=== PATIENT | male | born 1950 | race Caucasian/White ===

== ENCOUNTER → 2019-05-08 | Outpatient (REF) | payer MEDICARE | LOC: M SMT 16:42 | PROVIDERS: ATTEND Nurse Practitioner Family | DX: R97.20 Elevated prostate specific antigen [PSA] (principal) | CPT/HCPCS: 87086; G0463 ==

== ENCOUNTER 2019-10-24 07:45 | Day surgery (SDC) | payer MEDICARE ==
[~2019-10-24] VITALS: Ht 175.3 cm; Wt 90.7 kg
[~2019-10-24 07:45] MED LIST: ECOT81TA5 PO; LIDOCAINE 2% INJ 100 MG/5 ML SDV (FOR ANES.) As Ordered ONE; LR 1,000 ML IV SCH; OMEP-221 PO; PHENYLephrine HCL 500 MCG/5 ML (100MCG/ML) SYRINGE (J2370) As Ordered ONE; SIMV20TA22 PO; ePHEDrine SULFATE 25 MG/5 ML(5MG/ML) SYRINGE As Ordered ONE; propofoL 200 MG/20 ML VIAL As Ordered ONE
[2019-10-24] MEDS ORDERED: fentaNYL 100 MCG/2 ML INJECTION (J3010) As Ordered ONE (08:15)
[2019-10-24] MEDS ORDERED: dexameTHASONE 4 MG/ML 1ML VIAL (J1100) As Ordered ONE (08:47)
[2019-10-24] MEDS ORDERED: ONDANSETRON 4MG/2ML VIAL (J2405) As Ordered ONE (08:47)
[2019-10-24] MEDS ORDERED: LIDOCAINE 1% SDV INJ 30 ML VIAL As Ordered ONE (08:50)
[2019-10-24] MEDS ORDERED: BUPIVACAINE HCL 0.25% 30 ML VIAL As Ordered ONE (08:50)
[2019-10-24] MEDS ORDERED: propofoL 200 MG/20 ML VIAL As Ordered ONE (09:54)
[2019-10-24] MEDS ORDERED: PHENYLephrine HCL 500 MCG/5 ML (100MCG/ML) SYRINGE (J2370) As Ordered ONE (10:00)
[2019-10-24] MEDS ORDERED: ePHEDrine SULFATE 25 MG/5 ML(5MG/ML) SYRINGE As Ordered ONE (10:00)
[2019-10-24] MEDS ORDERED: ACETAMINOPHEN 1000MG 100ML IV BTL (OFIRMEV) (J0131 PER 10MG) As Ordered ONE (10:02)
[2019-10-24] MEDS ORDERED: KETOROLAC 30 MG/ML VIAL (J1885) IV PRN (10:30)
[2019-10-24] MEDS ORDERED: oxyCODONE 5MG TAB PO PRN (10:30)
[2019-10-24] MEDS ORDERED: LR 1,000 ML IV SCH (10:30)
[2019-10-24] MEDS ORDERED: ONDANSETRON 4MG/2ML VIAL (J2405) IV PRN (10:30)
--- NOTE | 2019-10-24 10:41 | ROOPDOC ---
[facility] Report Of Operation Report of Operation DATE OF PROCEDURE: 10/24/19 PREPROCEDURE DIAGNOSES: Elevated Prostate Specific Antigen (PSA). POSTPROCEDURE DIAGNOSES: Elevated PSA. PROCEDURE: Transrectal Ultrasound-guided Prostate Biopsy. SURGEON: Aarti Mccallum MD VEHICLE CHECK IN CLERK: None ANESTHESIA: Monitored Anesthesia Care (MAC). OPERATIVE INDICATIONS: This is a 69 year old male with an elevated PSA of 5.3, here for prostate biopsy. Due to him having a tight and painful anal stricture, it was recommended that his biopsy be done in the operating room. DESCRIPTION OF PROCEDURE: The patient was placed in the left lateral position. A transrectal ultrasound probe was placed into the rectum. A prostatic block was created with injection of 50% mixture of 1/4% Marcaine and 1% lidocaine below the left and right seminal vesicle each of the 5 mL. Then 12 core biopsies of the prostate were obtained using a disposable biopsy gun, 6 each from the right and 6 from the left, 2 from the base, 2 from the mid zone and 2 from the apex. There were no complications and the patient tolerated the procedure well and walked to the waiting room in stable condition. ESTIMATED BLOOD LOSS: Approximately 5 mL. COMPLICATIONS: None. SPECIMENS: Prostate biopsies. PLAN: The patient will follow up in 1-2 weeks to discuss pathology results. AARTI MCCALLUM MD Oct 24, 2019 10:41
[2019-10-24] MEDS ORDERED: ACETAMINOPHEN TAB 650MG DOSE (2X325MG) PO PRN (10:45)
[2019-10-24 10:48] VITALS: BP 151/76
--- NOTE | 2019-10-24 15:56 | REP ---
Prostate sonography: History: Elevated PSA. Guidance for prostate biopsy. Sonographic findings: Transrectal sonographic guidance is provided to Dr. Maguire who performed trans rectal ultrasound guided needle biopsy procedure . Electronically Signed by Ronny Saul MD 10/24/2019 10:30 A
== END 2019-10-24 11:12 | disposition home or self-care (01) ==
LOC: M SDC 07:45
PROVIDERS: ATTEND Urology
DX: C61 Malignant neoplasm of prostate (principal); I11.9 Hypertensive heart disease without heart failure; I25.10 Atherosclerotic heart disease of native coronary artery without angina pectoris; E78.5 Hyperlipidemia, unspecified; K62.4 Stenosis of anus and rectum; K21.9 Gastro-esophageal reflux disease without esophagitis; C63.1 Malignant neoplasm of spermatic cord; Z95.1 Presence of aortocoronary bypass graft; Z87.891 Personal history of nicotine dependence; Z79.899 Other long term (current) drug therapy; Z79.82 Long term (current) use of aspirin; Z85.09 Personal history of malignant neoplasm of other digestive organs
CPT/HCPCS: 55700; G0416; J0131; J1100; J2370; J2405; J3010

== ENCOUNTER 2019-11-26 10:52 | Day surgery (SDC) | payer MEDICARE ==
[~2019-11-26] VITALS: Ht 177.8 cm; Wt 89.4 kg
[~2019-11-26 10:52] MED LIST changes: +LIDOCAINE 1% MDV 20ML VIAL SQ PRN; -LIDOCAINE 2% INJ 100 MG/5 ML SDV (FOR ANES.) As Ordered ONE; +LR 1,000 ML IV ONE; -LR 1,000 ML IV SCH; -PHENYLephrine HCL 500 MCG/5 ML (100MCG/ML) SYRINGE (J2370) As Ordered ONE; +ceFAZolin SOD 2 GM in IV 1 EA IV ONE; -ePHEDrine SULFATE 25 MG/5 ML(5MG/ML) SYRINGE As Ordered ONE; -propofoL 200 MG/20 ML VIAL As Ordered ONE
[2019-11-26] MEDS ORDERED: fentaNYL 250 MCG/5 ML INJECTION (J3010) As Ordered ONE (12:06)
[2019-11-26] MEDS ORDERED: propofoL 200 MG/20 ML VIAL As Ordered ONE (12:06)
[2019-11-26] MEDS ORDERED: ROCURONIUM BROMIDE 50 MG/5 ML VIAL As Ordered ONE ×3 (12:06→17:01)
[2019-11-26] MEDS ORDERED: LIDOCAINE 2% 100MG/5ML SDV (FOR ANES.) As Ordered ONE (12:06)
[2019-11-26] MEDS ORDERED: MIDAZOLAM INJ 2MG/2ML VIAL (J2250 PER 1MG) As Ordered ONE (12:06)
[2019-11-26] MEDS ORDERED: NITR100C2 (12:07)
[2019-11-26] MEDS ORDERED: METO1TAB87 PO (12:07)
[2019-11-26] MEDS ORDERED: BUPIVACAINE HCL 0.25% 30ML VIAL As Ordered ONE (12:57)
[2019-11-26] MEDS ORDERED: LIDOCAINE 1% SDV 30ML VIAL As Ordered ONE (12:57)
[2019-11-26] MEDS ORDERED: SUCCINYLCHOLINE 100 MG/5 ML SYRINGE (J0330) As Ordered ONE (13:09)
[2019-11-26] MEDS ORDERED: HEPARIN SOD (PORCINE) 5000UNITS/ML VIAL (J1644 PER 1000UNITS) As Ordered ONE (13:23)
[2019-11-26] MEDS ORDERED: NS 1,000 ML IV SCH (13:31)
[2019-11-26] MEDS ORDERED: ONDANSETRON 4MG/2ML VIAL IV PRN ×2 (13:45→18:15)
[2019-11-26] MEDS ORDERED: MORPHINE 2 MG/ML 1ML VIAL (J2270) IV PRN (13:45)
[2019-11-26] MEDS ORDERED: PERCOCET 5MG/325MG TAB PO PRN ×2 (13:45)
[2019-11-26] MEDS ORDERED: ACETAMINOPHEN TAB 650MG DOSE (2X325MG) PO PRN (13:45)
[2019-11-26] MEDS ORDERED: LACRILUBE (AKWA TEARS) OPHTH OINT 3.5 GM As Ordered ONE (14:09)
[2019-11-26] MEDS ORDERED: ACETAMINOPHEN 1000MG 100ML IV BTL (OFIRMEV) (J0131 PER 10MG) As Ordered ONE (14:10)
[2019-11-26] MEDS ORDERED: KETOROLAC 60 MG/2 ML VIAL As Ordered ONE (14:10)
[2019-11-26] MEDS ORDERED: dexameTHASONE 4 MG/ML 1ML VIAL (J1100 PER 1MG) As Ordered ONE (14:10)
[2019-11-26] MEDS ORDERED: ONDANSETRON 4MG/2ML VIAL As Ordered ONE (14:10)
[2019-11-26] MEDS ORDERED: HYDROmorphone HCL 2 MG/ML 1ML VIAL (J1170) As Ordered ONE (14:57)
[2019-11-26] MEDS ORDERED: SUGAMMADEX SODIUM 500 MG/5 ML VIAL (BRIDION) As Ordered ONE (15:32)
[2019-11-26] MEDS ORDERED: ceFAZolin 2 GM/D5W 50 ML IV BAG (J0690 PER 500MG) As Ordered ONE (17:38)
[2019-11-26] MEDS ORDERED: fentaNYL 100 MCG/2 ML INJECTION (J3010) IV PRN (18:15)
[2019-11-26] MEDS ORDERED: oxyCODONE 5MG TAB PO PRN (18:15)
[2019-11-26] MEDS ORDERED: LR 1,000 ML IV SCH (18:15)
[2019-11-26] MEDS ORDERED: HYDROMORPHONE HCL 0.5 MG/ 0.5 ML SYRINGE (J1170 PER 1) IV PRN (18:15)
--- NOTE | 2019-11-26 18:18 | ROOPDOC ---
[facility] Report Of Operation Report of Operation DATE OF PROCEDURE: 11/26/19 PREPROCEDURE DIAGNOSES: Prostate Cancer. POSTPROCEDURE DIAGNOSES: Prostate Cancer. PROCEDURE: Robotic-assisted Laparoscopic Radical Prostatectomy, Laparoscopic Lysis of Adhesions. SURGEON: Aarti Mccallum MD CRITICAL CARE NURSE SPECIALIST: Lani Astudillo NP ANESTHESIA: General. OPERATIVE INDICATIONS: This is a 69 year old male with clinical T1c Rosendo 3+3 prostate cancer, here today for treatment. DESCRIPTION OF PROCEDURE: The patient was brought to the operating room and general anesthesia was induced. Prophylactic antibiotics were infused. He was then placed in the supine position and prepped and draped in the usual sterile fashion. At this point, a Jha catheter was inserted into the bladder and the balloon was filled with 10 mL of sterile water. We then made a midline incision just above the umbilicus for an 8 mm port. A Veress needle was utilized to achieve pneumoperitoneum. Next, an 8 mm port was inserted into the incision and subsequently a camera was inserted. There were no injuries from the Veress needle or initial trocar placement. Then three robotic ports were placed in the usual configuration in line just below the level of the umbilicus. A 12 mm optometrist assistant port was inserted lateral to the camera port. Of note, the patient had a moderate amount of bowel and omental adhesions to the anterior abdominal wall. Prior to docking the robot I spent approximately 30 minutes releasing these adhesions using laparasopic scissors. Once done, the robot was docked. Additional lysis of adhesions between the sigmoid colon and abdominal wall was then performed. The bladder was then released from the anterior abdominal wall using electrocautery. Once the bladder was dropped, the fat overlying the prostate was cleared using electrocautery. The superficial dorsal vein was controlled with electrocautery. The endopelvic fascia was opened on both sides and the dorsal venous complex was cleared. Next, a #0 Vicryl [id number] stitch was placed around the dorsal venous complex. Once that was done, the bladder was opened and dissected away from the prostate. At this point, the prostate was lifted up. The vasa deferentia were identified in the midline. They were controlled with electrocautery and then transected. The seminal vesicles were also dissected bilaterally. At this point I ligated and transected bilateral prostatic pedicles using the Harmonic scalpel. The pedicles were carried towards the apex. After taking care of the pedicles the dorsal venous complex was transected with electrocautery. The urethra was transected. The prostate was then mobilized off the rectum using cold scissors. At this point, we checked for hemostasis and it appeared very good. Once hemostasis was confirmed, I then moved on to perform the vesicourethral anastomosis. The vesicourethral anastomosis was performed in running fashion using a Quill stitch. Once this was done, the final #20-Filipino Jha catheter was placed. The balloon was filled with 15 mL of sterile water. Upon completion of the vesicourethral anastomosis, it was tested by filling the bladder with saline. The anastomosis appeared to be watertight. At this point, the prostate and seminal vesicles were placed in an Endo Catch bag for future retrieval. A Kvng-Zuleta drain was brought in through the left robotic port skin site and the drain was positioned anterior to the bladder. The robot was then undocked. A Jojo fascial closure device was utilized to place a #0 Vicryl suture through the fascia of the 12 mm optometrist assistant port. The drain was secured to the skin with #2-0 Ethilon suture. The prostate was then extracted from the camera port site after the skin was extended. The fascia in this incision was then closed with a running #0 Vicryl stitch. Next, all the remaining ports were removed and there did not appear to be any bleeding from any of the port sites. The previously placed #0 Vicryl free ties through the optometrist assistant port were then tied down and all incisions were irrigated. Last, all of the incisions were closed with running subcuticular #4-0 Monocryl sutures. Local anesthesia was applied. Dermabond was then applied to the incisions. This marked the conclusion of the procedure. The patient was then awakened from anesthesia and transported to the recovery room in stable condition. ESTIMATED BLOOD LOSS: 150 mL. COMPLICATIONS: None. SPECIMENS: Prostate and seminal vesicles. PLAN: The patient will be admitted to the hospital postoperatively, and he will likely be discharged home within the next 1-2 days. AARTI MCCALLUM MD Nov 26, 2019 18:18
[2019-11-26 18:27] LABS: HEMATOCRIT 44.6 % (42.0-52.0); HEMOGLOBIN 15.4 g/dl (13.5-17.5); MEAN CORPUSCULAR HEMOGLOBIN 29.9 pg (27.0-33.0); MEAN CORPUSCULAR HGB CONC 34.5 g/dl (32.0-36.5); MEAN CORPUSCULAR VOLUME 86.6 fl (80.0-96.0); PLATELET COUNT, AUTOMATED 255 10^3/uL (150-450); RED BLOOD COUNT 5.15 10^6/uL (4.30-6.10)
[2019-11-26 18:49] LABS: CALCIUM LEVEL 8.7 MG/DL (8.8-10.2); CREATININE FOR GFR 1.32 MG/DL (0.70-1.30); GLOMERULAR FILTRATION RATE 56.9 (>42); POTASSIUM SERUM 4.4 MEQ/L (3.5-5.1)
[2019-11-26 19:08] VITALS: BP 148/95
[2019-11-26 19:45] VITALS: BP 125/68
[2019-11-26 20:45] VITALS: BP 124/70
[2019-11-26] MEDS: ceFAZolin SOD 1 GM in D5W MINI-BAG PLUS 50 ML IV SCH (21:28)
[2019-11-26] MEDS: HEPARIN SOD (PORCINE) 5000UNITS/ML VIAL (J1644 PER 1000UNITS) SC SCH (21:28)
[2019-11-26] MEDS: DOCUSATE SODIUM 100 MG CAP PO SCH (21:28)
[2019-11-26 21:45] VITALS: BP 131/80
[2019-11-26 22:45] VITALS: BP 133/81
[2019-11-26 23:45] VITALS: BP 118/72
[2019-11-27 02:00] VITALS: BP 140/78
[2019-11-27] MEDS: HEPARIN SOD (PORCINE) 5000UNITS/ML VIAL (J1644 PER 1000UNITS) SC SCH (05:08)
[2019-11-27] MEDS: ceFAZolin SOD 1 GM in D5W MINI-BAG PLUS 50 ML IV SCH (05:09)
[2019-11-27 06:00] VITALS: BP 138/79
[2019-11-27 08:14] LABS: HEMATOCRIT 43.1 % (42.0-52.0); HEMOGLOBIN 15.2 g/dl (13.5-17.5); MEAN CORPUSCULAR HEMOGLOBIN 30.7 pg (27.0-33.0); MEAN CORPUSCULAR HGB CONC 35.3 g/dl (32.0-36.5); MEAN CORPUSCULAR VOLUME 87.1 fl (80.0-96.0); PLATELET COUNT, AUTOMATED 281 10^3/uL (150-450); RED BLOOD COUNT 4.95 10^6/uL (4.30-6.10); WHITE BLOOD COUNT 21.7 10^3/uL (4.0-10.0)
[2019-11-27 08:27] VITALS: BP 138/79
[2019-11-27] MEDS: DOCUSATE SODIUM 100 MG CAP PO SCH (08:27)
--- NOTE | 2019-11-27 08:41 | IPNPDOC ---
Subjective Review oF Systems Chief Complaint The patient is a 69-year-old male admitted with a reason for visit of Prostate Cancer. Events since Last Encounter No acute events o/n. Good pain control. No n/v. Has not ambulated yet. No f/c/ns. Objective Physical Examination General Exam: Alert, Cooperative, No Acute Distress ABDOMEN EXAM: Soft, Tenderness (minimal), Other (incisions clean/dry/intact; LAN draining serosanguinous output) Skin Exam: Nl turgor and temperature Other physical findings catheter draining light pink urine Vital Signs/I&O Vital Signs Date Time Temp Pulse Resp B/P (MAP) Pulse Ox O2 Delivery O2 Flow Rate FiO2 11/27/19 08:27 91 138/79 11/27/19 06:00 98.9 18 95 Room Air 11/26/19 21:28 2.0 I&O- Last 24 Hours up to 6 AM 11/27/19 06:00 Intake Total 2600 ml Output Total 855 ml Balance 1745 ml Laboratory Data Labs 24H Laboratory Tests 2 11/26/19 18:09: Nucleated Red Blood Cells % (auto) 0.0, Anion Gap 7L, Glomerular Filtration Rate 56.9, Calcium Level 8.7L 11/27/19 07:49: Nucleated Red Blood Cells % (auto) 0.0 CBC/BMP Laboratory Tests 11/26/19 18:09 11/27/19 07:49 Assessment/Plan Date Seen The patient was seen on 11/27/19. Patient Summary This is a 69 y/o M POD1 s/p RALP. He is doing well. Hb 15.4. Cr 1.3. Good UOP. Normal LAN output. Plan/VTE VTE Prophylaxis Ordered?: Yes VTE Exclusion Mechanical Proph: N/A:VTE Prophy Ordered VTE Exclusion Pharmacological: N/A:VTE Prophy Ordered Plan/Urinary Catheter Urinary Catheter: Other Catheter: (catheter needs to stay in for at least 7 days for healing of vesicourethral anastomosis) Plan - d/c IVF - percocet prn pain - cont home meds - ambulate - SCDs when in bed - SQH - incentive spirometry - advance diet as tolerated - likely discharge home later today w/ catheter in place (will remove LAN prior to discharge) AARTI MCCALLUM MD Nov 27, 2019 08:41
[2019-11-27 08:42] LABS: CALCIUM LEVEL 8.9 MG/DL (8.8-10.2); CREATININE FOR GFR 1.45 MG/DL (0.70-1.30); GLOMERULAR FILTRATION RATE 51.1 (>42); POTASSIUM SERUM 5.1 MEQ/L (3.5-5.1)
[2019-11-27] MEDS ORDERED: METOPROLOL TART 25 MG TABLET PO SCH (09:00)
[2019-11-27 10:00] VITALS: BP 142/80
[2019-11-27 14:00] VITALS: BP 155/81
[2019-11-27] MEDS ORDERED: PERCOCET PO (14:35)
[2019-11-27] MEDS ORDERED: CIPR-249 PO (14:35)
--- NOTE | 2019-11-27 15:33 | DSES ---
DATE OF ADMISSION: 11/26/2019 DATE OF DISCHARGE: 11/27/2019 ADMISSION DIAGNOSIS: Prostate cancer. DISCHARGE DIAGNOSIS: Prostate cancer. ADMITTING PHYSICIAN: Dr. Deny Maguire. DISCHARGE PHYSICIAN: Dr. Deny Maguire. PROCEDURE PERFORMED: Robotic assisted laparoscopic radical prostatectomy on 11/26/2019. HISTORY OF PRESENT ILLNESS: This is a 69-year-old male who was recently diagnosed with prostate cancer and he elected to undergo the above listed procedure for treatment. He was admitted to the hospital postoperatively. HOSPITAL COURSE: The patient was admitted to the hospital after undergoing the above listed procedure. His postoperative course was unremarkable. On postoperative day 1, all of his labs were within normal limits with the exception of his white blood cell count, which was elevated. This was attributed to an inflammatory response from his surgery. Of note, he remained afebrile during his hospital stay. His hemoglobin level remained stable at 15. He had very good urine output during his hospital stay and minimal output from his Kvng-Zuleta drain. He tolerated a regular diet on postoperative day 1 and had very good pain control. He also ambulated well without difficulty. Since he had minimal output from his Kvng-Zuleta drain, that was removed on postoperative day 1. He was deemed ready for discharge home with the plan for him to be discharged home with a catheter in place. He will followup in the urology clinic in 1 week for catheter removal and to discuss his pathology results. BING
[2019-11-27] MEDS ORDERED: SIMVASTATIN 20 MG TAB PO SCH (21:00)
== END 2019-11-27 16:10 | disposition home or self-care (01) ==
LOC: M SDC 10:52 → EDSTATUS 12:30 → M MS5PR 18:50 → M SDC 11-27 16:10
PROVIDERS: ATTEND Urology
DX: C61 Malignant neoplasm of prostate (principal); I25.10 Atherosclerotic heart disease of native coronary artery without angina pectoris; I10 Essential (primary) hypertension; K21.9 Gastro-esophageal reflux disease without esophagitis; L40.8 Other psoriasis; Z98.61 Coronary angioplasty status; Z79.82 Long term (current) use of aspirin; Z79.899 Other long term (current) drug therapy
CPT/HCPCS: 36415; 55866; 80048; 85027; 86850; 86900; 86901; 88309; 96365; 96366; 96372; J0131; J0330; J0690; J1100; J1170; J1644; J2250; J2405; J3010

== ENCOUNTER 2019-12-02 16:29 | Inpatient (IN) | payer MEDICARE ==
[~2019-12-02] VITALS: Ht 172.7 cm; Wt 93.7 kg
[~2019-12-02 16:29] MED LIST changes: +CIPR-249 PO; -LIDOCAINE 1% MDV 20ML VIAL SQ PRN; -LR 1,000 ML IV ONE; +METO1TAB87 PO; +NITR100C2; +PERCOCET PO; -ceFAZolin SOD 2 GM in IV 1 EA IV ONE
[2019-12-02] MEDS ORDERED: NS 1,000 ML IV ONE (17:00)
[2019-12-02] MEDS ORDERED: NS 1,730 ML in IV 1 EA IV ONE (17:15)
[2019-12-02] MEDS ORDERED: PIPERACILLIN/TAZOBACTAM SOD 4.5 GM in D5W MINI-BAG PLUS 50 ML IV ONE (17:15)
--- NOTE | 2019-12-02 17:49 | REP ---
Clinical: Sepsis/shock. Comparison: None . Findings: The mediastinum and cardiac silhouette are within normal limits for portable technique. Evidence of prior sternotomy noted. The lung mcdonough demonstrate chronic-appearing changes without acute consolidation, effusion, or pneumothorax. Skeletal structures are intact. Impression: No obvious acute process. No consolidation or effusion. Electronically Signed by Juan M Fisher MD 12/02/2019 05:41 P
[2019-12-02 18:02] LABS: HEMATOCRIT 46.6 % (42.0-52.0); HEMOGLOBIN 16.1 g/dl (13.5-17.5); MEAN CORPUSCULAR HEMOGLOBIN 30.4 pg (27.0-33.0); MEAN CORPUSCULAR HGB CONC 34.5 g/dl (32.0-36.5); MEAN CORPUSCULAR VOLUME 87.9 fl (80.0-96.0); PLATELET COUNT, AUTOMATED 411 10^3/uL (150-450); WHITE BLOOD COUNT 20.7 10^3/uL (4.0-10.0)
[2019-12-02 18:20] LABS: INR 1.29; PROTHROMBIN TIME 15.8 SECONDS (11.8-14.0)
--- NOTE | 2019-12-02 18:23 | REPVR ---
PROCEDURE INFORMATION: Exam: CT Abdomen And Pelvis Without Contrast Exam date and time: 12/02/2019 6:06 PM Age: 69 years old Clinical indication: Abdominal pain; Prior surgery; Surgery date: <1 month; Surgery type: 11/26/19 prostatectomy TECHNIQUE: Imaging protocol: Computed tomography of the abdomen and pelvis without contrast. Radiation optimization: All CT scans at this facility use at least one of these dose optimization techniques: automated exposure control; mA and/or kV adjustment per patient size (includes targeted exams where dose is matched to clinical indication); or iterative reconstruction. COMPARISON: US PROSTATE BIOPSY 10/24/2019 9:51 AM FINDINGS: Pleural space: Small dependent pleural effusions are present with adjacent consolidation/atelectasis. Liver: Noncontrast liver shows no obvious lesion. Gallbladder and bile ducts: Gallbladder is surgically absent. Pancreas: Noncontrast pancreas shows no obvious mass or adjacent fluid. Spleen: Noncontrast spleen shows no obvious focal deformity. Adrenals: Adrenal glands are normal in appearance. Kidneys and ureters: Kidneys demonstrate no hydronephrosis. Punctate nonobstructing upper pole right renal calculi are present. Stomach and bowel: Multiple dilated small bowel loops are present measuring up to 4.5 cm. Diverticular changes are present within the colon without inflammation. Partial colectomy changes and right proximal colon suture lines. Probable prior appendectomy Appendix: See "Stomach and bowel" finding. Intraperitoneal space: Pneumoperitoneum is present, moderate volume and intra-abdominal and pelvic free fluid is present, moderate in volume. Vasculature: Atherosclerotic change present in the aorta, without aneurysm. Lymph nodes: No enlarged lymph nodes. Bladder: Jha catheter is present within the bladder. Bones/joints: Degenerative changes are seen in the lumbar spine with disc height loss, endplate osteophytes and hypertrophic facet arthropathy. Soft tissues: Fat-containing right inguinal hernia is present. Other findings: Extremely limited study without IV or enteric contrast, limited by motion and streak artifact resulting from the patient being scanned with the arms at the sides of the body. IMPRESSION: 1. Pneumoperitoneum and abdominal and pelvic free fluid concerning for possible bowel perforation. Patient apparently had surgery 6 days ago. Underlying small bowel obstruction is suspected with multiple dilated mid abdominal small bowel loops. 2. Colonic diverticulosis without active inflammation. 3. Dependent bilateral pleural effusions and probable atelectasis. Electronically signed by: Esa Bruce On 12/02/2019 18:23:47 PM
[2019-12-02 18:34] LABS: ATYPICAL LYMPH 1 % (0-5); LYMPHOCYTES 13 % (16-44); METAMYELOCYTES 2 % (0-0); MONOCYTES 4 % (0-5); NEUTROPHILS 75 % (28-66)
[2019-12-02 18:36] LABS: PLATELET ESTIMATE INCREASED (NORMAL)
[2019-12-02 18:41] LABS: ALBUMIN 2.1 GM/DL (3.2-5.2); BILIRUBIN,DIRECT 0.5 MG/DL (0.0-0.2); BILIRUBIN,TOTAL 0.9 MG/DL (0.2-1.0); CALCIUM LEVEL 8.7 MG/DL (8.8-10.2); CK-MB VALUE MASS 3.4 NG/ML (<3.6); CREATININE FOR GFR 2.28 MG/DL (0.70-1.30); GLOMERULAR FILTRATION RATE 30.3 (>42); MB/CK RELATIVE INDEX 4.79 (< OR =4); TROPONIN I 0.03 NG/ML (< 0.10)
[2019-12-02 18:57] LABS: C REACTIVE PROTEIN QUANTITATIV 37.6 MG/DL (0.00-0.30)
[2019-12-02] MEDS ORDERED: LIDOCAINE 2% 5ML JELLY UROJET TOP ONE (19:00)
[2019-12-02 19:16] LABS: APPEARANCE, URINE CLOUDY (CLEAR); BACTERIA, URINE AUTO NEGATIVE (NEGATIVE); BILIRUBIN, URINE AUTO NEGATIVE (NEGATIVE); BLOOD, URINE BLOOD 3+ (NEGATIVE); COLOR, URINE AMBER (YELLOW); GLUCOSE, URINE (UA) AUTO 1+ mg/dL (NEGATIVE); KETONE, URINE AUTO NEGATIVE (NEGATIVE); LEUKOCYTE ESTERASE, URINE AUTO NEGATIVE (NEGATIVE); MUCUS, URINE SMALL (NEGATIVE); NITRITE, URINE AUTO NEGATIVE (NEGATIVE); PROTEIN, URINE AUTO 2+ mg/dL (NEGATIVE); RBC, URINE AUTO 160 /HPF (0-3); SPECIFIC GRAVITY URINE AUTO 1.021 (1.002-1.035); SQUAMOUS EPITHELIAL CELL UR AU 2 /HPF (0-6); WBC, URINE AUTO 13 /HPF (0-3)
[2019-12-02] MEDS ORDERED: METOPROLOL 5 MG/5 ML VIAL IV STA ×2 (20:23→22:03)
--- NOTE | 2019-12-02 21:49 | SMCUROLCON ---
Urology Consultation General Date of Consultation 12/02/19 Reason For Consultation This patient is seen for Post Op Complication. History of Present Illness This is a 69 y/o M w/ a PMH significant for CAD (s/p 3v CABG), R colon resection for "precancerous lesion", and prostate cancer s/p robotic-assisted laparoscopic radical prostatectomy (RALP) on 11/26/19, presenting to the hospital w/ abd distention and noting that he feels ill. Patient notes after discharge from the hospital last he felt well until Sunday. He notes he was passing flatus and tolerating PO through Sunday. On Sunday, he stopped passing flatus and began feeling more and more distended. Due to the distention and abd pain he came in to the ER. He notes that the output from the catheter had been normal until the last day or two as he was not drinking much. He notes feeling hot and cold at home but did not check his temperature. He denies n/v. He denies chest pain but has been short of breath today. Prior to me examining him an NG tube was placed and he notes that he feels a little better since then. Past Medical History Medical History see HPI Surgical Hstory 3v CABG R colon resection cholecystectomy L inguinal hernia repair RALP Allergies Allergies: Coded Allergies: No Known Allergies (Unverified , 11/11/19) Review of Systems Constitutional: Reports: Fever, Chills Skin: Denies: Rash, Lesions, Breakdown, Nail Changes Pulmonary: Reports: Dyspnea Cardiovascular: Denies Chest Pain, Denies Palpitations Gastrointestinal: Reports: Abdominal Pain, Constipation; Denies: Nausea, Vomiting, Diarrhea, Melena, Hematochezia, Other Symptoms Genitourinary: Reports: Hematuria (mild); Denies: Dysuria Musculoskeletal: Denies: Neck Pain, Back Pain, Shoulder Pain, Arm Pain, Hand Pain, Leg Pain, Foot Pain, Joint Pain, Muscle Pain, Spasms, Other Symptoms Psych: Reports: Mood Normal Physical Examination General Exam: Cooperative, No Acute Distress Chest Exam: Normal air movement Heart Exam: Tachycardic Abdomen Exam: Tenderness (mild), Other (distended and tympanic to percussion throughout; incisions healing well w/ no sign of infection) Male Exam catheter in place draining concentrated urine Skin Exam: Nl turgor and temperature Neuro Exam: Normal Speech Psych Exam: Mental status NL, Mood NL Vital Signs/I&O Vital Signs Date Time Temp Pulse Resp B/P (MAP) Pulse Ox O2 Delivery O2 Flow Rate FiO2 12/02/19 19:00 162 28 120/68 (85) 92 Room Air 12/02/19 18:21 97.8 Laboratory Data 24H Labs Laboratory Tests 2 12/02/19 17:46: Neutrophils (%) (Auto) , Nucleated Red Blood Cells % (auto) 0.1H, Neutrophils 75H, Band Neutrophils 5, Lymphocytes (Manual) 13L, Monocytes (Manual) 4, Metamyelocytes 2H, Atypical Lymphocytes 1, Platelet Estimate INCREASED, Prothrombin Time 15.8H, Prothromb Time International Ratio 1.29, Activated Partial Thromboplast Time 28.0, Anion Gap 20H, Glomerular Filtration Rate 30.3L, Lactic Acid Level 6.6*H, Calcium Level 8.7L, Total Bilirubin 0.9, Direct Bilirubin 0.5H, Aspartate Amino Transf (AST/SGOT) 45H, Alanine Aminotransferase (ALT/SGPT) 32, Alkaline Phosphatase 73, Total Creatine Kinase 71, Creatine Kinase MB 3.4, Creatine Kinase MB Relative Index 4.79H, Troponin I 0.03, C-Reactive Protein, Quantitative 37.60H, Total Protein 6.0L, Albumin 2.1L, Albumin/Globulin Ratio 0.54L, Amylase Level 212H 12/02/19 19:00: Urine Color CHRIS, Urine Appearance CLOUDYH, Urine pH 5.0, Urine Specific Coker 1.021, Urine Protein 2+H, Urine Glucose (Auto)(UA) 1+H, Urine Ketones (Auto) NEGATIVE, Urine Blood 3+H, Urine Nitrite NEGATIVE, Urine Bilirubin NEGATIVE, Urine Urobilinogen 4.0H, Urine Leukocyte Esterase (Auto) NEGATIVE, Urine WBC (Auto) 13H, Urine RBC (Auto) 160H, Urine Hyaline Casts (Auto) 20, Urine Bacteria (Auto) NEGATIVE, Urine Squamous Epithelial Cells 2, Urine Mucus (Auto) SMALL, Urine Sperm (Auto) CBC/BMP Laboratory Tests 12/02/19 17:46 Microbiology Microbiology 12/02/19 Blood Culture, Received Pending 12/02/19 Blood Culture, Received Pending Assessment This is a 69 y/o M POD6 s/p RALP, presenting w/ abd distention, pain, and poor PO intake. His WBC is 20.7 and lactic acid were 6.6 on presentation. His Cr is elevated to 2.3 from baseline of 1.3, likely 2/[address] is notable for dilated small bowel loops and a small fluid collection in the RLQ, concerning for ileus vs SBO and possible bowel perforation. His lactic acid is now trending down, 4.9 and he feels a little better. Plan - recommend admission to hospitalist service given patient's cardiac hx and tachycardia to 160s - continue broad spectrum abx - IVF hydration - NGT to suction - NPO - keep catheter to gravity drainage (do not remove given recent radical prostatectomy) - recommend repeat lactic acid at 2am - if patient worsens clinically this would indicate more likely bowel perforation and he would need to be taken for an exlap - will follow closely - patient discussed w/ Dr. Julio who has seen the patient and is following as well AARTI MCCALLUM MD Dec 02, 2019 20:16
[2019-12-02] MEDS ORDERED: CIPR500T3 PO (22:18)
[2019-12-02] MEDS ORDERED: NS 1,000 ML IV SCH (23:00)
[2019-12-03] VITALS (26 sets, daily range): BP systolic 105–169; BP diastolic 59–83; O2SAT 94–96
[2019-12-03] MEDS ORDERED: PIPERACILLIN/TAZOBACTAM SOD 3.375 GM in D5W MINI-BAG PLUS 50 ML IV SCH ×2
[2019-12-03] MEDS ORDERED: ZOSYN 3.375GM VIAL (J2543) As Ordered ONE (00:24)
[2019-12-03] MEDS ORDERED: METOPROLOL 5 MG/5 ML VIAL IV STA (00:47)
--- NOTE | 2019-12-03 01:40 | IPNPDOC ---
Text Note Date of Service The patient was seen on 12/03/19. NOTE Time of Service 1135PM Mr. Eastman is a 69-year-old with a history of RALP for prostate adenocarcinoma on November 26.fib, CHF?, CAD s/p tripple bypass, CKD, diverticulosis and hx of cholecystectomy who presented with complaints of abdominal pain, nausea without vomiting, along with fever and chills. 1. Sepsis possibly 2/2 perforated viscus / SBO + /- UTI Plan:admit to ICU /sepsis order set/ switch to cefazolin and metronidazole / switch to lactate ringers /f/u blood cx, UCx / Ofrimev PRN for fever / target MAP 65 to 70 / f/u Is and Os with target UOP of at least 0.5 ml/kg/H / target serum glucose 140-180 while acutely ill 2. Rapid Afib Uncontrolled rate likely 2/2 sepsis. [id number] score is at least 3 Plan: telemetry / rate control meds / hold off anticoagulant as he may need urgent surgery 3. SBO Plan: NPO / NG to suction / IVF replete lytes / f/u 4. Pneumoperitoneum Possibly post-op vs perforated viscus Plan: f/u w and 5. JENN on CKD JENN likey prerenal Plan: IVF/ ulytes for FENa / f/u renal US 7. Pure Anion Gap Metabolic Acidosis / Lactic acidosis - Plan: treat infection 8. Mild Transaminitis. Possibly shock liver. -Plan: trend LFTs 9. Chronic CAD - Plan: hold ASA & statin, metoprolol 10. Class 1 Obesity - Plan: f/u A1C, can f/u w PCP for sleep apnea screening and matrix plater referral DVT Px w SCDs rest per 's H&P VS,Fishbone, I+O VS, Fishbone, I+O Laboratory Tests 12/02/19 17:46 Vital Signs Date Time Temp Pulse Resp B/P (MAP) Pulse Ox O2 Delivery O2 Flow Rate FiO2 12/03/19 01:10 152 124/73 12/03/19 00:00 99.6 22 95 Room Air I&O- Last 24 Hours up to 6 AM 12/03/19 06:00 Intake Total 1905 ml Output Total 0 ml Balance 1905 ml LWANGA,RUSH MD Dec 03, 2019 01:40
[2019-12-03 01:58] LABS: HEMOGLOBIN A1c 6.3 %
--- NOTE | 2019-12-03 01:59 | HPEPDOC ---
General Date of Admission Dec 02, 2019 at 22:23 Date of Service: Dec 02, 2019 Attending Physician: RUSH BAEZA MD Chief Complaint The patient is a 69-year-old male admitted with a reason for visit of Jenn,Pneumoperitoneum,Rapid A-Fib,Sepsis,Transamini. History of Present Illness HPI: This is a 69-year-old male presenting for acute abdominal pain worsening since past after he underwent radical prostatectomy for prostate cancer. He reports he was tolerating by mouth intake well post-operatively, was discharged home and noted vague abdominal pressure that worsened since then. He has no associated nausea or vomiting, but has noticed decreased appetite and also no longer passing flatus or having a bowel movement since his discharge home. He denies any fever, but admits to chills. Denies any other complaints. Denies chest pain, shortness of breath, fever, wt loss, blood loss, rashes. Found in ER to be septic with WBC 20.3 with bandemia, lactate 6.6, JENN with Cr 2.28, CRP 37, and in what appears to be new-onset AFib, tachycardic in 150-160s. He received fluids per sepsis protocol, Zosyn x1, and IV Lopressor 5mg x2 doses. There was concern for perforation given free air noted on CT abd/pelvis, and pt was evaluated by General Surgery Dr. Julio & Urology Dr. Maguire in ER, found to have improving lactic acidosis with the above treatment, and recommended to be admitted for medical management and no surgery at this point. At bedside, he reports his pain is slightly better from prior days, and has no other complaints. 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 Admits decreased appetite, lack of flatus & BM since last week procedure. Admits abd pain & distension : Denies dysuria, hematuria, retention MSK: Denies new pains or weakness Neurologic: Denies new numbness/tingling PHYSICAL: General exam: A&Ox3, mild distress from abd pain, laying still in bed HEENT: NCAT, EOMI, dry mucous membranes, patent airway, neck supple. NGT in place with brown-green output Cardiac: tachycardic rate in 110s, irregular rhythm, normal S1 & S2, no murmurs Respiratory: CTAB, good air exchange, no w/r/r, breathing comfortable, speaking full sentences on room air Abdomen: distended and tense, hypoactive bowel sounds, tender to light palpation throughout, tender to movement, no rebound. Guarding present : Jha present with dark concentrated urine in bag without blood Extremity: 2+ radial and dorsalis pedis pulses, no edema or calf tenderness Skin: [place], warm, dry, no visible rash Msk: strength 5/5 x4, normal tone Neuro: normal speech, no focal deficits Psych: Normal mood and affect LABORATORY DATA, MICROBIOLOGY: Please see below. ASSESSMENT AND PLAN: This is 69 yo M recently underwent prostatectomy last week on 11/25 for prostate cancer, now presenting for abdominal pain, distension, lack of flatus & BM, decreased appetite gradually worsening since his discharge. Found to be in new A Afib RVR and septic with concern for possible perforation in abd. Sepsis possibly 2/2 intra-abd perf vs SBO vs ileus - Worsening abdominal pain and distention, decreased flatus, no bowel movement since prostatectomy 11/26/19 - Low-grade temps, chills, decreased appetite, white count 20, lactic acid 6.6, tachycardic and tachypneic - CT abdomen and pelvis: pneumoperitoneum and abdominal pelvic free fluid concerning for possible bowel perforation. Patient had surgery 6 days ago. Underlying small bowel obstruction is suspected with multiple dilated mid abdominal small bowel loops - Patient evaluated by Gen Surgery Dr. Julio and Urologist Dr. Maguire in the ER. Per surgeons, continue medical management and close monitoring on antibiotics. Leave Jha & NG tube in place - If he begins to decompensate, will take emergently to the OR, currently no surgical plans. - Continue IV Zosyn and sepsis protocol IV fluids. Blood cultures pending. Trend inflammatory markers - Continue NPO, on IVF, pain control New-onset Afib in RVR - No prior documented history of A. fib. Likely induced by acutely ill & septic state - [id number] = 1, due to age. Pt denies any other medical conditions for this criteria - Possibly may have HTN & DM. No other prior records are available. A1c is ordered - Follows normally with Cardiology at the [facility] in [place] for his Hx of CAD with stents - Given he is a high-risk patient, will likely benefit from therapeutic anticoagulation, but will currently only do prophylactic dosing due to possible OR - Risks and benefits discussed with patient, and he is aware and agreeable to his current medical plan of care JENN, possibly in setting of baseline CKD III - We do not have many prior renal functions to trend besides the ones from his recent operative labs last week at which point creatinine was 1.32 - Admission Cr 2.28. Likely prerenal due to dehydration and poor by mouth intake. Possibly also intrarenal due to recent urologic procedure - Hold nephrotoxins, continue IV fluids and reassess in a.m. labs. For the remainder of his chronic medical conditions listed above, home meds on hold for NPO status & concern for abdominal perf & possible OR. DVT prophylaxis: heparin sc CODE STATUS: discussed in depth; pt requesting FULL CODE. If unable to make medical decisions, he would like his to. DISPOSITION: admit to Hospitalist service. Gen Surgery & Urology following. Home Medications Scheduled Aspirin (Ecotrin) 81 Mg Tablet., 81 MG PO DAILY, (Reported) Ciprofloxacin HCl (Ciprofloxacin HCl) 500 Mg Tablet, 500 MG PO DAILY, (Reported) FILLED 11/27/19 FOR 7 DAYS Metoprolol Tartrate (Metoprolol Tartrate) 25 Mg Tablet, 25 MG PO BID, (Reported) Simvastatin (Simvastatin) 20 Mg Tablet, 20 MG PO QHS, (Reported) Scheduled PRN Omeprazole (Omeprazole) 40 Mg Capsule.dr, 40 MG PO DAILY PRN for HEARTBURN, (Reported) Allergies Coded Allergies: No Known Allergies (Unverified , 11/11/19) A-FIB/CHADSVASC A-FIB History Current/History of A-Fib/PAF?: Yes Current PO Anticoag Therapy: No Age/Risk Factor Scoring CHADSVASC: CHADSVASC Response (Comments) Value Age Risk Factor Age 65-74 years old 1 Gender Risk Factor Male 0 Hx of CHF No 0 Hx of HTN No 0 Hx of Stroke/TIA/or VTE No 0 Hx of Diabetes No 0 Hx of Vascular Disease No 0 Total 1 Vital Signs Vital Signs Date Time Temp Pulse Resp B/P (MAP) Pulse Ox O2 Delivery O2 Flow Rate FiO2 12/03/19 01:10 152 124/73 12/03/19 00:00 99.6 22 95 Room Air Laboratory Data Labs 24H Laboratory Tests 2 12/02/19 17:46: Neutrophils (%) (Auto) , Nucleated Red Blood Cells % (auto) 0.1H, Neutrophils 75H, Band Neutrophils 5, Lymphocytes (Manual) 13L, Monocytes (Manual) 4, Metamyelocytes 2H, Atypical Lymphocytes 1, Platelet Estimate INCREASED, Prothrombin Time 15.8H, Prothromb Time International Ratio 1.29, Activated Partial Thromboplast Time 28.0, Anion Gap 20H, Glomerular Filtration Rate 30.3L, Lactic Acid Level 6.6*H, Calcium Level 8.7L, Total Bilirubin 0.9, Direct Bilirubin 0.5H, Aspartate Amino Transf (AST/SGOT) 45H, Alanine Aminotransferase (ALT/SGPT) 32, Alkaline Phosphatase 73, Total Creatine Kinase 71, Creatine Ki nase MB 3.4, Creatine Kinase MB Relative Index 4.79H, Troponin I 0.03, C- Reactive Protein, Quantitative 37.60H, Total Protein 6.0L, Albumin 2.1L, Albumin/Globulin Ratio 0.54L, Amylase Level 212H 12/02/19 19:00: Urine Color CHRIS, Urine Appearance CLOUDYH, Urine pH 5.0, Urine Specific [place] 1.021, Urine Protein 2+H, Urine Glucose (Auto)(UA) 1+H, Urine Ketones (Auto) NEGATIVE, Urine Blood 3+H, Urine Nitrite NEGATIVE, Urine Bilirubin NEGATIVE, Urine Urobilinogen 4.0H, Urine Leukocyte Esterase (Auto) NEGATIVE, Urine WBC (Auto) 13H, Urine RBC (Auto) 160H, Urine Hyaline Casts (Auto) 20, Urine Bacteria (Auto) NEGATIVE, Urine Squamous Epithelial Cells 2, Urine Mucus (Auto) SMALL, Urine Sperm (Auto) 12/02/19 20:52: Lactic Acid Level 4.9*H CBC/BMP Laboratory Tests 12/02/19 17:46 Microbiology Microbiology 12/02/19 Blood Culture, Received Pending 12/02/19 Blood Culture, Received Pending Plan / VTE VTE Prophylaxis Ordered?: Yes GME ATTESTATION GME ATTESTATION My faculty preceptor for this patient encounter was physically present during the encounter and was fully available. All aspects of the patient interview, examination, medical decision making process, and medical care plan development were reviewed and approved by the faculty preceptor. The faculty preceptor is aware and concurs with the plan as stated in the body of this note and will attest to such by his/her cosignature. ATTENDING NOTE Pls see my addendum dated 12/02/19 I reviwed the note agree with the findings as documented in 's H&P. YARI RAMIREZ DO Dec 03, 2019 01:58 RUSH BAEZA MD Dec 03, 2019 05:05
[2019-12-03] MEDS ORDERED: NS 0.45% 1,000 ML IV SCH (02:15)
[2019-12-03] MEDS: metroNIDAZOLE 500 MG in IV 1 EA IV SCH ×3 (02:51→17:14)
[2019-12-03 03:22] LABS: SODIUM,RANDOM URINE < 10 MEQ/L; UREA NITROGEN RANDOM URINE 1409 MG/DL
[2019-12-03] MEDS ORDERED: ceFAZolin SOD 2 GM in IV 1 EA IV SCH (04:00)
[2019-12-03] MEDS ORDERED: METOPROLOL 5 MG/5 ML VIAL IV SCH (05:00)
[2019-12-03 06:23] LABS: VENOUS BASE EXCESS -3.1 (-2.0-2.0); VENOUS HCO3 20.6 MEQ/L (23.0-27.0); VENOUS O2 SATURATION 80.4 % (60.0-80.0); VENOUS PARTIAL PRESSURE CO2 33.3 mmHg (38.0-50.0); VENOUS PARTIAL PRESSURE O2 49.6 mmHg (30.0-50.0); VENOUS STANDARD HCO3 21.5 MEQ/L; VENOUS TOTAL CO2 21.7 MEQ/L (24.0-28.0)
[2019-12-03 06:29] LABS: HEMATOCRIT 41.1 % (42.0-52.0); MEAN CORPUSCULAR HEMOGLOBIN 29.5 pg (27.0-33.0); MEAN CORPUSCULAR HGB CONC 33.6 g/dl (32.0-36.5); MEAN CORPUSCULAR VOLUME 87.8 fl (80.0-96.0); PLATELET COUNT, AUTOMATED 368 10^3/uL (150-450); RED BLOOD COUNT 4.68 10^6/uL (4.30-6.10); WHITE BLOOD COUNT 21.7 10^3/uL (4.0-10.0)
[2019-12-03 06:34] LABS: HEMOGLOBIN 13.8 g/dl (13.5-17.5)
[2019-12-03 06:54] LABS: ALBUMIN 1.7 GM/DL (3.2-5.2); BILIRUBIN,TOTAL 0.6 MG/DL (0.2-1.0); CALCIUM LEVEL 7.7 MG/DL (8.8-10.2); CK-MB VALUE MASS 5.7 NG/ML (<3.6); CREATININE FOR GFR 1.87 MG/DL (0.70-1.30); GLOMERULAR FILTRATION RATE 38.1 (>42); MB/CK RELATIVE INDEX 6.33 (< OR =4); POTASSIUM SERUM 3.9 MEQ/L (3.5-5.1); TOTAL PROTEIN 5.2 GM/DL (6.4-8.2); TROPONIN I 0.14 NG/ML (< 0.10)
[2019-12-03] MEDS ORDERED: AMIODARONE HCL 150 MG in IV 1 EA IV ONE (07:00)
[2019-12-03 07:19] LABS: LYMPHOCYTES 6 % (16-44); METAMYELOCYTES 1 % (0-0); MONOCYTES 3 % (0-5); MYELOCYTES 1 % (0-0); NEUTROPHILS 86 % (28-66)
[2019-12-03 07:20] LABS: ANISOCYTOSIS 1+; OVALOCYTES 1+; PLATELET ESTIMATE NORMAL (NORMAL); POLYCHROMASIA 1+
[2019-12-03] MEDS: NS 1,000 ML IV SCH ×3 (07:30→17:14)
[2019-12-03] MEDS: CIPROFLOXACIN 400 MG in IV 1 EA IV SCH ×2 (07:33→21:05)
--- NOTE | 2019-12-03 07:38 | IPNPDOC ---
Subjective Review oF Systems Chief Complaint The patient is a 69-year-old male admitted with a reason for visit of Andrés,Pneumoperitoneum,Rapid A-Fib,Sepsis,Transamini. Events since Last Encounter No acute events o/n. Patient notes his SOB has improved and feels a little better. Had low grade fevers o/n. No flatus or bm. Objective Physical Examination General Exam: Alert, Cooperative, No Acute Distress Chest Exam: Normal air movement Heart Exam: Positive: Tachycardic ABDOMEN EXAM: Other (distended, abdomen tympanic, more tender this morning; incisions w/ no erythema or drainage) Neuro Exam: Normal Speech Psych Exam: Mental status NL, Mood NL Other physical findings NG tube w/ small amount of bilious output; catheter draining yellow urine Vital Signs/I&O Vital Signs Date Time Temp Pulse Resp B/P (MAP) Pulse Ox O2 Delivery O2 Flow Rate FiO2 12/03/19 06:00 99.2 128 20 136/64 (88) 95 Nasal Cannula 2.0 I&O- Last 24 Hours up to 6 AM 12/03/19 06:00 Intake Total 1905 ml Output Total 800 ml Balance 1105 ml Laboratory Data Labs 24H Laboratory Tests 2 12/02/19 17:46: Neutrophils (%) (Auto) , Nucleated Red Blood Cells % (auto) 0.1H, Neutrophils 75H, Band Neutrophils 5, Lymphocytes (Manual) 13L, Monocytes (Manual) 4, Metamyelocytes 2H, Atypical Lymphocytes 1, Platelet Estimate INCREASED, Prothrom bin Time 15.8H, Prothromb Time International Ratio 1.29, Activated Partial Thromboplast Time 28.0, Anion Gap 20H, Glomerular Filtration Rate 30.3L, Lactic Acid Level 6.6*H, Calcium Level 8.7L, Total Bilirubin 0.9, Direct Bilirubin 0.5H, Aspartate Amino Transf (AST/SGOT) 45H, Alanine Aminotransferase (ALT/SGPT) 32, Alkaline Phosphatase 73, Total Creatine Kinase 71, Creatine Kinase MB 3.4, Creatine Kinase MB Relative Index 4.79H, Troponin I 0.03, C-Reactive Protein, Quantitative 37.60H, Total Protein 6.0L, Albumin 2.1L, Albumin/Globulin Ratio 0.54L, Amylase Level 212H 12/02/19 19:00: Urine Color CHRIS, Urine Appearance CLOUDYH, Urine pH 5.0, Urine Specific [place] 1.021, Urine Protein 2+H, Urine Glucose (Auto)(UA) 1+H, Urine Ketones (Auto) NEGATIVE, Urine Blood 3+H, Urine Nitrite NEGATIVE, Urine Bilirubin NEGATIVE, Urine Urobilinogen 4.0H, Urine Leukocyte Esterase (Auto) NEGATIVE, Urine WBC (Auto) 13H, Urine RBC (Auto) 160H, Urine Hyaline Casts (Auto) 20, Urine Bacteria (Auto) NEGATIVE, Urine Squamous Epithelial Cells 2, Urine Mucus (Auto) SMALL, Urine Sperm (Auto) 12/02/19 20:52: Lactic Acid Level 4.9*H 12/03/19 01:25: Estimated Mean Plasma Glucose 134H, Hemoglobin A1c 6.3, Lactic Acid Followup at 4 Hours 3.8*H, Thyroid Stimulating Hormone (TSH) 1.940 12/03/19 02:30: Urine Random Creatinine 100.0, Urine Random Sodium < 10, Urine Random Urea Nitrogen 1409 12/03/19 06:08: Neutrophils (%) (Auto) , Nucleated Red Blood Cells % (auto) 0.1H, Neutrophils 86H, Band Neutrophils 3, Lymphocytes (Manual) 6L, Monocytes (Manual) 3, Metamyelocytes 1H, Myelocytes 1H, Polychromasia 1+, Anisocytosis 1+, Ovalocytes 1+, Platelet Estimate NORMAL, Fibrinogen 1198H, Blood Gas Bicarbonate Standard 21.5, Venous Blood pH 7.410, Venous Blood Partial Pressure CO2 33.3L, Venous Blood Partial Pressure O2 49.6, Venous Blood Total Carbon Dioxide 21.7L, Venous Blood HCO3 20.6L, Venous Blood Oxygen Saturation 80.4H, Venous Blood Base Excess -3.1L, Anion Gap 11, Glomerular Filtration Rate 38.1L, Lactic Acid Level 3.7*H, Calcium Level 7.7L, Magnesium Level 3.0H, Total Bilirubin 0.6, Aspartate Amino Transf (AST/SGOT) 42H, Alanine Aminotransferase (ALT/SGPT) 26, Alkaline Phosphatase 58, Total Creatine Kinase 90, Creatine Kinase MB 5.7H, Creatine Kinase MB Relative Index 6.33H, Troponin I 0.14#H, Total Protein 5.2L, Albumin 1.7L, Albumin/Globulin Ratio 0.49L CBC/BMP Laboratory Tests 12/02/19 17:46 12/03/19 06:08 Microbiology Microbiology 12/02/19 Urine Culture, Received Pending 12/02/19 Blood Culture, Received Pending 12/02/19 Blood Culture, Received Pending Assessment/Plan Date Seen The patient was seen on 12/03/19. Patient Summary This is a 69 y/o M POD7 s/p RALP, presenting w/ abd distention, pain, and poor PO intake. WBC still elevated at 21. Lactic acid down some but still elevated at 3.7. Plan/VTE VTE Prophylaxis Ordered?: Yes VTE Exclusion Mechanical Proph: N/A:VTE Prophy Ordered Plan - patient seen and discussed w/ Dr. Julio - plan for ex lap this morning - NG tube to suction - keep catheter to gravity drainage - broad spectrum abx - NPO - plan for OR soon AARTI MCCALLUM MD Dec 03, 2019 07:38
[2019-12-03] MEDS ORDERED: BUPIVACAINE/EPIN 0.25% 30 ML VIAL As Ordered ONE (07:42)
--- NOTE | 2019-12-03 08:30 | IPNPDOC ---
Text Note Date of Service The patient was seen on 12/03/19. NOTE SUBJECTIVE: 69 y/o Male s/p Davinci prostatectomy on 11/25 presented last night with 6 day history of worsening abdominal pressure, intermittent fevers/chills, obstipation and diagnosed with sepsis 2/2 SBO and abdominal perforation. Urology and general surgery are consulted and are planning to take patient to the OR this AM. On admission the patient went into new onset Afib, which continues this morning. Patient seen at bedside in PACU/ICU and complains of ongoing abdominal pressure. He currently denies any fever, chills, chest pain, chest pressure, difficulty breathing, nausea, vomiting. General surgery and urology to take patient to OR this AM. OBJECTIVE: PHYSICAL EXAM: Vitals: (see below) General: Patient lying in bed in mild distress with increased work of breathing. HEENT: Normocephalic, atraumatic. EOMI. No scleral icterus. Moist mucous membranes. No pharyngeal erythema or uvular deviation. NGT in place with green output. Neck: No JVD, lymphadenopathy, or thyromegaly. Cardiac: Irregular rate and rhythm, Normal S1 and S2, No murmurs, gallops, rubs. Pulm: Clear to auscultation b/l. Symmetric thorax. No wheezing, crackles, rhonchi Abd: Hypoactive bowel sounds. Abdomen is tense, mildly tender to light palpation, mildly distended. No guarding, rebound tenderness, or rigidity. No hepatosplenomegaly. Abdominal scars in place from prior surgery. Ext: No edema or cyanosis Neuro: No focal neuro deficits LABORATORY DATA, MICROBIOLOGY: Please see below. IMAGING STUDIES: ASSESSMENT AND PLAN: This is 69 yo M recently underwent prostatectomy last week on 11/25 for prostate cancer, now presenting for abdominal pain, distension, lack of flatus & BM, decreased appetite gradually worsening since his discharge. Found to be in new A Afib RVR and septic with concern for possible perforation in abd. #. Sepsis 2/2 intra-abd perf and SBO - OR this am for exlap with Gen surg and urology. - Will continue with empiric, rather than prophylactic abx coverage with cipro/flagyl. Blood cultures pending. - DC 1/2NS, starting NS, attending agrees with fluid selection - Further surgical management per surgery and urology, recommendations appreciated. Jha and NG tube reccs per surgery. #. New-onset Afib w/ RVR - Given age, hx of CAD (vascular disease), CHADVASC of 2. This is likely from his sepsis. No hx of CHF, HTN, DM. - Given this is from a possibly reversible etiology, will hold off on AC initiation especially in light of his surgery as he should likely be on a heparin drip. Will continue to monitor on telemetry to see if he converts to NSR. -Will delay rate vs. rhythm control until after OR. If further need to initiate amiodarone, should initiate 24 hr protocol for amiodarone #. Elevated troponins w/ hx of CAD and triple bypass -Likely demand ischemia and reduced renal clearance. - Nuclear stress test done at Dr. Guardado's office 2 weeks prior to prostatectomy was normal per Dr. Guardado - Will trend to peak troponin, EKG if anginal symptoms #. Acute on chronic Renal failure - Fena showing pre-renal etiology, also poor po intake, and physical exam showing dehydration. Continue with IVF hydration as above. Hold nephrotoxic agents. - Baseline Cr 1.32 DVT prophylaxis: per surgical recommendations, teds/seqs CODE STATUS: discussed in depth; pt requesting FULL CODE. If unable to make medical decisions, he would like his to. Attending attestation: I evaluated and examined the patient in person; I discussed the care with Reside nt in detail and agree with the plan above. VS,Fishbone, I+O VS, Fishbone, I+O Laboratory Tests 12/02/19 17:46 12/03/19 06:08 Vital Signs Date Time Temp Pulse Resp B/P (MAP) Pulse Ox O2 Delivery O2 Flow Rate FiO2 12/03/19 07:45 2.0 12/03/19 06:00 99.2 128 20 136/64 (88) 95 Nasal Cannula I&O- Last 24 Hours up to 6 AM 12/03/19 06:00 Intake Total 1905 ml Output Total 800 ml Balance 1105 ml GME ATTESTATION GME ATTESTATION My faculty preceptor for this patient encounter was physically present during the encounter and was fully available. All aspects of the patient interview, examination, medical decision making process, and medical care plan development were reviewed and approved by the faculty preceptor. The faculty preceptor is aware and concurs with the plan as stated in the body of this note and will attest to such by his/her cosignature. RAYMON CLARK DO Dec 03, 2019 08:30 NATHAN EAST MD December 09, 2019 18:38
--- NOTE | 2019-12-03 08:32 | IPNPDOC ---
Text Note Date of Service The patient was seen on 12/03/19. NOTE No acute events overnight. Denies any fevers, chills, or cough. He has had mi nimal output from the NGT, and his abdomen is still tense and tender. VSSAF NAD abd - distended, TTP diffuse with rebound and guarding labs - below A) 69y/o male s/p robotic prostatectomy last week with peritonits, sepsis, and free air on CT P) He has not had any improvement overnight both with his labs and his physical exam. Recommendation is to proceed with exploratory surgery to rule out a bowel injury. I have explained the possible risks of the procedure with him, and he has signed consent. Dr. Maguire is aware, and will be assisting me with this. Further recommendations to follow. Micah Julio DO VS,Sunil, I+O VS, Sunil, I+O Laboratory Tests 12/02/19 17:46 12/03/19 06:08 Vital Signs Date Time Temp Pulse Resp B/P (MAP) Pulse Ox O2 Delivery O2 Flow Rate FiO2 12/03/19 07:45 2.0 12/03/19 06:00 99.2 128 20 136/64 (88) 95 Nasal Cannula I&O- Last 24 Hours up to 6 AM 12/03/19 06:00 Intake Total 1905 ml Output Total 800 ml Balance 1105 ml ZAIRE JULIO DO Dec 03, 2019 08:32
[2019-12-03] MEDS ORDERED: HEPARIN SOD (PORCINE) 5000UNITS/ML VIAL (J1644 PER 1000UNITS) SQ SCH (09:00)
[2019-12-03] MEDS ORDERED: dexameTHASONE 4 MG/ML 1ML VIAL (J1100 PER 1MG) As Ordered ONE (09:04)
[2019-12-03] MEDS ORDERED: ONDANSETRON 4MG/2ML VIAL As Ordered ONE (09:04)
[2019-12-03] MEDS ORDERED: LIDOCAINE 2% 100MG/5ML SDV (FOR ANES.) As Ordered ONE (09:04)
[2019-12-03] MEDS ORDERED: ETOMIDATE INJ 20MG/10ML VIAL As Ordered ONE (09:04)
[2019-12-03] MEDS ORDERED: fentaNYL 250 MCG/5 ML INJECTION (J3010) As Ordered ONE (09:04)
[2019-12-03] MEDS ORDERED: propofoL 200 MG/20 ML VIAL As Ordered ONE (09:04)
[2019-12-03] MEDS ORDERED: MIDAZOLAM INJ 2MG/2ML VIAL (J2250 PER 1MG) As Ordered ONE (09:04)
[2019-12-03] MEDS ORDERED: ROCURONIUM BROMIDE 50 MG/5 ML VIAL As Ordered ONE ×2 (09:04→09:48)
[2019-12-03] MEDS ORDERED: SUCCINYLCHOLINE 100 MG/5 ML SYRINGE (J0330) As Ordered ONE (09:05)
[2019-12-03] MEDS ORDERED: ACETAMINOPHEN 1000MG 100ML IV BTL (OFIRMEV) (J0131 PER 10MG) As Ordered ONE (09:12)
[2019-12-03] MEDS ORDERED: SUGAMMADEX SODIUM 500 MG/5 ML VIAL (BRIDION) As Ordered ONE (10:09)
[2019-12-03] MEDS ORDERED: metroNIDAZOLE/NACL 500MG(5MG/ML) 100ML BAG (S0030) As Ordered ONE (10:35)
[2019-12-03] MEDS ORDERED: fentaNYL 100 MCG/2 ML INJECTION (J3010) As Ordered ONE (11:00)
[2019-12-03] MEDS: fentaNYL 100 MCG/2 ML INJECTION (J3010) IV PRN ×4 (11:01→11:16)
[2019-12-03] MEDS ORDERED: ONDANSETRON 4MG/2ML VIAL IV PRN (11:15)
[2019-12-03] MEDS ORDERED: LR 1,000 ML IV SCH (11:15)
[2019-12-03] MEDS ORDERED: METOCLOPRAMIDE INJ 10MG/2ML VIAL (J2765 PER 1) IV PRN (11:15)
[2019-12-03] MEDS ORDERED: MORPHINE 10 MG/ML 1ML VIAL (J2270) As Ordered ONE (11:39)
[2019-12-03] MEDS: MORPHINE 2 MG/ML 1ML VIAL (J2270) IV PRN ×4 (11:41→12:13)
[2019-12-03] MEDS ORDERED: NS 1,000 ML IV ONE (12:30)
--- NOTE | 2019-12-03 16:40 | ECGEPIP ---
[facility] - ED Test Date: 2019-12-02 Pat Name: MERCEDEZ ZAPATA Department: Room: - Gender: Male Legal Services Manager: pravin rush : [id number] Requested By: IVONNE Mcbride Order Number: [id number] Reading MD: Jackie Sears Measurements Intervals Frederica Rate: 163 P: NC: 0 QRS: 14 QRSD: 92 T: 5 QT: 264 QTc: 436 Interpretive Statements ATRIAL FIBRILLATION WITH RAPID VENTRICULAR RESPONSE ABNORMAL RHYTHM ECG NSTTW abnormalities NO PRIOR Electronically Signed on 12-03-2019 16:39:51 EDT by Jackie Sears
--- NOTE | 2019-12-03 19:16 | REPVR ---
PROCEDURE INFORMATION: Exam: US Retroperitoneal Limited, Kidneys Exam date and time: 12/03/2019 6:30 PM Age: 69 years old Clinical indication: Abnormal findings; Abnormal lab test; Abnormal kidney function lab tests; Additional info: Andrés on ckd TECHNIQUE: Imaging protocol: Real-time ultrasound of the retroperitoneum with image documentation. Examination was focused on the kidneys. COMPARISON: CT ABD PELVIS W/O CONTRAST 12/02/2019 5:52 PM FINDINGS: Right kidney: Right kidney measures 11.8 x 4.4 x 4.9 cm. Renal sinus lipomatosis. Left kidney: Left kidney measures 11.3 x 6.2 x 5.6 cm. Renal sinus lipomatosis. Bladder: Bladder contracted due to the presence of a Jha catheter and as such not evaluated. IMPRESSION: Unremarkable examination. Electronically signed by: Dorian Kelly On 12/03/2019 19:16:12 PM
[2019-12-03] MEDS: HYDROCORTISONE 1% CREAM 30 GM TOP SCH (20:30)
[2019-12-04] VITALS (17 sets, daily range): BP systolic 140–179; BP diastolic 68–84; O2SAT 94–97
[2019-12-04] MEDS: NS 1,000 ML IV SCH ×3 (00:05→17:57)
[2019-12-04] MEDS: metroNIDAZOLE 500 MG in IV 1 EA IV SCH ×3 (02:02→18:21)
[2019-12-04] MEDS ORDERED: PANTOPRAZOLE 40MG VIAL (C9113 PER 1) IV ONE (04:15)
[2019-12-04 06:36] LABS: HEMATOCRIT 40.3 % (42.0-52.0); MEAN CORPUSCULAR HEMOGLOBIN 30.6 pg (27.0-33.0); MEAN CORPUSCULAR HGB CONC 34.7 g/dl (32.0-36.5); MEAN CORPUSCULAR VOLUME 88.2 fl (80.0-96.0); PLATELET COUNT, AUTOMATED 358 10^3/uL (150-450); RED BLOOD COUNT 4.57 10^6/uL (4.30-6.10)
[2019-12-04 06:59] LABS: LYMPHOCYTES 4 % (16-44); METAMYELOCYTES 2 % (0-0); MONOCYTES 7 % (0-5); MYELOCYTES 1 % (0-0); NEUTROPHILS 86 % (28-66); PLATELET ESTIMATE NORMAL (NORMAL)
[2019-12-04 07:00] LABS: POLYCHROMASIA 1+
[2019-12-04 07:02] LABS: ALBUMIN 1.6 GM/DL (3.2-5.2); BILIRUBIN,TOTAL 0.7 MG/DL (0.2-1.0); CALCIUM LEVEL 7.4 MG/DL (8.8-10.2); CREATININE FOR GFR 1.43 MG/DL (0.70-1.30); GLOMERULAR FILTRATION RATE 51.9 (>42); TOTAL PROTEIN 5.3 GM/DL (6.4-8.2)
--- NOTE | 2019-12-04 07:56 | ECHO ---
DATE OF STUDY: 12/03/2019 REFERRING PHYSICIAN: Dr. Redding INDICATION: Cardiac dysrhythmias unspecified. HEIGHT: 173 cm. WEIGHT: 91 kg. 2-D MEASUREMENTS: Aortic root: 3.6 cm Left atrium: 3.9 cm Aortic annulus: 2.3 cm Ventricular septum: 1.01 cm Posterior wall: 1.17 cm Left ventricle diastole: 5.35 cm DOPPLER MEASUREMENTS: No aortic stenosis. No aortic regurgitation. Aortic valve velocity: 113 cm/sec LVOT velocity: 64.6 cm/sec Trace mitral regurgitation No mitral stenosis Mitral E velocity: 57.0 cm/sec Mitral A velocity: 77.1 cm/sec Mitral deceleration time: 172 ms Mild tricuspid regurgitation Estimated right ventricle systolic pressure 36-41 mmHg assuming a right atrial pressure of 5-10 mmHg No pulmonic regurgitation Pulmonary artery acceleration time: 66 ms MITRAL ANNULAR TISSUE DOPPLER: E prime septal: 6.7 cm/sec E prime lateral: 7.4 cm/sec DESCRIPTION: The rhythm was sinus. This was a moderately technically difficult echocardiogram. No pericardial effusion. This was a 2-D, M-mode, color flow Doppler and pulse wave Doppler examination and included mitral annular tissue Doppler. CONCLUSIONS: 1. Normal left ventricle internal dimensions. Normal regional LV wall motion and wall thickening. Normal LV systolic function. LVEF 60% by visual estimate. Grade 1 LV diastolic dysfunction. 2. Suggestive of mild-moderate elevation of estimated right ventricle systolic pressure. Mild mitral regurgitation. Normal right ventricle size and systolic function. Right atrium appeared normal in size. 3. Mild aortic valve sclerosis with a 3-cuspid aortic valve. No aortic stenosis or regurgitation. 4. Moderately technically difficult echocardiogram. 5. Otherwise normal appearing echocardiogram Doppler findings.
--- NOTE | 2019-12-04 08:35 | IPNPDOC ---
Text Note Date of Service The patient was seen on 12/04/19. NOTE No acute events overnight. Denies any fevers, chills, or cough. He still feels very warm, and his abdomen is very distended and tender. He does feel a lot of gurgling in the abdomen that is new. VSSAF NAD abd - distended, TTP diffuse with rebound and guarding, dressing c/d/i, ostomy is pink with sweat in the bag labs - below A) 69y/o male s/p robotic prostatectomy last week with peritonits, sepsis, and free air on CT POD#1 s/p ex lap with abd washout and diverting colostomy for rectal perforation. P) ice and water IVF abx ambulate pain control IS monitor labs Micah Julio DO VS,Sunil, I+O VS, Sunil, I+O Laboratory Tests 12/04/19 06:21 Vital Signs Date Time Temp Pulse Resp B/P (MAP) Pulse Ox O2 Delivery O2 Flow Rate FiO2 12/04/19 07:42 96.8 95 18 152/77 (102) 96 Nasal Cannula 2.0 I&O- Last 24 Hours up to 6 AM 12/04/19 06:00 Intake Total 5915 ml Output Total 2455 ml Balance 3460 ml ZAIRE JULIO DO Dec 04, 2019 08:35
[2019-12-04] MEDS: CIPROFLOXACIN 400 MG in IV 1 EA IV SCH ×2 (08:37→20:06)
[2019-12-04] MEDS: HYDROCORTISONE 1% CREAM 30 GM TOP SCH (08:38)
--- NOTE | 2019-12-04 08:49 | IPNPDOC ---
Subjective Review oF Systems Chief Complaint The patient is a 69-year-old male admitted with a reason for visit of Andrés,Pneumoperitoneum,Rapid A-Fib,Sepsis,Transamini. Events since Last Encounter No acute events o/n. Good pain control. Patient's only complaint is that he wants water. No chest pain or SOB. No f/c/ns. Objective Physical Examination General Exam: Alert, Cooperative, No Acute Distress ABDOMEN EXAM: Other (distended, tender to palpation; dressings c/d/i; LAN w/ serosang output; stoma pink and swollen w/ minimal serous output) Skin Exam: Nl turgor and temperature Neuro Exam: Normal Speech Psych Exam: Mental status NL, Mood NL Other physical findings catheter draining concentrated urine Vital Signs/I&O Vital Signs Date Time Temp Pulse Resp B/P (MAP) Pulse Ox O2 Delivery O2 Flow Rate FiO2 12/04/19 07:42 96.8 95 18 152/77 (102) 96 Nasal Cannula 2.0 I&O- Last 24 Hours up to 6 AM 12/04/19 06:00 Intake Total 5915 ml Output Total 2455 ml Balance 3460 ml Laboratory Data Labs 24H Laboratory Tests 2 12/03/19 13:30: Troponin I 0.11#H 12/03/19 18:04: Bedside Glucose (Misc Panel) 141H 12/03/19 20:15: Lactic Acid Followup at 4 Hours 2.3*H 12/03/19 23:34: Bedside Glucose (Misc Panel) 183H 12/04/19 06:21: Immature Granulocyte % (Auto) , Neutrophils (%) (Auto) , Nucleated Red Blood Cells % (auto) 0.0, Neutrophils 86H, Lymphocytes (Manual) 4L, Monocytes (Manual) 7H, Metamyelocytes 2H, Myelocytes 1H, Red Blood Cell Morphology , Polychromasia 1+, Platelet Estimate NORMAL, Anion Gap 10, Glomerular Filtration Rate 51.9, Calcium Level 7.4L, Total Bilirubin 0.7, Aspartate Amino Transf (AST/SGOT) 46H, Alanine Aminotransferase (ALT/SGPT) 20, Alkaline Phosphatase 61, Total Protein 5.3L, Albumin 1.6L, Albumin/Globulin Ratio 0.43L CBC/BMP Laboratory Tests 12/04/19 06:21 FSBS Laboratory Tests Test 12/03/19 18:04 12/03/19 23:34 Range/Units Bedside Glucose (Misc Panel) 141 183 83-110 MG/DL Microbiology Microbiology 12/02/19 Urine Culture - Final, Complete 12/02/19 Blood Culture - Preliminary, Resulted No growth after 24 hours . All specim... 12/02/19 Blood Culture - Preliminary, Resulted No growth after 24 hours . All specim... Assessment/Plan Date Seen The patient was seen on 12/04/19. Patient Summary This is a 69 y/o M who is s/p a RALP on 11/26/19, admitted w/ abd distention and signs of sepsis, now POD1 s/p ex lap w/ washout and diverting colostomy for a rectal perforation. Plan/VTE VTE Prophylaxis Ordered?: Yes VTE Exclusion Mechanical Proph: N/A:VTE Prophy Ordered Plan/Urinary Catheter Urinary Catheter: Other Catheter: (keep catheter in for healing of vesicourethr al anastomosis) Plan - pain control - NGT and bowel management per gen surg - keep Jha to gravity drainage - ambulate - SCDs when in bed AARTI MCCALLUM MD Dec 04, 2019 08:49
--- NOTE | 2019-12-04 18:07 | IPNPDOC ---
Text Note Date of Service The patient was seen on 12/04/19. NOTE SUBJECTIVE: 69 y/o Male s/p Davinci prostatectomy on 11/25 presented last night with 6 day history of worsening abdominal pressure, intermittent fevers/chills, obstipation and diagnosed with sepsis 2/2 SBO and abdominal perforation. No acute events overnight, patient states his abdominal pain is well controlled and he is passing gas through colostomy. Only complaint is being thirst. He denies any fever, chills, chest pain, chest pressure, difficulty breathing, nausea, vomiting. OBJECTIVE: PHYSICAL EXAM: Vitals: (see below) General: No acute distress, laying comfortably in bed. HEENT: Normocephalic, atraumatic. EOMI. No scleral icterus. Moist mucous membranes. No pharyngeal erythema or uvular deviation. NGT in place with green output. Neck: No JVD, lymphadenopathy, or thyromegaly. Cardiac: RRR, Normal S1 and S2, No murmurs, gallops, rubs. Pulm: Clear to auscultation b/l. Symmetric thorax. No wheezing, crackles, rhonchi Abd: Hyperactive bowel sounds. Abdomen is soft, tender to palpation, mild- moderately distended. Ostomy without signs of infection. Ext: No edema or cyanosis Neuro: No focal neuro deficits LABORATORY DATA, MICROBIOLOGY: Please see below. IMAGING STUDIES: ASSESSMENT AND PLAN: This is 69 yo M recently underwent prostatectomy last week on 11/25 for prostate cancer, now presenting for abdominal pain, distension, lack of flatus & BM, decreased appetite gradually worsening since his discharge. Found to be in new A Afib RVR and septic with concern for possible perforation in abd. #. Sepsis 2/2 intra-abd perf and SBO - Post-op day 1 s/p ex-lap with colostomy and abd washout for rectal perforation - Cipro/flagyl, morphine, NG tube, oswald to gravity per urology, encourage ambulation, incentive spirometry. Blood cultures negative so far. Will continue to trend WBC - Surgery and urology consulted, recommendations appreciated. #. Acute on chronic Renal failure - Baseline Cr 1.32, patient's Cr almost back to baseline. #. New-onset Afib w/ RVR -Resolved. #. Elevated troponins w/ hx of CAD and triple bypass -Downtrending on repeat trop. DVT prophylaxis: per surgical recommendations, teds/seqs CODE STATUS: FULL CODE Attending attestation: I evaluated and examined the patient in person; I discussed the care with Resident in detail and agree with the plan above. VS,Fishbone, I+O VS, Fishbone, I+O Laboratory Tests 12/04/19 06:21 Vital Signs Date Time Temp Pulse Resp B/P (MAP) Pulse Ox O2 Delivery O2 Flow Rate FiO2 12/04/19 15:59 96.7 91 18 165/72 (103) 95 Nasal Cannula 2.0 I&O- Last 24 Hours up to 6 AM 12/04/19 06:00 Intake Total 5915 ml Output Total 2455 ml Balance 3460 ml GME ATTESTATION GME ATTESTATION My faculty preceptor for this patient encounter was physically present during the encounter and was fully available. All aspects of the patient interview, examination, medical decision making process, and medical care plan development were reviewed and approved by the faculty preceptor. The faculty preceptor is aware and concurs with the plan as stated in the body of this note and will attest to such by his/her cosignature. RAYMON CLARK DO Dec 04, 2019 18:07 NATHAN EAST MD December 09, 2019 18:38
--- NOTE | 2019-12-04 18:18 | CR ---
DATE OF CONSULTATION: 12/02/2019 CHIEF COMPLAINT: Abdominal pain. HISTORY OF PRESENT ILLNESS: The patient is a 69-year-old male, a patient of Dr. Koehler, who underwent a robotic prostatectomy last Sunday. He has had significant abdominal pain and distension since last . No bowel movement since prior to surgery, and his last flatus was on Sunday. Starting Sunday, he has been getting progressively worse, low grade fevers, having difficulty tolerating any diet, he has had nausea, vomiting, so he came into emergency room for evaluation. In the emergency room (ER), he had lactic acidosis, leukocytosis, and CT was concerning for possible perforation with some free air in the subdiaphragmatic area, as well as some fluid in the pelvis. Since he had just had a prostatectomy, both the free air and the fluid were explained by that, the fact that he has not had a bowel movement or passed any gas since over a week, could explain an ileus. Therefore, the plan was to wait a few hours and repeat labs. We repeated labs, lactic acid after 3 hours and it improved. He also had significant improvement of his pain after placement of the nasogastric (NG) tube. Because of that, we decided to hold off on emergent surgery and watch him overnight and see how he progressed PAST MEDICAL HISTORY: Coronary artery disease, gastroesophageal reflux disease (GERD) prostate cancer, plaque psoriasis. PAST SURGICAL HISTORY: Partial right colectomy for precancerous lesions, triple bypass, cholecystectomy, and left inguinal hernia repair, radical prostatectomy. ALLERGIES TO MEDICATIONS: Please see med rec. SOCIAL HISTORY: Negative. REVIEW OF SYSTEMS: Pertinent positives and negatives as stated in the history of the present illness. PHYSICAL EXAMINATION: General: Patient is awake, alert, in distress due to the NG tube and significant abdominal pains. Vital signs: Temperature is 97.8, pulse 168, respirations 20, blood pressure 148/99, pulse ox 95% on room air. HEENT: Pupils equal, round, react to light and accommodation. Heart: S1, S2, regular rate and rhtyhm. Lungs: Clear to auscultation bilaterally. Abdomen. Very tense, distended, tender to palpation diffusely. Positive rebound and guarding. Extremities: No clubbing, cyanosis or edema. LABORATORY DATA: White count 20.7, hemoglobin 16.1, lactic acid 6.6, creatinine 2.28. IMAGING STUDIES: CT abdomen and pelvis showed pneumoperitoneum and abdominal and pelvic free fluid, concerning for possible bowel perforation. Underlying small bowel obstruction is suspected with multiple dilated mid abdominal small bowel loops, colonic diverticulosis, dependent bilateral pleural effusions and probable atelectasis. The CT was reviewed extensively by myself and Dr. Maguire as well, and the findings are present but again difficult to discern bowel perforation from postoperative changes at this time. ASSESSMENT/PLAN: The patient, again, is a 69-year-old male, status post robotic prostatectomy about 6 days ago. Currently with significant abdominal pain, nausea, vomiting, elevated white count, lactic acidosis, elevated creatinine levels. All of his findings are consistent with either severe postop ileus versus bowel injury from recent surgery. At this time, Dr. Maguire explained that his prior surgery was difficult due to adhesions. He feels that he would be a complicated surgical candidate. He is also in new onset atrial fibrillation (a fib) currently. Therefore, recommendation is to avoid surgery if possible. We will continue to treat him medically since he is feeling improved with the NG tube and the antibiotics. We will continue to hydrate him and monitor his labs closely. If he shows any signs of decline, will plan for emergent surgery. Otherwise, we will continue to monitor him every few hours, will repeat labs and see how he does.
--- NOTE | 2019-12-04 21:00 | RO ---
DATE OF PROCEDURE: 12/03/2019 PREOPERATIVE DIAGNOSIS: Perforated viscus, peritonitis. POSTOPERATIVE DIAGNOSIS: Perforated viscus, peritonitis. PROCEDURE: Exploratory laparotomy with abdominal washout and diverting colostomy. SURGEON: Dr. Grover Julio CRIMP SETTER: Dr. Deny Maguire who assisted with retraction, mobilization of bowel. ANESTHESIA: General. ESTIMATED BLOOD LOSS: 50 mL. COMPLICATIONS: None. INDICATIONS FOR PROCEDURE: The patient is a 69-year-old male, a patient of Dr. Maguire's, who underwent a robotic prostatectomy last Sunday. He has not had any bowel movement since then, he has not passed gas either since Sunday. He came into the emergency room last evening with increasing abdominal pain, nausea and vomiting, lactic acid was elevated. CT scan showed dilated loops of small bowel. No signs of specific perforation. He did have some small amount of free air and some small amounts of free fluid in the abdomen. However, since he is only less than a week postop, it is questionable whether this was just postop severe ileus with a possible small pneumonia versus bowel perforation. Because of that, recommendation was to watch him and repeat labs overnight. Labs did continue to improve, so we watched him overnight. However, this morning his labs are not to the point where they would be expected to be if this was just an ileus, so the plan was to take him for exploratory laparotomy. The risks and benefits of the procedure not limited to, but including, bleeding, infection, hernia formation, damage to surrounding structures, and need for further surgery were discussed in detail with the patient. Informed consent was obtained and procedure was planned. DESCRIPTION OF PROCEDURE: The patient was brought back to operating room six, after sufficient sedation, the abdomen was sterilely prepped and draped. Next, a time-out was done to confirm proper patient, proper procedure. Following that, a 5 mm port was placed right through the center of the abdomen through his previous robotic incision site. It was placed bluntly. As soon as it was entered, the valve on the side of the port was opened and a large amount of air was released, followed by some fluid that smelled like stool. Because of that, I confirmed the diagnosis of likely perforation. Therefore, recommendation was to proceed with exploratory laparotomy. A midline incision was then created using a #10 blade scalpel. The abdomen was entered. There was stool throughout the abdomen, which was all suctioned out. Adhesions were taken down in between loops of small bowel in the omentum. Once all the small bowel was freed up, I was able to follow the sigmoid down into the pelvis. There was an adhesion in the anterior mid rectum up towards the bladder that was very dense and just proximal to that adhesion on the anterior wall of the rectum was a small perforation about 5 mm in size and this area was left in place. It was just covered with some Tisseel. I transected the bowel just proximal to that, the rectosigmoid junction, using a stapler. Once that was completed, the mesentery of the sigmoid colon was dissected proximally for a significant distance to allow to be brought up as a colostomy. A small skin incision was then made in the left midabdomen. The skin and subcutaneous tissues were dissected and removed. Cruciate incision was then made through the anterior and posterior fascia. The sigmoid colon was brought out through the abdominal wall and then left in place. The abdomen was then irrigated with sterile water. The abdomen was then closed with running PDS sutures. Skin was closed with todd. The ostomy was then matured using interrupted #3-0 Vicryl sutures. A drain was left inside of the pelvis and brought out through the right lower abdomen, and that was sutured in place with a #2-0 silk suture. The abdomen was cleaned and dried. Ostomy appliance was placed, the drain, sponge and 4x4s were placed over the rest of the incisions. The abdomen cleaned and dried, 4x4 and tape were applied, thus ending procedure.
[2019-12-05] VITALS (15 sets, daily range): BP systolic 113–154; BP diastolic 54–79; O2SAT 93–97
[2019-12-05] MEDS: NS 1,000 ML IV SCH ×3 (02:01→17:10)
[2019-12-05] MEDS: metroNIDAZOLE 500 MG in IV 1 EA IV SCH (02:02)
[2019-12-05 06:11] LABS: HEMATOCRIT 38.2 % (42.0-52.0); HEMOGLOBIN 12.4 g/dl (13.5-17.5); MEAN CORPUSCULAR HEMOGLOBIN 29.8 pg (27.0-33.0); MEAN CORPUSCULAR HGB CONC 32.5 g/dl (32.0-36.5); MEAN CORPUSCULAR VOLUME 91.8 fl (80.0-96.0); PLATELET COUNT, AUTOMATED 320 10^3/uL (150-450); RED BLOOD COUNT 4.16 10^6/uL (4.30-6.10)
[2019-12-05 06:12] LABS: WHITE BLOOD COUNT 34.7 10^3/uL (4.0-10.0)
[2019-12-05 06:29] LABS: LYMPHOCYTES 5 % (16-44); METAMYELOCYTES 4 % (0-0); MONOCYTES 8 % (0-5); MYELOCYTES 5 % (0-0); NEUTROPHILS 78 % (28-66); NUCLEATED RED BLOOD CELL 2 % (0-0); PLATELET ESTIMATE NORMAL (NORMAL)
[2019-12-05 06:34] LABS: ALBUMIN 1.3 GM/DL (3.2-5.2); ALT/SGPT 15 U/L (12-78); BILIRUBIN,TOTAL 0.4 MG/DL (0.2-1.0); BLOOD UREA NITROGEN 45 MG/DL (7-18); CALCIUM LEVEL 7.2 MG/DL (8.8-10.2); CARBON DIOXIDE LEVEL 21 MEQ/L (21-32); CHLORIDE LEVEL 110 MEQ/L (98-107); CREATININE FOR GFR 1.05 MG/DL (0.70-1.30); GLOMERULAR FILTRATION RATE > 60.0 (>42); GLUCOSE, FASTING 105 MG/DL (70-100); POTASSIUM SERUM 3.9 MEQ/L (3.5-5.1); SODIUM LEVEL 140 MEQ/L (136-145); TOTAL PROTEIN 5.3 GM/DL (6.4-8.2)
--- NOTE | 2019-12-05 07:48 | IPNPDOC ---
Text Note Date of Service The patient was seen on 12/05/19. NOTE No acute events overnight. Denies any fevers, chills, or cough. His abdomen is slightly less distended and less tender. He does feel a lot of gurgling in the abdomen still. He has not been out of bed yet. VSSAF NAD abd - distended, TTP diffuse with no rebound or guarding, dressing c/d/i, ostomy is pink with sweat in the bag labs - below A) 69y/o male s/p robotic prostatectomy last week with peritonits, sepsis, and free air on CT POD#2 s/p ex lap with abd washout and diverting colostomy for rectal perforation. P) ice and water IVF abx ambulate pain control IS monitor labs add diflucan due to leukocytosis possible related to some yeast infection Micah Julio DO VS,Sunil, I+O VS, Sunil, I+O Laboratory Tests 12/05/19 05:28 Vital Signs Date Time Temp Pulse Resp B/P (MAP) Pulse Ox O2 Delivery O2 Flow Rate FiO2 12/05/19 06:00 96 Nasal Cannula 2.0 12/05/19 04:00 96.0 86 20 129/72 (91) I&O- Last 24 Hours up to 6 AM 12/05/19 06:00 Intake Total 1660 ml Output Total 2790 ml Balance -1130 ml ZAIRE JULIO DO December 05, 2019 07:48
--- NOTE | 2019-12-05 08:25 | IPNPDOC ---
Subjective Review oF Systems Chief Complaint The patient is a 69-year-old male admitted with a reason for visit of Andrés,Pneumoperitoneum,Rapid A-Fib,Sepsis,Transamini. Events since Last Encounter No acute events o/n. Good pain control. Has not ambulated. Feels about the same as yesterday. No f/c/ns. Objective Physical Examination General Exam: Alert, Cooperative, No Acute Distress ABDOMEN EXAM: Other (distended, less tender to palpation than yesterday; martita ssings c/d/i; LAN w/ seous output; stoma pink and swollen w/ small amount of liquid stool output) Skin Exam: Nl turgor and temperature Neuro Exam: Normal Speech Psych Exam: Mental status NL, Mood NL Other physical findings catheter draining concentrated urine w/ sediment Vital Signs/I&O Vital Signs Date Time Temp Pulse Resp B/P (MAP) Pulse Ox O2 Delivery O2 Flow Rate FiO2 12/05/19 06:00 96 Nasal Cannula 2.0 12/05/19 04:00 96.0 86 20 129/72 (91) I&O- Last 24 Hours up to 6 AM 12/05/19 06:00 Intake Total 1660 ml Output Total 2790 ml Balance -1130 ml Laboratory Data Labs 24H Laboratory Tests 2 12/05/19 05:28: Immature Granulocyte % (Auto) , Neutrophils (%) (Auto) , Nucleated Red Blood Cells % (auto) 0.1H, Neutrophils 78H, Lymphocytes (Manual) 5L, Monocytes (Manual) 8H, Metamyelocytes 4H, Myelocytes 5H, Nucleated Red Blood Cells 2H, Red Blood Cell Morphology NORMAL, Platelet Estimate NORMAL, Anion Gap 9, Glomerular Filtration Rate > 60.0, Calcium Level 7.2L, Total Bilirubin 0.4, Aspartate Amino Transf (AST/SGOT) 29, Alanine Aminotransferase (ALT/SGPT) 15, Alkaline Phosphatase 61, Total Protein 5.3L, Albumin 1.3L, Albumin/Globulin Ratio 0.33L CBC/BMP Laboratory Tests 12/05/19 05:28 Microbiology Microbiology 12/02/19 Urine Culture - Final, Complete 12/02/19 Blood Culture - Preliminary, Resulted No Growth after 48 hours. All Specime... 12/02/19 Blood Culture - Preliminary, Resulted No Growth after 48 hours. All Specime... Assessment/Plan Date Seen The patient was seen on 12/05/19. Patient Summary This is a 69 y/o M who is s/p a RALP on 11/26/19, admitted w/ abd distention and signs of sepsis, now POD2 s/p ex lap w/ washout and diverting colostomy for a rectal perforation. The patient's WBC has gone up to 34, but he is otherwise stable, if not a little better clinically. No fevers yesterday. Belly less tender. Colostomy now putting out small amounts of liquid stool. Plan/VTE VTE Prophylaxis Ordered?: Yes VTE Exclusion Mechanical Proph: N/A:VTE Prophy Ordered Plan/Urinary Catheter Urinary Catheter: Other Catheter: (keep catheter in for healing of vesicourethral anastomosis) Plan - patient discussed w/ Dr. Julio - concern for likely fungal infection - so diflucan added on to cipro and flagyl - keep catheter to gravity drainage - incentive spirometry - ambulate - SCDs when in bed - AARTI MARLEY MD December 05, 2019 08:17
[2019-12-05] MEDS ORDERED: FLUCONAZOLE 400 MG in IV 1 EA IV ONE (09:00)
[2019-12-05] MEDS: HYDROCORTISONE 1% CREAM 30 GM TOP SCH (09:41)
[2019-12-05] MEDS: HEPARIN SOD (PORCINE) 5000UNITS/ML VIAL (J1644 PER 1000UNITS) SQ SCH ×3 (09:42→22:16)
[2019-12-05] MEDS: PIPERACILLIN/TAZOBACTAM SOD 4.5 GM in D5W MINI-BAG PLUS 50 ML IV SCH ×3 (10:54→22:15)
[2019-12-05 12:04] LABS: HEMATOCRIT 36.8 % (42.0-52.0); HEMOGLOBIN 12.2 g/dl (13.5-17.5); MEAN CORPUSCULAR HGB CONC 33.2 g/dl (32.0-36.5); MEAN CORPUSCULAR VOLUME 90.6 fl (80.0-96.0); PLATELET COUNT, AUTOMATED 350 10^3/uL (150-450); RED BLOOD COUNT 4.06 10^6/uL (4.30-6.10); WHITE BLOOD COUNT 28.9 10^3/uL (4.0-10.0)
[2019-12-05 12:41] LABS: LYMPHOCYTES 5 % (16-44); METAMYELOCYTES 1 % (0-0); MONOCYTES 1 % (0-5); MYELOCYTES 5 % (0-0); NEUTROPHILS 87 % (28-66); PLATELET ESTIMATE NORMAL (NORMAL)
--- NOTE | 2019-12-05 13:27 | IPNPDOC ---
Text Note Date of Service The patient was seen on 12/05/19. NOTE SUBJECTIVE: 69 y/o Male s/p Davinci prostatectomy on 11/25 presented last night with 6 day history of worsening abdominal pressure, intermittent fevers/chills, obstipation and diagnosed with sepsis 2/2 SBO and abdominal perforation. No acute events overnight, patient continues to be uninterested in food, but is thirsty. He feels gurgling and passing flatus through ostomy. Denies fever, chills, chest pain, chest pressure, abdominal pain non-tender unless palpated, difficulty breathing, nausea, vomiting. OBJECTIVE: PHYSICAL EXAM: Vitals: (see below) General: No acute distress, laying comfortably in bed. HEENT: Normocephalic, atraumatic. EOMI. No scleral icterus. Moist mucous membranes. No pharyngeal erythema or uvular deviation. NGT in place with green output. Neck: No JVD, lymphadenopathy, or thyromegaly. Cardiac: RRR, Normal S1 and S2, No murmurs, gallops, rubs. Pulm: Clear to auscultation b/l. Symmetric thorax. No wheezing, crackles, rhonchi Abd: Hyperactive bowel sounds. Abdomen is soft, tender to palpation, mild- moderately distended. Ostomy without signs of infection. Ext: No edema or cyanosis Neuro: No focal neuro deficits LABORATORY DATA, MICROBIOLOGY: Please see below. IMAGING STUDIES: ASSESSMENT AND PLAN: This is 69 yo M recently underwent prostatectomy last week on 11/25 for prostate cancer, now presenting for abdominal pain, distension, lack of flatus & BM, decreased appetite gradually worsening since his discharge. Found to be in new A Afib RVR and septic with concern for possible perforation in abd. #. Sepsis 2/2 intra-abd perf and SBO - Post-op day 2 s/p ex-lap with colostomy and abd washout for rectal perforation - Zosyn started due to elevated WBC count, may just be from surgery still, repeat showing downtrended WBC count, however surgery details stool being present in peritoneal cavity, continue morphine, NG tube, oswald to gravity per urology, encourage ambulation, incentive spirometry. Blood cultures negative so far. - Surgery and urology consulted, recommendations appreciated. #. Acute Renal failure - Creatinine 1.05 today, resolved. #. Elevated troponins w/ hx of CAD and triple bypass -Downtrending on repeat trop. DVT prophylaxis: heparin added on today, teds/seqs CODE STATUS: FULL CODE Attending attestation: I evaluated and examined the patient in person; I discussed the care with Resident in detail and agree with the plan above. VS,Fishbone, I+O VS, Fishbone, I+O Laboratory Tests 12/05/19 05:28 12/05/19 11:48 Vital Signs Date Time Temp Pulse Resp B/P (MAP) Pulse Ox O2 Delivery O2 Flow Rate FiO2 12/05/19 12:14 2.0 12/05/19 12:00 97.5 86 20 150/72 (98) 96 Nasal Cannula I&O- Last 24 Hours up to 6 AM 12/05/19 06:00 Intake Total 1660 ml Output Total 2790 ml Balance -1130 ml GME ATTESTATION GME ATTESTATION My faculty preceptor for this patient encounter was physically present during the encounter and was fully available. All aspects of the patient interview, ex amination, medical decision making process, and medical care plan development were reviewed and approved by the faculty preceptor. The faculty preceptor is aware and concurs with the plan as stated in the body of this note and will attest to such by his/her cosignature. RAYMON CLARK DO December 05, 2019 13:27 NATHAN EAST MD December 09, 2019 18:38
[2019-12-05] MEDS ORDERED: LIDOCAINE 1% MDV 20ML VIAL As Ordered ONE (15:00)
[2019-12-05] MEDS: MORPHINE 2 MG/ML 1ML VIAL (J2270) IV PRN ×2 (18:13→22:16)
[2019-12-06] VITALS (12 sets, daily range): BP systolic 119–151; BP diastolic 64–74; O2SAT 92–95
[2019-12-06 05:19] LABS: HEMATOCRIT 35.9 % (42.0-52.0); HEMOGLOBIN 11.9 g/dl (13.5-17.5); MEAN CORPUSCULAR HEMOGLOBIN 29.7 pg (27.0-33.0); MEAN CORPUSCULAR HGB CONC 33.1 g/dl (32.0-36.5); MEAN CORPUSCULAR VOLUME 89.5 fl (80.0-96.0); PLATELET COUNT, AUTOMATED 354 10^3/uL (150-450); RED BLOOD COUNT 4.01 10^6/uL (4.30-6.10); WHITE BLOOD COUNT 24.2 10^3/uL (4.0-10.0)
[2019-12-06] MEDS: MORPHINE 2 MG/ML 1ML VIAL (J2270) IV PRN ×3 (05:29→22:55)
[2019-12-06] MEDS: HEPARIN SOD (PORCINE) 5000UNITS/ML VIAL (J1644 PER 1000UNITS) SQ SCH ×3 (05:29→22:55)
[2019-12-06] MEDS: SODIUM CHLORIDE 0.9% INJ 10 ML SYR IV SCH ×2 (05:29→17:47)
[2019-12-06] MEDS: PIPERACILLIN/TAZOBACTAM SOD 4.5 GM in D5W MINI-BAG PLUS 50 ML IV SCH ×4 (05:30→22:54)
[2019-12-06] MEDS: NS 1,000 ML IV SCH (05:30)
[2019-12-06 05:41] LABS: ALBUMIN 1.4 GM/DL (3.2-5.2); ALT/SGPT 18 U/L (12-78); BILIRUBIN,TOTAL 0.6 MG/DL (0.2-1.0); BLOOD UREA NITROGEN 35 MG/DL (7-18); CALCIUM LEVEL 6.8 MG/DL (8.8-10.2); CARBON DIOXIDE LEVEL 24 MEQ/L (21-32); CHLORIDE LEVEL 112 MEQ/L (98-107); CREATININE FOR GFR 1.03 MG/DL (0.70-1.30); GLOMERULAR FILTRATION RATE > 60.0 (>42); GLUCOSE, FASTING 91 MG/DL (70-100); POTASSIUM SERUM 3.8 MEQ/L (3.5-5.1); SODIUM LEVEL 144 MEQ/L (136-145); TOTAL PROTEIN 5.1 GM/DL (6.4-8.2)
[2019-12-06 06:34] LABS: ATYPICAL LYMPH 2 % (0-5); EOSINOPHILS 2 % (0-3); LYMPHOCYTES 7 % (16-44); METAMYELOCYTES 2 % (0-0); MONOCYTES 4 % (0-5); MYELOCYTES 5 % (0-0); NEUTROPHILS 77 % (28-66)
[2019-12-06 06:36] LABS: ANISOCYTOSIS 1+; PLATELET ESTIMATE NORMAL (NORMAL)
[2019-12-06] MEDS: HYDROCORTISONE 1% CREAM 30 GM TOP SCH (08:49)
[2019-12-06] MEDS: FLUCONAZOLE 200 MG in IV 1 EA IV SCH (08:49)
[2019-12-06] MEDS: SIMETHICONE 80 MG CHEW TAB PO SCH ×3 (13:13→22:55)
[2019-12-06] MEDS: ACETAMINOPHEN *IV* 1,000 MG in IV 1 EA IV PRN (13:15)
--- NOTE | 2019-12-06 13:41 | IPNPDOC ---
Subjective Review oF Systems Chief Complaint The patient is a 69-year-old male admitted with a reason for visit of Andrés,Pneumoperitoneum,Rapid A-Fib,Sepsis,Transamini. Events since Last Encounter No acute events o/n. Good pain control. Patient has been out of bed and ambulated a small amount. He feels a little better today. No chest pain or SOB. No f/c/ns. Objective Physical Examination General Exam: Alert, Cooperative, No Acute Distress ABDOMEN EXAM: Other (abdomen less distended today, mild tenderness to palpation; dressings c/d/i; LAN w/ serous output; stoma pink and swollen w/ liquid stool and gas in the bag) Skin Exam: Nl turgor and temperature Neuro Exam: Normal Speech Psych Exam: Mental status NL, Mood NL Vital Signs/I&O Vital Signs Date Time Temp Pulse Resp B/P (MAP) Pulse Ox O2 Delivery O2 Flow Rate FiO2 12/06/19 10:30 18 12/06/19 07:38 97.5 83 133/74 (93) 95 Room Air 12/06/19 07:00 2.0 I&O- Last 24 Hours up to 6 AM 12/06/19 06:00 Intake Total 1600 ml Output Total 3580 ml Balance -1980 ml Laboratory Data Labs 24H Laboratory Tests 2 12/05/19 17:04: Bedside Glucose (Misc Panel) 93 12/06/19 02:10: Bedside Glucose (Misc Panel) 86 12/06/19 04:48: Immature Granulocyte % (Auto) , Neutrophils (%) (Auto) , Nucleated Red Blood Cells % (auto) 0.1H, Neutrophils 77H, Band Neutrophils 1, Lymphocytes (Manual) 7L, Monocytes (Manual) 4, Eosinophils (Manual) 2, Metamyelocytes 2H, Myelocytes 5H, Atypical Lymphocytes 2, Anisocytosis 1+, Platelet Estimate NORMAL, Anion Gap 8, Glomerular Filtration Rate > 60.0, Calcium Level 6.8L, Total Bilirubin 0.6, Aspartate Amino Transf (AST/SGOT) 33, Alanine Aminotransferase (ALT/SGPT) 18, Alkaline Phosphatase 61, Total Protein 5.1L, Albumin 1.4L, Albumin/Globulin Ratio 0.38L 12/06/19 11:41: Bedside Glucose (Misc Panel) 104 CBC/BMP Laboratory Tests 12/06/19 04:48 FSBS Laboratory Tests Test 12/05/19 17:04 12/06/19 02:10 12/06/19 11:41 Range/Units Bedside Glucose (Misc Panel) 93 86 104 83-110 MG/DL Microbiology Microbiology 12/02/19 Urine Culture - Final, Complete 12/02/19 Blood Culture - Preliminary, Resulted No Growth after 72 hours. All specime... 12/02/19 Blood Culture - Preliminary, Resulted No Growth after 72 hours. All specime... Assessment/Plan Date Seen The patient was seen on 12/06/19. Patient Summary This is a 69 y/o M who is s/p a RALP on 11/26/19, admitted w/ abd distention and signs of sepsis, now POD3 s/p ex lap w/ washout and diverting colostomy for a rectal perforation. WBC now trending down after the addition of diflucan. Belly less distended. Colostomy output increasing. Plan/VTE VTE Prophylaxis Ordered?: Yes VTE Exclusion Mechanical Proph: N/A:VTE Prophy Ordered Plan/Urinary Catheter Urinary Catheter: Other Catheter: (keep catheter in for healing of vesicourethral anastomosis) Plan - cont zosyn and diflucan - NGT and diet management per gen surg - per nursing TPN to start this evening - medical management per hospitalist service - keep catheter to gravity drainage - ambulate - SCDs when in bed - SQH - incentive spirometry - patient's updated on his care AARTI MCCALLUM MD December 06, 2019 13:41
--- NOTE | 2019-12-06 15:53 | IPNPDOC ---
Text Note Date of Service The patient was seen on 12/06/19. NOTE SUBJECTIVE: 69 y/o Male s/p Davinci prostatectomy on 11/25 presented last night with 6 day history of worsening abdominal pressure, intermittent fevers/chills, obstipation and diagnosed with sepsis 2/2 SBO and abdominal perforation. No acute events overnight, Patient is having dark liquid stool and gas through his ostomy, denies any fever, chills, chest pain, chest pressure, abdominal pain non-tender unless palpated, difficulty breathing, nausea, vomiting. OBJECTIVE: PHYSICAL EXAM: Vitals: (see below) General: Patient lying in bed in no acute distress. HEENT: Normocephalic, atraumatic. EOMI. No scleral icterus. Moist mucous membranes. No pharyngeal erythema or uvular deviation. NGT in place with light green output. Neck: No JVD, lymphadenopathy, or thyromegaly. Cardiac: RRR, Normal S1 and S2, No murmurs, gallops, rubs. Pulm: Clear to auscultation b/l. Symmetric thorax. No wheezing, crackles, rhonchi Abd: Bowel sounds present. Abdomen is soft, tender to palpation, mild-moderately distended. Ostomy without signs of infection. Ext: No edema or cyanosis Neuro: No focal neuro deficits LABORATORY DATA, MICROBIOLOGY: Please see below. IMAGING STUDIES: ASSESSMENT AND PLAN: This is 69 yo M recently underwent prostatectomy last week on 11/25 for prostate cancer, now presenting for abdominal pain, distension, lack of flatus & BM, decreased appetite gradually worsening since his discharge. Found to be in new A Afib RVR and septic with concern for possible perforation in abd. #. Sepsis 2/2 intra-abd perf and SBO - S/p ex-lap with colostomy and abd washout for rectal perforation on 12/03/2019 - Continue Zosyn, fluconazole for possible yeast infection. Starting TPN to allow more time for bowel recovery, continue morphine, NG tube, oswald to gravity per urology, encourage ambulation, incentive spirometry. Blood cultures negative. - Surgery and urology consulted, recommendations appreciated. #. Acute Renal failure - Resolved. #. Elevated troponins w/ hx of CAD and triple bypass -Downtrending on repeat trop. DVT prophylaxis: heparin, teds/seqs CODE STATUS: FULL CODE Attending attestation: I evaluated and examined the patient in person; I discussed the care with Resident in detail and agree with the plan above. VS,Fishbone, I+O VS, Fishbone, I+O Laboratory Tests 12/06/19 04:48 Vital Signs Date Time Temp Pulse Resp B/P (MAP) Pulse Ox O2 Delivery O2 Flow Rate FiO2 12/06/19 12:00 97.3 84 18 141/72 (95) 95 Room Air 12/06/19 07:00 2.0 I&O- Last 24 Hours up to 6 AM 12/06/19 06:00 Intake Total 1600 ml Output Total 3580 ml Balance -1980 ml GME ATTESTATION GME ATTESTATION My faculty preceptor for this patient encounter was physically present during the encounter and was fully available. All aspects of the patient interview, examination, medical decision making process, and medical care plan development were reviewed and approved by the faculty preceptor. The faculty preceptor is aware and concurs with the plan as stated in the body of this note and will attest to such by his/her cosignature. RAYMON CLARK DO December 06, 2019 15:53 NATHAN EAST MD December 09, 2019 18:37
--- NOTE | 2019-12-06 16:09 | IPN ---
DATE: 12/06/2019 The patient overall states his abdominal pain discomfort is better than it was yesterday, but he is still tensely distended. Unfortunately, his white count is still elevated at 24,000, but this is better than it was previously at 29,000 and the day before at 35,000. He has been afebrile, fortunately, and not septic appearing. His urine output has been good. He has had some stool out of his bag, but still his nasogastric (NG) tube output has been significant. Unfortunately, he has been taking a great deal of fluids in orally. His drain has been minimal and otherwise still is making some slow but progressive improvements. PHYSICAL EXAMINATION: His lungs are clear anteriorly. Abdomen is tensely distended, tympanitic without significant guarding or rebound. Ostomy is functioning with some minimal air and minimal fluid. IMPRESSION AND PLAN: The patient has some minimal return of function at this time but still has an obvious ileus given his abdominal exam. I would recommend that we keep him nothing by mouth with the NG tube to suction for right now, try to minimize the oral intake that he is getting and see if we can make some good progress over the next 24-48 hours, but I would like to start him on some total parenteral nutrition (TPN), and we will see how he does with this and determine our next course of action depending on how he is doing over the next 24-48 hours.
[2019-12-06] MEDS: HumaLOG INSULIN (NovoLOG) PER UNIT SC SCH ×2 (16:42→23:02)
[2019-12-06] MEDS ORDERED: AMINO AC/ELECTROLYTE/DEX/CALC 2,000 ML IV SCH (18:00)
[2019-12-06] MEDS ORDERED: FAT EMULSION IV 20% 500 ML IV SCH (18:00)
[2019-12-07] VITALS: BP 131/68
[2019-12-07 03:58] LABS: HEMATOCRIT 36.4 % (42.0-52.0); MEAN CORPUSCULAR HEMOGLOBIN 29.8 pg (27.0-33.0); MEAN CORPUSCULAR VOLUME 90.3 fl (80.0-96.0); PLATELET COUNT, AUTOMATED 349 10^3/uL (150-450); RED BLOOD COUNT 4.03 10^6/uL (4.30-6.10); WHITE BLOOD COUNT 25.4 10^3/uL (4.0-10.0)
[2019-12-07 04:00] VITALS: BP 137/75
[2019-12-07 04:21] LABS: ALBUMIN 1.5 GM/DL (3.2-5.2); ALT/SGPT 17 U/L (12-78); BILIRUBIN,TOTAL 0.5 MG/DL (0.2-1.0); BLOOD UREA NITROGEN 30 MG/DL (7-18); CALCIUM LEVEL 6.8 MG/DL (8.8-10.2); CARBON DIOXIDE LEVEL 24 MEQ/L (21-32); CHLORIDE LEVEL 113 MEQ/L (98-107); CREATININE FOR GFR 1.01 MG/DL (0.70-1.30); GLOMERULAR FILTRATION RATE > 60.0 (>42); GLUCOSE, FASTING 184 MG/DL (70-100); POTASSIUM SERUM 3.8 MEQ/L (3.5-5.1); SODIUM LEVEL 144 MEQ/L (136-145); TOTAL PROTEIN 4.8 GM/DL (6.4-8.2)
[2019-12-07 04:59] LABS: EOSINOPHILS 3 % (0-3); LYMPHOCYTES 6 % (16-44); METAMYELOCYTES 1 % (0-0); MYELOCYTES 4 % (0-0); NEUTROPHILS 86 % (28-66)
[2019-12-07 05:00] LABS: PLATELET ESTIMATE NORMAL (NORMAL)
[2019-12-07 05:01] LABS: ANISOCYTOSIS 1+
[2019-12-07] MEDS: SODIUM CHLORIDE 0.9% INJ 10 ML SYR IV SCH ×2 (05:48→18:18)
[2019-12-07] MEDS: PIPERACILLIN/TAZOBACTAM SOD 4.5 GM in D5W MINI-BAG PLUS 50 ML IV SCH ×4 (05:57→23:49)
[2019-12-07] MEDS: HumaLOG INSULIN (NovoLOG) PER UNIT SC SCH ×3 (05:58→18:17)
[2019-12-07] MEDS: MORPHINE 2 MG/ML 1ML VIAL (J2270) IV PRN ×2 (05:58→21:32)
[2019-12-07] MEDS: HEPARIN SOD (PORCINE) 5000UNITS/ML VIAL (J1644 PER 1000UNITS) SQ SCH ×3 (05:58→21:02)
[2019-12-07 08:00] VITALS: BP 136/73
[2019-12-07] MEDS: FLUCONAZOLE 200 MG in IV 1 EA IV SCH (08:06)
[2019-12-07] MEDS: HYDROCORTISONE 1% CREAM 30 GM TOP SCH (08:06)
[2019-12-07] MEDS: SIMETHICONE 80 MG CHEW TAB PO SCH ×4 (08:06→21:02)
[2019-12-07] MEDS: ACETAMINOPHEN *IV* 1,000 MG in IV 1 EA IV PRN (09:30)
[2019-12-07 12:00] VITALS: BP 135/63
--- NOTE | 2019-12-07 12:11 | IPNPDOC ---
Date Seen The patient was seen on 12/07/19. Progress Note SUBJECTIVE: 69-year-old male who recently underwent prostatectomy was admitted for bowel perforation. Patient underwent an exploratory laparotomy which showed perforated rectum, had a diverting colostomy placed. Patient was started on TPN yesterday, has been doing well overnight, reports pain/burning at the Jha site overnight, no other complaints. Patient has had improvement in abdominal pain, continues to have stool/gas output from ostomy, 200 mL of output from NG tube so far today. 10 point review of system is negative except for above PHYSICAL EXAMINATION: VITAL SIGNS: Please see below. GENERAL: Obese HEENT: Normocephalic, atraumatic, moist mucous membranes NECK: Supple CARDIOVASCULAR EXAMINATION: S1, S2, no murmurs RESPIRATORY EXAMINATION: Scattered rhonchi, no wheezing ABDOMINAL EXAMINATION: Soft, mild diffuse tenderness, mildly distended, positive bowel sounds EXTREMITIES: Range of motion intact SKIN: No rash NEUROLOGICAL EXAMINATION: Alert and oriented 3, no focal deficits PSYCHIATRIC EXAMINATION: Calm and cooperative LABORATORY DATA, IMAGING STUDIES, MICROBIOLOGY: Please see below. ASSESSMENT AND PLAN: 69-year-old male who recently underwent prostatectomy was admitted for bowel perforation, underwent exploratory laparotomy which showed perforated rectum, now with colostomy. PROBLEMS: 1. Bowel perforation: Status post exploratory laparoscopy, now with colostomy, continue Zosyn, remains on TPN, making slow but gradual progress, can likely be transitioned to by mouth intake within 24-48 hours if he continues to improve at this rate. 2. A. fib with RVR: Transient, present on admission, converted to normal sinus rhythm after surgery, has remained in normal sinus rhythm since then, no need for long-term anticoagulation, continue home metoprolol. 3. Status post prostatectomy: Urology following, continue Jha. 4. Hypertension/hyperlipidemia: Continue metoprolol and simvastatin DVT prophylaxis: Heparin subcutaneous GI prophylaxis: Protonix VS, I&O, 24H, Fishbone Vital Signs/I&O Vital Signs Date Time Temp Pulse Resp B/P (MAP) Pulse Ox O2 Delivery O2 Flow Rate FiO2 12/07/19 08:00 98.4 94 20 136/73 (94) 93 Room Air 12/06/19 07:00 2.0 I&O- Last 24 Hours up to 6 AM 12/07/19 05:59 Intake Total 2366 ml Output Total 3235 ml Balance -869 ml Laboratory Data 24H LABS Laboratory Tests 2 12/06/19 16:36: Bedside Glucose (Misc Panel) 91 12/06/19 22:58: Bedside Glucose (Misc Panel) 180H 12/07/19 03:40: Immature Granulocyte % (Auto) , Neutrophils (%) (Auto) , Nucleated Red Blood Cells % (auto) 0.0, Neutrophils 86H, Lymphocytes (Manual) 6L, Eosinophils ( Manual) 3, Metamyelocytes 1H, Myelocytes 4H, Anisocytosis 1+, Platelet Estimate NORMAL, Anion Gap 7L, Glomerular Filtration Rate > 60.0, Calcium Level 6.8L, Total Bilirubin 0.5, Aspartate Amino Transf (AST/SGOT) 33, Alanine Aminotransferase (ALT/SGPT) 17, Alkaline Phosphatase 56, Total Protein 4.8L, Albumin 1.5L, Albumin/Globulin Ratio 0.45L 12/07/19 05:39: Bedside Glucose (Misc Panel) 200H 12/07/19 11:44: Bedside Glucose (Misc Panel) 200H CBC/BMP Laboratory Tests 12/07/19 03:40 Microbiology Microbiology 12/02/19 Urine Culture - Final, Complete 12/02/19 Blood Culture - Preliminary, Resulted No Growth after 72 hours. All specime... 12/02/19 Blood Culture - Preliminary, Resulted No Growth after 72 hours. All specime... NATHAN EAST MD December 07, 2019 12:11
[2019-12-07] MEDS: ASPIRIN 81 MG ENTERIC TAB PO SCH (12:22)
[2019-12-07] MEDS: METOPROLOL TART 25 MG TABLET PO SCH ×2 (12:22→21:02)
[2019-12-07] MEDS: PANTOPRAZOLE 40MG TAB (PROTONIX) PO SCH (12:22)
[2019-12-07 16:00] VITALS: BP 141/66
[2019-12-07] MEDS ORDERED: FAT EMULSION IV 20% 500 ML IV SCH (18:00)
[2019-12-07] MEDS ORDERED: AMINO AC/ELECTROLYTE/DEX/CALC 2,000 ML IV SCH (18:00)
[2019-12-07 20:49] VITALS: BP 134/67
[2019-12-07] MEDS: SIMVASTATIN 20 MG TAB PO SCH (21:02)
[2019-12-08] MEDS: HumaLOG INSULIN (NovoLOG) PER UNIT SC SCH ×4 (00:22→17:43)
[2019-12-08] MEDS: MORPHINE 2 MG/ML 1ML VIAL (J2270) IV PRN ×4 (03:11→21:23)
[2019-12-08] MEDS: HEPARIN SOD (PORCINE) 5000UNITS/ML VIAL (J1644 PER 1000UNITS) SQ SCH ×3 (05:43→20:36)
[2019-12-08] MEDS: SODIUM CHLORIDE 0.9% INJ 10 ML SYR IV SCH ×2 (05:43→11:14)
[2019-12-08] MEDS: PIPERACILLIN/TAZOBACTAM SOD 4.5 GM in D5W MINI-BAG PLUS 50 ML IV SCH ×4 (05:43→23:43)
[2019-12-08 06:00] VITALS: BP 137/66
[2019-12-08 06:13] LABS: HEMATOCRIT 36.7 % (42.0-52.0); HEMOGLOBIN 11.9 g/dl (13.5-17.5); MEAN CORPUSCULAR HEMOGLOBIN 29.6 pg (27.0-33.0); MEAN CORPUSCULAR HGB CONC 32.4 g/dl (32.0-36.5); MEAN CORPUSCULAR VOLUME 91.3 fl (80.0-96.0); PLATELET COUNT, AUTOMATED 338 10^3/uL (150-450); RED BLOOD COUNT 4.02 10^6/uL (4.30-6.10); WHITE BLOOD COUNT 24.4 10^3/uL (4.0-10.0)
[2019-12-08 06:33] LABS: EOSINOPHILS 8 % (0-3); LYMPHOCYTES 9 % (16-44); MONOCYTES 2 % (0-5); NEUTROPHILS 80 % (28-66); PLATELET ESTIMATE NORMAL (NORMAL)
[2019-12-08 06:46] LABS: ALBUMIN 1.5 GM/DL (3.2-5.2); ALT/SGPT 16 U/L (12-78); BILIRUBIN,TOTAL 0.4 MG/DL (0.2-1.0); BLOOD UREA NITROGEN 24 MG/DL (7-18); CALCIUM LEVEL 7.2 MG/DL (8.8-10.2); CARBON DIOXIDE LEVEL 22 MEQ/L (21-32); CHLORIDE LEVEL 111 MEQ/L (98-107); CREATININE FOR GFR 0.88 MG/DL (0.70-1.30); GLOMERULAR FILTRATION RATE > 60.0 (>42); GLUCOSE, FASTING 158 MG/DL (70-100); POTASSIUM SERUM 4.1 MEQ/L (3.5-5.1); SODIUM LEVEL 141 MEQ/L (136-145); TOTAL PROTEIN 4.7 GM/DL (6.4-8.2)
[2019-12-08] MEDS: SIMETHICONE 80 MG CHEW TAB PO SCH ×4 (08:31→20:31)
[2019-12-08] MEDS: PANTOPRAZOLE 40MG TAB (PROTONIX) PO SCH (08:31)
[2019-12-08] MEDS: METOPROLOL TART 25 MG TABLET PO SCH ×2 (08:31→20:31)
[2019-12-08] MEDS: ASPIRIN 81 MG ENTERIC TAB PO SCH (08:32)
[2019-12-08] MEDS: HYDROCORTISONE 1% CREAM 30 GM TOP SCH (08:32)
[2019-12-08] MEDS: FLUCONAZOLE 200 MG in IV 1 EA IV SCH (08:35)
--- NOTE | 2019-12-08 08:46 | IPNPDOC ---
Text Note Date of Service The patient was seen on 12/08/19. NOTE No acute events over the weekend. Denies any fevers, chills, or cough. His abd omen is slightly less distended and much less tender than it was on sunday. There is stool and air in the ostomy bag. VSSAF NAD abd - distended, TTP diffuse with no rebound or guarding, dressing c/d/i, ostomy is pink with stool in the bag, and the drain is clear. labs - below A) 69y/o male s/p robotic prostatectomy last week with peritonits, sepsis, and free air on CT PO s/p ex lap with abd washout and diverting colostomy for rectal perforation. P) ice and water IVF abx, diflucan ambulate pain control IS monitor labs TPN possibly clamp NGT and start diet tomorrow Micah Julio DO VS,Fishbone, I+O VS, Fishbone, I+O Laboratory Tests 12/08/19 05:40 Vital Signs Date Time Temp Pulse Resp B/P (MAP) Pulse Ox O2 Delivery O2 Flow Rate FiO2 12/08/19 08:31 85 137/66 12/08/19 08:31 18 12/08/19 06:00 97.4 93 Room Air 12/06/19 07:00 2.0 I&O- Last 24 Hours up to 6 AM 12/08/19 06:00 Intake Total 1555 ml Output Total 1550 ml Balance 5 ml ZAIRE JULIO DO December 08, 2019 08:46
--- NOTE | 2019-12-08 10:45 | IPN ---
DATE: 12/07/2019 The patient overall states that he is feeling a little bit better today. He has been afebrile overnight. His blood pressure has been fine. He has from a vital sign standpoint been looking good. His urine output has been adequate, but he is still up significantly from his original weight. He still has some abdominal pain. He had some problems with some urinary catheter issues overnight. Noticed that his nasogastric (NG) tube output has significantly dropped off and he has had some more ostomy output. His Kvng-Zuleta (J-P) drain has been minimal as well. On his physical exam, his abdomen is less distended than it was yesterday, but in comparison is still is quite distended overall. His ostomy is functioning nicely at this time with some air and stool in the bag. His NG tube still does have some bilious drainage. IMPRESSION/PLAN: The patient has some evidence that his ileus is starting to resolve at this point, but I still given his distension would like to keep the NG tube in overnight. I anticipate he will probably get it out tomorrow, especially if he continues with ostomy output and possibly proceed on to a clear liquid diet, but otherwise would recommend that continuing with supportive care as is from a Kvng-Zuleta drain standpoint is really not putting out much and it is very reasonable at some point to discontinue that, however given his elevated white count I feel it is more importantly keep the drain in place for observational issues more so at least overnight and if it is still not draining much then possibly removing that tomorrow morning. Otherwise, we are making some good progress clinically. If his white count was dropping down that would also support current presentation clinically, however it has been still elevated and will have to watch this closely. If he has persistent elevated white count it may be reasonable to proceed with a repeat CT scan early next week for reevaluation and to rule out any possible additional abscesses that are being currently undrained if present.
--- NOTE | 2019-12-08 12:03 | REP ---
PICC line insertion under ultrasound guidance. The procedure was performed by JONATHAN Gutierrez, under the direct supervision of Dr. Adhikari. The risks and benefits of the procedure were explained to the patient and informed consent was obtained both verbally and written. Directly prior to the start of the procedure, a formal timeout was completed in the procedure room. The right medial brachial vein was localized using ultrasound guidance. The skin was prepped and draped in the sterile fashion. 1 ml 1% lidocaine 10 mg/ml was used as a local anesthetic. Using ultrasound guidance the right medial brachial vein was cannulated and a 0.018 guidewire was inserted and advanced to the SVC using fluoroscopic guidance. The needle was removed and a 5.5 Ivorian dilator and peel-away sheath was inserted over the guidewire. A 5.5 Ivorian dual lumen catheter was cut to the length of 35 cm. The dilator was removed and the catheter was inserted over the guide wire with the tip ending in the SVC. The peel-away sheath was removed and the catheter was flushed with heparinized saline as per hospital protocol. The catheter was affixed to the skin and a sterile dressing was applied. The patient tolerated the procedure well and there were no immediate complications. 0.1 minutes of fluoroscopy time was utilized for this procedure. Some fluoroscopic images are performed with last image hold technology. These images require no additional radiation. Reviewed by JONATHAN Dent 12/05/2019 05:10 P Electronically Signed by Grover Adhikari MD 12/08/2019 11:54 A
--- NOTE | 2019-12-08 13:14 | IPNPDOC ---
Subjective Review oF Systems Chief Complaint The patient is a 69-year-old male admitted with a reason for visit of Andrés,Pneumoperitoneum,Rapid A-Fib,Sepsis,Transamini. Events since Last Encounter No acute events o/n. Patient notes his pain is better. No f/c/ns. Objective Physical Examination General Exam: Alert, Cooperative, No Acute Distress ABDOMEN EXAM: Other (abdomen still distended; nontender; incision c/d/i; LAN w/ small amount of serous output; ostomy w/ stool in bag) Skin Exam: Nl turgor and temperature Neuro Exam: Normal Speech Psych Exam: Mental status NL, Mood NL Other physical findings catheter draining yellow urine Vital Signs/I&O Vital Signs Date Time Temp Pulse Resp B/P (MAP) Pulse Ox O2 Delivery O2 Flow Rate FiO2 12/08/19 08:41 18 12/08/19 08:31 85 137/66 12/08/19 06:00 97.4 93 Room Air 12/06/19 07:00 2.0 I&O- Last 24 Hours up to 6 AM 12/08/19 06:00 Intake Total 1555 ml Output Total 1550 ml Balance 5 ml Laboratory Data Labs 24H Laboratory Tests 2 12/07/19 16:27: Bedside Glucose (Misc Panel) 148H 12/08/19 00:08: Bedside Glucose (Misc Panel) 142H 12/08/19 05:40: Immature Granulocyte % (Auto) , Neutrophils (%) (Auto) , Nucleated Red Blood Cells % (auto) 0.0, Neutrophils 80H, Band Neutrophils 1, Lymphocytes (Manual) 9L, Monocytes (Manual) 2, Eosinophils (Manual) 8H, Red Blood Cell Morphology NORMAL, Platelet Estimate NORMAL, Anion Gap 8, Glomerular Filtration Rate > 60.0, Calcium Level 7.2L, Total Bilirubin 0.4, Aspartate Amino Transf (AST/SGOT) 32, Alanine Aminotransferase (ALT/SGPT) 16, Alkaline Phosphatase 62, Total Protein 4.7L, Albumin 1.5L, Albumin/Globulin Ratio 0.47L 12/08/19 05:46: Bedside Glucose (Misc Panel) 161H 12/08/19 11:27: Bedside Glucose (Misc Panel) 163H CBC/BMP Laboratory Tests 12/08/19 05:40 FSBS Laboratory Tests Test 12/07/19 16:27 12/08/19 00:08 12/08/19 05:46 12/08/19 11:27 Range/Units Bedside Glucose (Misc Panel) 148 142 161 163 83-110 MG/DL Microbiology Microbiology 12/02/19 Urine Culture - Final, Complete 12/02/19 Blood Culture - Final, Complete NO GROWTH AFTER 5 DAYS 12/02/19 Blood Culture - Final, Complete NO GROWTH AFTER 5 DAYS Assessment/Plan Date Seen The patient was seen on 12/08/19. Patient Summary This is a 69 y/o M who is s/p a RALP on 11/26/19, admitted w/ abd distention and signs of sepsis, now POD5 s/p ex lap w/ washout and diverting colostomy for a rectal perforation. He is improving clinically, w/ less abd tenderness. Abd still a little distended and WBC 24. No fevers. Plan/VTE VTE Prophylaxis Ordered?: Yes VTE Exclusion Mechanical Proph: N/A:VTE Prophy Ordered Plan/Urinary Catheter Urinary Catheter: Other Catheter: (keep catheter in for healing of vesicourethral anastomosis) Plan - NGT and diet per gen surg - keep catheter to gravity - will get a cystogram prior to removing the catheter - plan to do this in a few days - cont abx and diflucan - ambulate - SCDs in bed - SQH - incentive spirometry - PT/OT AARTI MCCALLUM MD December 08, 2019 13:14
[2019-12-08 14:00] VITALS: BP 132/70
--- NOTE | 2019-12-08 15:14 | IPNPDOC ---
Date Seen The patient was seen on 12/08/19. Progress Note SUBJECTIVE: Patient seen and examined sitting at the bedside this morning. He has no complaints. No issues reported overnight. He has been afebrile and denies any pain. No nausea/vomiting/diarrhea or other signs of infection at this time. His belly does still feel very distended to him, but his pain is well controlled. OBJECTIVE PHYSICAL EXAMINATION: GENERAL APPEARANCE: Sitting up at the bedside, appears stated age, no acute distress, calm, cooperative HEENT: EOMI, PERRLA, neck is supple with no thyromegaly or lymphadenopathy RESPIRATORY: Lungs are clear to auscultation bilaterally with no adventitious breath sounds appreciated CARDIOVASCULAR: no JVD, RRR,no murmurs/rubs/gallops, normal S1 and S2 ABDOMEN: +BS, very distended, nontender to palpation in all four quadrants, no masses/organomegaly, LAN drain in RLQ draining serosanguinous fluid, colostomy bag draining dark brown liquid stool. There seems to be air in the colostomy bag EXTREMITIES: no clubbing, cyanosis or edema noted NEUROLOGICAL: CN 2-12 intact, No obvious focal deficits PSYCHIATRIC: somewhat depressed mood Skin: No rashes or ulcers appreciated, warm and well-perfused LN: No significant cervical or inguinal lymphadenopathy LABORATORY DATA, IMAGING STUDIES, MICROBIOLOGY: Please see below. Echocardiogram: CONCLUSIONS: 1. Normal left ventricle internal dimensions. Normal regional LV wall motion and wall thickening. Normal LV systolic function. LVEF 60% by visual estimate. Grade 1 LV diastolic dysfunction. 2. Suggestive of mild-moderate elevation of estimated right ventricle systolic pressure. Mild mitral regurgitation. Normal right ventricle size and systolic function. Right atrium appeared normal in size. 3. Mild aortic valve sclerosis with a 3-cuspid aortic valve. No aortic stenosis or regurgitation. 4. Moderately technically difficult echocardiogram. 5. Otherwise normal appearing echocardiogram Doppler findings. DVT prophylaxis ordered?: [facility] GI ppx: Protonix ASSESSMENT AND PLAN: This is a 69 YO M with recent history prostatectomy on 11/25 who presented to ED on 12/01 for worsening abdominal distention found to have perforated viscous s/p exploratory laparotomy demonstrating perforated rectum. Patient now has diverting colostomy. In addition, patient had been in atrial fibrillation with RVR on admission, which has now found to be transient. PROBLEMS: 1. Perforated viscous: -Continue NG tube for now, as patient continues to be very distended -Continue TPN, will plan to transition to oral in next 48h if clinical improvement -Continue diverting colostomy care -WBC still elevated but downward trending. Continue with Zosyn, Fluconazole -Encourage ambulation, sitting up in chair, IS as much as possible -General surgery and Urology following. Appreciate recommendations 2. 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 -Continue Metoprolol for rate control 3. Recent prostatectomy: -Continue urinary cathether to gravity drainage. -Urology following. Would like cystogram prior to removing catheter DISPOSITION: Pending clinical improvement Attending attestation: I evaluated and examined the patient in person; I discussed the care with Resident in detail and agree with the plan above. VS, [facility] Sign[facility]/I&O Vital Signs Date Time Temp Pulse Resp B/P (MAP) Pulse Ox O2 Delivery O2 Flow Rate FiO2 12/08/19 08:41 18 12/08/19 08:31 85 137/66 12/08/19 06:00 97.4 93 Room Air 12/06/19 07:00 2.0 I&O- Last 24 Hours up to 6 AM 12/08/19 06:00 Intake Total 1555 ml Output Total 1550 ml Balance 5 ml Laboratory Data 24H LABS Laboratory Tests 2 12/07/19 16:27: Bedside Glucose (Misc Panel) 148H 12/08/19 00:08: Bedside Glucose (Misc Panel) 142H 12/08/19 05:40: Immature Granulocyte % (Auto) , Neutrophils (%) (Auto) , Nucleated Red Blood Cells % (auto) 0.0, Neutrophils 80H, Band Neutrophils 1, Lymphocytes (Manual) 9L, Monocytes (Manual) 2, Eosinophils (Manual) 8H, Red Blood Cell Morphology NORMAL, Platelet Estimate NORMAL, Anion Gap 8, Glomerular Filtration Rate > 60.0, Calcium Level 7.2L, Total Bilirubin 0.4, Aspartate Amino Transf (AST/SGOT) 32, Alanine Aminotransferase (ALT/SGPT) 16, Alkaline Phosphatase 62, Total Protein 4.7L, Albumin 1.5L, Albumin/Globulin Ratio 0.47L 12/08/19 05:46: Bedside Glucose (Misc Panel) 161H 12/08/19 11:27: Bedside Glucose (Misc Panel) 163H CBC/BMP Laboratory Tests 12/08/19 05:40 Microbiology Microbiology 12/02/19 Urine Culture - Final, Complete 12/02/19 Blood Culture - Final, Complete NO GROWTH AFTER 5 DAYS 12/02/19 Blood Culture - Final, Complete NO GROWTH AFTER 5 DAYS GME ATTESTATION GME ATTESTATION My faculty preceptor for this patient encounter was physically present during the encounter and was fully available. All aspects of the patient interview, examination, medical decision making process, and medical care plan development were reviewed and approved by the faculty preceptor. The faculty preceptor is aware and concurs with the plan as stated in the body of this note and will attest to such by his/her cosignature. ULICES RAMÍREZ MD December 08, 2019 14:21 NATHAN EAST MD December 09, 2019 19:51
[2019-12-08] MEDS ORDERED: FAT EMULSION IV 20% 500 ML IV SCH (18:00)
[2019-12-08] MEDS ORDERED: MULTIVITAMIN -ADULT INJECTION 10 ML, CR/CU/SE/MN/ZN INJ 1 ML in AMINO AC/ELECTROLYTE/DE... IV SCH (18:00)
[2019-12-08] MEDS: SIMVASTATIN 20 MG TAB PO SCH (20:31)
[2019-12-08 22:00] VITALS: BP 150/81
[2019-12-09] MEDS: HumaLOG INSULIN (NovoLOG) PER UNIT SC SCH ×5 (00:27→23:17)
[2019-12-09] MEDS: MORPHINE 2 MG/ML 1ML VIAL (J2270) IV PRN ×4 (01:24→20:07)
[2019-12-09] MEDS: PIPERACILLIN/TAZOBACTAM SOD 4.5 GM in D5W MINI-BAG PLUS 50 ML IV SCH ×4 (05:57→23:05)
[2019-12-09] MEDS: SODIUM CHLORIDE 0.9% INJ 10 ML SYR IV SCH ×2 (05:58→16:35)
[2019-12-09] MEDS: HEPARIN SOD (PORCINE) 5000UNITS/ML VIAL (J1644 PER 1000UNITS) SQ SCH ×3 (05:59→23:05)
[2019-12-09 06:00] VITALS: BP 146/66
[2019-12-09 06:20] LABS: HEMATOCRIT 34.6 % (42.0-52.0); HEMOGLOBIN 11.6 g/dl (13.5-17.5); MEAN CORPUSCULAR HEMOGLOBIN 30.4 pg (27.0-33.0); MEAN CORPUSCULAR HGB CONC 33.5 g/dl (32.0-36.5); MEAN CORPUSCULAR VOLUME 90.6 fl (80.0-96.0); PLATELET COUNT, AUTOMATED 384 10^3/uL (150-450); RED BLOOD COUNT 3.82 10^6/uL (4.30-6.10); WHITE BLOOD COUNT 23.4 10^3/uL (4.0-10.0)
[2019-12-09 06:43] LABS: ALBUMIN 1.5 GM/DL (3.2-5.2); ALT/SGPT 24 U/L (12-78); BILIRUBIN,TOTAL 0.3 MG/DL (0.2-1.0); BLOOD UREA NITROGEN 21 MG/DL (7-18); CARBON DIOXIDE LEVEL 24 MEQ/L (21-32); CHLORIDE LEVEL 109 MEQ/L (98-107); CREATININE FOR GFR 0.83 MG/DL (0.70-1.30); GLOMERULAR FILTRATION RATE > 60.0 (>42); GLUCOSE, FASTING 144 MG/DL (70-100); POTASSIUM SERUM 4.3 MEQ/L (3.5-5.1); SODIUM LEVEL 141 MEQ/L (136-145); TOTAL PROTEIN 4.7 GM/DL (6.4-8.2)
[2019-12-09 06:50] LABS: EOSINOPHILS 2 % (0-3); LYMPHOCYTES 6 % (16-44); METAMYELOCYTES 3 % (0-0); MONOCYTES 4 % (0-5); MYELOCYTES 2 % (0-0); NEUTROPHILS 83 % (28-66); PLATELET ESTIMATE NORMAL (NORMAL)
[2019-12-09] MEDS: METOPROLOL TART 25 MG TABLET PO SCH ×2 (08:26→20:06)
[2019-12-09] MEDS: FLUCONAZOLE 200 MG in IV 1 EA IV SCH (08:26)
[2019-12-09] MEDS: ASPIRIN 81 MG ENTERIC TAB PO SCH (08:26)
[2019-12-09] MEDS: PANTOPRAZOLE 40MG TAB (PROTONIX) PO SCH (08:26)
[2019-12-09] MEDS: SIMETHICONE 80 MG CHEW TAB PO SCH ×4 (08:26→20:06)
[2019-12-09] MEDS: HYDROCORTISONE 1% CREAM 30 GM TOP SCH (08:26)
--- NOTE | 2019-12-09 11:07 | IPNPDOC ---
Text Note Date of Service The patient was seen on 12/09/19. NOTE No acute events over the weekend. Denies any fevers, chills, or cough. His abd omen is less distended and much less tender. There is stool and air in the ostomy bag. VSSAF NAD abd - distended, TTP diffuse with no rebound or guarding, dressing c/d/i, ostomy is pink with stool in the bag, and the drain is clear. labs - below A) 69y/o male s/p robotic prostatectomy last week with peritonits, sepsis, and free air on CT PO s/p ex lap with abd washout and diverting colostomy for rectal perforation. P) clq diet IVF abx, diflucan ambulate pain control IS monitor labs TPN clamp NGT and trial clq diet Micah Julio DO VS,Fishbone, I+O VS, Fishbone, I+O Laboratory Tests 12/09/19 05:51 Vital Signs Date Time Temp Pulse Resp B/P (MAP) Pulse Ox O2 Delivery O2 Flow Rate FiO2 12/09/19 08:35 18 12/09/19 08:26 93 146/66 12/09/19 06:00 98.4 94 Room Air 12/06/19 07:00 2.0 I&O- Last 24 Hours up to 6 AM 12/09/19 06:00 Intake Total 1440 ml Output Total 2050 ml Balance -610 ml ZAIRE JULIO DO December 09, 2019 11:07
[2019-12-09] MEDS: SODIUM CHLORIDE 0.9% INJ 10 ML SYR IV PRN (11:29)
--- NOTE | 2019-12-09 12:44 | IPNPDOC ---
Date Seen The patient was seen on 12/09/19. Progress Note SUBJECTIVE: Patient seen and examined sitting at the bedside this morning. He has no complaints. No issues reported overnight. He has been afebrile and denies any pain. No nausea/vomiting/diarrhea or other signs of infection at this time. His belly does still feel very distended to him, but his pain is well controlled. Surgery has decided to clamp his NG tube at this time. OBJECTIVE PHYSICAL EXAMINATION: GENERAL APPEARANCE: Sitting up at the bedside, appears stated age, no acute distress, calm, cooperative HEENT: EOMI, PERRLA, neck is supple with no thyromegaly or lymphadenopathy RESPIRATORY: Lungs are clear to auscultation bilaterally with no adventitious breath sounds appreciated CARDIOVASCULAR: no JVD, RRR,no murmurs/rubs/gallops, normal S1 and S2 ABDOMEN: +BS, very distended, nontender to palpation in all four quadrants, no masses/organomegaly, LAN drain in RLQ draining serosanguinous fluid, colostomy bag draining dark brown liquid stool. There seems to be air in the colostomy bag EXTREMITIES: no clubbing, cyanosis or edema noted NEUROLOGICAL: CN 2-12 intact, No obvious focal deficits PSYCHIATRIC: somewhat depressed mood Skin: No rashes or ulcers appreciated, warm and well-perfused LN: No significant cervical or inguinal lymphadenopathy LABORATORY DATA, IMAGING STUDIES, MICROBIOLOGY: Please see below. Echocardiogram: CONCLUSIONS: 1. Normal left ventricle internal dimensions. Normal regional LV wall motion and wall thickening. Normal LV systolic function. LVEF 60% by visual estimate. Grade 1 LV diastolic dysfunction. 2. Suggestive of mild-moderate elevation of estimated right ventricle systolic pressure. Mild mitral regurgitation. Normal right ventricle size and systolic function. Right atrium appeared normal in size. 3. Mild aortic valve sclerosis with a 3-cuspid aortic valve. No aortic stenosis or regurgitation. 4. Moderately technically difficult echocardiogram. 5. Otherwise normal appearing echocardiogram Doppler findings. DVT prophylaxis ordered?: [facility] ppx: Protonix ASSESSMENT AND PLAN: This is a 69 YO M with recent history prostatectomy on 11/25 who presented to ED on 12/01 for worsening abdominal distention found to have perforated viscous s/p exploratory laparotomy demonstrating perforated rectum. Patient now has diverting colostomy. In addition, patient had been in atrial fibrillation with RVR on admission, which has now found to be transient. PROBLEMS: 1. Perforated viscous: -Clamp NG tube for now, per surgery. Will see how patient does -Continue TPN, will plan to transition to oral in next 48h if clinical improvem ent -Continue diverting colostomy care -WBC still elevated but downward trending. Continue with Zosyn, Fluconazole -Encourage ambulation, sitting up in chair, IS as much as possible -General surgery and Urology following. Appreciate recommendations 2. 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 -Continue Metoprolol for rate control 3. Recent prostatectomy: -Continue urinary cathether to gravity drainage. -Urology following. Would like cystogram prior to removing catheter DISPOSITION: Pending clinical improvement Attending attestation: I evaluated and examined the patient in person; I discussed the care with Resident in detail and agree with the plan above. VS, I&O, 24H, Fishbone Vital Signs/I&O Vital Signs Date Time Temp Pulse Resp B/P (MAP) Pulse Ox O2 Delivery O2 Flow Rate FiO2 12/09/19 08:35 18 12/09/19 08:26 93 146/66 12/09/19 06:00 98.4 94 Room Air 12/06/19 07:00 2.0 I&O- Last 24 Hours up to 6 AM 12/09/19 06:00 Intake Total 1440 ml Output Total 2050 ml Balance -610 ml Laboratory Data 24H LABS Laboratory Tests 2 12/08/19 17:38: Bedside Glucose (Misc Panel) 122H 12/09/19 00:09: Bedside Glucose (Misc Panel) 124H 12/09/19 05:45: Bedside Glucose (Misc Panel) 155H 12/09/19 05:51: Immature Granulocyte % (Auto) , Neutrophils (%) (Auto) , Nucleated Red Blood Cells % (auto) 0.0, Neutrophils 83H, Lymphocytes (Manual) 6L, Monocytes (Manual) 4, Eosinophils (Manual) 2, Metamyelocytes 3H, Myelocytes 2H, Red Blood Cell Morphology NORMAL, Platelet Estimate NORMAL, Anion Gap 8, Glomerular Filtration Rate > 60.0, Calcium Level 7.0L, Total Bilirubin 0.3, Aspartate Amino Transf (AST/SGOT) 40H, Alanine Aminotransferase (ALT/SGPT) 24, Alkaline Phosphatase 81, Total Protein 4.7L, Albumin 1.5L, Albumin/Globulin Ratio 0.47L 12/09/19 11:33: Bedside Glucose (Misc Panel) 150H CBC/BMP Laboratory Tests 12/09/19 05:51 Microbiology Microbiology 12/02/19 Urine Culture - Final, Complete 12/02/19 Blood Culture - Final, Complete NO GROWTH AFTER 5 DAYS 12/02/19 Blood Culture - Final, Complete NO GROWTH AFTER 5 DAYS GME ATTESTATION GME ATTESTATION My faculty preceptor for this patient encounter was physically present during the encounter and was fully available. All aspects of the patient interview, examination, medical decision making process, and medical care plan development were reviewed and approved by the faculty preceptor. The faculty preceptor is aware and concurs with the plan as stated in the body of this note and will attest to such by his/her cosignature. ULICES RAMÍREZ MD December 09, 2019 12:44 NATHAN EAST MD December 09, 2019 20:06
[2019-12-09 14:24] VITALS: BP 135/67
[2019-12-09] MEDS ORDERED: AMINO AC/ELECTROLYTE/DEX/CALC 2,000 ML IV SCH (18:00)
[2019-12-09] MEDS ORDERED: FAT EMULSION IV 20% 500 ML IV SCH (18:00)
--- NOTE | 2019-12-09 18:30 | IPNPDOC ---
Subjective Review oF Systems Chief Complaint The patient is a 69-year-old male admitted with a reason for visit of Andrés,Pneumoperitoneum,Rapid A-Fib,Sepsis,Transamini. Events since Last Encounter No acute events o/n. Objective Physical Examination General Exam: Alert, Cooperative, No Acute Distress ABDOMEN EXAM: Other (mildly distended; nontender; incision c/d/i; LAN w/ serous output; ostomy w/ stool in bag) Skin Exam: Nl turgor and temperature Neuro Exam: Normal Speech Psych Exam: Mental status NL, Mood NL Other physical findings yellow urine w/ sediment draining from catheter Vital Signs/I&O Vital Signs Date Time Temp Pulse Resp B/P (MAP) Pulse Ox O2 Delivery O2 Flow Rate FiO2 12/09/19 14:24 98.4 90 19 135/67 (89) 94 Room Air 12/06/19 07:00 2.0 I&O- Last 24 Hours up to 6 AM 12/09/19 06:00 Intake Total 1440 ml Output Total 2050 ml Balance -610 ml Laboratory Data Labs 24H Laboratory Tests 2 12/09/19 00:09: Bedside Glucose (Misc Panel) 124H 12/09/19 05:45: Bedside Glucose (Misc Panel) 155H 12/09/19 05:51: Immature Granulocyte % (Auto) , Neutrophils (%) (Auto) , Nucleated Red Blood Cells % (auto) 0.0, Neutrophils 83H, Lymphocytes (Manual) 6L, Monocytes (Manual) 4, Eosinophils (Manual) 2, Metamyelocytes 3H, Myelocytes 2H, Red Blood Cell Morphology NORMAL, Platelet Estimate NORMAL, Anion Gap 8, Glomerular Filtration Rate > 60.0, Calcium Level 7.0L, Total Bilirubin 0.3, Aspartate Amino Transf (AST/SGOT) 40H, Alanine Aminotransferase (ALT/SGPT) 24, Alkaline Phosphatase 81, Total Protein 4.7L, Albumin 1.5L, Albumin/Globulin Ratio 0.47L 12/09/19 11:33: Bedside Glucose (Misc Panel) 150H 12/09/19 17:14: Bedside Glucose (Misc Panel) 135H CBC/BMP Laboratory Tests 12/09/19 05:51 FSBS Laboratory Tests Test 12/09/19 00:09 12/09/19 05:45 12/09/19 11:33 5/5/20 17:14 Range/Units Bedside Glucose (Misc Panel) 124 155 150 135 83-110 MG/DL Microbiology Microbiology 12/02/19 Urine Culture - Final, Complete 12/02/19 Blood Culture - Final, Complete NO GROWTH AFTER 5 DAYS 12/02/19 Blood Culture - Final, Complete NO GROWTH AFTER 5 DAYS Assessment/Plan Date Seen The patient was seen on 12/09/19. Patient Summary This is a 69 y/o M who is s/p a RALP on 11/26/19, admitted w/ abd distention and signs of sepsis, now POD6 s/p ex lap w/ washout and diverting colostomy for a rectal perforation. Plan/VTE VTE Prophylaxis Ordered?: Yes VTE Exclusion Mechanical Proph: N/A:VTE Prophy Ordered Plan/Urinary Catheter Urinary Catheter: Other Catheter: (keep catheter in for healing of vesicourethral anastomosis) Plan - cont zosyn and diflucan - starting clears per gen surg - NGT clamped - ambulate - SCDs when in bed - [facility] - incentive spirometer - catheter to gravity drainage - PT/OT AARTI MCCALLUM MD December 09, 2019 18:30
[2019-12-09] MEDS: SIMVASTATIN 20 MG TAB PO SCH (20:06)
[2019-12-09 22:00] VITALS: BP 136/68
[2019-12-10] MEDS: MORPHINE 2 MG/ML 1ML VIAL (J2270) IV PRN ×4 (02:16→21:13)
[2019-12-10 06:00] VITALS: BP 138/71
[2019-12-10] MEDS: HEPARIN SOD (PORCINE) 5000UNITS/ML VIAL (J1644 PER 1000UNITS) SQ SCH ×3 (06:09→21:03)
[2019-12-10] MEDS: PIPERACILLIN/TAZOBACTAM SOD 4.5 GM in D5W MINI-BAG PLUS 50 ML IV SCH ×4 (06:09→23:19)
[2019-12-10] MEDS: HumaLOG INSULIN (NovoLOG) PER UNIT SC SCH ×2 (06:09→12:00)
[2019-12-10] MEDS: SODIUM CHLORIDE 0.9% INJ 10 ML SYR IV SCH ×2 (06:10→16:28)
[2019-12-10 06:11] LABS: BASO # 0.1 10^3/uL (0.0-0.2); BASO % 0.4 % (0.0-1.0); HEMATOCRIT 33.2 % (42.0-52.0); HEMOGLOBIN 10.9 g/dl (13.5-17.5); LYMPH # 1.2 10^3/uL (1.5-5.0); LYMPH % 5.6 % (24.0-44.0); MEAN CORPUSCULAR HEMOGLOBIN 29.5 pg (27.0-33.0); MEAN CORPUSCULAR HGB CONC 32.8 g/dl (32.0-36.5); MONO # 0.8 10^3/uL (0.0-0.8); MONO % 3.8 % (0.0-5.0); NEUTROPHILS # 18.1 10^3/uL (1.5-8.5); NEUTROPHILS % 85.8 % (36.0-66.0); PLATELET COUNT, AUTOMATED 459 10^3/uL (150-450); RED BLOOD COUNT 3.69 10^6/uL (4.30-6.10); WHITE BLOOD COUNT 21.2 10^3/uL (4.0-10.0)
[2019-12-10 06:31] LABS: BLOOD UREA NITROGEN 20 MG/DL (7-18); CALCIUM LEVEL 7.2 MG/DL (8.8-10.2); CARBON DIOXIDE LEVEL 23 MEQ/L (21-32); CHLORIDE LEVEL 108 MEQ/L (98-107); CREATININE FOR GFR 0.81 MG/DL (0.70-1.30); GLOMERULAR FILTRATION RATE > 60.0 (>42); GLUCOSE, FASTING 137 MG/DL (70-100); POTASSIUM SERUM 4.4 MEQ/L (3.5-5.1); SODIUM LEVEL 137 MEQ/L (136-145)
--- NOTE | 2019-12-10 08:52 | IPNPDOC ---
Subjective Review oF Systems Chief Complaint The patient is a 69-year-old male admitted with a reason for visit of Andrés,Pneumoperitoneum,Rapid A-Fib,Sepsis,Transamini. Events since Last Encounter No acute events. Pain controlled. Tolerated clears yesterday. Ambulating. Objective Physical Examination General Exam: Alert, Cooperative, No Acute Distress ABDOMEN EXAM: Other (nondistended; nontender; incision c/d/i; LAN w/ serous output; ostomy w/ stool in bag) Skin Exam: Nl turgor and temperature Neuro Exam: Normal Speech Psych Exam: Mental status NL, Mood NL Other physical findings catheter draining clear yellow urine Vital Signs/I&O Vital Signs Date Time Temp Pulse Resp B/P (MAP) Pulse Ox O2 Delivery O2 Flow Rate FiO2 12/10/19 06:30 20 12/10/19 06:00 98.4 96 138/71 (93) 95 Room Air 12/06/19 07:00 2.0 I&O- Last 24 Hours up to 6 AM 12/10/19 06:00 Intake Total 1830 ml Output Total 2336 ml Balance -506 ml Laboratory Data Labs 24H Laboratory Tests 2 12/09/19 11:33: Bedside Glucose (Misc Panel) 150H 12/09/19 17:14: Bedside Glucose (Misc Panel) 135H 12/09/19 23:11: Bedside Glucose (Misc Panel) 140H 12/10/19 05:47: Immature Granulocyte % (Auto) 4.4H, Neutrophils (%) (Auto) 85.8H, Lymphocytes (%) (Auto) 5.6L, Monocytes (%) (Auto) 3.8, Eosinophils (%) (Auto) 0.0, Basophils (%) (Auto) 0.4, Neutrophils # (Auto) 18.1H, Lymphocytes # (Auto) 1.2L, Monocytes # (Auto) 0.8, Eosinophils # (Auto) 0.0, Basophils # (Auto) 0.1, Nucleated Red Blood Cells % (auto) 0.0, Anion Gap 6L, Glomerular Filtration Rate > 60.0, Calcium Level 7.2L 12/10/19 05:53: Bedside Glucose (Misc Panel) 147H CBC/BMP Laboratory Tests 12/10/19 05:47 [facility]BS Laboratory Tests Test 12/09/19 11:33 12/09/19 17:14 12/09/19 23:11 12/10/19 05:53 Range/Units Bedside Glucose (Misc Panel) 150 135 140 147 83-110 MG/DL Microbiology Microbiology 12/02/19 Urine Culture - Final, Complete 12/02/19 Blood Culture - Final, Complete NO GROWTH AFTER 5 DAYS 12/02/19 Blood Culture - Final, Complete NO GROWTH AFTER 5 DAYS Assessment/Plan Date Seen The patient was seen on 12/10/19. Patient Summary This is a 69 y/o M who is s/p a RALP on 11/26/19, admitted w/ abd distention and signs of sepsis, now POD7 s/p ex lap w/ washout and diverting colostomy for a rectal perforation. Plan/VTE VTE Prophylaxis Ordered?: Yes VTE Exclusion Mechanical Proph: N/A:VTE Prophy Ordered Plan/Urinary Catheter Urinary Catheter: Other Catheter: (keep catheter in for healing of vesicourethral anastomosis) Plan - diet per gen surg; NGT being removed today - continue abx and diflucan - catheter to gravity drainage - will plan for cystogram tomorrow - if vesicourethral anastomsis is healed will d/c the catheter tomorrow AARTI MCCALLUM MD December 10, 2019 08:52
[2019-12-10] MEDS: SIMETHICONE 80 MG CHEW TAB PO SCH ×4 (08:54→21:03)
[2019-12-10] MEDS: METOPROLOL TART 25 MG TABLET PO SCH ×2 (08:54→21:03)
[2019-12-10] MEDS: PANTOPRAZOLE 40MG TAB (PROTONIX) PO SCH (08:54)
[2019-12-10] MEDS: FLUCONAZOLE 200 MG in IV 1 EA IV SCH (08:54)
[2019-12-10] MEDS: ASPIRIN 81 MG ENTERIC TAB PO SCH (08:54)
[2019-12-10] MEDS: HYDROCORTISONE 1% CREAM 30 GM TOP SCH (09:07)
[2019-12-10 14:00] VITALS: BP 125/63
--- NOTE | 2019-12-10 18:17 | IPNPDOC ---
Date Seen The patient was seen on 12/10/19. Progress Note SUBJECTIVE: Patient seen and examined sitting in bed this morning. No issues reported overnight. He has been afebrile and denies any pain. No nausea/vomiting/diarrhea or other signs of infection at this time. His NG tube has been removed and he is currently tolerating a full liquid diet. OBJECTIVE PHYSICAL EXAMINATION: GENERAL APPEARANCE: Sitting up at the bedside, appears stated age, no acute distress, calm, cooperative HEENT: EOMI, PERRLA, neck is supple with no thyromegaly or lymphadenopathy RESPIRATORY: Lungs are clear to auscultation bilaterally with no adventitious breath sounds appreciated CARDIOVASCULAR: no JVD, RRR,no murmurs/rubs/gallops, normal S1 and S2 ABDOMEN: +BS, somewhat distended, nontender to palpation in all four quadrants, no masses/organomegaly, LAN drain in RLQ draining serosanguinous fluid, colostomy bag draining dark brown liquid stool. There seems to be air in the colostomy bag. Surgical scar is healing well, does not appear to be erythematous or draining any fluid at the time of my exam. EXTREMITIES: no clubbing, cyanosis or edema noted NEUROLOGICAL: CN 2-12 intact, No obvious focal deficits PSYCHIATRIC: somewhat depressed mood Skin: No rashes or ulcers appreciated, warm and well-perfused LN: No significant cervical or inguinal lymphadenopathy LABORATORY DATA, IMAGING STUDIES, MICROBIOLOGY: Please see below. Echocardiogram: CONCLUSIONS: 1. Normal left ventricle internal dimensions. Normal regional LV wall motion and wall thickening. Normal LV systolic function. LVEF 60% by visual estimate. Grade 1 LV diastolic dysfunction. 2. Suggestive of mild-moderate elevation of estimated right ventricle systolic pressure. Mild mitral regurgitation. Normal right ventricle size and systolic function. Right atrium appeared normal in size. 3. Mild aortic valve sclerosis with a 3-cuspid aortic valve. No aortic stenosis or regurgitation. 4. Moderately technically difficult echocardiogram. 5. Otherwise normal appearing echocardiogram Doppler findings. DVT prophylaxis ordered?: [facility] ppx: Protonix ASSESSMENT AND PLAN: This is a 69 YO M with recent history prostatectomy on 11/25 who presented to ED on 12/01 for worsening abdominal distention found to have perforated viscous s/p exploratory laparotomy demonstrating perforated rectum. Patient now has diverting colostomy. In addition, patient had been in atrial fibrillation with RVR on admission, which has now found to be transient. PROBLEMS: 1. Perforated viscous: -s/p NG tube. Patient is much less distended today -TPN stopped. Patient is tolerating clear liquid diet. Will upgrade diet as tolerated. -Continue diverting colostomy care -WBC still elevated but downward trending. Continue with Zosyn, Fluconazole. May stop these antibiotics in next 48h -Encourage ambulation, sitting up in chair, IS as much as possible -PT/OT -General surgery and Urology following. Appreciate recommendations 2. 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 -Continue Metoprolol for rate control 3. Recent prostatectomy: -Continue urinary cathether to gravity drainage. -Urology following. Would like cystogram prior to removing catheter DISPOSITION: Pending clinical improvement Attending attestation: I evaluated and examined the patient in person; I discussed the care with Resident in detail and agree with the plan above. VS, I&O, 24H, Fishbone Vital Signs/I&O Vital Signs Date Time Temp Pulse Resp B/P (MAP) Pulse Ox O2 Delivery O2 Flow Rate FiO2 12/10/19 14:00 98.1 87 20 125/63 (83) 96 Room Air 12/06/19 07:00 2.0 I&O- Last 24 Hours up to 6 AM 12/10/19 06:00 Intake Total 1830 ml Output Total 2336 ml Balance -506 ml Laboratory Data 24H LABS Laboratory Tests 2 12/09/19 23:11: Bedside Glucose (Misc Panel) 140H 12/10/19 05:47: Immature Granulocyte % (Auto) 4.4H, Neutrophils (%) (Auto) 85.8H, Lymphocytes (%) (Auto) 5.6L, Monocytes (%) (Auto) 3.8, Eosinophils (%) (Auto) 0.0, Basophils (%) (Auto) 0.4, Neutrophils # (Auto) 18.1H, Lymphocytes # (Auto) 1.2L, Monocytes # (Auto) 0.8, Eosinophils # (Auto) 0.0, Basophils # (Auto) 0.1, Nucleated Red Blood Cells % (auto) 0.0, Anion Gap 6L, Glomerular Filtration Rate > 60.0, Calcium Level 7.2L 12/10/19 05:53: Bedside Glucose (Misc Panel) 147H 12/10/19 12:04: Bedside Glucose (Misc Panel) 136H CBC/BMP Laboratory Tests 12/10/19 05:47 Microbiology Microbiology 12/02/19 Urine Culture - Final, Complete 12/02/19 Blood Culture - Final, Complete NO GROWTH AFTER 5 DAYS 12/02/19 Blood Culture - Final, Complete NO GROWTH AFTER 5 DAYS GME ATTESTATION GME ATTESTATION My faculty preceptor for this patient encounter was physically present during the encounter and was fully available. All aspects of the patient interview, examination, medical decision making process, and medical care plan development were reviewed and approved by the faculty preceptor. The faculty preceptor is aware and concurs with the plan as stated in the body of this note and will attest to such by his/her cosignature. ULICES RAMÍREZ MD December 10, 2019 18:17 NATHAN EAST MD December 12, 2019 16:14
[2019-12-10] MEDS: SIMVASTATIN 20 MG TAB PO SCH (21:04)
[2019-12-10] MEDS: RAMELTEON 8 MG TAB (ROZEREM) PO PRN (21:12)
[2019-12-10 22:00] VITALS: BP 130/67
[2019-12-11] MEDS: MORPHINE 2 MG/ML 1ML VIAL (J2270) IV PRN ×6 (01:12→21:29)
[2019-12-11] MEDS: PIPERACILLIN/TAZOBACTAM SOD 4.5 GM in D5W MINI-BAG PLUS 50 ML IV SCH ×4 (05:20→23:35)
[2019-12-11] MEDS: HEPARIN SOD (PORCINE) 5000UNITS/ML VIAL (J1644 PER 1000UNITS) SQ SCH ×3 (05:20→21:29)
[2019-12-11] MEDS: SODIUM CHLORIDE 0.9% INJ 10 ML SYR IV SCH ×2 (05:21→17:08)
[2019-12-11 06:00] VITALS: BP 133/68
[2019-12-11 07:12] LABS: BASO # 0.1 10^3/uL (0.0-0.2); BASO % 0.5 % (0.0-1.0); HEMATOCRIT 33.9 % (42.0-52.0); HEMOGLOBIN 11.4 g/dl (13.5-17.5); LYMPH # 1.3 10^3/uL (1.5-5.0); LYMPH % 6.9 % (24.0-44.0); MEAN CORPUSCULAR HEMOGLOBIN 30.5 pg (27.0-33.0); MEAN CORPUSCULAR HGB CONC 33.6 g/dl (32.0-36.5); MEAN CORPUSCULAR VOLUME 90.6 fl (80.0-96.0); MONO % 5.2 % (0.0-5.0); NEUTROPHILS # 15.8 10^3/uL (1.5-8.5); NEUTROPHILS % 84.4 % (36.0-66.0); PLATELET COUNT, AUTOMATED 500 10^3/uL (150-450); RED BLOOD COUNT 3.74 10^6/uL (4.30-6.10); WHITE BLOOD COUNT 18.7 10^3/uL (4.0-10.0)
[2019-12-11 07:23] LABS: BLOOD UREA NITROGEN 17 MG/DL (7-18); CALCIUM LEVEL 7.5 MG/DL (8.8-10.2); CARBON DIOXIDE LEVEL 22 MEQ/L (21-32); CHLORIDE LEVEL 107 MEQ/L (98-107); CREATININE FOR GFR 0.87 MG/DL (0.70-1.30); GLOMERULAR FILTRATION RATE > 60.0 (>42); GLUCOSE, FASTING 91 MG/DL (70-100); POTASSIUM SERUM 4.5 MEQ/L (3.5-5.1); SODIUM LEVEL 136 MEQ/L (136-145)
[2019-12-11] MEDS: PANTOPRAZOLE 40MG TAB (PROTONIX) PO SCH (08:14)
[2019-12-11] MEDS: SIMETHICONE 80 MG CHEW TAB PO SCH ×4 (08:14→21:30)
[2019-12-11] MEDS: ASPIRIN 81 MG ENTERIC TAB PO SCH (08:14)
[2019-12-11] MEDS: METOPROLOL TART 25 MG TABLET PO SCH ×2 (08:14→21:30)
[2019-12-11] MEDS: FLUCONAZOLE 200 MG in IV 1 EA IV SCH (08:15)
[2019-12-11] MEDS: HYDROCORTISONE 1% CREAM 30 GM TOP SCH (08:15)
[2019-12-11] MEDS ORDERED: ISOVUE-370 76% 100ML VIAL As Ordered ONE (09:45)
[2019-12-11] MEDS ORDERED: CYSTO-CONRAY II 17.2% 250ML VIAL (Q9958) As Ordered ONE (11:47)
--- NOTE | 2019-12-11 11:56 | REP ---
CT ABDOMEN AND PELVIS WITH IV CONTRAST: TECHNIQUE: Axial contrast enhanced images from the lung bases to the pubic symphysis using 100 mL Isovue-370 intravenous contrast material with multiplanar reformations. In the visualized lung bases, there is increased mild to moderate left pleural fluid. There is adjacent left lower lobe atelectasis/infiltrate. There is a small right pleural effusion which has mildly increased. There is mild patchy atelectasis or infiltrate in the right lung base. Patient has had prior cholecystectomy. The liver demonstrates no gross abnormality. The spleen demonstrates a small subcapsular fluid collection. The adrenal glands are normal. The pancreas demonstrates no mass. There is no hydronephrosis. There is atherosclerotic calcification of the abdominal aorta without aneurysm. No periaortic adenopathy is seen. There is a small amount of scattered free air in the upper anterior abdomen as seen on prior study of 12/02/2019 but this has significantly improved. There is diffuse mesenteric edema with small areas of free fluid and loculated fluid throughout the mesentery. There is a small focal fluid collection with some air suggesting an abscess in the right mid abdomen surrounded by bowel. This measures about 4 cm in diameter. A fluid collection is seen in the anterior pelvis with an enhancing rim measuring approximately 5.0 x 6.5 x 12.2 cm. There is a surgical drain in the pelvis. There has been interval surgery of sigmoid colon with a left colonic ostomy formed in the left lower quadrant. More distal sigmoid is tied off. Jha catheter is seen in a collapsed urinary bladder. There is a small right inguinal hernia. There are degenerative changes of the spine. IMPRESSION: Interval sigmoid surgery. Left colonic ostomy noted. Surgical drain in the pelvis. Multiple metallic skin todd anteriorly. Bilateral effusions have increased and there is patchy bibasilar atelectasis/infiltrate. There is small subcapsular fluid collection along the posterolateral spleen. Scattered free fluid and small pockets of loculated fluid are seen throughout the mesentery. There is a 4 cm abscess in the right mid abdomen mesentery surrounded by bowel. An anterior pelvic fluid collection measures 5.0 x 6.5 x 12.2 cm. Small amount of residual free air in the upper anterior abdomen has improved since the prior study of 12/02/2019. Electronically Signed by Grover Adhikari MD 12/11/2019 12:57 P
[2019-12-11 14:00] VITALS: BP 125/65
--- NOTE | 2019-12-11 14:10 | IPNPDOC ---
Date Seen The patient was seen on 12/11/19. Progress Note SUBJECTIVE: Patient seen and examined sitting in bed this morning. No issues reported overnight. He has been afebrile and denies any pain. No nausea/vomiting/diarrhea or other signs of infection at this time. He continues to tolerate a full liquid diet. He feels very weak and is concerned about his inability to ambulate independently and decreased appetite. OBJECTIVE PHYSICAL EXAMINATION: GENERAL APPEARANCE: Sitting up at the bedside, appears stated age, no acute distress, calm, cooperative HEENT: EOMI, PERRLA, neck is supple with no thyromegaly or lymphadenopathy RESPIRATORY: Lungs are clear to auscultation bilaterally with no adventitious breath sounds appreciated CARDIOVASCULAR: no JVD, RRR,no murmurs/rubs/gallops, normal S1 and S2 ABDOMEN: +BS, somewhat distended, nontender to palpation in all four quadrants, no masses/organomegaly, LAN drain in RLQ draining serosanguinous fluid, colostomy bag draining dark brown liquid stool. Surgical drain in place. There seems to be air in the colostomy bag. Surgical scar is healing well, does not appear to be erythematous or draining any fluid at the time of my exam. EXTREMITIES: no clubbing, cyanosis or edema noted NEUROLOGICAL: CN 2-12 intact, No obvious focal deficits PSYCHIATRIC: somewhat depressed mood Skin: No rashes or ulcers appreciated, warm and well-perfused LN: No significant cervical or inguinal lymphadenopathy LABORATORY DATA, IMAGING STUDIES, MICROBIOLOGY: Please see below. Echocardiogram: CONCLUSIONS: 1. Normal left ventricle internal dimensions. Normal regional LV wall motion and wall thickening. Normal LV systolic function. LVEF 60% by visual estimate. Grade 1 LV diastolic dysfunction. 2. Suggestive of mild-moderate elevation of estimated right ventricle systolic pressure. Mild mitral regurgitation. Normal right ventricle size and systolic function. Right atrium appeared normal in size. 3. Mild aortic valve sclerosis with a 3-cuspid aortic valve. No aortic stenosis or regurgitation. 4. Moderately technically difficult echocardiogram. 5. Otherwise normal appearing echocardiogram Doppler findings. CT ABD/PELVIS WITH IV CONTRAST: IMPRESSION: Interval sigmoid surgery. Left colonic ostomy noted. Surgical drain in the pelvis. Multiple metallic skin todd anteriorly. Bilateral effusions have increased and there is patchy bibasilar atelectasis/infiltrate. There is small subcapsular fluid collection along the posterolateral spleen. Scattered free fluid and small pockets of loculated fluid are seen throughout the mesentery. There is a 4 cm abscess in the right mid abdomen mesentery surrounded by bowel. An anterior pelvic fluid collection measures 5.0 x 6.5 x 12.2 cm. Small amount of residual free air in the upper anterior abdomen has improved since the prior study of 12/02/2019. DVT prophylaxis ordered?: [facility] GI ppx: Protonix ASSESSMENT AND PLAN: This is a 69 YO M with recent history prostatectomy on 11/25 who presented to ED on 12/01 for worsening abdominal distention found to have perforated viscous s/p exploratory laparotomy demonstrating perforated rectum. Patient now has diverting colostomy. In addition, patient had been in atrial fibrillation with RVR on admission, which has now found to be transient. PROBLEMS: 1. Perforated viscous: -s/p NG tube. Patient is much less distended today -TPN stopped. Patient is tolerating clear liquid diet. Will upgrade diet as tolerated. -Continue diverting colostomy care -WBC still elevated but downward trending. Continue with Zosyn, Fluconazole. -CT abdomen today concerning for 4cm abscess in R mid abdomen and fluid posterior to spleen. May be the cause of slow decline in WBC. Plan for CT guided abscess drainage -Encourage ambulation, sitting up in chair, IS as much as possible -PT/OT -General surgery and Urology following. Appreciate recommendations 2. Atrial fibrillation with RVR: -long term acute care registered nurse AC not indicated, as patient is only transient AF RVR. -Continue Metoprolol for rate control 3. Recent prostatectomy: -Continue urinary cathether to gravity drainage -Cystogram done today. Pending read. Will discuss with Andrez. DISPOSITION: Pending clinical improvement Attending attestation: I evaluated and examined the patient in person; I discussed the care with Resident in detail and agree with the plan above. VS, I&O, 24H, Fishbone Vital Signs/I&O Vital Signs Date Time Temp Pulse Resp B/P (MAP) Pulse Ox O2 Delivery O2 Flow Rate FiO2 12/11/19 10:55 18 Room Air 12/11/19 08:14 88 133/68 12/11/19 06:00 98.3 97 12/06/19 07:00 2.0 I&O- Last 24 Hours up to 6 AM 12/11/19 06:00 Intake Total 440 ml Output Total 2050 ml Balance -1610 ml Laboratory Data 24H LABS Laboratory Tests 2 12/10/19 18:12: Bedside Glucose (Misc Panel) 119H 12/11/19 01:38: Bedside Glucose (Misc Panel) 108 12/11/19 05:59: Bedside Glucose (Misc Panel) 83 12/11/19 06:41: Immature Granulocyte % (Auto) 3.0, Neutrophils (%) (Auto) 84.4H, Lymphocytes (%) (Auto) 6.9L, Monocytes (%) (Auto) 5.2H, Eosinophils (%) (Auto) 0.0, Basophils (%) (Auto) 0.5, Neutrophils # (Auto) 15.8H, Lymphocytes # (Auto) 1.3L, Monocytes # (Auto) 1.0H, Eosinophils # (Auto) 0.0, Basophils # (Auto) 0.1, Nucleated Red B lood Cells % (auto) 0.0, Anion Gap 7L, Glomerular Filtration Rate > 60.0, Calcium Level 7.5L CBC/BMP Laboratory Tests 12/11/19 06:41 Microbiology Microbiology 12/02/19 Urine Culture - Final, Complete 12/02/19 Blood Culture - Final, Complete NO GROWTH AFTER 5 DAYS 12/02/19 Blood Culture - Final, Complete NO GROWTH AFTER 5 DAYS GME ATTESTATION GME ATTESTATION My faculty preceptor for this patient encounter was physically present during the encounter and was fully available. All aspects of the patient interview, examination, medical decision making process, and medical care plan development were reviewed and approved by the faculty preceptor. The faculty preceptor is aware and concurs with the plan as stated in the body of this note and will attest to such by his/her cosignature. ULICES RAMÍREZ MD December 11, 2019 14:09 NATHAN EAST MD December 12, 2019 16:21
[2019-12-11] MEDS ORDERED: LIDOCAINE 1% MDV 20ML VIAL As Ordered ONE (15:36)
--- NOTE | 2019-12-11 15:49 | REP ---
CYSTOGRAM The procedure was performed under the direct supervision of Dr. Adhikari. The images were reviewed with Dr. Adhikari. The patient arrived in the department with an indwelling Jha catheter. Approximately 125 ml of Cysto-Conray II was instilled into the bladder in a retrograde flow. The bladder is normal in position and contour. There is no evidence of ureteral reflux or extravasation. Impression: The bladder is normal in position and contour. There is no evidence of ureteral reflux or extravasation. 0.2 minutes of fluoroscopy time was utilized for this procedure. Electronically Signed by JONATHAN Zamora 12/11/2019 02:03 P Electronically Signed by Grover Adhikari MD 12/11/2019 03:40 P
--- NOTE | 2019-12-11 16:51 | REP ---
ULTRASOUND-GUIDED PELVIC ABSCESS DRAIN The procedure was performed under the direct supervision of Dr. adhikari. Patient has a history of an anterior pelvic fluid collection measuring 5 x 6.5 x 4.2 cm seen on a previous CT scan performed earlier today. The risks and benefits of the procedure were explained to the patient and informed consent was obtained. The pelvic abscess was localized using ultrasound guidance. The skin was prepped and draped in a sterile fashion. 1% lidocaine was used as a local anesthetic. Using ultrasound guidance a 10 [place] Skater APDL catheter was inserted using trocar technique. 110 ml of proteinaceous colored fluid was withdrawn and sent to lab for analysis. The catheter was affixed to the skin and a sterile dressing was applied. The catheter was connected to a gravity drainage bag. The patient tolerated the procedure well and there were no immediate complications. After the appropriate amount of monitored convalescence the patient was discharged from the department. Electronically Signed by JONATHAN Zamora 12/11/2019 04:42 P Electronically Signed by Grover Adhikari MD 12/11/2019 04:42 P
--- NOTE | 2019-12-11 17:47 | IPNPDOC ---
Subjective Review oF Systems Chief Complaint The patient is a 69-year-old male admitted with a reason for visit of Andrés,Pneumoperitoneum,Rapid A-Fib,Sepsis,Transamini. Events since Last Encounter Patient notes good pain control. He feels well, but is tired. No n/v. No f/c/ns. Objective Physical Examination General Exam: Alert, Cooperative, No Acute Distress ABDOMEN EXAM: Other (nondistended; nontender; incision c/d/i; LAN w/ serous output; abscess drain w/ serous output; ostomy w/ stool in bag) Skin Exam: Nl turgor and temperature Neuro Exam: Normal Speech Psych Exam: Mental status NL, Mood NL Other physical findings catheter draining clear yellow urine Vital Signs/I&O Vital Signs Date Time Temp Pulse Resp B/P (MAP) Pulse Ox O2 Delivery O2 Flow Rate FiO2 12/11/19 16:25 94 18 94 Room Air 12/11/19 15:13 99.1 12/11/19 14:00 125/65 (85) 12/06/19 07:00 2.0 I&O- Last 24 Hours up to 6 AM 12/11/19 06:00 Intake Total 440 ml Output Total 2050 ml Balance -1610 ml Laboratory Data Labs 24H Laboratory Tests 2 12/10/19 18:12: Bedside Glucose (Misc Panel) 119H 12/11/19 01:38: Bedside Glucose (Misc Panel) 108 12/11/19 05:59: Bedside Glucose (Misc Panel) 83 12/11/19 06:41: Immature Granulocyte % (Auto) 3.0, Neutrophils (%) (Auto) 84.4H, Lymphocytes (%) (Auto) 6.9L, Monocytes (%) (Auto) 5.2H, Eosinophils (%) (Auto) 0.0, Basophils (%) (Auto) 0.5, Neutrophils # (Auto) 15.8H, Lymphocytes # (Auto) 1.3L, Monocytes # (Auto) 1.0H, Eosinophils # (Auto) 0.0, Basophils # (Auto) 0.1, Nucleated Red Blood Cells % (auto) 0.0, Anion Gap 7L, Glomerular Filtration Rate > 60.0, Calcium Level 7.5L CBC/BMP Laboratory Tests 12/11/19 06:41 FSBS Laboratory Tests Test 12/10/19 18:12 12/11/19 01:38 12/11/19 05:59 Range/Units Bedside Glucose ([facility]) 119 108 83 83-110 MG/DL Microbiology Microbiology 12/11/19 Gram Stain, Received Pending 12/11/19 Abscess Culture, Received Pending 12/02/19 Urine Culture - Final, Complete 12/02/19 Blood Culture - Final, Complete NO GROWTH AFTER 5 DAYS 12/02/19 Blood Culture - Final, Complete NO GROWTH AFTER 5 DAYS Assessment/Plan Date Seen The patient was seen on 12/11/19. Patient Summary This is a 69 y/o M who is s/p a RALP on 11/26/19, admitted w/ abd distention and signs of sepsis, now POD8 s/p ex lap w/ washout and diverting colostomy for a rectal perforation. CT A/P obtained today to assess for abscess given continued leukocytosis. CT notable for 2 fluid collections. The patient is now s/p drain placement in the larger fluid collection w/ > 100cc of proteinaceous fluid removed. Cystogram done today was negative for leak from vesicourethral anastomosis. Plan/VTE VTE Prophylaxis Ordered?: Yes VTE Exclusion Mechanical Proph: N/A:VTE Prophy Ordered Plan/Urinary Catheter Urinary Catheter: Other Catheter: (keep catheter in for healing of vesicourethr al anastomosis) Plan - cystogram negative - d/c Jha in am - ambulate - cont abx and diflucan - f/u cultures from abscess drain and adjust abx as needed - ambulate; PT/OT - [facility] - incentive spirometry AARTI MCCALLUM MD December 11, 2019 17:47
[2019-12-11 20:37] VITALS: BP 126/67
--- NOTE | 2019-12-11 20:48 | IPNPDOC ---
Text Note Date of Service The patient was seen on 12/10/19. NOTE No acute events over night. Denies any fevers, chills, or cough. He is tolerat ing the NGT clamped and liquid diet. There is stool and air in the ostomy bag. VSSAF NAD abd - distended, TTP diffuse with no rebound or guarding, dressing c/d/i, ostomy is pink with stool in the bag, and the drain is clear. labs - below A) 69y/o male s/p robotic prostatectomy last week with peritonits, sepsis, and free air on CT PO s/p ex lap with abd washout and diverting colostomy for rectal perforation. P) ADAT IVF abx, diflucan ambulate pain control IS monitor labs dc TPN dc NGT Micah Julio DO VS,Sunil, I+O VS, Fishbone, I+O Laboratory Tests 12/11/19 06:41 Vital Signs Date Time Temp Pulse Resp B/P (MAP) Pulse Ox O2 Delivery O2 Flow Rate FiO2 12/11/19 20:37 98.2 89 20 126/67 (86) 94 Room Air 12/06/19 07:00 2.0 I&O- Last 24 Hours up to 6 AM 12/11/19 05:59 Intake Total 440 ml Output Total 1876 ml Balance -1436 ml ZAIRE JULIO DO December 11, 2019 20:48
[2019-12-11] MEDS: SIMVASTATIN 20 MG TAB PO SCH (21:30)
[2019-12-12] MEDS: MORPHINE 2 MG/ML 1ML VIAL (J2270) IV PRN ×2 (02:27→06:42)
[2019-12-12] MEDS: PIPERACILLIN/TAZOBACTAM SOD 4.5 GM in D5W MINI-BAG PLUS 50 ML IV SCH ×4 (05:26→23:30)
[2019-12-12] MEDS: HEPARIN SOD (PORCINE) 5000UNITS/ML VIAL (J1644 PER 1000UNITS) SQ SCH (05:26)
[2019-12-12] MEDS: SODIUM CHLORIDE 0.9% INJ 10 ML SYR IV SCH ×2 (05:27→17:56)
--- NOTE | 2019-12-12 05:30 | IPN ---
DATE: 12/11/2019 GENERAL SURGERY PROGRESS NOTE: HISTORY: The patient is now 8 days postoperative from an exploratory laparotomy with a diverting colostomy for a rectal perforation secondary to a prostatectomy 1 week earlier. A drain was left in the pelvis. A colostomy was created, and this has been functioning well recently. He has been advanced to a regular diet. He still has a Jha catheter in place following the prostatectomy. VITAL SIGNS: Show that he has been afebrile over the past 24 hours. His pulse has been in the 70s to 90s, and his blood pressure has been fine over the last 24 hours. INTAKE AND OUTPUT: Show that yesterday he had 440 of oral intake recorded with 1400 out. He had 1000 mL of urine with 375 mL of stool, and his drain reportedly had only a single milliliter of output. Today, his drain has [address] He has been receiving total parenteral nutrition, which was not recorded yesterday but was apparently discontinued yesterday as well. PHYSICAL EXAMINATION: The patient is an older man lying quietly on the hospital bed. He is alert and oriented. He denies any pain currently. Heart exam shows a regular rhythm. The lungs show good bilateral breath sounds. The abdomen is mildly distended. His midline incision is closed with todd and appears clean without any drainage or redness. He has an ostomy on the left, which is somewhat edematous, and he has good amount of liquid stool in the bag. He has a drain exiting the right lower abdomen, which has about 10 or 20 mL of pale murky fluid in the bulb, though some more serous appearing fluid in the tubing. Lower extremities are without significant edema. LABORATORY STUDIES: Today, show a white count of 19,000, hemoglobin is 11, hematocrit 34, and his platelet count is up to 500,000. Differential count shows 84% neutrophils, 7% lymphocytes, and 5% monocytes. Chemistry profile shows a sodium of 136, potassium 4.5, chloride 107, CO2 of 22, BUN of 17, creatinine 0.9, and glucose of 91. IMPRESSION: The patient is now postoperative day #8 from a colostomy for a rectal perforation. His white count has remained elevated since surgery and has come down minimally over the last 2 days. He remains on antibiotics with fluconazole and piperacillin/tazobactam. He has been tolerating a diet, and his ostomy appears to be functioning well. He has a good urine output, and his total parenteral nutrition (TPN) has been discontinued. PLAN: I remain concerned about the possibility of an intra-abdominal abscess based on his continued elevation of his white count with a left shift. I spoke with Dr. Arce and recommended that we obtain a CT scan of the abdomen and pelvis to look for an abscess. We will see how this looks and proceed from there. If there is a collection that would be amenable to a percutaneous drainage, then I believe this should be drained. BING
[2019-12-12 06:25] LABS: BASO % 0.3 % (0.0-1.0); HEMATOCRIT 33.1 % (42.0-52.0); HEMOGLOBIN 10.7 g/dl (13.5-17.5); LYMPH % 7.1 % (24.0-44.0); MEAN CORPUSCULAR HEMOGLOBIN 29.6 pg (27.0-33.0); MEAN CORPUSCULAR HGB CONC 32.3 g/dl (32.0-36.5); MEAN CORPUSCULAR VOLUME 91.4 fl (80.0-96.0); MONO # 0.8 10^3/uL (0.0-0.8); MONO % 5.7 % (0.0-5.0); NEUTROPHILS # 11.9 10^3/uL (1.5-8.5); NEUTROPHILS % 85.2 % (36.0-66.0); PLATELET COUNT, AUTOMATED 596 10^3/uL (150-450); RED BLOOD COUNT 3.62 10^6/uL (4.30-6.10); WHITE BLOOD COUNT 13.9 10^3/uL (4.0-10.0)
[2019-12-12 06:30] VITALS: BP 109/51
[2019-12-12 06:40] LABS: BLOOD UREA NITROGEN 16 MG/DL (7-18); CALCIUM LEVEL 7.4 MG/DL (8.8-10.2); CARBON DIOXIDE LEVEL 25 MEQ/L (21-32); CHLORIDE LEVEL 108 MEQ/L (98-107); CREATININE FOR GFR 0.94 MG/DL (0.70-1.30); GLOMERULAR FILTRATION RATE > 60.0 (>42); GLUCOSE, FASTING 95 MG/DL (70-100); SODIUM LEVEL 138 MEQ/L (136-145)
[2019-12-12] MEDS: FLUCONAZOLE 200 MG in IV 1 EA IV SCH (08:51)
[2019-12-12] MEDS: METOPROLOL TART 25 MG TABLET PO SCH ×2 (08:53→20:34)
[2019-12-12] MEDS: ASPIRIN 81 MG ENTERIC TAB PO SCH (08:54)
[2019-12-12] MEDS: SIMETHICONE 80 MG CHEW TAB PO SCH (08:54)
[2019-12-12] MEDS: PANTOPRAZOLE 40MG TAB (PROTONIX) PO SCH (08:54)
[2019-12-12] MEDS: HYDROCORTISONE 1% CREAM 30 GM TOP SCH (08:55)
[2019-12-12] MEDS ORDERED: SIMETHICONE 80 MG CHEW TAB PO PRN (09:15)
[2019-12-12] MEDS ORDERED: ACETAMINOPHEN TAB 650MG DOSE (2X325MG) PO PRN (09:15)
--- NOTE | 2019-12-12 10:56 | IPNPDOC ---
Date Seen The patient was seen on 12/12/19. Progress Note SUBJECTIVE: Patient seen and examined sitting in bed this morning. Yesterday he underwent CT abdomen/pelvis and was found to have several abdominal abcesses and free fluid. The largest pocket of fluid was drained from the RLQ and another drain is currently in place in the suprapubic region. He did have some pink/murky leakage from this surgical site this morning. He was also found to have atelectasis and pleural effusion on the CT and has since been encouraged to sit in the bedside chair and use incentive spirometry. He states he feels very weak and tired and is having trouble sleeping at night. He refused to work with PT this morning for this reason. OBJECTIVE PHYSICAL EXAMINATION: GENERAL APPEARANCE: Sitting up at the bedside, appears stated age, no acute distress, calm, cooperative HEENT: EOMI, PERRLA, neck is supple with no thyromegaly or lymphadenopathy RESPIRATORY: Lungs are clear to auscultation bilaterally with no adventitious breath sounds appreciated CARDIOVASCULAR: no JVD, RRR,no murmurs/rubs/gallops, normal S1 and S2 ABDOMEN: +BS, distended, nontender to palpation in all four quadrants, no masses/organomegaly, LAN drain in RLQ draining serosanguinous fluid, additional drain in suprapubic region draining yellow/light pink fluid, colostomy bag draining dark brown liquid stool. There seems to be air in the colostomy bag. Surgical scar is healing well, does not appear to be erythematous or draining any fluid at the time of my exam. EXTREMITIES: no clubbing, cyanosis or edema noted NEUROLOGICAL: CN 2-12 intact, No obvious focal deficits PSYCHIATRIC: somewhat depressed mood Skin: No rashes or ulcers appreciated, warm and well-perfused LN: No significant cervical or inguinal lymphadenopathy LABORATORY DATA, IMAGING STUDIES, MICROBIOLOGY: Please see below. CT ABDOMEN AND PELVIS WITH IV CONTRAST: TECHNIQUE: Axial contrast enhanced images from the lung bases to the pubic symphysis using 100 mL Isovue-370 intravenous contrast material with multiplanar reformations. In the visualized lung bases, there is increased mild to moderate left pleural fluid. There is adjacent left lower lobe atelectasis/infiltrate. There is a small right pleural effusion which has mildly increased. There is mild patchy atelectasis or infiltrate in the right lung base. Patient has had prior cholecystectomy. The liver demonstrates no gross abnormality. The spleen demonstrates a small subcapsular fluid collection. The adrenal glands are normal. The pancreas demonstrates no mass. There is no hydronephrosis. There is atherosclerotic calcification of the abdominal aorta without aneurysm. No periaortic adenopathy is seen. There is a small amount of scattered free air in the upper anterior abdomen as seen on prior study of 12/02/2019 but this has significantly improved. There is diffuse mesenteric edema with small areas of free fluid and loculated fluid throughout the mesentery. There is a small focal fluid collection with some air suggesting an abscess in the right mid abdomen surrounded by bowel. This measures about 4 cm in diameter. A fluid collection is seen in the anterior pelvis with an enhancing rim measuring approximately 5.0 x 6.5 x 12.2 cm. There is a surgical drain in the pelvis. There has been interval surgery of sigmoid colon with a left colonic ostomy formed in the left lower quadrant. More distal sigmoid is tied off. Jha catheter is seen in a collapsed urinary bladder. There is a small right inguinal hernia. There are degenerative changes of the spine. IMPRESSION: Interval sigmoid surgery. Left colonic ostomy noted. Surgical drain in the pelvis. Multiple metallic skin todd anteriorly. Bilateral effusions have increased and there is patchy bibasilar atelectasis/infiltrate. There is small subcapsular fluid collection along the posterolateral spleen. Scattered free fluid and small pockets of loculated fluid are seen throughout the mesentery. There is a 4 cm abscess in the right mid abdomen mesentery surrounded by bowel. An anterior pelvic fluid collection measures 5.0 x 6.5 x 12.2 cm. Small amount of residual free air in the upper anterior abdomen has improved since the prior study of 12/02/2019. IMPRESSION: Interval sigmoid surgery. Left colonic ostomy noted. Surgical drain in the pelvis. Multiple metallic skin todd anteriorly. Bilateral effusions have increased and there is patchy bibasilar atelectasis/infiltrate. There is small subcapsular fluid collection along the posterolateral spleen. Scattered free fluid and small pockets of loculated fluid are seen throughout the mesentery. There is a 4 cm abscess in the right mid abdomen mesentery surrounded by bowel. An anterior pelvic fluid collection measures 5.0 x 6.5 x 12.2 cm. Small amount of residual free air in the upper anterior abdomen has improved since the prior study of 12/02/2019. DVT prophylaxis ordered?: Lovenox GI ppx: Protonix ASSESSMENT AND PLAN: This is a 69 YO M with recent history prostatectomy on 11/25 who presented to ED on 12/01 for worsening abdominal distention found to have perforated viscous s/p exploratory laparotomy demonstrating perforated rectum. Patient now has diverting colostomy. In addition, patient had been in atrial fibrillation with RVR on admission, which has now found to be transient. PROBLEMS: 1. Perforated rectum, POD #8 s/p Ex lap + abdominal washout, diverting colostomy : -Continue regular diet as tolerated -Continue diverting colostomy care -WBC still elevated but downward trending. Continue with Zosyn, Fluconazole (increased to 400mg by general surgery) -Continue strict output monitoring of separate surgical drains -IV medications switched to PO -Encourage ambulation, sitting up in chair, IS as much as possible -PT/OT -General surgery and Urology following. Appreciate recommendations 2. Atrial fibrillation with RVR: -termination clerk AC not indicated, as patient is only transient AF RVR. -Continue Metoprolol for rate control 3. Recent prostatectomy: -Catheter removal ordered by Andrez DISPOSITION: Pending clinical improvement Attending attestation: I evaluated and examined the patient in person; I discussed the care with Resident in detail and agree with the plan above. VS, I&O, 24H, [facility] Vital Signs/I&O Vital Signs Date Time Temp Pulse Resp B/P (MAP) Pulse Ox O2 Delivery O2 Flow Rate FiO2 12/12/19 08:53 85 119/59 12/12/19 06:42 18 12/12/19 06:30 97.6 97 Room Air 12/06/19 07:00 2.0 I&O- Last 24 Hours up to 6 AM 12/12/19 06:00 Intake Total 1680 ml Output Total 1845 ml Balance -165 ml Laboratory Data 24H LABS Laboratory Tests 2 12/12/19 05:59: Immature Granulocyte % (Auto) 1.7, Neutrophils (%) (Auto) 85.2H, Lymphocytes (%) (Auto) 7.1L, Monocytes (%) (Auto) 5.7H, Eosinophils (%) (Auto) 0.0, Basophils (%) (Auto) 0.3, Neutrophils # (Auto) 11.9H, Lymphocytes # (Auto) 1.0L, Monocytes # (Auto) 0.8, Eosinophils # (Auto) 0.0, Basophils # (Auto) 0.0, Nucleated Red Blood Cells % (auto) 0.0, Anion Gap 5L, Glomerular Filtration Rate > 60.0, Calcium Level 7.4L CBC/BMP Laboratory Tests 12/12/19 05:59 Microbiology Microbiology 12/11/19 Gram Stain - Final, Resulted 12/11/19 Abscess Culture, Resulted Pending 12/11/19 Anaerobic Culture, Received Pending 12/02/19 Urine Culture - Final, Complete 12/02/19 Blood Culture - Final, Complete NO GROWTH AFTER 5 DAYS 12/02/19 Blood Culture - Final, Complete NO GROWTH AFTER 5 DAYS GME ATTESTATION GME ATTESTATION My faculty preceptor for this patient encounter was physically present during the encounter and was fully available. All aspects of the patient interview, examination, medical decision making process, and medical care plan development were reviewed and approved by the faculty preceptor. The faculty preceptor is aware and concurs with the plan as stated in the body of this note and will attest to such by his/her cosignature. ULICES RAMÍREZ MD December 12, 2019 10:56 NATHAN EAST MD December 12, 2019 16:28
--- NOTE | 2019-12-12 11:33 | IPNPDOC ---
Subjective Review oF Systems Chief Complaint The patient is a 69-year-old male admitted with a reason for visit of Andrés,Pneumoperitoneum,Rapid A-Fib,Sepsis,Transamini. Events since Last Encounter No acute events o/n. Good pain control. Patient notes he is still tired, but feels well. No n/v. No f/c/ns. Objective Physical Examination General Exam: Alert, Cooperative, No Acute Distress ABDOMEN EXAM: Other (nondistended; nontender; incision c/d/i; LAN w/ serous output; abscess drain w/ serous output; ostomy w/ stool in bag) Skin Exam: Nl turgor and temperature Neuro Exam: Normal Speech Psych Exam: Mental status NL, Mood NL Other physical findings catheter w/ clear yellow urine draining Vital Signs/I&O Vital Signs Date Time Temp Pulse Resp B/P (MAP) Pulse Ox O2 Delivery O2 Flow Rate FiO2 12/12/19 08:53 85 119/59 12/12/19 06:42 18 12/12/19 06:30 97.6 97 Room Air 12/06/19 07:00 2.0 I&O- Last 24 Hours up to 6 AM 12/12/19 06:00 Intake Total 1680 ml Output Total 1845 ml Balance -165 ml Laboratory Data Labs 24H Laboratory Tests 2 12/12/19 05:59: Immature Granulocyte % (Auto) 1.7, Neutrophils (%) (Auto) 85.2H, Lymphocytes (%) (Auto) 7.1L, Monocytes (%) (Auto) 5.7H, Eosinophils (%) (Auto) 0.0, Basophils (%) (Auto) 0.3, Neutrophils # (Auto) 11.9H, Lymphocytes # (Auto) 1.0L, Monocytes # (Auto) 0.8, Eosinophils # (Auto) 0.0, Basophils # (Auto) 0.0, Nucleated Red Blood Cells % (auto) 0.0, Anion Gap 5L, Glomerular Filtration Rate > 60.0, Calcium Level 7.4L CBC/BMP Laboratory Tests 12/12/19 05:59 Microbiology Microbiology 12/11/19 Gram Stain - Final, Resulted 12/11/19 Abscess Culture, Resulted Pending 12/11/19 Anaerobic Culture, Received Pending 12/02/19 Urine Culture - Final, Complete 12/02/19 Blood Culture - Final, Complete NO GROWTH AFTER 5 DAYS 12/02/19 Blood Culture - Final, Complete NO GROWTH AFTER 5 DAYS Assessment/Plan Date Seen The patient was seen on 12/12/19. Patient Summary This is a 69 y/o M who is s/p a RALP on 11/26/19, admitted w/ abd distention and signs of sepsis, now POD9 s/p ex lap w/ washout and diverting colostomy for a rectal perforation. CT A/P done yesterday was notable for 2 fluid collections. He underwent perc drain placement in the larger fluid collection on 12/11/19. His WBC continues to trend down, 13.9 today. He remains afebrile. Cystogram yesterday was negative for leak from the vesicourethral anastomosis. Plan/VTE VTE Prophylaxis Ordered?: Yes VTE Exclusion Mechanical Proph: N/A:VTE Prophy Ordered Plan/Urinary Catheter Urinary Catheter: D/C Jha Plan - d/c Jha - antibiotics/diflucan - ambulate - SQH - incentive spirometry - PT/OT AARTI MCCALLUM MD December 12, 2019 11:32
[2019-12-12 14:00] VITALS: BP 119/59
[2019-12-12] MEDS ORDERED: ENOXAPARIN 40MG/0.4ML SYRINGE (J1650 PER 10MG) SC ONE (14:00)
[2019-12-12 14:34] LABS: C REACTIVE PROTEIN QUANTITATIV 8.85 MG/DL (0.00-0.30)
[2019-12-12 19:48] VITALS: BP 114/54
[2019-12-12] MEDS: SIMVASTATIN 20 MG TAB PO SCH (20:34)
--- NOTE | 2019-12-12 22:37 | IPN ---
DATE: 12/12/2019 HISTORY: The patient is now postop day #9 from exploratory laparotomy for a perforation of the rectum approximately 1 week postop from a robotic prostatectomy. He had diffuse fecal peritonitis. He has one remaining Gene drain in the right lower quadrant, which goes down into the pelvis. A CT scan was done yesterday that showed several small fluid collections but a larger collection of fluid just above the bladder and a percutaneous drain was placed. He also was noted to have some significant atelectasis in the left lower lobe with small pleural effusions. Vital signs today show that he has been afebrile over the last 24 hours. His pulse is in the 70s and 80s generally and his blood pressure has been good. Intake and output show that yesterday he had 1300 recorded in with 2900 recorded out. There was 60 mL recorded from his Gene drain and 25 from his percutaneous drain. The urine output has been good. PHYSICAL EXAMINATION: The patient is lying quietly on the hospital bed. He is alert. He complains mostly of just feeling weak and tired. Heart exam shows a regular rhythm. The lungs show some slightly distant breath sounds. The abdomen has a stapled midline incision and today he is having some reddish drainage from the lower end of the incision. There is not any ongoing currently, but there is some drainage on a 4x4 dressing that had been placed by the nursing staff. There is no redness of the wound, and I cannot express any fluid from the wound now. He has a percutaneous drain just above the hairline in the left lower quadrant, which has a small amount of murky fluid in the tubing. He has his Gene drain in the right lower quadrant, which has some turbid light yellowish fluid in the tubing and in the container. I milked this tubing without any increase in output. He does have some bowel sounds. His ostomy looks pink and mildly edematous but healthy. Laboratory studies today show that his white count is now down fairly sharply to 13.9 with a differential showing 85% neutrophils, 7% lymphocytes and 6% monocytes. Hemoglobin is 11 with a hematocrit of 33, and a platelet count of 596,000. Chemistry profile shows a sodium of 138, potassium 5.0, chloride 108, CO2 of 25, BUN of 16, creatinine 0.9 and a glucose of 95. Imaging from yesterday: He had a cystogram that showed no evidence of any urine leak. He had a CT scan of the abdomen and pelvis. This showed some fluid, particularly in the left chest with some significant atelectasis of the left lower lobe. He had a small rim of fluid around the spleen, which the radiologist said was subcapsular, but I think this is more likely just a small collection of fluid around the spleen. There was some fluid in the right side of the abdomen and down into the pelvis. The drain appeared to extend partially into a collection of fluid but was clearly not draining it adequately and there was a larger collection of fluid just above the bladder into which a drain was placed by radiology yesterday with return of 110 mL of fluid. This was sent to the lab for microbiology. The gram stain showed many white cells with no organisms seen and a culture is pending. IMPRESSION: The patient appears to be making some progress. Dr. Maguire has ordered removal of his Jha catheter for today. His drains are not putting out a lot, but I note that his white blood cell count has gone down significantly today. I had recommended some increased pulmonary toilet yesterday for his atelectasis. PLAN: I will order an Acapella device to see if that will help to better expand his left lower lobe. I applied an occlusive bandage at the site of his percutaneous drain. I will hold on removal of his Gene drain as this is putting out some turbid appearing fluid, though for several days it had put out nothing. He will remain on his Zosyn. I will change his fluconazole to oral. I will also order some oral pain meds and discontinue his small dose of morphine. I encouraged him to be up out of bed and try to be more active with physical therapy. We will have to monitor his wound where it has been draining a small amount of fluid. I do not believe that this represents a fascial dehiscence. Dr. Aaron will be covering over the next 2 days for the weekend. BING
[2019-12-12] MEDS: NORCO, ANEXSIA 5/325MG TABLET (HYDROcodone/ACETAMINOPHEN) PO PRN (23:30)
[2019-12-13] MEDS: SODIUM CHLORIDE 0.9% INJ 10 ML SYR IV PRN (05:28)
[2019-12-13] MEDS: PIPERACILLIN/TAZOBACTAM SOD 4.5 GM in D5W MINI-BAG PLUS 50 ML IV SCH ×4 (05:41→23:15)
[2019-12-13 06:28] VITALS: BP 114/54
[2019-12-13] MEDS: SODIUM CHLORIDE 0.9% INJ 10 ML SYR IV SCH ×2 (06:43→18:47)
[2019-12-13 07:03] LABS: BASO # 0.1 10^3/uL (0.0-0.2); BASO % 0.5 % (0.0-1.0); HEMATOCRIT 35.2 % (42.0-52.0); HEMOGLOBIN 11.4 g/dl (13.5-17.5); LYMPH % 8.1 % (24.0-44.0); MEAN CORPUSCULAR HEMOGLOBIN 29.5 pg (27.0-33.0); MEAN CORPUSCULAR HGB CONC 32.4 g/dl (32.0-36.5); MEAN CORPUSCULAR VOLUME 91.2 fl (80.0-96.0); MONO # 0.8 10^3/uL (0.0-0.8); NEUTROPHILS # 10.6 10^3/uL (1.5-8.5); NEUTROPHILS % 84.3 % (36.0-66.0); PLATELET COUNT, AUTOMATED 640 10^3/uL (150-450); RED BLOOD COUNT 3.86 10^6/uL (4.30-6.10); WHITE BLOOD COUNT 12.6 10^3/uL (4.0-10.0)
[2019-12-13 07:24] LABS: BLOOD UREA NITROGEN 12 MG/DL (7-18); CALCIUM LEVEL 7.5 MG/DL (8.8-10.2); CARBON DIOXIDE LEVEL 22 MEQ/L (21-32); CHLORIDE LEVEL 108 MEQ/L (98-107); CREATININE FOR GFR 0.93 MG/DL (0.70-1.30); GLOMERULAR FILTRATION RATE > 60.0 (>42); GLUCOSE, FASTING 81 MG/DL (70-100); POTASSIUM SERUM 4.7 MEQ/L (3.5-5.1); SODIUM LEVEL 137 MEQ/L (136-145)
[2019-12-13] MEDS ORDERED: FLUCONAZOLE 100 MG TAB PO SCH (09:00)
[2019-12-13] MEDS: HYDROCORTISONE 1% CREAM 30 GM TOP SCH ×2 (09:00→09:32)
[2019-12-13] MEDS: METOPROLOL TART 25 MG TABLET PO SCH ×2 (09:31→20:25)
[2019-12-13] MEDS: PANTOPRAZOLE 40MG TAB (PROTONIX) PO SCH (09:31)
[2019-12-13] MEDS: FLUCONAZOLE 100 MG TAB PO SCH (09:31)
[2019-12-13] MEDS: ENOXAPARIN 40MG/0.4ML SYRINGE (J1650 PER 10MG) SC SCH (09:31)
[2019-12-13] MEDS: ASPIRIN 81 MG ENTERIC TAB PO SCH (09:31)
--- NOTE | 2019-12-13 09:45 | IPNPDOC ---
Text Note Date of Service The patient was seen on 12/13/19. NOTE Patient reports feeling better/actually slept well last night for the first ti me. Denies any significant abdominal discomfort. VS: afebrile, nontachycardic. I/O stoma working with air and soft stool R drain - serous 20 mLs L medial perc drain - with exudative material mixed with serous fluid in tube and bag - 50 mLs On exam patient looks comfrtable abdomen: slight protuberant, minimally distended. Midline incision with todd, lower portion has some serosanguenous drainage, intact. drains as described above. Nontender to palpation Iatrogenically rectal perforation status post repair with colostomy also subsequent infected collection drained percutaneously His leukocytosis continues to improve. Microbiology shows growth of yeast, patient already on diflucan His original drain is not putting out much, I think probably can be removed in a day or two would keep the new perc drain possibly for him to go home with dont remove todd Potentially home soon with or without the drain on antibiotics and close outpt follow up. VS,Ceciliae, I+O VS, Ceciliae, I+O Laboratory Tests 12/13/19 06:43 Vital Signs Date Time Temp Pulse Resp B/P (MAP) Pulse Ox O2 Delivery O2 Flow Rate FiO2 12/13/19 06:28 97.9 78 20 114/54 (74) 97 Room Air I&O- Last 24 Hours up to 6 AM 12/13/19 05:59 Intake Total 290 ml Output Total 2110 ml Balance -1820 ml NILDA NOBLE MD December 13, 2019 08:53
--- NOTE | 2019-12-13 11:03 | IPNPDOC ---
Date Seen The patient was seen on 12/13/19. Progress Note SUBJECTIVE: Patient has no complaints this morning. He was able to sleep last night and he slept well. He was coached on use of IS/Acapella. He denies any nausea/vomiting nor any abdominal pain at this time. OBJECTIVE PHYSICAL EXAMINATION: GENERAL APPEARANCE: Sitting up at the bedside, appears stated age, no acute distress, calm, cooperative HEENT: EOMI, PERRLA, neck is supple with no thyromegaly or lymphadenopathy RESPIRATORY: Lungs are clear to auscultation bilaterally with no adventitious breath sounds appreciated CARDIOVASCULAR: no JVD, RRR,no murmurs/rubs/gallops, normal S1 and S2 ABDOMEN: +BS, distended, nontender to palpation in all four quadrants, no masses/organomegaly, LAN drain in RLQ draining serosanguinous fluid, additional drain in suprapubic region draining yellow/light pink fluid, colostomy bag draining dark brown liquid stool. There seems to be air in the colostomy bag. Surgical scar is healing well, does not appear to be erythematous or draining any fluid at the time of my exam. EXTREMITIES: no clubbing, cyanosis or edema noted NEUROLOGICAL: CN 2-12 intact, No obvious focal deficits PSYCHIATRIC: somewhat depressed mood Skin: No rashes or ulcers appreciated, warm and well-perfused LN: No significant cervical or inguinal lymphadenopathy LABORATORY DATA, IMAGING STUDIES, MICROBIOLOGY: Please see below. DVT prophylaxis ordered?: Lovenox GI ppx: Protonix ASSESSMENT AND PLAN: This is a 69 YO M with recent history prostatectomy on 11/25 who presented to ED on 12/01 for worsening abdominal distention found to have perforated viscous s/p exploratory laparotomy demonstrating perforated rectum. Patient now has diverting colostomy. In addition, patient had been in atrial fibrillation with RVR on admission, which has now found to be transient. PROBLEMS: 1. Perforated rectum, POD #9 s/p Ex lap + abdominal washout, diverting colostomy : -Continue regular diet as tolerated -Continue diverting colostomy care -WBC still elevated but downward trending. Continue with Zosyn, Fluconazole (increased to 400mg by general surgery) -Continue strict output monitoring of separate surgical drains -IV medications switched to PO -Encourage ambulation, sitting up in chair, IS as much as possible -PT/OT -General surgery and Urology following. Appreciate recommendations 2. Atrial fibrillation with RVR: -group home AC not indicated, as patient is only transient AF RVR. -Continue Metoprolol for rate control 3. Recent prostatectomy: -Catheter removal ordered by Andrez DISPOSITION: Pending clinical improvement Attending attestation: I evaluated and examined the patient in person; I discussed the care with Resident in detail and agree with the plan above. VS, I&O, 24H, [facility] Vital Signs/I&O Vital Signs Date Time Temp Pulse Resp B/P (MAP) Pulse Ox O2 Delivery O2 Flow Rate FiO2 12/13/19 09:31 78 114/54 12/13/19 06:28 97.9 20 97 Room Air I&O- Last 24 Hours up to 6 AM 12/13/19 06:00 Intake Total 290 ml Output Total 2110 ml Balance -1820 ml Laboratory Data 24H LABS Laboratory Tests 2 12/13/19 06:43: Immature Granulocyte % (Auto) 1.1, Neutrophils (%) (Auto) 84.3H, Lymphocytes (%) (Auto) 8.1L, Monocytes (%) (Auto) 6.0H, Eosinophils (%) (Auto) 0.0, Basophils (%) (Auto) 0.5, Neutrophils # (Auto) 10.6H, Lymphocytes # (Auto) 1.0L, Monocytes # (Auto) 0.8, Eosinophils # (Auto) 0.0, Basophils # (Auto) 0.1, Nucleated Red Blood Cells % (auto) 0.0, Anion Gap 7L, Glomerular Filtration Rate > 60.0, Calcium Level 7.5L CBC/BMP Laboratory Tests 12/13/19 06:43 Microbiology Microbiology 12/11/19 Gram Stain - Final, Resulted 12/11/19 Abscess Culture - Preliminary, Resulted Yeast Like Organism 12/11/19 Anaerobic Culture, Received Pending GME ATTESTATION GME ATTESTATION My faculty preceptor for this patient encounter was physically present during the encounter and was fully available. All aspects of the patient interview, examination, medical decision making process, and medical care plan development were reviewed and approved by the faculty preceptor. The faculty preceptor is aware and concurs with the plan as stated in the body of this note and will attest to such by his/her cosignature. ULICES RAMÍREZ MD December 13, 2019 11:03 NATHAN EAST MD December 21, 2019 18:43
--- NOTE | 2019-12-13 13:31 | CR ---
DATE OF CONSULTATION: 12/12/2019 REQUESTING PHYSICIAN: Jordan Schulte MD REASON FOR CONSULTATION: Intraabdominal infection after bowel perforation. HISTORY OF PRESENT ILLNESS: The patient is a 69-year-old male history of who presents to the hospital on 12/03/2019 with increased abdominal pain. The patient had a robotic assisted radical prostatectomy on 11/26/[address] Maguire. The patient was discharged on that day and went home and said he started feeling increased abdominal pain the next day 11/27/2019, which continued throughout the duration of the weekend. The patient states later on, on 12/02/2019, he began to feel worse and ended up coming back to the hospital. The patient was found to have intra-abdominal infection and free air in the abdomen, so the patient was taken to surgery early in the morning of 12/03/2019. The patient was found to have stool throughout the belly and was diagnosed with a rectal perforation. The patient had a diverting colostomy with a drain placement performed with abdominal washout by Dr. Julio. The patient continued to have an elevated white blood cell count throughout the week that he was in the hospital. The patient was initially started on IV Zosyn, but was then switched to one dose of IV cephazolin, IV ciprofloxacin and IV metronidazole. The patient's white blood cell count increased to 34.7 on 12/05/2019 and Cipro and Flagyl were discontinued and the patient was placed back on IV Zosyn and IV fluconazole. The patient has been on those medications since. The patient's white blood cell count continued to remain elevated and the patient still felt ill, so a CT scan of the abdomen and pelvis was performed on 12/11/2019, which showed a fluid collection in the pelvis. This was drained by interventional radiology on the and the cultures for that are still pending. The patient says that this has made him feel much better, but he still feels very weak today. The patient has been hospitalized now for 8 days with this infection. The patient has recently started being able to eat and drink and recently had his nasogastric tube and his Jha catheter removed today. The patient has been tolerating by mouth intake. PAST MEDICAL HISTORY: 1. Coronary artery disease, status post coronary artery bypass graft (CABG) since 2004. 2. Gastroesophageal reflux disease (GERD). 3. Prostate cancer. 4. Plaque psoriasis. SURGICAL HISTORY: Partial right-sided colectomy for precancerous lesion. Coronary artery bypass grafting times three. Cholecystectomy. 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 FAMILY HISTORY: The patient has three daughters and denies any family history of chronic disease, such as coronary artery disease and diabetes. SOCIAL HISTORY: The patient lives at home with his and denies tobacco and illicit drug use. 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 CURRENT INPATIENT MEDICATIONS: - Lovenox 40 mg daily - Diflucan 40 mg by mouth daily - Tylenol as needed - hydrocodone as needed - simethicone 80 mg as needed - ramelteon 8 mg at night - simvastatin 20 mg daily - aspirin 81 mg daily - metoprolol 25 mg twice a day - pantoprazole 40 mg daily - Zosyn 4.5 grams every 6 hours IV REVIEW OF SYSTEMS: GENERAL: The patient denies any fever or chills. HEENT: The patient denies any headaches or change in vision. CARDIOVASCULAR: The patient denies any chest pain or palpitations. RESPIRATORY: The patient denies any shortness of breath at rest, but does endure some mild shortness of breath when is trying to get up and move around. GASTROINTESTINAL (GI): The patient is tolerating by mouth intake and denies any nausea or vomiting. The patient does still have some abdominal pain while sitting up and moving around, but this is otherwise tolerable. GENITOURINARY (): The patient recently had Jha catheter removed and said he has urinated since removal, but it was a very small amount. NEUROLOGICAL: The patient denies any numbness or tingling. EXTREMITIES: The patient denies any swelling of his extremities. SKIN: The patient denies any rashes. LYMPHATICS: The patient denies any lumps in his neck or axilla. PHYSICAL EXAMINATION: VITAL SIGNS: Temperature 97.6, pulse85, respiratory rate 18, blood pressure 119/59, pulse oximetry 97% on room air. GENERAL: The patient is alert and oriented male patient, who was laying in bed. When I walked into the room, the patient did not appear to be in any acute distress. HEENT: He was normocephalic, atraumatic with anicteric sclerae. The patient did have moist mucous membranes. NECK: Supple with no lymphadenopathy or thyromegaly. CARDIOVASCULAR: Regular rate and rhythm with no murmurs, rubs or gallops. RESPIRATORY: Clear to auscultation bilaterally. ABDOMEN: The abdomen is soft with mild tenderness to palpation. There is a midline incision that is healing that is held together with todd. There is a colostomy bag that is draining brown liquid stool in the left side of the abdomen. There are also two drains in the abdomen, one in the suprapubic area and one off to the right side in the right lower quadrant. EXTREMITIES: There is trace pitting edema around the ankles. SKIN: There are no rashes present. LABORATORY: Laboratory studies from today reveal a white blood cell count of 13.9, hemoglobin 10.7, hematocrit 33.1, platelet count 596. Sodium 138, potassium 5.0, chloride 108, carbon dioxide 25, BUN 16, creatinine 0.94, glucose 95, calcium is 7.4, C-reactive protein (CRP) 8.85. The patient's C-reactive protein (CRP) upon admission on 12/02/2019 was 37.6. MICROBIOLOGY: Blood cultures performed on 12/02/2019 are negative for growth times five days. A urine culture performed on 12/02/2019 was also negative. Abscess cultures from abscess drainage performed on 12/11/2019 are still pending at this time. Microbiology was called and said that the aerobic plates are not growing anything at this time. IMAGING: The patient had a CT of the abdomen and pelvis performed without contrast on 12/02/2019, which was reported to show pneumoperitoneum and abdominal and pelvic free fluid, concerning for possible bowel perforation. The patient apparently had surgery 6 days ago underlying small-bowel obstruction suspected with multiple dilated mid abdominal small bowel loops, colonic diverticulosis without active inflammation and dependent bilateral pleural effusions and probable atelectasis. The patient had a chest x-ray performed on 12/02/2019, which was reported to show no obvious acute process or consolidation or effusion. A renal ultrasound performed on 12/03/2019 was reported to show unremarkable examination. A cystogram performed on 12/11/2019 was reported to show bladder in normal position and contour. There is no evidence of urethral reflux or extravasation. A CT of the abdomen and pelvis performed on 12/11/2019: This CT was performed with IV contrast on 12/11/2019 was reported to show interval sigmoid surgery, left colonic ostomy noted. Surgical drainage of the pelvis. Multiple metallic skin todd anteriorly. Bilateral effusions have increased and there are patchy bibasilar atelectasis/infiltrate. There is a small subcapsular fluid collection along the posterior lateral spleen, scattered free fluid and small pockets of loculated fluid are seen throughout the mesentery. There is a 4 cm abscess in the right midabdomen mesentery surrounded by bowel, anterior pelvic fluid collection measures 5.0 x 6.5 x 12.2 cm, small amount of residual free air in the upper anterior abdomen has improved since prior study of 12/02/2019. ASSESSMENT : The patient is a 69-year-old male who presented to the hospital for a surgical complication who was diagnosed with a bowel perforation and diana feces in the abdomen who had an abscess in the right lower abdomen, as well as a fluid collection the pelvis that was drained , currently on zosyn and fluconazole PLAN : The patient's intraabdominal infection is secondary to the patient's rectal perforation with abscess formation. Abscess drainage was taking place, which has caused the patient's white blood cell count to decrease as it had been remaining steady around 22 to 25 for the few days prior to the drainage. The patient says he is feeling better. He will continue on IV Zosyn 4.5 grams every 6 hours IV, as well as fluconazole 400 mg daily. The patient has been recently switched from IV to by mouth fluconazole. The patient is encouraged to ambulate as much as possible and we will continue to monitor the patient throughout the weekend. Once we are able to obtain culture results, we can switch the patient to by mouth antibiotics, but at this time, we will continue IV Zosyn until we receive culture results. The patient will also continue on by mouth fluconazole 400 mg daily. MTDD
[2019-12-13 14:00] VITALS: BP 132/72
[2019-12-13 20:00] VITALS: BP 139/70
[2019-12-13] MEDS: SIMVASTATIN 20 MG TAB PO SCH (20:24)
[2019-12-13] MEDS: NORCO, ANEXSIA 5/325MG TABLET (HYDROcodone/ACETAMINOPHEN) PO PRN (23:14)
[2019-12-14] MEDS: PIPERACILLIN/TAZOBACTAM SOD 4.5 GM in D5W MINI-BAG PLUS 50 ML IV SCH ×4 (04:59→23:42)
[2019-12-14] MEDS: SODIUM CHLORIDE 0.9% INJ 10 ML SYR IV PRN (05:00)
[2019-12-14] MEDS: SODIUM CHLORIDE 0.9% INJ 10 ML SYR IV SCH ×2 (06:16→16:40)
[2019-12-14 06:29] VITALS: BP 143/75
[2019-12-14] MEDS: ASPIRIN 81 MG ENTERIC TAB PO SCH (07:56)
[2019-12-14] MEDS: NORCO, ANEXSIA 5/325MG TABLET (HYDROcodone/ACETAMINOPHEN) PO PRN ×3 (07:56→21:07)
[2019-12-14] MEDS: PANTOPRAZOLE 40MG TAB (PROTONIX) PO SCH (07:56)
[2019-12-14] MEDS: FLUCONAZOLE 100 MG TAB PO SCH (07:57)
[2019-12-14] MEDS: METOPROLOL TART 25 MG TABLET PO SCH ×2 (07:57→21:10)
[2019-12-14] MEDS: ENOXAPARIN 40MG/0.4ML SYRINGE (J1650 PER 10MG) SC SCH (07:57)
[2019-12-14] MEDS: HYDROCORTISONE 1% CREAM 30 GM TOP SCH (07:58)
[2019-12-14 08:57] LABS: BASO # 0.1 10^3/uL (0.0-0.2); BASO % 0.6 % (0.0-1.0); HEMATOCRIT 37.4 % (42.0-52.0); HEMOGLOBIN 12.5 g/dl (13.5-17.5); LYMPH % 6.6 % (24.0-44.0); MEAN CORPUSCULAR HEMOGLOBIN 30.3 pg (27.0-33.0); MEAN CORPUSCULAR HGB CONC 33.4 g/dl (32.0-36.5); MEAN CORPUSCULAR VOLUME 90.8 fl (80.0-96.0); MONO # 0.8 10^3/uL (0.0-0.8); MONO % 5.6 % (0.0-5.0); NEUTROPHILS # 12.5 10^3/uL (1.5-8.5); NEUTROPHILS % 86.5 % (36.0-66.0); PLATELET COUNT, AUTOMATED 756 10^3/uL (150-450); RED BLOOD COUNT 4.12 10^6/uL (4.30-6.10); WHITE BLOOD COUNT 14.5 10^3/uL (4.0-10.0)
[2019-12-14 09:10] LABS: BLOOD UREA NITROGEN 11 MG/DL (7-18); CALCIUM LEVEL 7.8 MG/DL (8.8-10.2); CARBON DIOXIDE LEVEL 22 MEQ/L (21-32); CHLORIDE LEVEL 106 MEQ/L (98-107); CREATININE FOR GFR 0.99 MG/DL (0.70-1.30); GLOMERULAR FILTRATION RATE > 60.0 (>42); GLUCOSE, FASTING 124 MG/DL (70-100); POTASSIUM SERUM 4.8 MEQ/L (3.5-5.1); SODIUM LEVEL 135 MEQ/L (136-145)
--- NOTE | 2019-12-14 10:12 | IPNPDOC ---
Text Note Date of Service The patient was seen on 12/14/19. NOTE Patient reports feeling better/actually slept well last night for the first t raheem. Denies any significant abdominal discomfort. Reports tolerated his meal yesterday. No nausea or vomiting. VS: afebrile, nontachycardic. I/O stoma working with air and soft stool R drain - serous 20 mLs L medial perc drain - with exudative material mixed with serous fluid in tube and bag - 50 mLs/ 25 mLs overnight On exam patient looks comfortable lungs clear bilaterally abdomen: slight protuberant, minimally distended. Midline incision with todd, lower portion minimal serosanguenous staining of the dressing, intact. drains as described above. Nontender to palpation Iatrogenically rectal perforation status post repair with colostomy also subsequent infected collection drained percutaneously His leukocytosis continues to improve. Microbiology shows growth of yeast, patient already on diflucan d/c right drain (LAN/operative drain), keep percutaneous drain. Most likely will go home with the drain. dont remove todd Potentially home soon with or without the drain on antibiotics and close outpt follow up. VS,Fishbone, I+O VS, Fishbone, I+O Laboratory Tests 12/14/19 08:22 Vital Signs Date Time Temp Pulse Resp B/P (MAP) Pulse Ox O2 Delivery O2 Flow Rate FiO2 12/14/19 08:26 18 12/14/19 07:57 93 143/75 12/14/19 07:56 Room Air 12/14/19 06:29 98.0 97 I&O- Last 24 Hours up to 6 AM 12/14/19 06:00 Intake Total 1326 ml Output Total 470 ml Balance 856 ml NILDA NOBLE MD December 14, 2019 10:12
--- NOTE | 2019-12-14 12:35 | IPNPDOC ---
Date Seen The patient was seen on 12/14/19. Progress Note SUBJECTIVE: 69-year-old male who recently underwent prostatectomy was admitted for bowel perforation. Patient underwent an exploratory laparotomy which showed perforated rectum, had a diverting colostomy placed. Patient was treated with IV antibiotics, short-term TPN followed by oral intake, repeat CAT scan showed multiple abscesses. There was a drain placed in the largest abscess by intervent ional radiology. Patient has made slow but steady clinical improvement since admission, without complaints at this time, denies any shortness of breath, chest pain, nausea, vomiting or pain, diarrhea or constipation. 10 point review of system is negative except for above PHYSICAL EXAMINATION: VITAL SIGNS: Please see below. GENERAL: Obese HEENT: Normocephalic, atraumatic, moist mucous membranes NECK: Supple CARDIOVASCULAR EXAMINATION: S1, S2, no murmurs RESPIRATORY EXAMINATION: Scattered rhonchi, no wheezing ABDOMINAL EXAMINATION: Soft, no tenderness, mildly distended, positive bowel sounds, LAN and abscess drain in place, EXTREMITIES: Range of motion intact SKIN: No rash NEUROLOGICAL EXAMINATION: Alert and oriented 3, no focal deficits PSYCHIATRIC EXAMINATION: Calm and cooperative LABORATORY DATA, IMAGING STUDIES, MICROBIOLOGY: Please see below. ASSESSMENT AND PLAN: 69-year-old male who recently underwent prostatectomy was admitted for bowel perforation, underwent exploratory laparotomy which showed perforated rectum, now with colostomy. PROBLEMS: 1. Bowel perforation: Status post exploratory laparoscopy, diverting colostomy, repeat CAT scan with multiple abscesses, IR drain placed, cultures growing yeast, continue fluconazole and Zosyn, tolerating oral intake, clinically i mproving. 2. A. fib with RVR: present on admission, has remained in normal sinus rhythm since then, no need for long-term anticoagulation, continue home metoprolol. 3. Status post prostatectomy: Urology following, Jha has been removed. 4. Hypertension/hyperlipidemia: Continue metoprolol and simvastatin DVT prophylaxis: Lovenox GI prophylaxis: Protonix VS, I&O, 24H, Fishbone Vital Signs/I&O Vital Signs Date Time Temp Pulse Resp B/P (MAP) Pulse Ox O2 Delivery O2 Flow Rate FiO2 12/14/19 11:59 18 Room Air 12/14/19 07:57 93 143/75 12/14/19 06:29 98.0 97 I&O- Last 24 Hours up to 6 AM 12/14/19 06:00 Intake Total 1326 ml Output Total 470 ml Balance 856 ml Laboratory Data 24H LABS Laboratory Tests 2 12/14/19 08:22: Immature Granulocyte % (Auto) 0.7, Neutrophils (%) (Auto) 86.5H, Lymphocytes (%) (Auto) 6.6L, Monocytes (%) (Auto) 5.6H, Eosinophils (%) (Auto) 0.0, Basophils (%) (Auto) 0.6, Neutrophils # (Auto) 12.5H, Lymphocytes # (Auto) 1.0L, Monocytes # (Auto) 0.8, Eosinophils # (Auto) 0.0, Basophils # (Auto) 0.1, Nucleated Red Blood Cells % (auto) 0.0, Anion Gap 7L, Glomerular Filtration Rate > 60.0, Calcium Level 7.8L CBC/BMP Laboratory Tests 12/14/19 08:22 Microbiology Microbiology 12/11/19 Gram Stain - Final, Resulted 12/11/19 Abscess Culture - Preliminary, Resulted Yeast Like Organism 12/11/19 Anaerobic Culture, Received Pending NATHAN EAST MD December 14, 2019 12:35
[2019-12-14 14:00] VITALS: BP 117/75
[2019-12-14] MEDS: SIMVASTATIN 20 MG TAB PO SCH (21:07)
[2019-12-14 22:00] VITALS: BP 121/74
[2019-12-15] MEDS: PIPERACILLIN/TAZOBACTAM SOD 4.5 GM in D5W MINI-BAG PLUS 50 ML IV SCH ×4 (05:39→23:31)
[2019-12-15] MEDS: SODIUM CHLORIDE 0.9% INJ 10 ML SYR IV SCH ×2 (05:39→17:07)
[2019-12-15 06:00] VITALS: BP 139/69
[2019-12-15] MEDS: ASPIRIN 81 MG ENTERIC TAB PO SCH (08:18)
[2019-12-15] MEDS: ENOXAPARIN 40MG/0.4ML SYRINGE (J1650 PER 10MG) SC SCH (08:18)
[2019-12-15] MEDS: PANTOPRAZOLE 40MG TAB (PROTONIX) PO SCH (08:18)
[2019-12-15] MEDS: METOPROLOL TART 25 MG TABLET PO SCH ×2 (08:19→20:35)
[2019-12-15] MEDS: HYDROCORTISONE 1% CREAM 30 GM TOP SCH (08:19)
[2019-12-15] MEDS: FLUCONAZOLE 100 MG TAB PO SCH (08:19)
[2019-12-15] MEDS: NORCO, ANEXSIA 5/325MG TABLET (HYDROcodone/ACETAMINOPHEN) PO PRN ×3 (12:43→21:38)
--- NOTE | 2019-12-15 13:00 | IPNPDOC ---
Date Seen The patient was seen on 12/15/19. Progress Note SUBJECTIVE: Patient has no complaints this morning. No changes overnight. He was again coached on use of IS/Acapella. He denies any nausea/vomiting nor any abdominal pain or shortness of breath at this time. OBJECTIVE PHYSICAL EXAMINATION: GENERAL APPEARANCE: Sitting up at the bedside, appears stated age, no acute distress, calm, cooperative HEENT: EOMI, PERRLA, neck is supple with no thyromegaly or lymphadenopathy RESPIRATORY: Lungs are clear to auscultation bilaterally with no adventitious breath sounds appreciated CARDIOVASCULAR: no JVD, RRR,no murmurs/rubs/gallops, normal S1 and S2 ABDOMEN: +BS, distended, nontender to palpation in all four quadrants, no masses/organomegaly, drain in suprapubic region draining brownish/reddish fluid, colostomy bag draining dark brown liquid stool. There seems to be air in the colostomy bag. Surgical scar is healing well, does not appear to be erythematous or draining any fluid at the time of my exam. EXTREMITIES: no clubbing, cyanosis or edema noted NEUROLOGICAL: CN 2-12 intact, No obvious focal deficits PSYCHIATRIC: somewhat depressed mood Skin: No rashes or ulcers appreciated, warm and well-perfused LN: No significant cervical or inguinal lymphadenopathy LABORATORY DATA, IMAGING STUDIES, MICROBIOLOGY: Please see below. DVT prophylaxis ordered?: Lovenox GI ppx: Protonix ASSESSMENT AND PLAN: This is a 69 YO M with recent history prostatectomy on 11/25 who presented to ED on 12/01 for worsening abdominal distention found to have perforated viscous s/p exploratory laparotomy demonstrating perforated rectum. Patient now has diverting colostomy. In addition, patient had been in atrial fibrillation with RVR on admission, which has now found to be transient. PROBLEMS: 1. Perforated rectum, POD #12 s/p Ex lap + abdominal washout, diverting colostom y : -Continue regular diet as tolerated -Continue diverting colostomy care -WBC still elevated but downward trending. Continue with Zosyn, Fluconazole (increased to 400mg by general surgery) -ID consulted regarding antibiotics, appreciate recommendations from Dr. Delgado regarding outpatient oral antibiotics in anticipation for discharge within the next 48 hours -Encourage ambulation, sitting up in chair, IS as much as possible -PT/OT -General surgery and Urology following. Appreciate recommendations 2. Atrial fibrillation with RVR: -senior living AC not indicated, as patient is only transient AF RVR. -Continue Metoprolol for rate control 3. Recent prostatectomy: -Catheter removal ordered by Andrez DISPOSITION: Pending clinical improvement Attending attestation: I evaluated and examined the patient in person; I discussed the care with Resident in detail and agree with the plan above. VS, I&O, 24H, Fishbone Vital Signs/I&O Vital Signs Date Time Temp Pulse Resp B/P (MAP) Pulse Ox O2 Delivery O2 Flow Rate FiO2 12/15/19 12:43 16 12/15/19 08:19 87 139/69 12/15/19 06:00 98.9 95 Room Air I&O- Last 24 Hours up to 6 AM 12/15/19 06:00 Intake Total 1150 ml Output Total 405 ml Balance 745 ml Laboratory Data Microbiology Microbiology 12/11/19 Gram Stain - Final, Resulted 12/11/19 Abscess Culture - Preliminary, Resulted Yeast Like Organism 12/11/19 Anaerobic Culture, Received Pending GME ATTESTATION GME ATTESTATION My faculty preceptor for this patient encounter was physically present during the encounter and was fully available. All aspects of the patient interview, examination, medical decision making process, and medical care plan development were reviewed and approved by the faculty preceptor. The faculty preceptor is aware and concurs with the plan as stated in the body of this note and will attest to such by his/her cosignature. ULICES RAMÍREZ MD December 15, 2019 13:00 NATHAN EAST MD December 21, 2019 18:56
[2019-12-15 13:24] LABS: BASO % 0.2 % (0.0-1.0); HEMATOCRIT 35.1 % (42.0-52.0); HEMOGLOBIN 11.7 g/dl (13.5-17.5); LYMPH % 7.4 % (24.0-44.0); MEAN CORPUSCULAR HEMOGLOBIN 29.9 pg (27.0-33.0); MEAN CORPUSCULAR HGB CONC 33.3 g/dl (32.0-36.5); MEAN CORPUSCULAR VOLUME 89.8 fl (80.0-96.0); MONO # 0.9 10^3/uL (0.0-0.8); MONO % 6.9 % (0.0-5.0); NEUTROPHILS # 11.6 10^3/uL (1.5-8.5); NEUTROPHILS % 85.1 % (36.0-66.0); PLATELET COUNT, AUTOMATED 642 10^3/uL (150-450); RED BLOOD COUNT 3.91 10^6/uL (4.30-6.10); WHITE BLOOD COUNT 13.7 10^3/uL (4.0-10.0)
[2019-12-15 14:00] VITALS: BP 124/74
--- NOTE | 2019-12-15 14:03 | IPNPDOC ---
Subjective Review oF Systems Chief Complaint The patient is a 69-year-old male admitted with a reason for visit of Andrés,Pneumoperitoneum,Rapid A-Fib,Sepsis,Transamini. Events since Last Encounter No acute events o/n. Good pain control. Patient notes that he feels like he has some control of urination since his catheter was removed, but he is still too weak to get up and void in a urinal. He feels like he is emptying completel y. Denies f/c/ns. Objective Physical Examination General Exam: Alert, Cooperative, No Acute Distress ABDOMEN EXAM: Other (nondistended; nontender; incision c/d/i; abscess drain w/ sediment in tubing and serous output; ostomy w/ stool in bag) Skin Exam: Nl turgor and temperature Neuro Exam: Normal Speech Psych Exam: Mental status NL, Mood NL Vital Signs/I&O Vital Signs Date Time Temp Pulse Resp B/P (MAP) Pulse Ox O2 Delivery O2 Flow Rate FiO2 12/15/19 13:13 16 12/15/19 08:19 87 139/69 12/15/19 06:00 98.9 95 Room Air I&O- Last 24 Hours up to 6 AM 12/15/19 06:00 Intake Total 1150 ml Output Total 405 ml Balance 745 ml Laboratory Data Labs 24H Laboratory Tests 2 12/15/19 13:06: Immature Granulocyte % (Auto) 0.4, Neutrophils (%) (Auto) 85.1H, Lymphocytes (%) (Auto) 7.4L, Monocytes (%) (Auto) 6.9H, Eosinophils (%) (Auto) 0.0, Basophils (%) (Auto) 0.2, Neutrophils # (Auto) 11.6H, Lymphocytes # (Auto) 1.0L, Monocytes # (Auto) 0.9H, Eosinophils # (Auto) 0.0, Basophils # (Auto) 0.0, Nucleated Red Blood Cells % (auto) 0.0 CBC/BMP Laboratory Tests 12/15/19 13:06 Microbiology Microbiology 12/11/19 Gram Stain - Final, Resulted 12/11/19 Abscess Culture - Preliminary, Resulted Yeast Like Organism 12/11/19 Anaerobic Culture, Received Pending Assessment/Plan Date Seen The patient was seen on 12/15/19. Patient Summary This is a 69 y/o M who is s/p a RALP on 11/26/19, admitted w/ abd distention and signs of sepsis, now POD12 s/p ex lap w/ washout and diverting colostomy for a rectal perforation, and then abscess drain placement last week. His abscess drain has had minimal output and only grew yeast. He feels a little better everyday. Plan/VTE VTE Prophylaxis Ordered?: Yes VTE Exclusion Mechanical Proph: N/A:VTE Prophy Ordered Plan - patient encouraged to continue Kegels to help w/ urinary incontinence - ambulate - PT/OT - IS - order placed for PSA tomorrow morning AARTI MCCALLUM MD December 15, 2019 14:03
[2019-12-15] MEDS: SIMVASTATIN 20 MG TAB PO SCH (20:34)
[2019-12-15 22:00] VITALS: BP 142/81
--- NOTE | 2019-12-16 00:16 | IPN ---
DATE: 12/15/2019 My attending physician for this patient encounter is Dr. Maia Delgado. SUBJECTIVE: The patient is a 69-year-old who presented to the hospital with a rectal perforation after a robotic-assisted radical prostatectomy. The patient says he is feeling better today. The patient's abscess culture came back positive for yeast-like organism, which has been sent for identification. There are also anaerobic bacteria that are growing on the plate. The patient says he is feeling much better and has been able to get up and walk around, including walking up and down the hallway with physical therapy today. The patient is able to eat breakfast and dinner, but says he is not usually hungry enough for lunch because he feels too bloated. The patient does not have any other acute complaints today. PHYSICAL EXAMINATION: Vital Signs: Temperature 98.9, pulse 90, respiratory rate 16, blood pressure 124/74, pulse oximetry 95% on room air. General: Patient is an alert and oriented male patient who was laying in bed when we walked into the room. The patient did not appear to be in any acute distress. HEENT: Normocephalic, atraumatic with anicteric sclerae and moist mucous membranes. Cardiovascular: Regular rate and rhythm with no murmurs, rubs or gallops. Respiratory: Clear to auscultation bilaterally. Abdomen: Soft with no tenderness. The abdomen was not distended. A midline incision was healing well and had todd present in there. The Kvng-Zuleta drain had been removed. There is still a drain in the lower abdomen, which is draining a thick, red fluid. Patient also has an ostomy, which has brown stool in it. Extremities: No edema bilaterally. Skin: Skin does not show any evidence of rash. LABORATORY: White blood cells 13.7, hemoglobin 11.7, hematocrit 35.1, platelets 642. Sodium 135, potassium 4.8, chloride 106, bicarbonate 22, BUN 11, creatinine 0.99, glucose 124, calcium 7.8. Microbiology: Abscess culture from 12/11/2019 shows yeast-like organism, which has been sent for identification. When we called to the lab, the anaerobic culture was growing three different bacteria, which have yet to be identified. ASSESSMENT AND PLAN: The patient is a 69-year-old male who presented to the hospital with rectal perforation who was found to have an abscess in his pelvis with multiple other fluid collections in his abdomen. The abscess has since been drained. 1. Intraabdominal abscess following rectal perforation. Patient is a growing 3 anaerobes and yeast-like organism, which needs to be identified. Patient will continue on Diflucan 400 mg by mouth daily. The patient is also on IV Zosyn, which has good anaerobic coverage to cover the other bacteria that are growing. We will have to wait for identification on both the yeast-like organism and the anaerobes in order to be able to give final treatment recommendations for discharge. [facility]
[2019-12-16] MEDS: SODIUM CHLORIDE 0.9% INJ 10 ML SYR IV SCH ×2 (05:36→16:15)
[2019-12-16] MEDS: PIPERACILLIN/TAZOBACTAM SOD 4.5 GM in D5W MINI-BAG PLUS 50 ML IV SCH ×4 (05:36→23:52)
[2019-12-16] MEDS: NORCO, ANEXSIA 5/325MG TABLET (HYDROcodone/ACETAMINOPHEN) PO PRN ×4 (05:45→22:25)
[2019-12-16 06:00] VITALS: BP 132/75
[2019-12-16 06:22] LABS: BASO # 0.1 10^3/uL (0.0-0.2); BASO % 0.5 % (0.0-1.0); LYMPH # 0.9 10^3/uL (1.5-5.0); LYMPH % 6.6 % (24.0-44.0); MEAN CORPUSCULAR HEMOGLOBIN 29.3 pg (27.0-33.0); MEAN CORPUSCULAR HGB CONC 32.4 g/dl (32.0-36.5); MEAN CORPUSCULAR VOLUME 90.2 fl (80.0-96.0); MONO # 0.8 10^3/uL (0.0-0.8); MONO % 6.3 % (0.0-5.0); NEUTROPHILS # 11.4 10^3/uL (1.5-8.5); PLATELET COUNT, AUTOMATED 675 10^3/uL (150-450); WHITE BLOOD COUNT 13.3 10^3/uL (4.0-10.0)
[2019-12-16 06:43] LABS: BLOOD UREA NITROGEN 10 MG/DL (7-18); CALCIUM LEVEL 7.8 MG/DL (8.8-10.2); CARBON DIOXIDE LEVEL 20 MEQ/L (21-32); CHLORIDE LEVEL 103 MEQ/L (98-107); CREATININE FOR GFR 0.83 MG/DL (0.70-1.30); GLOMERULAR FILTRATION RATE > 60.0 (>42); GLUCOSE, FASTING 75 MG/DL (70-100); POTASSIUM SERUM 4.7 MEQ/L (3.5-5.1); SODIUM LEVEL 133 MEQ/L (136-145)
[2019-12-16] MEDS: ASPIRIN 81 MG ENTERIC TAB PO SCH (08:10)
[2019-12-16] MEDS: METOPROLOL TART 25 MG TABLET PO SCH ×2 (08:11→20:13)
[2019-12-16] MEDS: HYDROCORTISONE 1% CREAM 30 GM TOP SCH (08:11)
[2019-12-16] MEDS: FLUCONAZOLE 100 MG TAB PO SCH (08:11)
[2019-12-16] MEDS: ENOXAPARIN 40MG/0.4ML SYRINGE (J1650 PER 10MG) SC SCH (08:11)
[2019-12-16] MEDS: PANTOPRAZOLE 40MG TAB (PROTONIX) PO SCH (08:11)
[2019-12-16 08:15] LABS: ERYTHROCYTE SEDIMENTATION RATE 89 mm/hr (0-20)
[2019-12-16] MEDS: SODIUM CHLORIDE 0.9% INJ 10 ML SYR IV PRN (11:14)
--- NOTE | 2019-12-16 13:50 | IPNPDOC ---
Date Seen The patient was seen on 12/16/19. Progress Note SUBJECTIVE: Patient has no complaints this morning. He is looking much better. He has passed PT. No changes overnight. He denies any nausea/vomiting nor any abdominal pain or shortness of breath at this time. OBJECTIVE PHYSICAL EXAMINATION: GENERAL APPEARANCE: Sitting up at the bedside, appears stated age, no acute distress, calm, cooperative HEENT: EOMI, PERRLA, neck is supple with no thyromegaly or lymphadenopathy RESPIRATORY: Lungs are clear to auscultation bilaterally with no adventitious breath sounds appreciated CARDIOVASCULAR: no JVD, RRR,no murmurs/rubs/gallops, normal S1 and S2 ABDOMEN: +BS, distended, nontender to palpation in all four quadrants, no masses/organomegaly, drain in suprapubic region draining brownish fluid, colostomy bag draining dark brown liquid stool. There seems to be air in the colostomy bag. Surgical scar is healing well, does not appear to be erythematous or draining any fluid at the time of my exam. EXTREMITIES: no clubbing, cyanosis or edema noted NEUROLOGICAL: CN 2-12 intact, No obvious focal deficits PSYCHIATRIC: somewhat depressed mood Skin: No rashes or ulcers appreciated, warm and well-perfused LN: No significant cervical or inguinal lymphadenopathy LABORATORY DATA, IMAGING STUDIES, MICROBIOLOGY: Please see below. DVT prophylaxis ordered?: Lovenox GI ppx: Protonix ASSESSMENT AND PLAN: This is a 69 YO M with recent history prostatectomy on 11/25 who presented to ED on 12/01 for worsening abdominal distention found to have perforated viscous s/p exploratory laparotomy demonstrating perforated rectum. Patient now has diverting colostomy. In addition, patient had been in atrial fibrillation with RVR on admission, which has now found to be transient. PROBLEMS: 1. Perforated rectum, POD #13 s/p Ex lap + abdominal washout, diverting colostomy : -Continue regular diet as tolerated -Continue diverting colostomy care -WBC still elevated but downward trending. Continue with Zosyn, Fluconazole (increased to 400mg by general surgery) -CRP elevated today at 14.8 from 8.8 -ID consulted regarding antibiotics, appreciate recommendations from Dr. Delgado regarding outpatient oral antibiotics in anticipation for discharge within the next 48 hours -Encourage ambulation, sitting up in chair, IS as much as possible -cleared PT/OT -General surgery and Urology following. Appreciate recommendations 2. Atrial fibrillation with RVR: -halfway AC not indicated, as patient is only transient AF RVR. -Continue Metoprolol for rate control 3. Recent prostatectomy: -Catheter removal ordered by Andrez DISPOSITION: Pending clinical improvement Attending attestation: I evaluated and examined the patient in person; I discussed the care with Resident in detail and agree with the plan above. VS, I&O, 24H, Fishbone Vital Signs/I&O Vital Signs Date Time Temp Pulse Resp B/P (MAP) Pulse Ox O2 Delivery O2 Flow Rate FiO2 12/16/19 13:12 18 12/16/19 08:11 101 132/75 12/16/19 06:15 Room Air 12/16/19 06:00 98.9 94 I&O- Last 24 Hours up to 6 AM 12/16/19 06:00 Intake Total 800 ml Output Total 100 ml Balance 700 ml Laboratory Data 24H LABS Laboratory Tests 2 12/16/19 05:52: Immature Granulocyte % (Auto) 0.6, Neutrophils (%) (Auto) 86.0H, Lymphocytes (%) (Auto) 6.6L, Monocytes (%) (Auto) 6.3H, Eosinophils (%) (Auto) 0.0, Basophils (%) (Auto) 0.5, Neutrophils # (Auto) 11.4H, Lymphocytes # (Auto) 0.9L, Monocytes # (Auto) 0.8, Eosinophils # (Auto) 0.0, Basophils # (Auto) 0.1, Nucleated Red Blood Cells % (auto) 0.0, Erythrocyte Sedimentation Rate 89H, Anion Gap 10, Glomerular Filtration Rate > 60.0, Calcium Level 7.8L, C-Reactive Protein, Quantitative 14.80H CBC/BMP Laboratory Tests 12/16/19 05:52 Microbiology Microbiology 12/11/19 Gram Stain - Final, Resulted 12/11/19 Abscess Culture - Preliminary, Resulted Yeast Like Organism 12/11/19 Anaerobic Culture, Received Pending GME ATTESTATION GME ATTESTATION My faculty preceptor for this patient encounter was physically present during the encounter and was fully available. All aspects of the patient interview, examination, medical decision making process, and medical care plan development were reviewed and approved by the faculty preceptor. The faculty preceptor is aware and concurs with the plan as stated in the body of this note and will attest to such by his/her cosignature. ULICES RAMÍREZ MD December 16, 2019 13:50 NATHAN EAST MD December 21, 2019 19:03
[2019-12-16 14:00] VITALS: BP 130/72
[2019-12-16] MEDS ORDERED: ISOVUE-370 76% 100ML VIAL As Ordered ONE (16:53)
--- NOTE | 2019-12-16 17:44 | REPVR ---
PROCEDURE INFORMATION: Exam: CT Abdomen And Pelvis With Contrast Exam date and time: 12/16/2019 4:56 PM Age: 69 years old Clinical indication: Abdominal pain; Additional info: R/O abdominal abscess TECHNIQUE: Imaging protocol: Computed tomography of the abdomen and pelvis with intravenous contrast. Radiation optimization: All CT scans at this facility use at least one of these dose optimization techniques: automated exposure control; mA and/or kV adjustment per patient size (includes targeted exams where dose is matched to clinical indication); or iterative reconstruction. Contrast material: ISO 370; Contrast volume: 100 ml; Contrast route: PICC; COMPARISON: CT ABD/PEL W/IV CONTRAST ONLY 12/11/2019 10:11 AM FINDINGS: Tubes, catheters and devices: There is a drainage catheter in the right anterior pelvis . Adjacent to the distal catheter is a small fluid collection with a air-fluid level. It measures 3 x 1.2 by 1.0 cm., markedly decreased in size from the prior scan when it measured 12 cm.. There are 2 pockets of free fluid in the left upper quadrant which were also present on the prior scan and have not changed. No encapsulation is identified. Series 201 images 79 to 89 demonstrate a encapsulated fluid collection measuring 4.0 by 1.8 by 3.6 cm. There is an enhancing rim and it contains gas bubbles. On the prior scan it was slightly larger measuring up to 5.7 cm.. Pleural space: There is a moderate left pleural effusion similar to prior scan. There is adjacent atelectasis. Effusion on the right has almost completely resolved. There is a decrease in adjacent atelectasis. Liver: The liver is normal. Gallbladder and bile ducts: Status post cholecystectomy. Intrahepatic bile ducts are mildly dilated . The common bile duct is mildly dilated, 8 mm. This was also present on the prior scan. No obstructive calculus or lesion. Pancreas: Normal. No ductal dilation. Spleen: There is a subcapsular perisplenic fluid collection measuring 7 by 1.6 by 6.5 cm., similar to prior scan. Adrenals: The adrenal glands are normal. Kidneys and ureters: The kidneys are normal.No hydronephrosis. Stomach and bowel: To extensive sigmoid diverticula. There has been a partial colectomy with a blind-ending sigmoid pouch. There is a left lower quadrant colostomy site. No evidence of bowel obstruction. Appendix: No evidence of appendicitis. Intraperitoneal space: See "Tubes, catheters and devices" finding. Vasculature: Unremarkable. No abdominal aortic aneurysm. Lymph nodes: Unremarkable. No enlarged lymph nodes. Bladder: There is a small amount of gas in the bladder. This is likely secondary to instrumentation as a Jha catheter was present on the prior scan. The catheter has been removed. Reproductive: Unremarkable as visualized. Bones/joints: There are degenerative changes of the lumbar spine. No fracture or focal osseous lesion. Soft tissues: Unremarkable. IMPRESSION: 1. Drainage catheter in the right pelvis. There is a small, 3 cm, adjacent fluid collection markedly decreased in size from prior scan. 2. In the right mid abdomen there is a fluid collection containing gas bubbles with peripheral enhancement measuring up to 4 cm.. This is consistent with an abscess. It is decreased from a 5.7 cm on the prior scan. 3. There is a stable subcapsular perisplenic fluid collection. It measures up to 7 cm.. An abscess cannot be excluded. No change from prior scan. There are 2 pockets of free fluid in the adjacent left upper quadrant which are also unchanged from prior scan. No encapsulation or air bubbles to indicate definite abscess. 4. Partial colectomy with colostomy. Diverticulosis. No bowel obstruction. Electronically signed by: Nehemiah Conner On 12/16/2019 17:44:29 PM
[2019-12-16] MEDS: SIMVASTATIN 20 MG TAB PO SCH (20:12)
[2019-12-16 22:00] VITALS: BP 149/75
--- NOTE | 2019-12-16 23:12 | REP ---
CHEST, TWO VIEWS: Two views of the chest are performed. COMPARISON: Made with prior single view chest 12/02/2019. There is mild to moderate left pleural effusion with adjacent atelectasis/infiltrate. There is mild right base atelectasis. The heart is not enlarged. Mediastinal silhouette is unremarkable. There is a right arm PICC line with the tip in the superior vena cava. Multiple sternal wires are present. There are mild degenerative changes of the spine. IMPRESSION: Mild to moderate left effusion with adjacent left base atelectasis/infiltrate. Electronically Signed by Grover Adhikari MD 12/17/2019 12:45 P
[2019-12-17] MEDS: SODIUM CHLORIDE 0.9% INJ 10 ML SYR IV SCH ×2 (05:34→17:31)
[2019-12-17] MEDS: NORCO, ANEXSIA 5/325MG TABLET (HYDROcodone/ACETAMINOPHEN) PO PRN ×4 (05:34→19:55)
[2019-12-17] MEDS: PIPERACILLIN/TAZOBACTAM SOD 4.5 GM in D5W MINI-BAG PLUS 50 ML IV SCH ×4 (05:34→23:16)
[2019-12-17 06:00] VITALS: BP 126/71
[2019-12-17 06:10] LABS: BASO % 0.4 % (0.0-1.0); HEMATOCRIT 33.7 % (42.0-52.0); HEMOGLOBIN 11.2 g/dl (13.5-17.5); LYMPH # 0.8 10^3/uL (1.5-5.0); LYMPH % 7.3 % (24.0-44.0); MEAN CORPUSCULAR HEMOGLOBIN 29.9 pg (27.0-33.0); MEAN CORPUSCULAR HGB CONC 33.2 g/dl (32.0-36.5); MEAN CORPUSCULAR VOLUME 90.1 fl (80.0-96.0); MONO # 0.7 10^3/uL (0.0-0.8); MONO % 6.5 % (0.0-5.0); NEUTROPHILS # 8.8 10^3/uL (1.5-8.5); NEUTROPHILS % 85.3 % (36.0-66.0); PLATELET COUNT, AUTOMATED 592 10^3/uL (150-450); RED BLOOD COUNT 3.74 10^6/uL (4.30-6.10); WHITE BLOOD COUNT 10.4 10^3/uL (4.0-10.0)
[2019-12-17 06:32] LABS: BLOOD UREA NITROGEN 8 MG/DL (7-18); CALCIUM LEVEL 7.6 MG/DL (8.8-10.2); CARBON DIOXIDE LEVEL 23 MEQ/L (21-32); CHLORIDE LEVEL 104 MEQ/L (98-107); CREATININE FOR GFR 0.78 MG/DL (0.70-1.30); GLOMERULAR FILTRATION RATE > 60.0 (>42); GLUCOSE, FASTING 95 MG/DL (70-100); POTASSIUM SERUM 4.6 MEQ/L (3.5-5.1); SODIUM LEVEL 134 MEQ/L (136-145)
[2019-12-17] MEDS: ASPIRIN 81 MG ENTERIC TAB PO SCH (08:27)
[2019-12-17] MEDS: PANTOPRAZOLE 40MG TAB (PROTONIX) PO SCH (08:28)
[2019-12-17] MEDS: FLUCONAZOLE 100 MG TAB PO SCH (08:28)
[2019-12-17] MEDS: ENOXAPARIN 40MG/0.4ML SYRINGE (J1650 PER 10MG) SC SCH (08:28)
[2019-12-17] MEDS: METOPROLOL TART 25 MG TABLET PO SCH ×2 (08:28→19:55)
[2019-12-17] MEDS: HYDROCORTISONE 1% CREAM 30 GM TOP SCH (08:29)
--- NOTE | 2019-12-17 13:13 | IPNPDOC ---
Date Seen The patient was seen on 12/17/19. Progress Note SUBJECTIVE: Patient has no complaints this morning. Denies any abdominal pain, nausea/vomiting. LAN drain output is slowly decreasing. No fevers, chills. OBJECTIVE PHYSICAL EXAMINATION: GENERAL APPEARANCE: Sitting up at the bedside, appears stated age, no acute distress, calm, cooperative HEENT: EOMI, PERRLA, neck is supple with no thyromegaly or lymphadenopathy RESPIRATORY: Lungs are clear to auscultation bilaterally with no adventitious breath sounds appreciated CARDIOVASCULAR: no JVD, RRR,no murmurs/rubs/gallops, normal S1 and S2 ABDOMEN: +BS, distended, nontender to palpation in all four quadrants, no masses/organomegaly, drain in suprapubic region draining brownish fluid, colostomy bag draining dark brown liquid stool. There seems to be air in the colostomy bag. Surgical scar is healing well, does not appear to be erythematous or draining any fluid at the time of my exam. EXTREMITIES: no clubbing, cyanosis or edema noted NEUROLOGICAL: CN 2-12 intact, No obvious focal deficits PSYCHIATRIC: somewhat depressed mood Skin: No rashes or ulcers appreciated, warm and well-perfused LN: No significant cervical or inguinal lymphadenopathy LABORATORY DATA, IMAGING STUDIES, MICROBIOLOGY: Please see below. DVT prophylaxis ordered?: Lovenox GI ppx: Protonix ASSESSMENT AND PLAN: This is a 69 YO M with recent history prostatectomy on 11/25 who presented to ED on 12/01 for worsening abdominal distention found to have perforated viscous s/p exploratory laparotomy demonstrating perforated rectum. Patient now has diverting colostomy. In addition, patient had been in atrial fibrillation with RVR on admission, which has now found to be transient. PROBLEMS: 1. Perforated rectum, POD #14 s/p Ex lap + abdominal washout, diverting colostomy : -Continue regular diet as tolerated -Continue diverting colostomy care -WBC still elevated but downward trending. Continue with Zosyn, Fluconazole (increased to 400mg by general surgery) -CRP elevated today at 16 from 14 -ID consulted regarding antibiotics, appreciate recommendations from Dr. Delgado regarding outpatient oral antibiotics and duration in anticipation for discharge within the next 48 hours -Abscess fluid culture grew Bacteroides, Anaerobic cocci, Martha albicans sensitive to Fluconazole -Encourage ambulation, sitting up in chair, IS as much as possible -cleared PT/OT -General surgery and Urology following. Appreciate recommendations 2. Atrial fibrillation with RVR: -director long term care AC not indicated, as patient is only transient AF RVR. -Continue Metoprolol for rate control 3. Recent prostatectomy: -Catheter removal ordered by Andrez DISPOSITION: Pending clinical improvement Attending attestation: I evaluated and examined the patient in person; I discussed the care with Resident in detail and agree with the plan above. VS, I&O, 24H, Fishbone Vital Signs/I&O Vital Signs Date Time Temp Pulse Resp B/P (MAP) Pulse Ox O2 Delivery O2 Flow Rate FiO2 12/17/19 11:10 18 12/17/19 08:28 89 138/72 12/17/19 06:04 Room Air 12/17/19 06:00 98.4 95 I&O- Last 24 Hours up to 6 AM 12/17/19 05:59 Intake Total 1240 ml Output Total 250 ml Balance 990 ml Laboratory Data 24H LABS Laboratory Tests 2 12/17/19 05:48: Immature Granulocyte % (Auto) 0.5, Neutrophils (%) (Auto) 85.3H, Lymphocytes (%) (Auto) 7.3L, Monocytes (%) (Auto) 6.5H, Eosinophils (%) (Auto) 0.0, Basophils (%) (Auto) 0.4, Neutrophils # (Auto) 8.8H, Lymphocytes # (Auto) 0.8L, Monocytes # (Auto) 0.7, Eosinophils # (Auto) 0.0, Basophils # (Auto) 0.0, Nucleated Red Blood Cells % (auto) 0.0, Anion Gap 7L, Glomerular Filtration Rate > 60.0, Calcium Level 7.6L, C-Reactive Protein, Quantitative 16.60H CBC/BMP Laboratory Tests 12/17/19 05:48 Microbiology Microbiology 12/11/19 - Final, Complete Martha Albicans 12/11/19 Gram Stain - Final, Complete 12/11/19 Abscess Culture - Final, Complete Yeast Like Organism 12/11/19 Anaerobic Culture - Final, Complete Bacteroides Thetaiotaomicron Anaerobic Cocci GME ATTESTATION GME ATTESTATION My faculty preceptor for this patient encounter was physically present during the encounter and was fully available. All aspects of the patient interview, examination, medical decision making process, and medical care plan development were reviewed and approved by the faculty preceptor. The faculty preceptor is aware and concurs with the plan as stated in the body of this note and will attest to such by his/her cosignature. ULICES RAMÍREZ MD December 17, 2019 13:13 NATHAN EAST MD December 21, 2019 19:27
--- NOTE | 2019-12-17 13:18 | IPN ---
DATE OF SERVICE: 12/16/2019 Mr. Eastman has no new complaints. No nausea, vomiting. Bowel movements through colostomy bag are soft. No abdominal pain. He has been ambulating well and has passed physical therapy. He is using a walker, although he feels he does not need it. He is afebrile. Temperature is 98.2, pulse 85, respirations 18, blood pressure 130/72, oxygen (O2) saturation 94% on room air. Heart: Normal S1, S2. No murmurs. Lungs are clear. No wheezes, rales, or rhonchi. Abdomen: Soft, mildly distended. Voss in place with bloody discharge at the inferior aspect of the incision, colostomy bag, and there is a drain with about 50 mL of purulent greenish discharge for the past 24 hours. Previously to that, he had anywhere from 70-80 mL. IMAGING: Chest x-ray PA and lateral was done this afternoon and is not read yet. His CT was done on 12/11/2019, following which he had drainage procedure. IMPRESSION: 1. Intra-abdominal abscess, status post bowel perforation with polymicrobial infection, yeastlike organism, as well as three different anaerobes that still are not identified. The patient on intravenous (IV) Zosyn and by mouth fluconazole. 2. Increased C-reactive protein (CRP) concerning for possibility of residual abscess that may need to be drained. Will repeat CT abdomen and pelvis before his discharge to make sure no further drainage is required. 3. History of prostate cancer, status post prostatectomy with bowel perforation complication. PLAN: Continue IV Zosyn currently. Anticipated discharge in the next 48 hours. Once I have identification, possibly the patient may go home on levofloxacin, Flagyl, and fluconazole. I am waiting for identification of pathogen and CT abdomen and pelvis followup. The case has been discussed with Dr. Arce.
[2019-12-17 14:07] VITALS: BP 128/69
--- NOTE | 2019-12-17 14:07 | IPN ---
DATE: 12/16/2019 HISTORY: The patient is now postop day number 13 from exploratory lap with debridement of peritonitis and diverting colostomy for a rectosigmoid perforation following a prostatectomy. He has been taking a diet well and has been regaining some strength. He has remained afebrile, but his white blood cell count has remained elevated with a left shift. He remains on piperacillin, tazobactam and fluconazole. His culture from the 7th when he had a percutaneous drain placed is incomplete. Apparently, Dr. Delgado of infectious disease was consulted over the weekend and is following. Vital signs show that he has been afebrile over the past 24 hours. Pulse has ranged up into the low 100s, but is usually in the 80s to 90s. His blood pressure is good and his room air oxygen saturation is fine. Intake and output show that yesterday he had 650 recorded input. His urine output is not being measured and his stool output appears good. He has not had a weight in 9 days. PHYSICAL EXAMINATION: The patient is lying quietly in the hospital bed breathing easily and sleeping. I elected at this time not to awaken him and will check back later in the day. However, when I did come back later in the day at approximately 4:45 p.m. he was off to the x-ray department for a CT scan ordered by Dr. Arce. LABORATORY STUDIES: Today showed a white count of 13,000 with a hemoglobin of 12, hematocrit of 37 and platelet count of 675,000. Differential count showed 86% neutrophils, 7% lymphocytes and 6% monocytes. Chemistry profile showed a sodium 133, potassium 4.7, chloride 103, CO2 of 20, BUN of 10, creatinine 0.8 and a glucose of 75. He had a C-reactive protein of 14.8, which is up from a level of 9 on 12/12/2019. I ordered a chest x-ray today to follow up on his left lower lobe atelectasis and this has not yet been read, but clearly he still has a pleural effusion on the left with some significant left lower lobe atelectasis posteriorly. This does not seem to be significantly improved from what was seen on his CAT scan. IMPRESSION: The patient based on his lab work and report from the nurses appears to be fairly stable. His white count remains mildly elevated with a significant left shift despite continuing piperacillin/tazobactam and fluconazole. He has not grown any bacteria from his percutaneous drain in the upper pelvis. He is taking a diet well. He needs to continue physical therapy and receive training regarding ostomy care. I will plan on having his surgical todd removed. He can shower as desired. I will see what his new CAT scan turns up when this has been completed. BING
--- NOTE | 2019-12-17 14:16 | IPN ---
DATE: 12/15/2019 HISTORY: The patient is now 12 days postop from laparotomy for a rectosigmoid perforation following a robotic prostatectomy. He underwent a diverting colostomy and debridement of fecal peritonitis. His colostomy has been working well. His white blood cell count has remained elevated. A CT scan late last week showed a fluid collection in the upper pelvis just above the bladder and a percutaneous drain was placed. Over the weekend his white count has come down somewhat. His right lower quadrant Gene drain was removed by Dr. Aaron. He has remained afebrile. Vital signs show that he has been afebrile over the last 24 hours. His pulse has been in the 80s and 90s generally. His blood pressure is excellent with a good room air oxygen saturation. Intake and output show that yesterday he had 1000 recorded in with 280 recorded out. His urine is not being measured. He had 80 mL out of his drain before the Gene was removed. He had 200 mL of stool from his ostomy measured. PHYSICAL EXAMINATION: Patient is lying in a recliner looking fairly comfortable. He says he feels much stronger than he had been before the weekend. He has been able to ambulate some. His stoma is working well. He is taking a diet well. His heart exam shows a regular rhythm. The lungs are generally with clear breath sounds though they may be slightly distant. The abdomen remains full. He does not have any rebound tenderness or significant guarding. His stoma appears mildly edematous but is functioning well. His midline incision is closed with todd and there does not appear to be any further drainage from the incision at this time. Laboratory studies today show a white count of 14, hemoglobin of 12, hematocrit of 35, and a platelet count of 642,000. differential count still shows a neutrophil count of 85%, 7% lymphocytes, and 7% monocytes. Chemistry profile was not obtained today. His culture from the drain placement on the 10 of December shows a yeast-like organism but the report is not complete. IMPRESSION: The patient appears to be making progress though I remain concerned about his white count remaining somewhat elevated with a left shift. The abdomen is still quite full though he has good bowel function with output from his ostomy and no significant nausea or vomiting. PLAN: I will reassess his drain in the morning. It is putting out some slightly bloody reddish brown fluid tonight. I will further inspect his abdominal incision, but we should probably take out his surgical todd at this point. If he continues to have an elevated white count with a left shift, it may be reasonable to consider repeating his CT scan at some point in the next few days. I would continue him on his antibiotics for now. He does need to continue with some training for management of his ostomy. BING
--- NOTE | 2019-12-17 16:21 | IPN ---
DATE: 12/17/2019 HISTORY: The patient is now 14 days postop from exploratory laparotomy for a rectosigmoid perforation from a prior robotic-assisted prostatectomy. He has an end colostomy. At the time of his surgery he had fecal peritonitis with extensive contamination. He is on a regular diet and his ostomy appears to be functioning well. His hospital course has been prolonged by persistent elevation of his white blood cell count and inflammatory markers. A percutaneous drain was placed in a pelvic collection on 12/11/2019 and this continues to drain. He has gained some strength and reportedly has been cleared by physical therapy for possible discharge. Vital signs show that he has been afebrile over the past 24 hours. His pulse has been in the 80s and 90s and his blood pressure is excellent. Room air oxygen saturations are normal. Intake and output show that yesterday he had 1240 recorded in with 200 of stool from his ostomy and 50 mL of drainage from his percutaneous drain. Voids are not being recorded or measured. PHYSICAL EXAMINATION: The patient is reclining comfortably in a recliner at the bedside. He denies any pain currently. He has no nausea or vomiting. He reports that he has had some training in changing his ostomy appliance. He has had no rectal output recently. Physical exam shows that the heart exam has a regular rhythm. The lungs are without wheezing or rhonchi. Abdomen is still mildly distended and slightly firm. He does have bowel sounds present. His midline incision has todd in place and I removed these today and applied Steri-Strips. His drain site in the right lower quadrant has a retained suture and this was removed as well. His ostomy seems to be healing well with resolution of his edema and he has air and stool in the bag. Lower extremities are without significant edema. Laboratory studies today show white count of 10 with a differential showing 85% neutrophils, 7% lymphocytes and 6% monocytes. Hemoglobin is 11 with a hematocrit of 34 and platelet count is down slightly to 592,000. His chemistry profile shows a sodium of 134, potassium 4.6, chloride 104, CO2 of 23, BUN of 8, creatinine 0.78 and a glucose of 95. His CRP today is 16.6, which is probably not significantly different from the level on 12/16/2019. He had an ESR on 12/16/2019 of 89. Chest x-ray yesterday showed persistent atelectasis in the posterior aspect of the left lower lobe with a small pleural effusion. He had a repeat CT scan yesterday afternoon or evening. This showed marked improvement in the fluid collection in his pelvis, which contains the percutaneous drain. There is a small fluid collection with an air bubble completely surrounded by small bowel in the right midabdomen, which could represent a small abscess, but is either unchanged or perhaps slightly smaller than it had been on his scan last week. There are several other small fluid collections, particularly around the spleen that are either unchanged or perhaps slightly smaller. IMPRESSION: The patient appears to be doing clinically quite well. His wound is healing and is not having any significant drainage or sign of infection. His ostomy is maturing well and functioning well. He is eating without any reported nausea or vomiting and indicates that he is voiding well. His white blood cell count is improved today, though has remained slightly elevated persistently and his inflammatory markers are still elevated, which is not surprising given the degree of contamination of the abdomen. RECOMMENDATIONS: I think at this point it would be safe to discharge the patient home. I do think he should be on antibiotics and these can be guided by his drain cultures as recommended by Dr. Delgado. He should avoid any strenuous physical activity but light activities are encouraged. He can shower as desired. I do believe he should continue his pulmonary exercises to try to resolve the atelectasis in his left lower lobe. He should followup with Dr. Julio in the office in the next week or so about his percutaneous drain. He will certainly need a visiting nurse to monitor his drain output and also assist in continuing to manage his new colostomy. BING
[2019-12-17] MEDS: RAMELTEON 8 MG TAB (ROZEREM) PO PRN (19:54)
[2019-12-17] MEDS: SIMVASTATIN 20 MG TAB PO SCH (19:54)
[2019-12-17 22:00] VITALS: BP 131/74
[2019-12-18 02:00] VITALS: BP 127/68
[2019-12-18] MEDS: PIPERACILLIN/TAZOBACTAM SOD 4.5 GM in D5W MINI-BAG PLUS 50 ML IV SCH ×2 (05:01→12:00)
[2019-12-18] MEDS: NORCO, ANEXSIA 5/325MG TABLET (HYDROcodone/ACETAMINOPHEN) PO PRN (05:02)
[2019-12-18 06:00] VITALS: BP 159/94
[2019-12-18] MEDS: SODIUM CHLORIDE 0.9% INJ 10 ML SYR IV SCH (06:19)
[2019-12-18 06:57] LABS: BASO # 0.1 10^3/uL (0.0-0.2); BASO % 0.7 % (0.0-1.0); HEMATOCRIT 34.6 % (42.0-52.0); HEMOGLOBIN 11.1 g/dl (13.5-17.5); LYMPH # 0.6 10^3/uL (1.5-5.0); LYMPH % 8.4 % (24.0-44.0); MEAN CORPUSCULAR HEMOGLOBIN 28.8 pg (27.0-33.0); MEAN CORPUSCULAR HGB CONC 32.1 g/dl (32.0-36.5); MEAN CORPUSCULAR VOLUME 89.9 fl (80.0-96.0); MONO # 0.5 10^3/uL (0.0-0.8); MONO % 6.7 % (0.0-5.0); NEUTROPHILS # 6.4 10^3/uL (1.5-8.5); NEUTROPHILS % 83.8 % (36.0-66.0); PLATELET COUNT, AUTOMATED 496 10^3/uL (150-450); RED BLOOD COUNT 3.85 10^6/uL (4.30-6.10); WHITE BLOOD COUNT 7.6 10^3/uL (4.0-10.0)
[2019-12-18 07:17] LABS: BLOOD UREA NITROGEN 8 MG/DL (7-18); CALCIUM LEVEL 7.7 MG/DL (8.8-10.2); CARBON DIOXIDE LEVEL 25 MEQ/L (21-32); CHLORIDE LEVEL 103 MEQ/L (98-107); CREATININE FOR GFR 0.88 MG/DL (0.70-1.30); GLOMERULAR FILTRATION RATE > 60.0 (>42); GLUCOSE, FASTING 104 MG/DL (70-100); POTASSIUM SERUM 4.3 MEQ/L (3.5-5.1); SODIUM LEVEL 136 MEQ/L (136-145)
--- NOTE | 2019-12-18 07:37 | IPNPDOC ---
Subjective Review oF Systems Chief Complaint The patient is a 69-year-old male admitted with a reason for visit of Andrés,Pneumoperitoneum,Rapid A-Fib,Sepsis,Transamini. Events since Last Encounter No acute events o/n. Good pain control. Patient notes he is ambulating better every day. No voiding difficulties. He feels like he has control of urination, but has been voiding into his depends. No n/v. No f/c/ns. Objective Physical Examination General Exam: Alert, Cooperative, No Acute Distress ABDOMEN EXAM: Other (nondistended; nontender; incision c/d/i w/ steristrips in place; abscess drain w/ small amount of brown output; ostomy w/ stool and gas in bag) Skin Exam: Nl turgor and temperature Neuro Exam: Normal Speech Psych Exam: Mental status NL, Mood NL Vital Signs/I&O Vital Signs Date Time Temp Pulse Resp B/P (MAP) Pulse Ox O2 Delivery O2 Flow Rate FiO2 12/18/19 06:00 98.4 89 19 159/94 (115) 95 Room Air I&O- Last 24 Hours up to 6 AM 12/18/19 06:00 Intake Total 1770 ml Output Total 260 ml Balance 1510 ml Laboratory Data Labs 24H Laboratory Tests 2 12/18/19 06:44: Immature Granulocyte % (Auto) 0.4, Neutrophils (%) (Auto) 83.8H, Lymphocytes (%) (Auto) 8.4L, Monocytes (%) (Auto) 6.7H, Eosinophils (%) (Auto) 0.0, Basophils (%) (Auto) 0.7, Neutrophils # (Auto) 6.4, Lymphocytes # (Auto) 0.6L, Monocytes # (Auto) 0.5, Eosinophils # (Auto) 0.0, Basophils # (Auto) 0.1, Nucleated Red Blood Cells % (auto) 0.0, Anion Gap 8, Glomerular Filtration Rate > 60.0, Calcium Level 7.7L, C-Reactive Protein, Quantitative 17.70H CBC/BMP Laboratory Tests 12/18/19 06:44 Microbiology Microbiology 12/11/19 - Final, Complete Martha Albicans 12/11/19 Gram Stain - Final, Complete 12/11/19 Abscess Culture - Final, Complete Yeast Like Organism 12/11/19 Anaerobic Culture - Final, Complete Bacteroides Thetaiotaomicron Anaerobic Cocci Assessment/Plan Date Seen The patient was seen on 12/18/19. Patient Summary This is a 69 y/o M who is s/p a RALP on 11/26/19, admitted w/ abd distention and signs of sepsis, now POD15 s/p ex lap w/ washout and diverting colostomy for a rectal perforation, and then abscess drain placement last week. Patient looks good this morning. Afebrile. WBC now normal at 7.6 this morning. Plan/VTE VTE Prophylaxis Ordered?: Yes VTE Exclusion Mechanical Proph: N/A:VTE Prophy Ordered Plan - ambulate - diet per gen surg - ostomy care - discharge pending antibiotic/antifungal regimen per ID - will arrange f/u in urology clinic in 2-3 wks AARTI MCCALLUM MD December 18, 2019 07:37
[2019-12-18] MEDS: ENOXAPARIN 40MG/0.4ML SYRINGE (J1650 PER 10MG) SC SCH (08:39)
[2019-12-18] MEDS: FLUCONAZOLE 100 MG TAB PO SCH (08:40)
[2019-12-18] MEDS: ASPIRIN 81 MG ENTERIC TAB PO SCH (08:42)
[2019-12-18 08:43] VITALS: BP 159/94
[2019-12-18] MEDS: METOPROLOL TART 25 MG TABLET PO SCH (08:43)
[2019-12-18] MEDS: PANTOPRAZOLE 40MG TAB (PROTONIX) PO SCH (08:43)
[2019-12-18] MEDS: HYDROCORTISONE 1% CREAM 30 GM TOP SCH (08:44)
--- NOTE | 2019-12-18 09:45 | IPN ---
DATE: 12/18/2019 HISTORY: The patient is now 15 days postoperative from exploratory laparotomy with debridement of peritonitis and end colostomy for a rectosigmoid perforation associated with a previous prostatectomy. He has had a prolonged elevation of his white count with elevated inflammatory markers, though yesterday his white blood cell count had continued to decrease further. He has been tolerating a diet well and his ostomy is functioning. He has one percutaneous drain still in the low left side of the pelvis. Vital signs show that he has been afebrile over the past 24 hours. His pulse is in the 80s and 90s and his blood pressure is normal. Intake and output shows that his intake yesterday was recorded as 1420 with several voids and only 10 mL from his abdominal drain noted. PHYSICAL EXAMINATION: The patient is lying quietly in his bedside recliner. He denies any significant pain. He reports he has been tolerating a diet with no nausea or vomiting and is voiding well. Ostomy continues to function. His midline incision is clean and dry. His lower extremities are without significant edema. LABORATORY STUDIES: Today show that his white count is in the normal range for the first time since surgery at 7.6. His differential count shows 84% neutrophils, 8% lymphocytes and 7% monocytes. His hemoglobin is 11 with a hematocrit of 35 and the platelet count is actually nicely down to 496,000. It had reached a peak of 756,000 four days ago. His laboratory studies otherwise include a chemistry profile that is entirely normal with a glucose of 104. His CRP is 17.7, which is probably not significantly different from 16.6 yesterday. IMAGING: He has had no new imaging since the . IMPRESSION: The patient is doing well with continued improvement in his white blood cell count and fall in his platelet count toward normal. His CRP remains somewhat elevated as might be anticipated. His cultures from his pelvic drain have grown Martha albicans as well as some Bacteroides thetaiotaomicron and anaerobic cocci. PLAN: The patient appears ready for discharge from a surgical standpoint. He should avoid strenuous activity, but should continue to move and ambulate as desired. He can shower if he desires. He will need to a visiting nurse to assist in ostomy care and management of his drain. He should follow up with Dr. Julio next week in the office to consider removal of his abscess drain. He should remain on antibiotics and I will leave this to Dr. Delgado to determine the medications to utilize. If he has any fevers or chills or significant changes in his condition, he should return to the emergency department as needed. BING
[2019-12-18] MEDS ORDERED: FLUC100T PO (10:30)
[2019-12-18] MEDS ORDERED: FLAG500T PO (10:31)
[2019-12-18] MEDS ORDERED: LEVA750T7 PO (10:31)
[2019-12-18] MEDS ORDERED: HYDR-3715 PO (10:31)
--- NOTE | 2019-12-18 11:38 | DS.PDOC ---
Discharge Summary General Date of Admission Dec 02, 2019 at 22:23 Date of Discharge December 18, 2019 Primary Care Physician: A Attending Physician: NATHAN EAST MD Specialist/Consultants Involve: ZAIRE JULIO DO Specialist/Consultants Involve Tom Delgado K. Discharge Summary PROCEDURES PERFORMED DURING STAY: [None]. ADMITTING DIAGNOSES: 1. Sepsis possibly 2/2 intra-abd perforation 2. Atrial fibrillation with RVR 3. JENN on CKD III DISCHARGE DIAGNOSES: 1. Perforated rectum s/p Ex lap + abdominal washout, diverting colostomy 2. Abdominal abscesses s/p drainage x 2 COMPLICATIONS/CHIEF COMPLAINT: Jenn,Pneumoperitoneum,Rapid A- Fib,Sepsis,Transamini. HISTORY OF PRESENT ILLNESS: This is a 69-year-old male presenting for acute abdominal pain worsening since past after he underwent radical pr ostatectomy for prostate cancer. He reports he was tolerating by mouth intake well post-operatively, was discharged home and noted vague abdominal pressure that worsened since then. He has no associated nausea or vomiting, but has noticed decreased appetite and also no longer passing flatus or having a bowel movement since his discharge home. He denies any fever, but admits to chills. Denies any other complaints. Denies chest pain, shortness of breath, fever, wt loss, blood loss, rashes. Found in ER to be septic with WBC 20.3 with bandemia, lactate 6.6, JENN with Cr 2.28, CRP 37, and in what appears to be new-onset AFib, tachycardic in 150-160s. He received fluids per sepsis protocol, Zosyn x1, and IV Lopressor 5mg x2 doses. There was concern for perforation given free air noted on CT abd/pelvis, and pt was evaluated by General Surgery Dr. Julio & Urology Dr. Maguire in ER, found to have improving lactic acidosis with the above treatment, and recommended to be admitted for medical management and no surgery at this point. At bedside, he reports his pain is slightly better from prior days, and has no other complaints. HOSPITAL COURSE: The patient presented 6 days s/p robotic prostatectomy with abdominal pain, constipation and tachycardia found to have free air in the abdomen. He was taken to the OR on 12/03/19 for exploratory laparotomy where stool was found throughout the abdomen and the patient was found to have a perforated rectum. A diverting colostomy was then created. The patient was then transferred to the medical/surgical floor and placed on empiric Zosyn and Diflu can. An NG tube was placed and patient was put on TPN for several days before he was tried on a gradually increased diet as tolerated. Eventually, NG tube was removed and patient was tolerating full regular diet. While the patient's WBC was trending down it was very slow so CT abd/pelvis was ordered on 12/10 which found large abcess in RLQ and several pockets of fluid accumulated throughout the abdomen. The patient was taken to Interventional Radiology for CT-guided abscess drainage and IV antibiotics were continued. Infectious disease was consulted. A repeat CT abd/pelvis was done on 12/16/19 and showed decreased size of abscess but still several pockets of fluid throughout the abdomen. The pa tient, remaining vitally stable and with WBC continuing to trend down, was sent home with RLQ drain in place and plan to follow up with Dr. Delgado, Dr. Julio and Dr. Maguire. DISCHARGE MEDICATIONS: Please see below. ALLERGIES: Please see below. PHYSICAL EXAMINATION ON DISCHARGE: GENERAL APPEARANCE: Sitting up at the bedside, appears stated age, no acute distress, calm, cooperative HEENT: EOMI, PERRLA, neck is supple with no thyromegaly or lymphadenopathy RESPIRATORY: Lungs are clear to auscultation bilaterally with no adventitious breath sounds appreciated CARDIOVASCULAR: no JVD, RRR,no murmurs/rubs/gallops, normal S1 and S2 ABDOMEN: +BS, distended, nontender to palpation in all four quadrants, no masses/organomegaly, drain in suprapubic region draining brownish fluid, colostomy bag draining dark brown liquid stool. There seems to be air in the colostomy bag. Surgical scar is healing well, does not appear to be erythematous or draining any fluid at the time of my exam. EXTREMITIES: no clubbing, cyanosis or edema noted NEUROLOGICAL: CN 2-12 intact, No obvious focal deficits PSYCHIATRIC: somewhat depressed mood Skin: No rashes or ulcers appreciated, warm and well-perfused LN: No significant cervical or inguinal lymphadenopathy LABORATORY DATA: Please see below. IMAGING: CT ABD/PELVIS 12/16/19: IMPRESSION: 1. Drainage catheter in the right pelvis. There is a small, 3 cm, adjacent fluid collection markedly decreased in size from prior scan. 2. In the right mid abdomen there is a fluid collection containing gas bubbles with peripheral enhancement measuring up to 4 cm.. This is consistent with an abscess. It is decreased from a 5.7 cm on the prior scan. 3. There is a stable subcapsular perisplenic fluid collection. It measures up to 7 cm.. An abscess cannot be excluded. No change from prior scan. There are 2 pockets of free fluid in the adjacent left upper quadrant which are also unchanged from prior scan. No encapsulation or air bubbles to indicate definite abscess. 4. Partial colectomy with colostomy. Diverticulosis. No bowel obstruction PROGNOSIS: fair ACTIVITY: [As tolerated]. DIET: as tolerated DISCHARGE PLAN: home DISPOSITION: . DISCHARGE INSTRUCTIONS: 1. Follow up with Tonja Delgado within 7 days ITEMS TO FOLLOWUP ON ON OUTPATIENT: 1. none DISCHARGE CONDITION: [Stable]. TIME SPENT ON DISCHARGE: Greater than 45 minutes. Attending attestation: I evaluated and examined the patient in person; I discussed the care with Resident in detail and agree with the plan above. Vital Signs/I&Os Vital Signs Date Time Temp Pulse Resp B/P (MAP) Pulse Ox O2 Delivery O2 Flow Rate FiO2 12/18/19 08:43 89 159/94 12/18/19 06:00 98.4 19 95 Room Air I&O- Last 24 Hours up to 6 AM 12/18/19 06:00 Intake Total 1770 ml Output Total 260 ml Balance 1510 ml Laboratory Data Labs 24H Laboratory Tests 2 12/18/19 06:44: Immature Granulocyte % (Auto) 0.4, Neutrophils (%) (Auto) 83.8H, Lymphocytes (%) (Auto) 8.4L, Monocytes (%) (Auto) 6.7H, Eosinophils (%) (Auto) 0.0, Basophils (%) (Auto) 0.7, Neutrophils # (Auto) 6.4, Lymphocytes # (Auto) 0.6L, Monocytes # (Auto) 0.5, Eosinophils # (Auto) 0.0, Basophils # (Auto) 0.1, Nucleated Red Blood Cells % (auto) 0.0, Anion Gap 8, Glomerular Filtration Rate > 60.0, Calcium Level 7.7L, C-Reactive Protein, Quantitative 17.70H CBC/BMP Laboratory Tests 12/18/19 06:44 Microbiology Microbiology 12/11/19 - Final, Complete Martha Albicans 12/11/19 Gram Stain - Final, Complete 12/11/19 Abscess Culture - Final, Complete Yeast Like Organism 12/11/19 Anaerobic Culture - Final, Complete Bacteroides Thetaiotaomicron Anaerobic Cocci Discharge Medications Scheduled Aspirin (Ecotrin) 81 Mg Tablet.dr, 81 MG PO DAILY, (Reported) Fluconazole (Fluconazole) 100 Mg Tablet, 400 MG PO DAILY Levofloxacin (Levaquin) 750 Mg Tablet, 750 MG PO DAILY Metoprolol Tartrate (Metoprolol Tartrate) 25 Mg Tablet, 25 MG PO BID, (Reported) Metronidazole (Flagyl) 500 Mg Tablet, 500 MG PO Q8H FOR 10 DAYS Simvastatin (Simvastatin) 20 Mg Tablet, 20 MG PO QHS, (Reported) Scheduled PRN Hydrocodone/Acetaminophen (Hydrocodone-Acetamin 5-325 mg) 1 Each Tablet, 1 TAB PO Q6HP PRN for MODERATE/SEVERE PAIN (PS 5-10) Omeprazole (Omeprazole) 40 Mg Capsule.dr, 40 MG PO DAILY PRN for HEARTBURN, (Reported) Allergies Coded Allergies: No Known Allergies (Unverified , 11/11/19) GME ATTESTATION GME ATTESTATION My faculty preceptor for this patient encounter was physically present during the encounter and was fully available. All aspects of the patient interview, examination, medical decision making process, and medical care plan development were reviewed and approved by the faculty preceptor. The faculty preceptor is aware and concurs with the plan as stated in the body of this note and will attest to such by his/her cosignature. ULICES RAMÍREZ MD December 18, 2019 11:38 NATHAN EAST MD December 21, 2019 19:33
== END 2019-12-18 16:41 | disposition home health service (06) | DRG 329 ==
LOC: M ED 16:29 → M ED INP 22:23 → ENRESERV 22:41 → M RR INP 12-03 00:25 → M PCU 12-03 16:52 → M MS5PR 12-07 18:13
PROVIDERS: ADMIT Internal Medicine; ATTEND Internal Medicine
PROC: 0D1N0Z4 Bypass Sigmoid Colon to Cutaneous, Open Approach (ICD-10-PCS; principal; 2019-12-03 07:23)
PROC: 02HV33Z Insertion of Infusion Device into Superior Vena Cava, Percutaneous Approach (ICD-10-PCS; 2019-12-05)
PROC: 0W9J30Z Drainage of Pelvic Cavity with Drainage Device, Percutaneous Approach (ICD-10-PCS; 2019-12-11)
DX: K63.1 Perforation of intestine (nontraumatic) (principal); A41.9 Sepsis, unspecified organism; K72.00 Acute and subacute hepatic failure without coma; K65.9 Peritonitis, unspecified; K65.1 Peritoneal abscess; K91.72 Accidental puncture and laceration of a digestive system organ or structure during other procedure; E87.2 Acidosis; K91.89 Other postprocedural complications and disorders of digestive system; J98.11 Atelectasis; N17.9 Acute kidney failure, unspecified; K56.7 Ileus, unspecified; N18.3 Chronic kidney disease, stage 3 (moderate); I48.91 Unspecified atrial fibrillation; R74.0 Nonspecific elevation of levels of transaminase and lactic acid dehydrogenase [LDH]; Z79.82 Long term (current) use of aspirin; Z79.899 Other long term (current) drug therapy; Z95.1 Presence of aortocoronary bypass graft; L25.9 Unspecified contact dermatitis, unspecified cause; I25.10 Atherosclerotic heart disease of native coronary artery without angina pectoris; E66.9 Obesity, unspecified; K21.9 Gastro-esophageal reflux disease without esophagitis

== ENCOUNTER → 2019-12-25 | Outpatient (REF) | payer MEDICARE ==
[~2019-12-25] MED LIST changes: +ASPI81TAEC PO; +CIPR500T3 PO; +FLAG500T PO; +FLUC100T PO; +FLUC200T2 PO; +HYDR-3715 PO; +LEVA750T7 PO; +METR-265 PO; +RISATAB3 PO; +ZOSY1SOL5 IV
[2019-12-25 12:18] LABS: BASO # 0.1 10^3/uL (0.0-0.2); BASO % 0.9 % (0.0-1.0); HEMATOCRIT 37.6 % (42.0-52.0); LYMPH # 0.7 10^3/uL (1.5-5.0); LYMPH % 10.3 % (24.0-44.0); MEAN CORPUSCULAR HEMOGLOBIN 28.5 pg (27.0-33.0); MEAN CORPUSCULAR HGB CONC 31.9 g/dl (32.0-36.5); MEAN CORPUSCULAR VOLUME 89.3 fl (80.0-96.0); MONO # 0.9 10^3/uL (0.0-0.8); MONO % 13.6 % (0.0-5.0); PLATELET COUNT, AUTOMATED 513 10^3/uL (150-450); RED BLOOD COUNT 4.21 10^6/uL (4.30-6.10); WHITE BLOOD COUNT 6.9 10^3/uL (4.0-10.0)
[2019-12-25 12:41] LABS: ERYTHROCYTE SEDIMENTATION RATE 92 mm/hr (0-20)
[2019-12-25 12:44] LABS: ALBUMIN 2.3 GM/DL (3.2-5.2); ALT/SGPT 15 U/L (12-78); BILIRUBIN,TOTAL 0.5 MG/DL (0.2-1.0); BLOOD UREA NITROGEN 9 MG/DL (7-18); CALCIUM LEVEL 8.7 MG/DL (8.8-10.2); CARBON DIOXIDE LEVEL 24 MEQ/L (21-32); CHLORIDE LEVEL 101 MEQ/L (98-107); CREATININE FOR GFR 0.97 MG/DL (0.70-1.30); GLOMERULAR FILTRATION RATE > 60.0 (>42); GLUCOSE, FASTING 105 MG/DL (70-100); POTASSIUM SERUM 5.3 MEQ/L (3.5-5.1); PROSTATIC SPECIFIC AG MONITOR 0.31 NG/ML (< 4.00); SODIUM LEVEL 134 MEQ/L (136-145); TOTAL PROTEIN 7.1 GM/DL (6.4-8.2)
== END ==
LOC: M SFHCPLAZ 09:59
PROVIDERS: ATTEND Internal Medicine Infectious Disease
DX: K65.1 Peritoneal abscess (principal); C61 Malignant neoplasm of prostate
CPT/HCPCS: 36415; 80053; 84153; 85025; 85652; 86140; G0463

== ENCOUNTER 2020-01-01 12:10 | Inpatient (IN) | payer MEDICARE ==
[~2020-01-01] VITALS: Ht 177.8 cm; Wt 98.6 kg
[~2020-01-01 12:10] MED LIST changes: -ASPI81TAEC PO; -FLUC200T2 PO; -METR-265 PO; -RISATAB3 PO; -ZOSY1SOL5 IV
[2020-01-01] MEDS ORDERED: LEVA750T7 PO (12:42)
[2020-01-01] MEDS ORDERED: HYDR-3715 PO (12:42)
[2020-01-01] MEDS ORDERED: FLUC200T2 PO (12:42)
[2020-01-01] MEDS ORDERED: NS 500 ML IV ONE (12:45)
--- NOTE | 2020-01-01 14:11 | REP ---
CHEST, SINGLE VIEW: Single view of the chest is performed and compared to a prior study of 12/16/2019. There is no change in left pleural effusion with adjacent left base atelectasis/infiltrate. Right lung remains clear. The heart and mediastinum are unchanged. Multiple sternal wires are present. The previously noted right arm PICC line has been removed. IMPRESSION: Stable left pleural effusion and left basilar parenchymal opacity. Electronically Signed by Grover Adhikari MD 01/01/2020 05:04 P
[2020-01-01 14:57] LABS: BASO # 0.1 10^3/uL (0.0-0.2); BASO % 0.5 % (0.0-1.0); EOS % 0.1 % (0.0-3.0); HEMATOCRIT 37.4 % (42.0-52.0); HEMOGLOBIN 12.1 g/dl (13.5-17.5); LYMPH # 0.9 10^3/uL (1.5-5.0); MEAN CORPUSCULAR HEMOGLOBIN 28.5 pg (27.0-33.0); MEAN CORPUSCULAR HGB CONC 32.4 g/dl (32.0-36.5); MEAN CORPUSCULAR VOLUME 88.2 fl (80.0-96.0); MONO % 6.4 % (0.0-5.0); NEUTROPHILS # 13.3 10^3/uL (1.5-8.5); NEUTROPHILS % 85.8 % (36.0-66.0); PLATELET COUNT, AUTOMATED 535 10^3/uL (150-450); RED BLOOD COUNT 4.24 10^6/uL (4.30-6.10); WHITE BLOOD COUNT 15.5 10^3/uL (4.0-10.0)
[2020-01-01] MEDS ORDERED: ISOVUE-370 76% 100ML VIAL As Ordered ONE (15:07)
[2020-01-01 15:12] LABS: INR 1.17; PROTHROMBIN TIME 14.6 SECONDS (11.8-14.0)
[2020-01-01 15:35] LABS: ALBUMIN 2.5 GM/DL (3.2-5.2); ALT/SGPT 21 U/L (12-78); BILIRUBIN,DIRECT 0.2 MG/DL (0.0-0.2); BILIRUBIN,TOTAL 0.4 MG/DL (0.2-1.0); CK-MB VALUE MASS 1.5 NG/ML (<3.6); CPK CREATINE PHOSPHOKINASE 46 U/L (39-308); LIPASE 241 U/L (73-393); MB/CK RELATIVE INDEX 3.26 (< OR =4); NT-PRO BNP 307 PG/ML (<125); TOTAL PROTEIN 6.9 GM/DL (6.4-8.2); TROPONIN I < 0.02 NG/ML (< 0.10)
--- NOTE | 2020-01-01 16:32 | REP ---
REASON: Followup abnormal fluid collections. COMPARISON: 12/16/2019 CONTRAST: 100 mL Isovue 370. There is a left pleural effusion with subsegmental atelectatic changes in the left lower lobe. There is subsegmental atelectatic change in the right lower lobe. These findings are stable. There is pneumobilia which represents a change from the prior exam. There are no enhancing hepatic lesions. There is no change in the spleen, pancreas, adrenal glands or kidneys. Subcapsular low density fluid seen previously in the spleen is unchanged. The tiny collection seen previously in the lesser sac and along the greater curvature of the stomach is nearly completely resolved. The fluid seen previously trapped between the leaves of the small bowel mesentery is significantly improved. There are no new intra-abdominal fluid collections. There is mild mesenteric congestion. There is no intestinal obstruction. Surgical clips in the right lower quadrant status quo. No periaortic adenopathy or intra-abdominal adenopathy have developed. The surgical drainage tube seen previously in the pelvis is unchanged. Sigmoid colon wall thickening and dany-sigmoidal fatty infiltration is noted essentially unchanged from the prior exam. The left-sided colostomy is unchanged. Gas and fluid-filled small bowel loops are again seen in the abdomen, particularly within the pelvis, essentially unchanged. There is no change in the osseous structures. IMPRESSION: 1. Unchanged left pleural effusion and bibasilar dependent subsegmental and compressive atelectatic changes. 2. Pneumobilia has developed since the last exam. The etiology is uncertain. This needs to be correlated clinically with appropriate followup. 3. Improved intra-abdominal fluid collections. 4. No change in the pelvic drainage tube. No fluid surrounds the tube 5. Small bowel ileus persists. 6. .Unchanged Dany-sigmoidal colon fatty infiltration. This needs follow up to ensure resolution. 7. Other findings as described above. These findings were discussed with Dr. Alejandre at the time of this dictation. Electronically Signed by Farrukh Quigley DO 01/01/2020 05:11 P
[2020-01-01] MEDS ORDERED: PIPERACILLIN/TAZOBACTAM SOD 3.375 GM in D5W MINI-BAG PLUS 50 ML IV ONE ×2 (17:00→17:45)
[2020-01-01] MEDS ORDERED: NORCO, ANEXSIA 5/325MG TABLET (HYDROcodone/ACETAMINOPHEN) PO PRN (17:30)
--- NOTE | 2020-01-01 18:20 | REPVR ---
PROCEDURE INFORMATION: Exam: US Abdomen Limited, Right Upper Quadrant Exam date and time: 01/01/2020 6:14 PM Age: 69 years old Clinical indication: Other: Pneumobilia; Prior surgery; Surgery date: 6+ months TECHNIQUE: Imaging protocol: Real-time ultrasound of the abdomen with image documentation. Examination was focused on the right upper quadrant. COMPARISON: RENAL US 12/03/2019 6:31 PM FINDINGS: Liver: Normal. No masses. Gallbladder: There has been a cholecystectomy. Common bile duct: The common bile duct measures 4 mm. No mass or choledocholithiasis. Pancreas: The pancreas obscured by overlying bowel gas. Right kidney: Right kidney measures 11.7 x 4.8 x 5.3 cm. IMPRESSION: 1. There has been a cholecystectomy. 2. No acute findings. Electronically signed by: Dorian Kelly On 01/01/2020 18:20:11 PM
--- NOTE | 2020-01-01 18:59 | HPEPDOC ---
General Date of Admission January 01, 2020 at 17:20 Date of Service: January 01, 2020 Attending Physician: KYLE MOHAMUD MD Chief Complaint The patient is a 69-year-old male admitted with a reason for visit of Intra Abdominal Abscess. Source: Patient Exam Limitations: No limitations Timing/Duration: Getting worse Associated Symptoms: Weakness History of Present Illness 69-year-old M who recently underwent robotic prostatectomy and then represented with abdominal pain 6d after surgery and found to have free air in the abdomen and had an exploratory laparotomy on 12/03/19 for perforated rectum during which he had a diverting colostomy c/b large abcess in RLQ and several other pockets s/p IR drainage with present drain and was otherwise given IV abx and switched to PO at discharge, most recently on levaquin/200 fluconazole daily. He returns 7d after discharge reporting profound weakness and difficulty ambulating at home with his having to do most of his ADLs because he get so "winded" that he cannot do much for himself as per his regular baseline. He notes that there was discussion of rehabilitation during the last admission but he had been eager to get home and thinks he may have miscalculated his ability to gain his strength back quickly. He otherwise reports that he has been eating small to moderate amounts of food ok, with out acute abdominal pain, fever, chills, nausea, diarrhea, bleeding or constipation. In the ED, he was hemodynamically stable and afebrile. Workup was notable for WBC 15.5, Hgb 12.1, platelets 535, normal lactate, troponin, lipase, BMP and LFTs. He had a CT A/P that showed a stable L pleural effusion, improved intra- abdominal collections, no changes in the pelvic drain or small bowel ileus with new pneumobilia. Dr. Alejandre in the ED, called Dr. Julio who recommended admission to medicine for IV antibiotics and PT/OT with surgery consult. PHYSICAL EXAMINATION ON DISCHARGE: GENERAL APPEARANCE: Sitting up at the bedside, appears stated age, no acute distress, calm, cooperative HEENT: EOMI, PERRLA, neck is supple with no thyromegaly or lymphadenopathy RESPIRATORY: Lungs are clear to auscultation bilaterally with no adventitious breath sounds appreciated CARDIOVASCULAR: no JVD, RRR,no murmurs/rubs/gallops, normal S1 and S2 ABDOMEN: +BS, distended, nontender to palpation in all four quadrants, no masses/organomegaly, drain in suprapubic region draining brownish fluid, colostomy bag draining dark brown liquid stool. There seems to be air in the colostomy bag. Surgical scar is healing well, does not appear to be erythematous or draining any fluid at the time of my exam. EXTREMITIES: no clubbing, cyanosis or edema noted NEUROLOGICAL: CN 2-12 intact, No obvious focal deficits PSYCHIATRIC: somewhat depressed mood Skin: No rashes or ulcers appreciated, warm and well-perfused LN: No significant cervical or inguinal lymphadenopathy Home Medications Scheduled Aspirin (Ecotrin) 81 Mg Tablet.dr, 81 MG PO DAILY, (Reported) Fluconazole (Fluconazole) 200 Mg Tablet, 200 MG PO DAILY, (Reported) FOR 10 DAYS, STARTED 12/24 Levofloxacin (Levaquin) 750 Mg Tablet, 750 MG PO DAILY, (Reported) FOR 10 DAYS, STARTED 12/24 Metoprolol Tartrate (Metoprolol Tartrate) 25 Mg Tablet, 25 MG PO BID, (Reported) Simvastatin (Simvastatin) 20 Mg Tablet, 20 MG PO QHS, (Reported) Scheduled PRN Hydrocodone/Acetaminophen (Hydrocodone-Acetamin 5-325 mg) 1 Each Tablet, 1 TAB PO Q6H PRN for MODERATE/SEVERE PAIN (PS 5-10), (Reported) Omeprazole (Omeprazole) 40 Mg Capsule.dr, 40 MG PO DAILY PRN for HEARTBURN, (Reported) Allergies Coded Allergies: No Known Allergies (Unverified , 11/11/19) Past Medical History Medical History CAD s/p CABG GERD Prostate cancer s/p prostatectomy c/b bowel perf s/p ex-lap washout with diverting colostomy and drain placement Plaque psoriasis Surgical History Partial right side colectomy for precancerous lesion Triple bypass Cholecystectomy Left inguinal hernia repair Radical prostatectomy 11/2019 Bowel perf s/p ex-lap washout with diverting colostomy and drain placement Family History History of CAD, DM, CHF Social History * Smoker: Denies Alcohol: occationally Drugs: denies Lives at home with Denies tobacco, illicit drugs Admits nightly 1 beer 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 A-FIB/CHADSVASC A-FIB History Current/History of A-Fib/PAF?: No Current PO Anticoag Therapy: No Age/Risk Factor Scoring CHADSVASC: CHADSVASC Response (Comments) Value Age Risk Factor Age 65-74 years old 1 Gender Risk Factor Male 0 Hx of CHF No 0 Hx of HTN Yes 1 Hx of Stroke/TIA/or VTE No 0 Hx of Diabetes Yes 1 Hx of Vascular Disease Yes 1 Total 4 Treatment Treatment ordered: NONE Reason Anticoagulant not given: Not indicated/[id number] Review of Systems Constitutional: Reports: Weakness; Denies: Chills, Fever, Night Sweats Eyes: Denies: Pain, Vision change ENT: Denies: Head Aches, Ear Pain, Dysphagia Pulmonary: Denies: Dyspnea, Cough Cardiovascular: Denies: Chest Pain, Palpitations, Orthopnea, Paroxysmal Noc. Dyspnea, Lt Headedness Gastrointestinal: Reports: Abdominal Pain (mild); Denies: Nausea, Vomiting, Diarrhea, Constipation, Melena, Hematochezia Genitourinary: Denies: Dysuria, Frequency, Incontinence, Retention Hematologic: Denies: Bruising, Bleeding Excessively Endocrine: Denies: Polydipsia, Polyphagia, Polyuria, Heat Intolerance, Cold Intolerance, Other Endocrine Sx Musculoskeletal: Denies: Neck Pain, Back Pain, Joint Pain, Muscle Pain, Spasms Neurological: Denies: Weakness, Numbness, Change in speech, Confusion Psych: Reports: Mood Normal; Denies: Depression, Memory Issues Physical Examination General Exam: Positive: Alert, No Acute Distress Eye Exam: Negative: PERRLA, Conjunctiva & lids normal, EOMI, Sclera icteric, Ptosis, Other Eye Symptoms ENT Exam: Positive: Atraumatic, Mucous membr. moist/pink, Pharynx Normal Neck Exam: Positive: Supple; Negative: JVD, thyromegaly Chest Exam: Positive: Clear to auscultation, Normal air movement Heart Exam: Positive: Rate Normal, Regular Rhythm, Normal S1, Normal S2, Other; Negative: Murmurs, Rubs Telemetry: Positive: No significant arrhythmia Abdomen Exam: Positive: Normal bowel sounds, Soft, Other (central scar and lap sites healing well. has L sided colostomy with nonbloody brown formed stool); Negative: Tenderness, Hepatospenomegaly Extremity Exam: Positive: Normal pulses; Negative: Clubbing, Cyanosis, Edema Skin Exam: Positive: Nl turgor and temperature, Other skin issue (healing surgical wounds, ostomy clean no bleeding or erythema); Negative: Breakdown, Lesion Neuro Exam: Positive: Normal Gait, Normal Speech, Cranial Nerves 3-12 NL, Reflexes 2+ Psych Exam: Positive: Mental status NL, Mood NL, Oriented x 3 Vital Signs Vital Signs Date Time Temp Pulse Resp B/P (MAP) Pulse Ox O2 Delivery O2 Flow Rate FiO2 01/01/20 15:55 104 19 150/90 (110) 97 01/01/20 12:11 97.6 Room Air Laboratory Data Labs 24H Laboratory Tests 2 01/01/20 14:23: Urine Color YELLOW, Urine Appearance HAZY, Urine pH 5.0, Urine Specific [place] 1.020, Urine Protein 1+H, Urine Glucose (UA) NEGATIVE, Urine Ketones TRACEH, Urine Blood NEGATIVE, Urine Nitrite NEGATIVE, Urine Bilirubin NEGATIVE, Urine Urobilinogen 0.2, Urine Leukocyte Esterase TRACEH, Urine WBC (Auto) 14H, Urine RBC (Auto) 10H, Urine Hyaline Casts (Auto) 1, Urine Bacteria (Auto) NEGATIVE, Urine Squamous Epithelial Cells 1, Urine Calcium Oxalate Cryst (Auto) SMALL, Urine Mucus (Auto) SMALL, Urine Sperm (Auto) 01/01/20 14:35: Immature Granulocyte % (Auto) 1.2, Neutrophils (%) (Auto) 85.8H, Lymphocytes (%) (Auto) 6.0L, Monocytes (%) (Auto) 6.4H, Eosinophils (%) (Auto) 0.1, Basophils (%) (Auto) 0.5, Neutrophils # (Auto) 13.3H, Lymphocytes # (Auto) 0.9L, Monocytes # (Auto) 1.0H, Eosinophils # (Auto) 0.0, Basophils # (Auto) 0.1, Nucleated Red Blood Cells % (auto) 0.0, Prothrombin Time 14.6H, Prothromb Time International Ratio 1.17, Activated Partial Thromboplast Time 33.0, Lactic Acid Level 1.5, Total Bilirubin 0.4, Direct Bilirubin 0.2, Aspartate Amino Transf (AST/SGOT) 40H, Alanine Aminotransferase (ALT/SGPT) 21, Alkaline Phosphatase 77, Total Creatine Kinase 46, Creatine Kinase MB 1.5, Creatine Kinase MB Relative Index 3.26, Troponin I < 0.02, GR-Ids-U-Type Natriuretic Peptide 307H, Total Protein 6.9, Albumin 2.5L, Albumin/Globulin Ratio 0.6, Lipase 241, Thyroid Stimulating Hormone (TSH) 2.700 01/01/20 14:44: POC Glucose (Misc Panel) 91, POC Sodium (Misc Panel) 138, POC Potassium (Misc Panel) 4.0, POC Chloride (Misc Panel) 100, POC Total CO2 (Misc Panel) 24.0, POC Blood Urea Nitrogen (Misc Panel 9, POC Ionized Calcium (Misc Panel) 4.5, POC Creatinine (Misc Panel) 0.9, POC Hematocrit (Misc Panel) 38.0 CBC/BMP Laboratory Tests 01/01/20 14:35 Microbiology Microbiology 01/01/20 Blood Culture, Received Pending 01/01/20 Urine Culture, Received Pending 01/01/20 Blood Culture, Received Pending Assessment/Plan Weakness: -PT/OT evaluation -BCx, UA/UCx -start piptazo, fluconazole Recent abdominal surgery for perforated rectum s/p Ex lap + abdominal washout and diverting colostomy and pelvic drain placement -Continue regular diet as tolerated -Continue diverting colostomy care -start Zosyn 3.325mg Q6H and Fluconazole 400mg IV daily -CT showing reduced intra-abdominal collection with stable pelvic drain and pneumobilia, and small bowel ileus -consulted Dr. Delgado -Abscess fluid culture during last admission grew Bacteroides, Anaerobic cocci and Martha albicans -Encourage ambulation, sitting up in chair -General surgery consulted -Home norco for severe pain PRN, and PRN tylenol for mild pain History of Afib -Continue home Metoprolol, currently in sinus -telemetry CAD: -continue home ASA, simvastatin HLD: -continue simvastatin Prostate CA s/p recent prostatectomy: -monitor no recent retention or hematuria GERD: -continue omeprazole DVT ppx: heparin BID SQ Diet: regular, NPO at midnight Dispo: PCU Plan / VTE VTE Prophylaxis Ordered?: Yes KYLE MOHAMUD MD January 01, 2020 18:59
[2020-01-01 20:00] VITALS: BP 169/81
--- NOTE | 2020-01-01 21:10 | ECGEPIP ---
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
[2020-01-01] MEDS: SIMVASTATIN 20 MG TAB PO SCH (21:59)
[2020-01-01] MEDS: METOPROLOL TART 25 MG TABLET PO SCH (22:00)
[2020-01-01] MEDS: PIPERACILLIN/TAZOBACTAM SOD 3.375 GM in D5W MINI-BAG PLUS 50 ML IV SCH (23:51)
[2020-01-02] VITALS (7 sets, daily range): BP systolic 112–144; BP diastolic 58–82
[2020-01-02 04:09] LABS: HEMATOCRIT 34.4 % (42.0-52.0); HEMOGLOBIN 11.1 g/dl (13.5-17.5); MEAN CORPUSCULAR HGB CONC 32.3 g/dl (32.0-36.5); MEAN CORPUSCULAR VOLUME 86.6 fl (80.0-96.0); PLATELET COUNT, AUTOMATED 481 10^3/uL (150-450); RED BLOOD COUNT 3.97 10^6/uL (4.30-6.10); WHITE BLOOD COUNT 12.1 10^3/uL (4.0-10.0)
[2020-01-02 04:43] LABS: ALBUMIN 2.1 GM/DL (3.2-5.2); ALT/SGPT 23 U/L (12-78); BILIRUBIN,TOTAL 0.5 MG/DL (0.2-1.0); BLOOD UREA NITROGEN 8 MG/DL (7-18); CALCIUM LEVEL 8.2 MG/DL (8.8-10.2); CARBON DIOXIDE LEVEL 24 MEQ/L (21-32); CHLORIDE LEVEL 102 MEQ/L (98-107); CREATININE FOR GFR 0.86 MG/DL (0.70-1.30); GLOMERULAR FILTRATION RATE > 60.0 (>42); GLUCOSE, FASTING 104 MG/DL (70-100); POTASSIUM SERUM 3.6 MEQ/L (3.5-5.1); SODIUM LEVEL 134 MEQ/L (136-145); TOTAL PROTEIN 6.7 GM/DL (6.4-8.2)
[2020-01-02 04:46] LABS: ERYTHROCYTE SEDIMENTATION RATE 73 mm/hr (0-20)
[2020-01-02] MEDS: PIPERACILLIN/TAZOBACTAM SOD 3.375 GM in D5W MINI-BAG PLUS 50 ML IV SCH ×4 (06:12→22:09)
[2020-01-02] MEDS ORDERED: FLUCONAZOLE 400 MG in IV 1 EA IV SCH (09:00)
[2020-01-02] MEDS: METOPROLOL TART 25 MG TABLET PO SCH ×2 (09:36→22:10)
[2020-01-02] MEDS: ASPIRIN 81 MG ENTERIC TAB PO SCH (09:36)
[2020-01-02] MEDS: OMEPRAZOLE 20 MG CAP PO SCH (09:36)
--- NOTE | 2020-01-02 11:40 | DS.PDOC ---
Discharge Summary General Date of Admission January 01, 2020 at 17:20 Date of Discharge 01/02/2020 Attending Physician: KYLE MOHAMUD MD Discharge Summary PROCEDURES PERFORMED DURING STAY: None ADMITTING DIAGNOSES: 1. Weakness DISCHARGE DIAGNOSES: 1. Deconditioning 2/2 recent prolonged illness 2. Intraabdominal abscesses with on going antibiotic treatment 3. Prostate cancer s/p prostatectomy c/b bowel perf s/p ex-lap washout with diverting colostomy and drain placement 4. CAD s/p CABG 5. GERD 6. Plaque psoriasis COMPLICATIONS/CHIEF COMPLAINT: Intra Abdominal Abscess. HISTORY OF PRESENT ILLNESS: 69-year-old M who recently underwent robotic prostatectomy and then represented with abdominal pain 6d after surgery and found to have free air in the abdomen and had an exploratory laparotomy on 12/03/19 for perforated rectum during which he had a diverting colostomy c/b large abscess in RLQ and several other pockets s/p IR drainage with a pelvic drain and was otherwise given IV abx and switched to PO at discharge, most recently on levaquin/fluconazole and prior to that metronidazole as well. He returns 7d after discharge reporting profound weakness and difficulty ambulating at home with his having to do most of his ADLs because he got so "winded" that he cannot do much for himself as per his regular baseline. He notes that there was discussion of rehabilitation during the last admission but he had been eager to get home and thinks he may have miscalculated his ability to gain his strength back quickly. He otherwise reported that he has been eating small to moderate amounts of food ok, with out acute abdominal pain, fever, chills, nausea, diarrhea, bleeding or constipation. HOSPITAL COURSE: In the ED, he was hemodynamically stable and afebrile. Workup was notable for WBC 15.5, Hgb 12.1, platelets 535, normal lactate, troponin, lipase, BMP and LFTs. He had a CT A/P that showed a stable L pleural effusion, improved intra- abdominal collections, no changes in the pelvic drain or small bowel ileus with new pneumobilia. Dr. Alejandre in the ED, called Dr. Julio who recommended admission to medicine for IV antibiotics and PT/OT with consult to ARU for potential acute rehab. He was screened by the ARU and is now being discharged to the ARU for rehabilitation and on my discussion with Dr. Delgado will have 2 more weeks of levaquin/fluconazole/metronidazole. Of note, Dr. Julio took out the pelvic drain on 01/02/2020. DISCHARGE MEDICATIONS: Please see below. ALLERGIES: Please see below. PHYSICAL EXAMINATION ON DISCHARGE: VITAL SIGNS: Please see below. GENERAL APPEARANCE: Sitting up in bed, NAD HEENT: EOMI, PERRLA, neck is supple with no thyromegaly or lymphadenopathy RESPIRATORY: CTAB CARDIOVASCULAR: RRR,no murmurs/rubs/gallops ABDOMEN: Normoactive bowel sounds, nontender to palpation in all four quadrants, colostomy with brown stool, no leakage or erythema, central surgical scar and lap sites healing well. EXTREMITIES: no clubbing, cyanosis or edema noted NEUROLOGICAL: CN 2-12 intact, no noted focal deficits Skin: No rashes or ulcers appreciated, warm and well-perfused LABORATORY DATA: Please see below. IMAGING: Liver US: Liver: Normal. No masses. Gallbladder: There has been a cholecystectomy. Common bile duct: The common bile duct measures 4 mm. No mass or choledocholithiasis. Pancreas: The pancreas obscured by overlying bowel gas. Right kidney: Right kidney measures 11.7 x 4[address] A/P: 1. Unchanged left pleural effusion and bibasilar dependent subsegmental and compressive atelectatic changes. 2. Pneumobilia has developed since the last exam. The etiology is uncertain. This needs to be correlated clinically with appropriate followup. 3. Improved intra-abdominal fluid collections. 4. No change in the pelvic drainage tube. No fluid surrounds the tube 5. Small bowel ileus persists. 6. .Unchanged Katie-sigmoidal colon fatty infiltration. This needs follow up to ensure resolution. CXR: Stable left pleural effusion and left basilar parenchymal opacity. PROGNOSIS: Good ACTIVITY: As tolerated DIET: regular DISCHARGE PLAN: ARU. To continue with levaquin, flagyl, fluconazole for two more weeks DISPOSITION: ARU DISCHARGE INSTRUCTIONS: 1. To continue with levaquin, flagyl, fluconazole for two more weeks ITEMS TO FOLLOWUP ON ON OUTPATIENT: 1. Deconditioning 2/2 recent prolonged illness 2. Intraabdominal abscesses with on going antibiotic treatment 3. Prostate cancer s/p prostatectomy c/b bowel perf s/p ex-lap washout with diverting colostomy and drain placement DISCHARGE CONDITION: Stable TIME SPENT ON DISCHARGE: 51 minutes. Vital Signs/I&Os Vital Signs Date Time Temp Pulse Resp B/P (MAP) Pulse Ox O2 Delivery O2 Flow Rate FiO2 01/02/20 09:36 95 144/82 01/02/20 08:00 98.2 18 97 Room Air I&O- Last 24 Hours up to 6 AM 01/02/20 06:00 Intake Total 600 ml Output Total 0 ml Balance 600 ml Laboratory Data Labs 24H Laboratory Tests 2 01/01/20 14:23: Urine Color YELLOW, Urine Appearance HAZY, Urine pH 5.0, Urine Specific [place] 1.020, Urine Protein 1+H, Urine Glucose (UA) NEGATIVE, Urine Ketones TRACEH, Urine Blood NEGATIVE, Urine Nitrite NEGATIVE, Urine Bilirubin NEGATIVE, Urine Urobilinogen 0.2, Urine Leukocyte Esterase TRACEH, Urine WBC (Auto) 14H, Urine RBC (Auto) 10H, Urine Hyaline Casts (Auto) 1, Urine Bacteria (Auto) NEGATIVE, Urine Squamous Epithelial Cells 1, Urine Calcium Oxalate Cryst (Auto) SMALL, Uri ne Mucus (Auto) SMALL, Urine Sperm (Auto) 01/01/20 14:35: Immature Granulocyte % (Auto) 1.2, Neutrophils (%) (Auto) 85.8H, Lymphocytes (%) (Auto) 6.0L, Monocytes (%) (Auto) 6.4H, Eosinophils (%) (Auto) 0.1, Basophils (%) (Auto) 0.5, Neutrophils # (Auto) 13.3H, Lymphocytes # (Auto) 0.9L, Monocytes # (Auto) 1.0H, Eosinophils # (Auto) 0.0, Basophils # (Auto) 0.1, Nucleated Red B lood Cells % (auto) 0.0, Prothrombin Time 14.6H, Prothromb Time International Ratio 1.17, Activated Partial Thromboplast Time 33.0, Lactic Acid Level 1.5, Total Bilirubin 0.4, Direct Bilirubin 0.2, Aspartate Amino Transf (AST/SGOT) 40H, Alanine Aminotransferase (ALT/SGPT) 21, Alkaline Phosphatase 77, Total Creatine Kinase 46, Creatine Kinase MB 1.5, Creatine Kinase MB Relative Index 3.26, Troponin I < 0.02, NO-Viw-Z-Type Natriuretic Peptide 307H, Total Protein 6.9, Albumin 2.5L, Albumin/Globulin Ratio 0.6, Lipase 241, Thyroid Stimulating Hormone (TSH) 2.700 01/01/20 14:44: POC Glucose (Misc Panel) 91, POC Sodium (Misc Panel) 138, POC Potassium (Misc Panel) 4.0, POC Chloride (Misc Panel) 100, POC Total CO2 (Misc Panel) 24.0, POC Blood Urea Nitrogen (Misc Panel 9, POC Ionized Calcium (Misc Panel) 4.5, POC Creatinine (Misc Panel) 0.9, POC Hematocrit (Misc Panel) 38.0 01/02/20 03:21: Nucleated Red Blood Cells % (auto) 0.0, Total Bilirubin 0.5, Aspartate Amino Transf (AST/SGOT) 35, Alanine Aminotransferase (ALT/SGPT) 23, Alkaline Phosphatase 63, Total Protein 6.7, Albumin 2.1L, Albumin/Globulin Ratio 0.5, Erythrocyte Sedimentation Rate 73H, Anion Gap 8, Glomerular Filtration Rate > 60.0, Calcium Level 8.2L, Magnesium Level 2.0, C-Reactive Protein, Quantitative 3.73H CBC/BMP Laboratory Tests 01/01/20 14:35 01/02/20 03:21 Microbiology Microbiology 01/01/20 Blood Culture, Received Pending 01/01/20 Urine Culture - Final, Complete 01/01/20 Blood Culture, Received Pending Discharge Medications Scheduled Aspirin (Ecotrin) 81 Mg Tablet.dr, 81 MG PO DAILY, (Reported) Fluconazole (Fluconazole) 200 Mg Tablet, 200 MG PO DAILY, (Reported) FOR 10 DAYS, STARTED 12/24 Levofloxacin (Levaquin) 750 Mg Tablet, 750 MG PO DAILY, (Reported) FOR 10 DAYS, STARTED 12/24 Metoprolol Tartrate (Metoprolol Tartrate) 25 Mg Tablet, 25 MG PO BID, (Reported) Simvastatin (Simvastatin) 20 Mg Tablet, 20 MG PO QHS, (Reported) Scheduled PRN Hydrocodone/Acetaminophen (Hydrocodone-Acetamin 5-325 mg) 1 Each Tablet, 1 TAB PO Q6H PRN for MODERATE/SEVERE PAIN (PS 5-10), (Reported) Omeprazole (Omeprazole) 40 Mg Capsule.dr, 40 MG PO DAILY PRN for HEARTBURN, (Reported) Allergies Coded Allergies: No Known Allergies (Unverified , 11/11/19) KYLE MOHAMUD MD January 02, 2020 11:40
--- NOTE | 2020-01-02 11:44 | IPNPDOC ---
Text Note Date of Service The patient was seen on 01/02/20. NOTE Subjective: -No issues overnight, HDS and afebrile, no abdominal pain. Objective: General: Alert, No Acute Distress Eyes: PERRLA, EOMI, anicteric ENT: MMM Neck: supple no adenopathy or JVD Chest: Clear to auscultation, Normal air movement Heart: RRR, no mrg Abdomen: Normal bowel sounds, central surgical scar and lap sites healing well. L sided colostomy with nonbloody brown formed stool, NTND Extremity: WWP, no LE edema Skin: healing surgical wounds, ostomy clean no bleeding or erythema, no breakdown or lesions Neuro: Normal Speech, Cranial Nerves 3-12 NL Psych: Mental status NL, AO x 3 Labs: WBC 12.1 Hgb 11.1 platelets 481 na 134 K 3.6 Cr 0.86 CRP 3.73 BCx NGTD UCx negative Plan Recent abdominal surgery for perforated rectum s/p Ex lap + abdominal washout and diverting colostomy and pelvic drain placement -Continue regular diet as tolerated -Continue diverting colostomy care -switch abx to levaquin/fluconazole/flagyl -CT showing reduced intra-abdominal collection with stable pelvic drain and pneumobilia, and small bowel ileus -consulted Dr. Delgado -Abscess fluid culture during last admission grew Bacteroides, Anaerobic cocci and Martha albicans -Encourage ambulation, sitting up in chair -General surgery consulted, Dr. Julio, spoke with him, will see him today, to dc pelvic drain, no surgical intervention at this time, recommended screening for ARU -Continue home norco for severe pain PRN, and PRN tylenol for mild pain Weakness: -PT/OT evaluation -f/u BCx -continue piptazo, fluconazole History of Afib -Continue home Metoprolol, currently in sinus -telemetry CAD: -continue home ASA, simva HLD: -continue simvastatin Prostate CA s/p recent prostatectomy: -monitor no recent retention or hematuria GERD: -continue omeprazole DVT ppx: heparin BID SQ Diet: regular Dispo: PCU likely to go to ARU today VS,Fishbone, I+O VS, Fishbone, I+O Laboratory Tests 01/01/20 14:35 01/02/20 03:21 Vital Signs Date Time Temp Pulse Resp B/P (MAP) Pulse Ox O2 Delivery O2 Flow Rate FiO2 01/02/20 04:00 98.7 103 17 112/71 (85) 96 Room Air I&O- Last 24 Hours up to 6 AM 01/02/20 06:00 Intake Total 600 ml Output Total 0 ml Balance 600 ml KYLE MOHAMUD MD January 02, 2020 07:32
[2020-01-02] MEDS ORDERED: FLUC200T2 PO (11:52)
[2020-01-02] MEDS ORDERED: METR-265 PO (11:52)
[2020-01-02] MEDS ORDERED: LEVA750T7 PO (11:52)
[2020-01-02] MEDS ORDERED: ACETAMINOPHEN TAB 650MG DOSE (2X325MG) PO PRN (17:45)
[2020-01-02] MEDS: SIMVASTATIN 20 MG TAB PO SCH (22:10)
[2020-01-03] VITALS: BP 104/71
[2020-01-03 04:00] VITALS: BP 117/72
[2020-01-03 05:34] LABS: HEMOGLOBIN 11.1 g/dl (13.5-17.5); MEAN CORPUSCULAR HEMOGLOBIN 27.5 pg (27.0-33.0); MEAN CORPUSCULAR HGB CONC 31.7 g/dl (32.0-36.5); MEAN CORPUSCULAR VOLUME 86.8 fl (80.0-96.0); PLATELET COUNT, AUTOMATED 439 10^3/uL (150-450); RED BLOOD COUNT 4.03 10^6/uL (4.30-6.10); WHITE BLOOD COUNT 11.8 10^3/uL (4.0-10.0)
[2020-01-03] MEDS: PIPERACILLIN/TAZOBACTAM SOD 3.375 GM in D5W MINI-BAG PLUS 50 ML IV SCH ×2 (05:53→13:02)
[2020-01-03 06:01] LABS: ALT/SGPT 22 U/L (12-78); BILIRUBIN,TOTAL 0.5 MG/DL (0.2-1.0); BLOOD UREA NITROGEN 8 MG/DL (7-18); CALCIUM LEVEL 8.1 MG/DL (8.8-10.2); CARBON DIOXIDE LEVEL 25 MEQ/L (21-32); CHLORIDE LEVEL 103 MEQ/L (98-107); GLOMERULAR FILTRATION RATE > 60.0 (>42); GLUCOSE, FASTING 92 MG/DL (70-100); POTASSIUM SERUM 4.6 MEQ/L (3.5-5.1); SODIUM LEVEL 137 MEQ/L (136-145)
[2020-01-03] MEDS ORDERED: ZOSY1SOL5 IV (07:20)
--- NOTE | 2020-01-03 07:33 | IPNPDOC ---
Text Note Date of Service The patient was seen on 01/03/20. NOTE Subjective: -No issues overnight -Was going to discharge to ARU yesterday afternoon but he had an asymptomatic low grade temp so kept him inpatient for observation. Objective: General: Alert, No Acute Distress Eyes: PERRLA, EOMI, anicteric ENT: MMM Neck: supple no adenopathy or JVD Chest: Clear to auscultation, Normal air movement Heart: RRR, no mrg Abdomen: Normal bowel sounds, central surgical scar and lap sites healing well. L sided colostomy with nonbloody brown formed stool, NTND Extremity: WWP, no LE edema Skin: healing surgical wounds, ostomy clean no bleeding or erythema, no breakdown or lesions Neuro: Normal Speech, Cranial Nerves 3-12 NL Psych: Mental status NL, AO x 3 Labs: Reviewed WBC downtrended to 11.6 BCx were negative UCx negative Plan Recent abdominal surgery for perforated rectum s/p Ex lap + abdominal washout and diverting colostomy and pelvic drain placement -Continue regular diet as tolerated -Continue diverting colostomy care -After the low grade temp, discussed with Dr. Delgado who recommended continuing IV zosyn while in ARU with PO flagyl and fluconazole, appreciate recs -CT showing reduced intra-abdominal collection with stable pelvic drain and pneumobilia, and small bowel ileus -General surgery was consulted this admission, Dr. Julio dc'd pelvic drain on 5.29 AM, no surgical intervention at this time. -Continue home norco for severe pain PRN, and PRN tylenol for mild pain Weakness: -being discharged to ARU -continueabx as above History of Afib -Continue home Metoprolol CAD: -continue home ASA, simva HLD: -continue simvastatin Prostate CA s/p recent prostatectomy: -monitor no recent retention or hematuria GERD: -continue omeprazole DVT ppx: heparin BID SQ Diet: regular Dispo: Being discharged to ARU at this time VS,Joaquinbone, I+O VS, Fishbone, I+O Laboratory Tests 01/03/20 05:10 Vital Signs Date Time Temp Pulse Resp B/P (MAP) Pulse Ox O2 Delivery O2 Flow Rate FiO2 01/03/20 04:00 98.3 95 16 117/72 (87) 96 Room Air I&O- Last 24 Hours up to 6 AM 5/30/20 06:00 Intake Total 660 ml Output Total 150 ml Balance 510 ml KYLE MOHAMUD MD January 03, 2020 07:33
[2020-01-03 08:00] VITALS: BP 148/80
[2020-01-03] MEDS: ASPIRIN 81 MG ENTERIC TAB PO SCH (08:16)
[2020-01-03] MEDS: OMEPRAZOLE 20 MG CAP PO SCH (08:17)
[2020-01-03 08:18] VITALS: BP 117/72
[2020-01-03] MEDS: METOPROLOL TART 25 MG TABLET PO SCH (08:18)
[2020-01-03] MEDS ORDERED: FLUCONAZOLE 100 MG TAB PO SCH (09:00)
--- NOTE | 2020-01-03 18:14 | CR ---
DATE OF CONSULTATION: 01/02/2020 REASON FOR CONSULTATION: Adnominal drain followup. HISTORY OF PRESENT ILLNESS: The patient is a 69-year-old male, well known to me from recent surgery. He underwent a robotic prostatectomy with Dr. Maguire and subsequently ended up with a small iatrogenic injury to the anterior rectum. He came back in and had an exploratory laparotomy with myself and Dr. Maguire on 12/03/2019. He ended up with abdominal drainage and diverting colostomy at that time. Postoperatively he ended up having a slight abscess in the abdomen that was also drained prior to his discharge. Over the past week, he has had increased weakness and abdominal pains. He came to see me in the office yesterday and was complaining of having difficulty moving, and his was not comfortable taking care of him at home. He also was very diaphoretic. I spoke with the rehabilitation doctor, who said that if he was evaluated through the emergency room and qualified that she would be able to take him to the inpatient rehabilitation, but she could not transfer him there directly from outpatient, so he was sent to the emergency room. I had called the emergency room (ER) and had them run labs and repeat a CT to see how his intra-abdominal fluid collections were progressing. It showed that his abscesses were much improved. There were no signs of any fluid pockets surrounding the drain that he currently had in place, but his white count was slightly elevated. Because of that he was admitted to the hospitalist service overnight. Switched his antibiotics around slightly, and Dr. Delgado was reconsulted to evaluate him from an infectious disease standpoint. This morning he feels much better. His white count has dropped down from 15 to 12. I removed his drain at the bedside, and physical and occupational therapy will evaluate him to see if he qualifies being transferred into the acute rehabilitation unit (ARU) for the rest of his stay. PAST MEDICAL HISTORY: 1. Coronary artery disease. 2. Gastroesophageal reflux disease (GERD). 3. Prostate cancer. 4. Psoriasis. PAST SURGICAL HISTORY: 1. Partial right colectomy. 2. Triple bypass. 3. Cholecystectomy. 4. Left inguinal hernia repair. 5. Radical prostatectomy. 6. Diverting colostomy. ALLERGIES: None. HOME MEDICATIONS: Please see medication reconciliation. FAMILY HISTORY: Noncontributory. SOCIAL HISTORY: Denies drug, alcohol, tobacco abuse. REVIEW OF SYSTEMS: Pertinent positives and negatives as stated in the history of present illness (HPI). PHYSICAL EXAMINATION Temperature 98.2, pulse 95, respirations 18, blood pressure 144/82, pulse oximetry 97% on room air. HEENT: Pupils equally round and reactive to light and accommodation. HEART: S1, S2, regular rate and rhythm. LUNGS: Clear to auscultation bilaterally. ABDOMEN: Soft, nontender, nondistended. EXTREMITIES: No clubbing, cyanosis, or edema. LABORATORY DATA: White count 15.5, down at 12.1 this morning, hemoglobin 11.1, CRP 3.73, which is improved from his prior outpatient labs. IMAGING STUDIES: CT abdomen and pelvis showed unchanged left pleural effusion, bibasilar dependent subsegmental and compressive atelectasis, pneumobilia. Intra-abdominal fluid collections are improved. No change in the pelvic drainage tube. No fluid surrounding the tube. Small bowel ileus is persisting. Perisigmoidal colon fatty infiltration. ASSESSMENT AND PLAN: The patient is a 69-year-old male with history of recent prostatectomy with bowel perforation. Currently is being treated with outpatient antibiotics and antifungals for intra-abdominal infections from his bowel perforation. Drain is in place, but I removed it when I saw him this morning, because there was no more fluid surrounding it. His labs are improving already. He feels slightly better just been in the hospital and being on intravenous (IV) antibiotics. I encouraged him to increase his appetite, try to increase eating as much as possible. Will try to work and participate in physical therapy (PT) and occupational therapy (OT) as best he can. There is no further surgical intervention necessary at this time. Will continue to monitor him, and he will followup with me outpatient to schedule reversal of his colostomy in a few months. BING
--- NOTE | 2020-01-04 11:22 | CR ---
DATE OF CONSULTATION: 01/02/2020 Asked to consult by Dr. Win for followup of intra-abdominal abscess in a patient who had a bowel perforation status post robotic prostatectomy. Mr. Max is a pleasant 69-year-old gentleman known to me from previous hospitalization, who was seen at Dr. Julio's office yesterday and was very weak, diaphoretic and therefore was sent to the emergency room. The patient stated that since he went home on December 17, he had progressively gotten weaker. He was having difficulty with standing up to be washed by his , just generalized weakness. He had no nausea or vomiting or change in his bowel movement, but he had no appetite and was progressively weaker. He had no fever, chills, or night sweats. Yesterday, his white count was 15,000 today it was 12,000. He was concerned whether there was some drug interactions with his medications. He was on fluconazole and statins, and he was told by his primary care provider that they could interact together. He was also on metronidazole, which he ran out of 2 days ago, and he has complained of anorexia and had a poor appetite. He was started on intravenous (IV) Zosyn with IV fluconazole and today is feeling better. He is being evaluated for acute rehab. PAST MEDICAL HISTORY: Significant for; Prostate cancer, status post robotic prostatectomy complicated by intra- abdominal abscess. Coronary artery disease, status post coronary artery bypass graft (CABG). Gastroesophageal reflux disease. Plaque psoriasis. SURGICAL HISTORY: Partial right-sided colectomy. Triple bypass Cholecystectomy. Left inguinal hernia repair. Radical prostatectomy. Bowel perforation, status post exploratory laparoscopy washout with diverting colostomy and drain placement by Dr. Dr. Julio. Interventional radiology had a drain placed for intra-abdominal abscess that was removed on 01/02/2020 at the bedside as Dr. Julio. FAMILY HISTORY: Significant for coronary artery disease, diabetes and congestive heart failure. ALLERGIES: No known drug allergies. SOCIAL HISTORY: He drinks socially. He denies any tobacco abuse, drug use. 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 MEDICATIONS: - aspirin 81 mg by mouth daily - omeprazole 40 mg daily - fluconazole 400 mg IV daily - Zosyn 3.375 grams IV every 6 hours - metoprolol 25 mg by mouth twice a day - simvastatin 20 mg by mouth nightly - Percocet one tablet by mouth every 6 as needed LABS: White count yesterday was 15.5, today it was 12.1, hemoglobin 11.1, hematocrit 34.4, platelets 481. ESR 73. Sodium 134, potassium 3.6, chloride 102, bicarb 24, BUN 8, creatinine 0.86, glucose 104, calcium 8.2, magnesium 2, bilirubin 0.5, AST 235, ALT 23, alk phos 63, CRP 3.7, down from 36, total protein 6.7, albumin 2.1, TSH 2.7. Blood cultures two sets after [address] abdomen/pelvis shows unchanged left pleural effusion and bibasilar dependent subsegmental atelectasis. Pneumobilia has developed since last exam on 12/16/2019, etiology uncertain. Improved intra-abdominal fluid collection. Small bowel ileus persists. Persistent perisigmoidal colon fatty infiltration that needs followup. Liver ultrasound: Status post cholecystectomy. No acute finding. No masses. Common bile duct measures 4 mm. No choledocholithiasis. Pancreas is obscured by bowel gas. Chest x-ray shows a stable left pleural effusion and left basilar parenchymal opacity. Multiple sternal wires in place. Cultures from 12/11/2019: Abscess fluid had bacteroides anaerobic cocci and Martha albicans sensitive to fluconazole and Micafungin. IMPRESSION: This is a 69-year-old gentleman who is admitted for generalized weakness 2 weeks after discharge. He had been on broad-spectrum antibiotics including levofloxacin, fluconazole, and metronidazole for intra-abdominal polymicrobial abscess. Metronidazole had run out about two days prior to admission. The patient progressively was getting worse but mostly it was related to generalized weakness and not to fever, chills, or any abdominal pain. He has been on broad-spectrum antibiotics for at least a month, since 12/03/2019, and had the drainage of the abscess done on 12/11/2019. His inflammatory markers have improved, except for the increase in his white count which is improving as well. PLAN: Continue with IV Zosyn 3.375 grams very 6 hours, and I am wondering whether metronidazole was the cause of his anorexia and weakness and decreased appetite, as he progressively got worse when he was switched to by mouth metronidazole on discharge home. Switch IV fluconazole to by mouth fluconazole at 200 mg dosing. Continue antibiotics in rehab for another 2 weeks, total of 6 weeks for intra-abdominal abscess. Case discussed with Dr. Julio, who will be doing a colonoscopy to followup on abnormalities of colon in 2 months before reversal of colostomy. Continue to monitor complete blood count (CBC), CMP, ESR, C-reactive protein (CRP) weekly in the acute rehab. BING
== END 2020-01-03 13:00 | DRG 947 ==
LOC: M ED 12:10 → M ED INP 17:20 → ENRESERV 18:21 → M PCU 18:54
PROVIDERS: ADMIT Internal Medicine; ATTEND Internal Medicine
DX: R53.1 Weakness (principal); K65.1 Peritoneal abscess; J90 Pleural effusion, not elsewhere classified; K21.9 Gastro-esophageal reflux disease without esophagitis; I25.10 Atherosclerotic heart disease of native coronary artery without angina pectoris; Z95.1 Presence of aortocoronary bypass graft; Z85.46 Personal history of malignant neoplasm of prostate; L40.0 Psoriasis vulgaris; Z93.3 Colostomy status; Z79.82 Long term (current) use of aspirin; Z79.899 Other long term (current) drug therapy

== ENCOUNTER 2020-01-02 13:02 | Inpatient (IN) | payer MEDICARE ==
[~2020-01-02] VITALS: Ht 177.8 cm; Wt 76.5 kg
[~2020-01-02 13:02] MED LIST changes: +FLUC200T2 PO; +METR-265 PO
[2020-01-02] MEDS ORDERED: SIMVASTATIN 20 MG TAB PO SCH (21:00)
[2020-01-02] MEDS ORDERED: METOPROLOL TART 25 MG TABLET PO SCH (21:00)
[2020-01-02] MEDS ORDERED: REMEDY PHYTOPLEX Z-GUARD PASTE 113GM TUBE (FROM STOREROOM PRODUCT) TOP SCH (21:00)
[2020-01-03] MEDS ORDERED: ZOSY1SOL5 IV (07:20)
[2020-01-03 13:15] VITALS: BP 127/72
[2020-01-03] MEDS ORDERED: MIRALAX *UNIT DOSE* 17GM PACKET PO PRN (13:44)
[2020-01-03] MEDS ORDERED: oxyCODONE 5MG TAB PO PRN (13:44)
[2020-01-03 14:27] LABS: BASO # 0.1 10^3/uL (0.0-0.2); BASO % 0.3 % (0.0-1.0); HEMOGLOBIN 11.2 g/dl (13.5-17.5); LYMPH # 0.9 10^3/uL (1.5-5.0); LYMPH % 5.7 % (24.0-44.0); MEAN CORPUSCULAR HEMOGLOBIN 27.8 pg (27.0-33.0); MEAN CORPUSCULAR VOLUME 86.8 fl (80.0-96.0); MONO # 1.1 10^3/uL (0.0-0.8); NEUTROPHILS # 13.4 10^3/uL (1.5-8.5); NEUTROPHILS % 86.3 % (36.0-66.0); PLATELET COUNT, AUTOMATED 492 10^3/uL (150-450); RED BLOOD COUNT 4.03 10^6/uL (4.30-6.10); WHITE BLOOD COUNT 15.5 10^3/uL (4.0-10.0)
--- NOTE | 2020-01-03 15:31 | HPEPDOC ---
Menu Planner Note DATE OF ADMISSION: 01-03-20 DATE OF SERVICE: 01-03-20 TIME OF ADMISSION: Please refer to physician's admission order. SOURCE OF ADMISSION INFORMATION: [facility] record and patient CHIEF COMPLAINT: intraabdominal infection HISTORY OF PRESENT ILLNESS: 69M pmh CAD s/p CABG, Afib (not on AC) plaque psoriasis, GERD, who underwent a radical prostatectomy in November 2019 complicated by perforated rectum requiring ex-lap with diverting colostomy performed on 12-03-19 and IR drainage was discharged home and returned to [facility] ED on 01/01/20 complaining of worsening weakness and abdominal pain. CT abdomen pelvis showed overall improved intra- abdominal fluids collection with persistent small bowel ileusunchanged perisigmoidal fatty infiltration. He was seen by surgery who discontinued this pelvic drain and did not recommend further surgery. His case was also discussed with Dr. Delgado who recommended continuation of IV antibiotics in addition to oral as patient had low grade temp and leukocytosis. He was able to tolerate regular diet, was evaluated by therapy, found to have impairments in mobility and ADLs and deemed medically appropriate for discharge to ARU on 01-03-20. REVIEW OF SYSTEMS: The following is a completed review of systems and has been reviewed. Review of systems otherwise unremarkable. PAIN: Patient self reports no pain EYES: No recent vision changes EARS, NOSE, & THROAT: No throat pain, or dysphagia, or rhinorrhea CARDIOVASCULAR: [enies chest pain or palpitations PULMONARY: Denies shortness of breath GASTROINTESTINAL: +colostomy GENITOURINARY: denies dysuria MUSCULOSKELETAL: generalized weakness NEUROLOGICAL: denies paresthesias HEMATOLOGICAL: denies easy bruising SKIN: +colostomy and healed abdominal wall incisions PSYCHIATRIC: Unremarkable All other review of systems found to be negative. PAST MEDICAL HISTORY: as per HPI PAST SURGICAL HISTORY: As per HPI and cholecystectomy, right inguinal hernia repair, right sided colectomy ALLERGIES: Please see below. MEDICATIONS: Please see below. FAMILY HISTORY: Cardiac and DM SOCIAL HISTORY: No smoking, occasional ETOH, no drugs DIET: regular PHYSICAL EXAMINATION: VITAL SIGNS: Please see below. GENERAL: Pleasant and cooperative. No acute distress. HEENT: PERRL. Extraocular movements intact. Clear conjunctiva CARDIOVASCULAR: Regular rate and rhythm. No murmurs, rubs, or gallops LUNGS: Clear to auscultation bilaterally. No wheezes. No rhonchi ABDOMEN: Soft, nontender, nondistended. Positive bowel sounds. Normal active bowel sounds, +colostomy NEUROLOGICAL: Alert and oriented times three. Cranial nerves II through XII grossly intact. Sensation grossly intact] EXTREMITIES: 5\5 strength bilateral upper extremities. 5\5 strength right lower extremity. 5/5 strength in left lower extremity. SKIN: +colostomy and healed abdominal wall incisions, blanchable sacral erythema LABORATORY DATA: Please see below. IMAGING: Imaging documentation personally reviewed by record FUNCTIONAL STATUS: Premorbid: Independent with all activities of daily life as well as mobility On Admission: Contact guard for functional transfers, ambulation x50 feet, toileting, dressing GOALS:Mod-I functional transfers, community distances, stairs, bathing, dressing, toileting ASSESSMENT:69-year-old M with past medical history of CAD and prostate cancer who presents status post radical prostatectomy complicated by perforated rectum s/p ex-lap and diverting colostomy, now with intraabdominal infection PLAN: 1. rehab- PT/OT advance gait and ADLS, strengthen/stretch/maintain ROM all 4 limbs 2. CArdiac- hx of CAD s/p CABG on ASA, hx of Afib c/u betablocker (not on AC, will f/u with his real estate analyst Dr. Guardado on this) -HLD c/u statin 3. resp: encourage incentive spirometry, monitor for infection 4. GI: patient currently on Flagyl, Zosyn, and Fluconazole for intraabdominal abscess with generalized weakness- trend CRP, monitor leukocytosis, Dr. Delgado consulted to assist in management -f/u surgery outpatient, consult in house prn -protonix for ppx 5. - s/p protatectomy, monitor PVRs 6. DVT ppx: heparin and TEds 7. PAin- tylenol and oxycodone prn 8. Dispo-TBD POST ADMISSION PHYSICIAN EVALUATION: Medical and functional status: Description of medical status, medical assessment: As above. Rehabilitation diagnosis and current and prior cold morbid medical conditions as above. Risk of complications and plans to mitigate them as above. Description of functional status current status is as above. Prior status as above. Status compared to preadmission: There are no clinically significant differences between the patient's current status and the information described on the pr eadmission screening document. Treatment plan anticipated: Treatment plan is as described above. Required disciplines including physical therapy, occupational therapy, others as noted above Intensity of services: 3 hours a day, 6 days a week. Special considerations: There are no specific special or safety considerations that would likely preclude immediate implementation of an intensive rehabilitation program or subsequently influence the plan of care. ATTESTATION: Considering all the information above, it is my best judgment that this patient requires intensive rehabilitation therapy as described above and an inpatient hospital environment due to the complexity of nursing, medical, and rehabilitation needs required by the patient. Furthermore, this patient can reasonably be expected to participate in an benefit from an inpatient rehabilitation stay with an interdisciplinary team approach to the delivery of rehabilitation care under the direction and supervision of rehabilitation physician. PROGNOSIS: Excellent ESTIMATED LENGTH OF STAY:7-10 days. PROJECTED DISCHARGE DESTINATION: Home with family support and any durable medical equipment required to increase functional safety and mobility TIME SPENT COUNSELING AND COORDINATING INITIAL CARE: Greater than 70 minutes. Vital Signs Vital Sign - Last 24 Hours 01/03/20 13:15 Temp 99.7 Pulse 108 Resp 20 B/P (MAP) 127/72 (90) Pulse Ox 97 O2 Delivery Room Air Laboratory Data CBC/BMP Laboratory Tests 01/03/20 13:55 Labs 24H Laboratory Tests 2 01/03/20 13:55: Immature Granulocyte % (Auto) 0.7, Neutrophils (%) (Auto) 86.3H, Lymphocytes (%) (Auto) 5.7L, Monocytes (%) (Auto) 7.0H, Eosinophils (%) (Auto) 0.0, Basophils (%) (Auto) 0.3, Neutrophils # (Auto) 13.4H, Lymphocytes # (Auto) 0.9L, Monocytes # (Auto) 1.1H, Eosinophils # (Auto) 0.0, Basophils # (Auto) 0.1, Nucleated Red Blood Cells % (auto) 0.0 Home Medications Scheduled Aspirin (Ecotrin) 81 Mg Tablet.dr, 81 MG PO DAILY, (Reported) Fluconazole (Fluconazole) 200 Mg Tablet, 200 MG PO DAILY FOR 14 DAYS, STARTED 01/01 Metoprolol Tartrate (Metoprolol Tartrate) 25 Mg Tablet, 25 MG PO BID, (Reported) Metronidazole (Metronidazole) 500 Mg Tablet, 500 MG PO TID Cfupllznhgcg-Pevg-Iyqetgkt,Iso (Zosyn 3.375 gm/50 ml Galaxy) 3.375 Gm/50 Ml Froz.piggy, 1 ZULEYKA IV Q6H Simvastatin (Simvastatin) 20 Mg Tablet, 20 MG PO QHS, (Reported) Scheduled PRN Hydrocodone/Acetaminophen (Hydrocodone-Acetamin 5-325 mg) 1 Each Tablet, 1 TAB PO Q6H PRN for MODERATE/SEVERE PAIN (PS 5-10), (Reported) Omeprazole (Omeprazole) 40 Mg Capsule.dr, 40 MG PO DAILY PRN for HEARTBURN, (Reported) Allergies Coded Allergies: No Known Allergies (Unverified , 11/11/19) A-FIB/CHADSVASC A-FIB History Current/History of A-Fib/PAF?: Yes Current PO Anticoag Therapy: No JUDITH EARL MD January 03, 2020 15:31
[2020-01-03] MEDS: metroNIDAZOLE (FLAGYL) 500 MG TAB PO SCH ×2 (16:04→20:47)
[2020-01-03] MEDS: ACETAMINOPHEN 500 MG TAB PO SCH ×2 (16:05→20:47)
[2020-01-03] MEDS: REMEDY PHYTOPLEX Z-GUARD PASTE 113GM TUBE (FROM STOREROOM PRODUCT) TOP SCH ×2 (16:10→20:48)
[2020-01-03] MEDS: PIPERACILLIN/TAZOBACTAM SOD 3.375 GM in D5W MINI-BAG PLUS 50 ML IV SCH ×2 (17:45→23:06)
[2020-01-03 20:38] VITALS: BP 113/68
[2020-01-03] MEDS: HEPARIN SOD (PORCINE) 5000UNITS/ML VIAL (J1644 PER 1000UNITS) SC SCH (20:47)
[2020-01-03] MEDS: SIMVASTATIN 20 MG TAB PO SCH (20:47)
[2020-01-03] MEDS: METOPROLOL TART 25 MG TABLET PO SCH (20:48)
[2020-01-04] MEDS: PIPERACILLIN/TAZOBACTAM SOD 3.375 GM in D5W MINI-BAG PLUS 50 ML IV SCH ×3 (05:09→17:17)
[2020-01-04 05:57] VITALS: BP 139/66
[2020-01-04 08:01] LABS: BASO % 0.3 % (0.0-1.0); HEMATOCRIT 34.9 % (42.0-52.0); HEMOGLOBIN 11.3 g/dl (13.5-17.5); LYMPH # 0.6 10^3/uL (1.5-5.0); LYMPH % 5.1 % (24.0-44.0); MEAN CORPUSCULAR HEMOGLOBIN 28.3 pg (27.0-33.0); MEAN CORPUSCULAR HGB CONC 32.4 g/dl (32.0-36.5); MEAN CORPUSCULAR VOLUME 87.5 fl (80.0-96.0); MONO # 0.7 10^3/uL (0.0-0.8); MONO % 6.2 % (0.0-5.0); NEUTROPHILS # 9.9 10^3/uL (1.5-8.5); NEUTROPHILS % 87.5 % (36.0-66.0); PLATELET COUNT, AUTOMATED 442 10^3/uL (150-450); RED BLOOD COUNT 3.99 10^6/uL (4.30-6.10); WHITE BLOOD COUNT 11.3 10^3/uL (4.0-10.0)
[2020-01-04 08:22] LABS: BLOOD UREA NITROGEN 9 MG/DL (7-18); CALCIUM LEVEL 8.4 MG/DL (8.8-10.2); CARBON DIOXIDE LEVEL 28 MEQ/L (21-32); CHLORIDE LEVEL 103 MEQ/L (98-107); CREATININE FOR GFR 0.92 MG/DL (0.70-1.30); GLOMERULAR FILTRATION RATE > 60.0 (>42); GLUCOSE, FASTING 129 MG/DL (70-100); POTASSIUM SERUM 4.1 MEQ/L (3.5-5.1); SODIUM LEVEL 136 MEQ/L (136-145)
[2020-01-04] MEDS: REMEDY PHYTOPLEX Z-GUARD PASTE 113GM TUBE (FROM STOREROOM PRODUCT) TOP SCH ×3 (09:00→21:00)
[2020-01-04] MEDS: ACETAMINOPHEN 500 MG TAB PO SCH ×3 (09:00→21:00)
[2020-01-04] MEDS: ASPIRIN 81 MG ENTERIC TAB PO SCH (09:09)
[2020-01-04] MEDS: FLUCONAZOLE 100 MG TAB PO SCH (09:09)
[2020-01-04] MEDS: metroNIDAZOLE (FLAGYL) 500 MG TAB PO SCH ×3 (09:10→21:17)
[2020-01-04] MEDS: OMEPRAZOLE 20 MG CAP PO SCH (09:10)
[2020-01-04] MEDS: HEPARIN SOD (PORCINE) 5000UNITS/ML VIAL (J1644 PER 1000UNITS) SC SCH ×2 (09:11→21:18)
[2020-01-04] MEDS: METOPROLOL TART 25 MG TABLET PO SCH ×2 (09:11→21:18)
[2020-01-04 14:00] VITALS: BP 139/67
--- NOTE | 2020-01-04 18:49 | IPNPDOC ---
Text Note Date of Service The patient was seen on 01/04/20. NOTE Subjective: -No issues overnight -Was discharged to the ARU yesterday -Doing well Objective: General: Alert, No Acute Distress Eyes: PERRLA, EOMI, anicteric ENT: MMM Neck: supple no adenopathy or JVD Chest: CTAB Heart: RRR, no mrg Abdomen: Normal bowel sounds, central surgical scar and lap sites well healed. L sided colostomy with nonbloody brown formed stool, NTND Extremity: WWP, no LE edema Skin: healing surgical wounds, ostomy clean no bleeding or erythema, no breakdo wn or lesions Neuro: Normal Speech, Cranial Nerves 3-12 NL Psych: Mental status NL, AO x 3 Labs: Reviewed Plan Recent abdominal surgery for perforated rectum s/p Ex lap + abdominal washout and diverting colostomy and pelvic drain placement -Continue diverting colostomy care -Continue IV zosyn, PO flagyl and fluconazole, appreciate recs -CT during the most recent admission showed reduced intra-abdominal collection with stable pelvic drain and pneumobilia, and small bowel ileus -General surgery was consulted last admission, Dr. Julio dc'd pelvic drain on 5.29 AM, no surgical intervention at this time. -Continue home norco for severe pain PRN, and PRN tylenol for mild pain Weakness: -PT/OT per PM&R -continue abx as above History of Afib -Continue home Metoprolol CAD: -continue home ASA, simva HLD: -continue simvastatin Prostate CA s/p recent prostatectomy: -monitor no recent retention or hematuria GERD: -continue omeprazole DVT ppx: heparin BID SQ Diet: regular Dispo: ARU VS,Fishbone, I+O VS, Fishbone, I+O Laboratory Tests 01/04/20 07:46 Vital Signs Date Time Temp Pulse Resp B/P (MAP) Pulse Ox O2 Delivery O2 Flow Rate FiO2 01/04/20 14:00 99.2 92 20 139/67 (91) 97 Room Air I&O- Last 24 Hours up to 6 AM0 01/04/20 06:00 Intake Total 340 ml Output Total 475 ml Balance -135 ml KYLE MOHAMUD MD January 04, 2020 15:40
[2020-01-04 21:11] VITALS: BP 134/67
[2020-01-04] MEDS: SIMVASTATIN 20 MG TAB PO SCH (21:18)
[2020-01-05] MEDS: PIPERACILLIN/TAZOBACTAM SOD 3.375 GM in D5W MINI-BAG PLUS 50 ML IV SCH ×5 (00:09→23:51)
[2020-01-05 07:46] LABS: BASO % 0.4 % (0.0-1.0); HEMATOCRIT 33.3 % (42.0-52.0); HEMOGLOBIN 10.5 g/dl (13.5-17.5); LYMPH # 0.6 10^3/uL (1.5-5.0); LYMPH % 6.2 % (24.0-44.0); MEAN CORPUSCULAR HEMOGLOBIN 27.5 pg (27.0-33.0); MEAN CORPUSCULAR HGB CONC 31.5 g/dl (32.0-36.5); MEAN CORPUSCULAR VOLUME 87.2 fl (80.0-96.0); MONO # 0.8 10^3/uL (0.0-0.8); NEUTROPHILS # 8.6 10^3/uL (1.5-8.5); NEUTROPHILS % 84.6 % (36.0-66.0); PLATELET COUNT, AUTOMATED 411 10^3/uL (150-450); RED BLOOD COUNT 3.82 10^6/uL (4.30-6.10); WHITE BLOOD COUNT 10.1 10^3/uL (4.0-10.0)
[2020-01-05 08:04] LABS: BLOOD UREA NITROGEN 8 MG/DL (7-18); C REACTIVE PROTEIN QUANTITATIV 9.45 MG/DL (0.00-0.30); CARBON DIOXIDE LEVEL 27 MEQ/L (21-32); CHLORIDE LEVEL 103 MEQ/L (98-107); CREATININE FOR GFR 0.83 MG/DL (0.70-1.30); GLOMERULAR FILTRATION RATE > 60.0 (>42); GLUCOSE, FASTING 97 MG/DL (70-100); POTASSIUM SERUM 4.2 MEQ/L (3.5-5.1); SODIUM LEVEL 139 MEQ/L (136-145)
[2020-01-05] MEDS: ACETAMINOPHEN 500 MG TAB PO SCH ×3 (09:00→21:00)
[2020-01-05] MEDS: REMEDY PHYTOPLEX Z-GUARD PASTE 113GM TUBE (FROM STOREROOM PRODUCT) TOP SCH ×3 (09:00→21:00)
[2020-01-05] MEDS: OMEPRAZOLE 20 MG CAP PO SCH (09:26)
[2020-01-05] MEDS: ASPIRIN 81 MG ENTERIC TAB PO SCH (09:26)
[2020-01-05] MEDS: HEPARIN SOD (PORCINE) 5000UNITS/ML VIAL (J1644 PER 1000UNITS) SC SCH ×2 (09:26→21:44)
[2020-01-05] MEDS: metroNIDAZOLE (FLAGYL) 500 MG TAB PO SCH ×3 (09:26→21:44)
[2020-01-05] MEDS: METOPROLOL TART 25 MG TABLET PO SCH ×2 (09:26→21:44)
[2020-01-05] MEDS: FLUCONAZOLE 100 MG TAB PO SCH (09:26)
[2020-01-05 14:00] VITALS: BP 121/73
--- NOTE | 2020-01-05 15:33 | IPNPDOC ---
PM&R Progress Note DATE OF SERVICE: Jan 05, 2020 Information Assistant Progress Note Subjective: Aptient reporting he is wiped out from therapy, but is happy he is here and feels he needs it. he denies fevers, chills, or abdominal pain. REVIEW OF SYSTEMS: The following is a completed review of systems and has been reviewed. Review of systems otherwise unremarkable. PAIN: Patient self reports no pain EYES: No recent vision changes EARS, NOSE, & THROAT: No throat pain, or dysphagia, or rhinorrhea CARDIOVASCULAR: Denies chest pain or palpitations PULMONARY: Denies shortness of breath GASTROINTESTINAL: +colostomy GENITOURINARY: denies dysuria MUSCULOSKELETAL: generalized weakness NEUROLOGICAL: denies paresthesias HEMATOLOGICAL: denies easy bruising SKIN: +colostomy and healed abdominal wall incisions PSYCHIATRIC: Unremarkable All other review of systems found to be negative. PHYSICAL EXAMINATION: VITAL SIGNS: Please see below. GENERAL: Pleasant and cooperative. No acute distress. HEENT: PERRL. Extraocular movements intact. Clear conjunctiva CARDIOVASCULAR: Regular rate and rhythm. No murmurs, rubs, or gallops LUNGS: Clear to auscultation bilaterally. No wheezes. No rhonchi ABDOMEN: Soft, nontender, nondistended. Positive bowel sounds. Normal active bowel sounds, no rebound tenderness, +colostomy NEUROLOGICAL: Alert and oriented times three. Cranial nerves II through XII grossly intact. Sensation grossly intact] EXTREMITIES: 5\5 strength bilateral upper extremities. 5\5 strength right lower extremity. 5/5 strength in left lower extremity. SKIN: +colostomy and healed abdominal wall incisions, blanchable sacral erythema ASSESSMENT:69-year-old M with past medical history of CAD and prostate cancer who presents status post radical prostatectomy complicated by perforated rectum s/p ex-lap and diverting colostomy, now with intraabdominal infection PLAN: 1. rehab- PT/OT advance gait and ADLS, strengthen/stretch/maintain ROM all 4 limbs 2. CArdiac- hx of CAD s/p CABG on ASA, hx of Afib c/u betablocker (not on AC, will f/u with his cooper helper Dr. Guardado on this) -HLD c/u statin 3. resp: encourage incentive spirometry, monitor for infection 4. GI: patient currently on Flagyl, Zosyn, and Fluconazole for intraabdominal abscess with generalized weakness- trending CRP, monitor leukocytosis, Dr. Delgado consulted to assist in management-adominal exam benign -f/u surgery outpatient, consult in house prn -protonix for ppx 5. - s/p protatectomy, monitor PVRs-f/u Dr. Maguire on d/c 6. DVT ppx: heparin and TEds 7. PAin- tylenol and oxycodone prn 8. Bjhpv-2-3-20 to home, progressing towards goals functionally, will still need close monitoring medically Allergies Coded Allergies: No Known Allergies (Unverified , 11/11/19) Vital Signs Vital Signs Date Time Temp Pulse Resp B/P (MAP) Pulse Ox O2 Delivery O2 Flow Rate FiO2 01/05/20 14:00 98.1 86 18 121/73 (89) 97 Room Air Laboratory Data CBC/BMP Laboratory Tests 01/05/20 07:29 Labs 24H Laboratory Tests 2 01/05/20 07:29: Immature Granulocyte % (Auto) 0.8, Neutrophils (%) (Auto) 84.6H, Lymphocytes (%) (Auto) 6.2L, Monocytes (%) (Auto) 8.0H, Eosinophils (%) (Auto) 0.0, Basophils (%) (Auto) 0.4, Neutrophils # (Auto) 8.6H, Lymphocytes # (Auto) 0.6L, Monocytes # (Auto) 0.8, Eosinophils # (Auto) 0.0, Basophils # (Auto) 0.0, Nucleated Red Blood Cells % (auto) 0.0, Anion Gap 9, Glomerular Filtration Rate > 60.0, Calcium Level 8.0L, C-Reactive Protein, Quantitative 9.45H Current Medications Current Medications Current Medications Medications (Trade) Dose Ordered Sig/Saige Route PRN Reason Start Time Stop Time Status Last Admin Dose Admin Acetaminophen (Tylenol Tab) 1,000 mg TID PO 01/03/20 16:00 01/03/20 20:47 Aspirin (Ecotrin) 81 mg DAILY PO 01/04/20 09:00 01/05/20 09:26 Fluconazole (Diflucan Tablet) 200 mg DAILY PO 01/04/20 09:00 01/17/20 09:01 01/05/20 09:26 Heparin Sodium (Porcine) (Heparin) 5,000 units Q12H SC 01/03/20 21:00 01/05/20 09:26 Metoprolol Tartrate (Lopressor) 25 mg BID PO 01/02/20 21:00 Cancel Metoprolol Tartrate (Lopressor) 25 mg BID PO 01/03/20 21:00 01/05/20 09:26 Metronidazole (Flagyl) 500 mg TID PO 01/03/20 16:00 01/17/20 09:01 01/05/20 09:26 Omeprazole (PriLOSEC) 40 mg DAILY PO 01/04/20 09:00 01/05/20 09:26 Oxycodone HCl (Roxicodone, Oxyir) 5 mg Q4HP PRN PO PAIN 01/03/20 13:44 Piperacillin Sod/ Tazobactam Sod 3.375 gm/Dextrose 50 ml @ 50 mls/hr Q6H IV 01/03/20 18:00 01/17/20 12:59 01/05/20 12:02 Polyethylene Glycol (Miralax) 1 pkt DAILY PRN PO CONSTIPATION 01/03/20 13:44 Simvastatin (Zocor) 20 mg QHS PO 01/02/20 21:00 Cancel Simvastatin (Zocor) 20 mg QHS PO 01/03/20 21:00 01/04/20 21:18 JUDITH EARL MD Jan 05, 2020 15:33
[2020-01-05] MEDS: LACTOBACILLUS ACIDOPHILUS CAP (BACID) PO SCH (17:09)
[2020-01-05 21:31] VITALS: BP 134/80
[2020-01-05] MEDS: SIMVASTATIN 20 MG TAB PO SCH (21:43)
[2020-01-06] MEDS: PIPERACILLIN/TAZOBACTAM SOD 3.375 GM in D5W MINI-BAG PLUS 50 ML IV SCH ×3 (05:40→16:59)
[2020-01-06 06:00] VITALS: BP 153/72
[2020-01-06] MEDS: ACETAMINOPHEN 500 MG TAB PO SCH ×3 (09:00→20:08)
[2020-01-06] MEDS: REMEDY PHYTOPLEX Z-GUARD PASTE 113GM TUBE (FROM STOREROOM PRODUCT) TOP SCH ×3 (09:00→20:07)
[2020-01-06] MEDS: FLUCONAZOLE 100 MG TAB PO SCH (09:43)
[2020-01-06] MEDS: METOPROLOL TART 25 MG TABLET PO SCH ×2 (09:43→20:07)
[2020-01-06] MEDS: ASPIRIN 81 MG ENTERIC TAB PO SCH (09:43)
[2020-01-06] MEDS: metroNIDAZOLE (FLAGYL) 500 MG TAB PO SCH ×3 (09:43→20:07)
[2020-01-06] MEDS: OMEPRAZOLE 20 MG CAP PO SCH (09:43)
[2020-01-06] MEDS: LACTOBACILLUS ACIDOPHILUS CAP (BACID) PO SCH ×3 (09:44→16:59)
[2020-01-06] MEDS: HEPARIN SOD (PORCINE) 5000UNITS/ML VIAL (J1644 PER 1000UNITS) SC SCH ×2 (09:44→20:07)
--- NOTE | 2020-01-06 09:49 | IPN ---
DATE: 01/05/2020 Mr. Eastman feels much better today. He was in physical therapy for about an hour and half. He states his appetite is still not great and he would like Ensure. His shortness of breath has improved, his upper extremity strength as well. He has no vomiting or change of bowel movement. No increase in stool in the colostomy. He had a low grade fever on Sunday but this has resolved. Abdominal CT showed unchanged pleural effusion with bibasilar atelectasis, pneumobilia, improved intra-abdominal fluid collection and some perisigmoidal colonic fatty infiltration. LABORATORY DATA White count 10.1 down from 15.5, hemoglobin 10.5, hematocrit 33.3, platelets 411, 85% neutrophils, 7% lymphocytes, 8% monocytes. Sodium 139, potassium 4.2, chloride 103, bicarb 27, creatinine 0.83, glucose 97, calcium 8, CRP 9.45. Last week was down to 3.5. Blood cultures, two sets on 12/31, were negative and urine culture was negative. Liver ultrasound on 12/31 shows a cholecystectomy with no acute findings and no mention of pneumobilia. PHYSICAL EXAM: Temperature is 98.1, T-max yesterday was 99.2 and 100.6 on the day of admission. Pulse 86, respiration 18, blood pressure 121/73, O2 sat 97% on room air. Heart: Normal S1-S2 with no murmurs. Lungs: Clear. No wheezes, rales or rhonchi. Abdomen: Soft, nontender. No hepatosplenomegaly. Lower quadrant colostomy. Extremities: Trace edema. MEDICATIONS IV Zosyn, currently day #5 and p.o. fluconazole, has been on that for at least 3 weeks. IMPRESSION 1. Status post robotic prostatectomy with bowel perforation. 2. Intra-abdominal abscesses from bowel perforation and diverting colostomy, doing much better on IV Zosyn and fluconazole. levaquin and Flagyl were discontinued due to anorexia and worsening fever and CRP. Zosyn, which will be continued at least until Sunday. Continue monitoring CBC, CRP. 3. Anorexia. Patient asked for Ensure, which was ordered by Dr. Vegas. PLAN Continue IV Zosyn, p.o. fluconazole. Monitor CBC, CRP every other day. Will begin a probiotic one (1) tablet twice a day. MTDD
[2020-01-06 14:00] VITALS: BP 118/68
[2020-01-06 20:00] VITALS: BP 128/71
[2020-01-06] MEDS: SIMVASTATIN 20 MG TAB PO SCH (20:07)
[2020-01-07] MEDS: PIPERACILLIN/TAZOBACTAM SOD 3.375 GM in D5W MINI-BAG PLUS 50 ML IV SCH ×5 (00:17→23:08)
[2020-01-07 06:00] VITALS: BP 148/77
[2020-01-07 08:13] LABS: BASO # 0.1 10^3/uL (0.0-0.2); BASO % 0.4 % (0.0-1.0); HEMATOCRIT 35.3 % (42.0-52.0); HEMOGLOBIN 11.2 g/dl (13.5-17.5); MEAN CORPUSCULAR HEMOGLOBIN 27.6 pg (27.0-33.0); MEAN CORPUSCULAR HGB CONC 31.7 g/dl (32.0-36.5); MEAN CORPUSCULAR VOLUME 86.9 fl (80.0-96.0); MONO % 8.7 % (0.0-5.0); NEUTROPHILS # 9.2 10^3/uL (1.5-8.5); NEUTROPHILS % 81.2 % (36.0-66.0); PLATELET COUNT, AUTOMATED 472 10^3/uL (150-450); RED BLOOD COUNT 4.06 10^6/uL (4.30-6.10); WHITE BLOOD COUNT 11.3 10^3/uL (4.0-10.0)
[2020-01-07 08:29] LABS: BLOOD UREA NITROGEN 4 MG/DL (7-18); C REACTIVE PROTEIN QUANTITATIV 5.95 MG/DL (0.00-0.30); CALCIUM LEVEL 8.6 MG/DL (8.8-10.2); CARBON DIOXIDE LEVEL 28 MEQ/L (21-32); CHLORIDE LEVEL 103 MEQ/L (98-107); CREATININE FOR GFR 0.83 MG/DL (0.70-1.30); GLOMERULAR FILTRATION RATE > 60.0 (>42); GLUCOSE, FASTING 98 MG/DL (70-100); POTASSIUM SERUM 4.1 MEQ/L (3.5-5.1); SODIUM LEVEL 139 MEQ/L (136-145)
[2020-01-07] MEDS: OMEPRAZOLE 20 MG CAP PO SCH (08:55)
[2020-01-07] MEDS: ASPIRIN 81 MG ENTERIC TAB PO SCH (08:55)
[2020-01-07] MEDS: FLUCONAZOLE 100 MG TAB PO SCH (08:56)
[2020-01-07] MEDS: LACTOBACILLUS ACIDOPHILUS CAP (BACID) PO SCH ×3 (08:56→17:32)
[2020-01-07] MEDS: ACETAMINOPHEN 500 MG TAB PO SCH ×3 (08:56→20:53)
[2020-01-07] MEDS: HEPARIN SOD (PORCINE) 5000UNITS/ML VIAL (J1644 PER 1000UNITS) SC SCH ×2 (08:56→20:52)
[2020-01-07] MEDS: METOPROLOL TART 25 MG TABLET PO SCH ×2 (08:56→20:53)
[2020-01-07] MEDS: metroNIDAZOLE (FLAGYL) 500 MG TAB PO SCH (08:57)
[2020-01-07] MEDS: REMEDY PHYTOPLEX Z-GUARD PASTE 113GM TUBE (FROM STOREROOM PRODUCT) TOP SCH ×3 (08:57→20:53)
[2020-01-07] MEDS ORDERED: NS 1,000 ML IV ONE (12:00)
[2020-01-07 14:00] VITALS: BP 106/59
--- NOTE | 2020-01-07 14:39 | IPNPDOC ---
PM&R Progress Note DATE OF SERVICE: Jan 06, 2020 Industrial Training Specialist Progress Note Subjective: Patient reporting he had a good day in therapy, but wants to stay as long as he can to get stronger. REVIEW OF SYSTEMS: The following is a completed review of systems and has been reviewed. Review of systems otherwise unremarkable. PAIN: Patient self reports no pain EYES: No recent vision changes EARS, NOSE, & THROAT: No throat pain, or dysphagia, or rhinorrhea CARDIOVASCULAR: Denies chest pain or palpitations PULMONARY: Denies shortness of breath GASTROINTESTINAL: +colostomy GENITOURINARY: denies dysuria MUSCULOSKELETAL: generalized weakness NEUROLOGICAL: denies paresthesias HEMATOLOGICAL: denies easy bruising SKIN: +colostomy and healed abdominal wall incisions PSYCHIATRIC: Unremarkable All other review of systems found to be negative. PHYSICAL EXAMINATION: VITAL SIGNS: Please see below. GENERAL: Pleasant and cooperative. No acute distress. HEENT: PERRL. Extraocular movements intact. Clear conjunctiva CARDIOVASCULAR: Regular rate and rhythm. No murmurs, rubs, or gallops LUNGS: Clear to auscultation bilaterally. No wheezes. No rhonchi ABDOMEN: Soft, nontender, nondistended. Positive bowel sounds. Normal active bowel sounds, no rebound tenderness, +colostomy NEUROLOGICAL: Alert and oriented times three. Cranial nerves II through XII grossly intact. Sensation grossly intact] EXTREMITIES: 5\5 strength bilateral upper extremities. 5\5 strength right lower extremity. 5/5 strength in left lower extremity. SKIN: +colostomy and healed abdominal wall incisions, blanchable sacral erythema ASSESSMENT:69-year-old M with past medical history of CAD and prostate cancer who presents status post radical prostatectomy complicated by perforated rectum s/p ex-lap and diverting colostomy, now with intraabdominal infection PLAN: 1. rehab- PT/OT advance gait and ADLS, strengthen/stretch/maintain ROM all 4 limbs- ambulating with RW 2. CArdiac- hx of CAD s/p CABG on ASA, hx of Afib c/u betablocker (not on AC, will f/u with his jewelry coater Dr. Guardado on this) -HLD c/u statin 3. resp: encourage incentive spirometry, monitor for infection 4. GI: patient currently on Flagyl, Zosyn and Fluconazole for intraabdominal abscess with generalized weakness- c/u to trend CRP, monitor leukocytosis, Dr. Delgado consulted to assist in management, abdominal exam benign -will give gentle IVF as patient reporting poor po intake and nausea, likely s jaydon effect of Flagyl -f/u surgery outpatient, consult in house prn -protonix for ppx 5. - s/p protatectomy, monitor PVRs-f/u Dr. Maguire on d/c 6. DVT ppx: heparin and TEds 7. PAin- tylenol and oxycodone prn 8. Cvvay-8-4-20 to home, progressing towards goals functionally, will still need close monitoring medically Allergies Coded Allergies: No Known Allergies (Unverified , 11/11/19) Vital Signs Vital Signs Date Time Temp Pulse Resp B/P (MAP) Pulse Ox O2 Delivery O2 Flow Rate FiO2 01/07/20 14:00 97.5 85 18 106/59 (75) 97 Room Air Laboratory Data CBC/BMP Laboratory Tests 01/07/20 07:31 Labs 24H Laboratory Tests 2 01/07/20 07:31: Immature Granulocyte % (Auto) 0.7, Neutrophils (%) (Auto) 81.2H, Lymphocytes (%) (Auto) 9.0L, Monocytes (%) (Auto) 8.7H, Eosinophils (%) (Auto) 0.0, Basophils (%) (Auto) 0.4, Neutrophils # (Auto) 9.2H, Lymphocytes # (Auto) 1.0L, Monocytes # (Auto) 1.0H, Eosinophils # (Auto) 0.0, Basophils # (Auto) 0.1, Nucleated Red Blood Cells % (auto) 0.0, Anion Gap 8, Glomerular Filtration Rate > 60.0, Calcium Level 8.6L, C-Reactive Protein, Quantitative 5.95H Current Medications Current Medications Current Medications Medications (Trade) Dose Ordered Sig/Saige Route PRN Reason Start Time Stop Time Status Last Admin Dose Admin Acetaminophen (Tylenol Tab) 1,000 mg TID PO 01/03/20 16:00 01/03/20 20:47 Aspirin (Ecotrin) 81 mg DAILY PO 01/04/20 09:00 01/07/20 08:55 Fluconazole (Diflucan Tablet) 200 mg DAILY PO 01/04/20 09:00 01/17/20 09:01 01/07/20 08:56 Heparin Sodium (Porcine) (Heparin) 5,000 units Q12H SC 01/03/20 21:00 01/07/20 08:56 Lactobacillus Acidophilus (Bacid) 1 ea WM PO 01/05/20 18:00 01/07/20 11:32 Metoprolol Tartrate (Lopressor) 25 mg BID PO 01/02/20 21:00 Cancel Metoprolol Tartrate (Lopressor) 25 mg BID PO 01/03/20 21:00 01/07/20 08:56 Metronidazole (Flagyl) 500 mg TID PO 01/03/20 16:00 01/07/20 11:37 DC 01/07/20 08:57 Omeprazole (PriLOSEC) 40 mg DAILY PO 01/04/20 09:00 01/07/20 08:55 Oxycodone HCl (Roxicodone, Oxyir) 5 mg Q4HP PRN PO PAIN 01/03/20 13:44 Piperacillin Sod/ Tazobactam Sod 3.375 gm/Dextrose 50 ml @ 50 mls/hr Q6H IV 01/03/20 18:00 01/17/20 12:59 01/07/20 11:32 Polyethylene Glycol (Miralax) 1 pkt DAILY PRN PO CONSTIPATION 01/03/20 13:44 Simvastatin (Zocor) 20 mg QHS PO 01/02/20 21:00 Cancel Simvastatin (Zocor) 20 mg QHS PO 01/03/20 21:00 01/06/20 20:07 JUDITH EARL MD Jan 07, 2020 14:39
--- NOTE | 2020-01-07 14:39 | IPNPDOC ---
PM&R Progress Note DATE OF SERVICE: Jan 07, 2020 Telephone Service Adviser Progress Note Subjective: Patient reporting he feels very weak today and was having difficulty completing therapy. he is agreeable to getting IV fluids as his intake has been poor. REVIEW OF SYSTEMS: The following is a completed review of systems and has been reviewed. Review of systems otherwise unremarkable. PAIN: Patient self reports no pain EYES: No recent vision changes EARS, NOSE, & THROAT: No throat pain, or dysphagia, or rhinorrhea CARDIOVASCULAR: Denies chest pain or palpitations PULMONARY: Denies shortness of breath GASTROINTESTINAL: +colostomy GENITOURINARY: denies dysuria MUSCULOSKELETAL: generalized weakness NEUROLOGICAL: denies paresthesias HEMATOLOGICAL: denies easy bruising SKIN: +colostomy and healed abdominal wall incisions PSYCHIATRIC: Unremarkable All other review of systems found to be negative. PHYSICAL EXAMINATION: VITAL SIGNS: Please see below. GENERAL: Pleasant and cooperative. No acute distress. HEENT: PERRL. Extraocular movements intact. Clear conjunctiva CARDIOVASCULAR: Regular rate and rhythm. No murmurs, rubs, or gallops LUNGS: Clear to auscultation bilaterally. No wheezes. No rhonchi ABDOMEN: Soft, nontender, nondistended. Positive bowel sounds. Normal active bowel sounds, no rebound tenderness, +colostomy NEUROLOGICAL: Alert and oriented times three. Cranial nerves II through XII grossly intact. Sensation grossly intact] EXTREMITIES: 5\5 strength bilateral upper extremities. 5\5 strength right lower extremity. 5/5 strength in left lower extremity. SKIN: +colostomy and healed abdominal wall incisions, blanchable sacral erythema ASSESSMENT:69-year-old M with past medical history of CAD and prostate cancer who presents status post radical prostatectomy complicated by perforated rectum s/p ex-lap and diverting colostomy, now with intraabdominal infection PLAN: 1. rehab- PT/OT advance gait and ADLS, strengthen/stretch/maintain ROM all 4 limbs- ambulating with RW 2. CArdiac- hx of CAD s/p CABG on ASA, hx of Afib c/u betablocker (not on AC, will f/u with his dry room attendant Dr. Guardado on this) -HLD c/u statin 3. resp: encourage incentive spirometry, monitor for infection 4. GI: patient currently on Zosyn and Fluconazole for intraabdominal abscess with generalized weakness- c/u to trend CRP, monitor leukocytosis, Dr. Delgado consulted to assist in management who says ok to d/c flagyl-abdominal exam benign -will give gentle IVF as patient reporting poor po intake and nausea, likely side effect of Flagyl -f/u surgery outpatient, consult in house prn -protonix for ppx 5. - s/p protatectomy, monitor PVRs-f/u Dr. Maguire on d/c 6. DVT ppx: heparin and TEds 7. PAin- tylenol and oxycodone prn 8. Ddnrr-3-6-20 to home, progressing towards goals functionally, will still need close monitoring medically Allergies Coded Allergies: No Known Allergies (Unverified , 11/11/19) Vital Signs Vital Signs Date Time Temp Pulse Resp B/P (MAP) Pulse Ox O2 Delivery O2 Flow Rate FiO2 01/07/20 14:00 97.5 85 18 106/59 (75) 97 Room Air Laboratory Data CBC/BMP Laboratory Tests 01/07/20 07:31 Labs 24H Laboratory Tests 2 01/07/20 07:31: Immature Granulocyte % (Auto) 0.7, Neutrophils (%) (Auto) 81.2H, Lymphocytes (%) (Auto) 9.0L, Monocytes (%) (Auto) 8.7H, Eosinophils (%) (Auto) 0.0, Basophils (%) (Auto) 0.4, Neutrophils # (Auto) 9.2H, Lymphocytes # (Auto) 1.0L, Monocytes # (Auto) 1.0H, Eosinophils # (Auto) 0.0, Basophils # (Auto) 0.1, Nucleated Red Blood Cells % (auto) 0.0, Anion Gap 8, Glomerular Filtration Rate > 60.0, Calcium Level 8.6L, C-Reactive Protein, Quantitative 5.95H Current Medications Current Medications Current Medications Medications (Trade) Dose Ordered Sig/Saige Route PRN Reason Start Time Stop Time Status Last Admin Dose Admin Acetaminophen (Tylenol Tab) 1,000 mg TID PO 01/03/20 16:00 01/03/20 20:47 Aspirin (Ecotrin) 81 mg DAILY PO 01/04/20 09:00 01/07/20 08:55 Fluconazole (Diflucan Tablet) 200 mg DAILY PO 01/04/20 09:00 01/17/20 09:01 01/07/20 08:56 Heparin Sodium (Porcine) (Heparin) 5,000 units Q12H SC 01/03/20 21:00 01/07/20 08:56 Lactobacillus Acidophilus (Bacid) 1 ea WM PO 01/05/20 18:00 01/07/20 11:32 Metoprolol Tartrate (Lopressor) 25 mg BID PO 01/02/20 21:00 Cancel Metoprolol Tartrate (Lopressor) 25 mg BID PO 01/03/20 21:00 01/07/20 08:56 Metronidazole (Flagyl) 500 mg TID PO 01/03/20 16:00 01/07/20 11:37 DC 01/07/20 08:57 Omeprazole (PriLOSEC) 40 mg DAILY PO 01/04/20 09:00 01/07/20 08:55 Oxycodone HCl (Roxicodone, Oxyir) 5 mg Q4HP PRN PO PAIN 01/03/20 13:44 Piperacillin Sod/ Tazobactam Sod 3.375 gm/Dextrose 50 ml @ 50 mls/hr Q6H IV 01/03/20 18:00 01/17/20 12:59 01/07/20 11:32 Polyethylene Glycol (Miralax) 1 pkt DAILY PRN PO CONSTIPATION 01/03/20 13:44 Simvastatin (Zocor) 20 mg QHS PO 01/02/20 21:00 Cancel Simvastatin (Zocor) 20 mg QHS PO 01/03/20 21:00 01/06/20 20:07 JUDITH EARL MD Jan 07, 2020 14:39
[2020-01-07 20:00] VITALS: BP 136/73
[2020-01-07] MEDS: SIMVASTATIN 20 MG TAB PO SCH (20:53)
[2020-01-08] MEDS: PIPERACILLIN/TAZOBACTAM SOD 3.375 GM in D5W MINI-BAG PLUS 50 ML IV SCH ×4 (05:48→23:15)
[2020-01-08 06:00] VITALS: BP 134/76
[2020-01-08] MEDS: LACTOBACILLUS ACIDOPHILUS CAP (BACID) PO SCH ×3 (08:25→17:41)
[2020-01-08] MEDS: HEPARIN SOD (PORCINE) 5000UNITS/ML VIAL (J1644 PER 1000UNITS) SC SCH ×2 (08:25→21:13)
[2020-01-08] MEDS: OMEPRAZOLE 20 MG CAP PO SCH (08:25)
[2020-01-08] MEDS: ASPIRIN 81 MG ENTERIC TAB PO SCH (08:26)
[2020-01-08] MEDS: METOPROLOL TART 25 MG TABLET PO SCH ×2 (08:26→21:12)
[2020-01-08] MEDS: ACETAMINOPHEN 500 MG TAB PO SCH ×2 (08:26→08:30)
[2020-01-08] MEDS: REMEDY PHYTOPLEX Z-GUARD PASTE 113GM TUBE (FROM STOREROOM PRODUCT) TOP SCH ×3 (08:27→21:00)
[2020-01-08] MEDS: FLUCONAZOLE 100 MG TAB PO SCH (08:27)
[2020-01-08 14:00] VITALS: BP 140/72
[2020-01-08] MEDS ORDERED: ACETAMINOPHEN 500 MG TAB PO PRN (15:00)
--- NOTE | 2020-01-08 16:59 | IPNPDOC ---
PM&R Progress Note DATE OF SERVICE: Jan 08, 2020 Network Pricing Consultant Progress Note DATE OF ADMISSION: January 03, 2020 at 13:05 INPATIENT REHABILITATION ADMISSION DAY: # SUBJECTIVE: Patient is a -year-old with . ALLERGIES: See Below MEDICATIONS: Reviewed, see below. OBJECTIVE: VITAL SIGNS: Please see below. PHYSICAL EXAMINATION: GENERAL: [Cachectic, well developed, sitting up in bed, no acute distress]. HEENT: [Normocephalic, atraumatic]. [No facial droop]. [Poor dentition, missing teeth. PERRL, EOMI]. CARDIOVASCULAR: [S1, S2, irregular rate]. [No lower limb edema or calf tendernes s]. LUNGS: [Decreased breath sounds, coarse throughout]. ABDOMEN: [Soft, nontender, nondistended. Normoactive bowel sounds throughout]. MUSCULOSKELETAL: MMT: /5 strength proximally bilateral shoulder abduction, forward flexion and bilateral hip flexion. /5 strength bilateral elbow flexion, knee flexion, /5 bilateral elbow extension and knee extension. /5 carpet sewer, dorsiflexion, plantar flexion. NEUROLOGICAL: [Alert and oriented times three]. [Answers all question appropriately]. SKIN: . LABORATORY DATA: Reviewed. Please see below. MICROBIOLOGY: Please see below. IMAGING: ASSESSMENT AND PLAN: 1. . 2. . 3. . TIME SPENT: Chart Review, examination and documentation minutes. Allergies Coded Allergies: No Known Allergies (Unverified , 11/11/19) Vital Signs Vital Signs Date Time Temp Pulse Resp B/P (MAP) Pulse Ox O2 Delivery O2 Flow Rate FiO2 01/08/20 14:00 97.4 93 20 140/72 (94) 97 Room Air Current Medications Current Medications Current Medications Medications (Trade) Dose Ordered Sig/Saige Route PRN Reason Start Time Stop Time Status Last Admin Dose Admin Acetaminophen (Tylenol Tab) 1,000 mg TID PO 01/03/20 16:00 01/08/20 14:52 DC 01/03/20 20:47 Acetaminophen (Tylenol Tab) 1,000 mg TID PRN PO PAIN/ FEVER 01/08/20 15:00 Aspirin (Ecotrin) 81 mg DAILY PO 01/04/20 09:00 01/08/20 08:26 Fluconazole (Diflucan Tablet) 200 mg DAILY PO 01/04/20 09:00 01/17/20 09:01 01/08/20 08:27 Heparin Sodium (Porcine) (Heparin) 5,000 units Q12H SC 01/03/20 21:00 01/08/20 08:25 Lactobacillus Acidophilus (Bacid) 1 ea WM PO 01/05/20 18:00 01/08/20 12:03 Metoprolol Tartrate (Lopressor) 25 mg BID PO 01/02/20 21:00 Cancel Metoprolol Tartrate (Lopressor) 25 mg BID PO 01/03/20 21:00 01/08/20 08:26 Metronidazole (Flagyl) 500 mg TID PO 01/03/20 16:00 01/07/20 11:37 DC 01/07/20 08:57 Miscellaneous (Unresolved Clarification Entry) SEE LABEL COMMENTS DAILY XX 01/07/20 09:00 01/07/20 20:11 DC Omeprazole (PriLOSEC) 40 mg DAILY PO 01/04/20 09:00 01/08/20 08:25 Oxycodone HCl (Roxicodone, Oxyir) 5 mg Q4HP PRN PO PAIN 01/03/20 13:44 Piperacillin Sod/ Tazobactam Sod 3.375 gm/Dextrose 50 ml @ 50 mls/hr Q6H IV 01/03/20 18:00 01/17/20 12:59 01/08/20 12:03 Polyethylene Glycol (Miralax) 1 pkt DAILY PRN PO CONSTIPATION 01/03/20 13:44 Simvastatin (Zocor) 20 mg QHS PO 01/02/20 21:00 Cancel Simvastatin (Zocor) 20 mg QHS PO 01/03/20 21:00 01/07/20 20:53 JUDITH EARL MD Jan 08, 2020 16:58
[2020-01-08 20:00] VITALS: BP 142/92
[2020-01-08] MEDS: SIMVASTATIN 20 MG TAB PO SCH (21:12)
--- NOTE | 2020-01-08 23:28 | IPN ---
DATE: 01/08/2020 Mr. Eastman is doing well. He is improving, his strength is doing better except for his appetite. He states he does not have much of an appetite. He does not have any nausea, vomiting or diarrhea. He states that food does not taste good. LABS: White count is 11.3, hemoglobin 11.2, hematocrit 35.3, platelets 472, 81% neutrophils, 9% lymphocytes, 8% monocytes. Sodium 139, potassium 4.1, chloride 103, bicarbonate 28, BUN 4, creatinine 0.8, glucose 98, calcium 8.6, CRP 5.95 down from 11.5. PHYSICAL EXAMINATION: Temperature is 97.4, pulse 93, respirations 20, blood pressure 140/72, oxygen saturation (O2 sat) 97% on room air. Heart: Normal S1, S2. No murmurs appreciated. Lungs are clear. No wheezes, rales or rhonchi. Abdomen: Healed midline scar of exploratory laparotomy, left lower quadrant colostomy. No tenderness, redness, swelling, positive bowel sounds. No guarding. Extremities: No calf tenderness. No clubbing, cyanosis or edema. Oropharynx is clear with no thrush. She has some atrophic glossitis. IMPRESSION: 1. Intra-abdominal abscess, status post bowel perforation with polymicrobial sarah, including anaerobes and Martha albicans. On oral fluconazole and intravenous (IV) Zosyn. The patient is also on probiotics one tablet three times a day with meals. 2. History of prostate cancer, status post robotic prostatectomy. 3. Anorexia. Most likely related to antibiotics. 4. Status post exploratory laparotomy and incision and drainage of the intraabdominal abscess on 12/11/2019. PLAN: Will order a liver profile in the morning to monitor side effects of fluconazole, make sure that is not the reason for his anorexia, to rule out drug-induced hepatitis. Continue antibiotic until date of discharge, which is anticipated to be next Sunday.
[2020-01-09 04:00] VITALS: BP 148/82
[2020-01-09] MEDS: PIPERACILLIN/TAZOBACTAM SOD 3.375 GM in D5W MINI-BAG PLUS 50 ML IV SCH ×3 (05:31→16:51)
[2020-01-09 07:00] LABS: BASO # 0.1 10^3/uL (0.0-0.2); BASO % 0.5 % (0.0-1.0); HEMATOCRIT 33.7 % (42.0-52.0); HEMOGLOBIN 10.8 g/dl (13.5-17.5); LYMPH # 0.9 10^3/uL (1.5-5.0); MEAN CORPUSCULAR HEMOGLOBIN 27.7 pg (27.0-33.0); MEAN CORPUSCULAR VOLUME 86.4 fl (80.0-96.0); MONO # 0.9 10^3/uL (0.0-0.8); MONO % 8.5 % (0.0-5.0); NEUTROPHILS # 8.8 10^3/uL (1.5-8.5); NEUTROPHILS % 82.1 % (36.0-66.0); PLATELET COUNT, AUTOMATED 428 10^3/uL (150-450); WHITE BLOOD COUNT 10.7 10^3/uL (4.0-10.0)
[2020-01-09 07:21] LABS: ALBUMIN 2.1 GM/DL (3.2-5.2); ALT/SGPT 10 U/L (12-78); BILIRUBIN,DIRECT 0.1 MG/DL (0.0-0.2); BILIRUBIN,TOTAL 0.3 MG/DL (0.2-1.0); BLOOD UREA NITROGEN 4 MG/DL (7-18); C REACTIVE PROTEIN QUANTITATIV 3.13 MG/DL (0.00-0.30); CALCIUM LEVEL 8.1 MG/DL (8.8-10.2); CARBON DIOXIDE LEVEL 26 MEQ/L (21-32); CHLORIDE LEVEL 105 MEQ/L (98-107); CREATININE FOR GFR 0.79 MG/DL (0.70-1.30); GLOMERULAR FILTRATION RATE > 60.0 (>42); GLUCOSE, FASTING 94 MG/DL (70-100); SODIUM LEVEL 139 MEQ/L (136-145)
[2020-01-09] MEDS: LACTOBACILLUS ACIDOPHILUS CAP (BACID) PO SCH ×3 (08:56→16:51)
[2020-01-09] MEDS: OMEPRAZOLE 20 MG CAP PO SCH (08:56)
[2020-01-09] MEDS: HEPARIN SOD (PORCINE) 5000UNITS/ML VIAL (J1644 PER 1000UNITS) SC SCH ×2 (08:57→20:38)
[2020-01-09] MEDS: ASPIRIN 81 MG ENTERIC TAB PO SCH (08:57)
[2020-01-09] MEDS: FLUCONAZOLE 100 MG TAB PO SCH (08:57)
[2020-01-09] MEDS: REMEDY PHYTOPLEX Z-GUARD PASTE 113GM TUBE (FROM STOREROOM PRODUCT) TOP SCH ×3 (08:58→20:39)
[2020-01-09] MEDS: METOPROLOL TART 25 MG TABLET PO SCH ×2 (08:59→20:39)
[2020-01-09 14:00] VITALS: BP 131/71
--- NOTE | 2020-01-09 15:06 | IPNPDOC ---
PM&R Progress Note Grip Assembler Progress Note RP DATE OF ADMISSION: January 03, 2020 at 13:05 INPATIENT REHABILITATION ADMISSION DAY: # SUBJECTIVE: Patient is a -year-old with . ALLERGIES: See Below MEDICATIONS: Reviewed, see below. OBJECTIVE: VITAL SIGNS: Please see below. PHYSICAL EXAMINATION: GENERAL: [Cachectic, well developed, sitting up in bed, no acute distress]. HEENT: [Normocephalic, atraumatic]. [No facial droop]. [Poor dentition, missing teeth. PERRL, EOMI]. CARDIOVASCULAR: [S1, S2, irregular rate]. [No lower limb edema or calf tenderness]. LUNGS: [Decreased breath sounds, coarse throughout]. ABDOMEN: [Soft, nontender, nondistended. Normoactive bowel sounds throughout]. MUSCULOSKELETAL: MMT: /5 strength proximally bilateral shoulder abduction, forward flexion and bilateral hip flexion. /5 strength bilateral elbow flexion, knee flexion, /5 bilateral elbow extension and knee extension. /5 video game programmer, dorsiflexion, plantar flexion. NEUROLOGICAL: [Alert and oriented times three]. [Answers all question appropriately]. SKIN: . LABORATORY DATA: Reviewed. Please see below. MICROBIOLOGY: Please see below. IMAGING: ASSESSMENT AND PLAN: 1. . 2. . 3. . TIME SPENT: Chart Review, examination and documentation minutes. Allergies Coded Allergies: No Known Allergies (Unverified , 11/11/19) Vital Signs Vital Signs Date Time Temp Pulse Resp B/P (MAP) Pulse Ox O2 Delivery O2 Flow Rate FiO2 01/09/20 08:59 101 126/76 01/09/20 04:00 98.1 18 97 Room Air Laboratory Data CBC/BMP Laboratory Tests 01/09/20 06:32 Labs 24H Laboratory Tests 2 01/09/20 06:32: Immature Granulocyte % (Auto) 0.9, Neutrophils (%) (Auto) 82.1H, Lymphocytes (%) (Auto) 8.0L, Monocytes (%) (Auto) 8.5H, Eosinophils (%) (Auto) 0.0, Basophils (%) (Auto) 0.5, Neutrophils # (Auto) 8.8H, Lymphocytes # (Auto) 0.9L, Monocytes # (Auto) 0.9H, Eosinophils # (Auto) 0.0, Basophils # (Auto) 0.1, Nucleated Red Blood Cells % (auto) 0.0, Anion Gap 8, Glomerular Filtration Rate > 60.0, Calcium Level 8.1L, Total Bilirubin 0.3, Direct Bilirubin 0.1, Aspartate Amino Transf (AST/SGOT) 16, Alanine Aminotransferase (ALT/SGPT) 10L, Alkaline Phosphatase 64, C-Reactive Protein, Quantitative 3.13H, Total Protein 6.0L, Albumin 2.1L, Albumin/Globulin Ratio 0.5 Current Medications Current Medications Current Medications Medications (Trade) Dose Ordered Sig/Saige Route PRN Reason Start Time Stop Time Status Last Admin Dose Admin Acetaminophen (Tylenol Tab) 1,000 mg TID PO 01/03/20 16:00 01/08/20 14:52 DC 01/03/20 20:47 Acetaminophen (Tylenol Tab) 1,000 mg TID PRN PO PAIN/ FEVER 01/08/20 15:00 Aspirin (Ecotrin) 81 mg DAILY PO 01/04/20 09:00 01/09/20 08:57 Fluconazole (Diflucan Tablet) 200 mg DAILY PO 01/04/20 09:00 01/17/20 09:01 01/09/20 08:57 Heparin Sodium (Porcine) (Heparin) 5,000 units Q12H SC 01/03/20 21:00 01/09/20 08:57 Lactobacillus Acidophilus (Bacid) 1 ea WM PO 01/05/20 18:00 01/09/20 12:16 Metoprolol Tartrate (Lopressor) 25 mg BID PO 01/02/20 21:00 Cancel Metoprolol Tartrate (Lopressor) 25 mg BID PO 01/03/20 21:00 01/09/20 08:59 Metronidazole (Flagyl) 500 mg TID PO 01/03/20 16:00 01/07/20 11:37 DC 01/07/20 08:57 Miscellaneous (Unresolved Clarification Entry) SEE LABEL COMMENTS DAILY XX 01/07/20 09:00 01/07/20 20:11 DC Omeprazole (PriLOSEC) 40 mg DAILY PO 01/04/20 09:00 01/09/20 08:56 Oxycodone HCl (Roxicodone, Oxyir) 5 mg Q4HP PRN PO PAIN 01/03/20 13:44 01/09/20 10:00 DC Piperacillin Sod/ Tazobactam Sod 3.375 gm/Dextrose 50 ml @ 50 mls/hr Q6H IV 01/03/20 18:00 01/17/20 12:59 01/09/20 12:16 Polyethylene Glycol (Miralax) 1 pkt DAILY PRN PO CONSTIPATION 01/03/20 13:44 Simvastatin (Zocor) 20 mg QHS PO 01/02/20 21:00 Cancel Simvastatin (Zocor) 20 mg QHS PO 01/03/20 21:00 01/08/20 21:12 JUDITH EARL MD Jan 09, 2020 15:06
[2020-01-09 20:00] VITALS: BP 133/74
[2020-01-09] MEDS: SIMVASTATIN 20 MG TAB PO SCH (20:38)
[2020-01-10] MEDS: PIPERACILLIN/TAZOBACTAM SOD 3.375 GM in D5W MINI-BAG PLUS 50 ML IV SCH ×4 (00:07→17:05)
[2020-01-10 06:00] VITALS: BP 134/77
[2020-01-10] MEDS: OMEPRAZOLE 20 MG CAP PO SCH (08:22)
[2020-01-10] MEDS: FLUCONAZOLE 100 MG TAB PO SCH (08:22)
[2020-01-10] MEDS: LACTOBACILLUS ACIDOPHILUS CAP (BACID) PO SCH ×3 (08:22→17:05)
[2020-01-10] MEDS: ASPIRIN 81 MG ENTERIC TAB PO SCH (08:22)
[2020-01-10] MEDS: METOPROLOL TART 25 MG TABLET PO SCH ×2 (08:22→21:38)
[2020-01-10] MEDS: HEPARIN SOD (PORCINE) 5000UNITS/ML VIAL (J1644 PER 1000UNITS) SC SCH ×2 (08:22→21:37)
[2020-01-10] MEDS: REMEDY PHYTOPLEX Z-GUARD PASTE 113GM TUBE (FROM STOREROOM PRODUCT) TOP SCH ×3 (08:23→21:38)
[2020-01-10 14:00] VITALS: BP 140/86
[2020-01-10 20:00] VITALS: BP 124/71
[2020-01-10] MEDS: SIMVASTATIN 20 MG TAB PO SCH (21:37)
[2020-01-11] MEDS: PIPERACILLIN/TAZOBACTAM SOD 3.375 GM in D5W MINI-BAG PLUS 50 ML IV SCH ×4 (00:08→17:21)
[2020-01-11 05:22] VITALS: BP 130/78
[2020-01-11] MEDS: FLUCONAZOLE 100 MG TAB PO SCH (08:18)
[2020-01-11] MEDS: OMEPRAZOLE 20 MG CAP PO SCH (08:18)
[2020-01-11] MEDS: ASPIRIN 81 MG ENTERIC TAB PO SCH (08:18)
[2020-01-11] MEDS: LACTOBACILLUS ACIDOPHILUS CAP (BACID) PO SCH ×3 (08:18→17:21)
[2020-01-11] MEDS: METOPROLOL TART 25 MG TABLET PO SCH ×2 (08:19→20:35)
[2020-01-11] MEDS: HEPARIN SOD (PORCINE) 5000UNITS/ML VIAL (J1644 PER 1000UNITS) SC SCH ×2 (08:19→20:34)
[2020-01-11] MEDS: REMEDY PHYTOPLEX Z-GUARD PASTE 113GM TUBE (FROM STOREROOM PRODUCT) TOP SCH ×3 (08:19→20:36)
[2020-01-11 14:00] VITALS: BP 135/71
[2020-01-11 19:57] VITALS: BP 131/77
[2020-01-11] MEDS: SIMVASTATIN 20 MG TAB PO SCH (20:35)
[2020-01-12] MEDS: PIPERACILLIN/TAZOBACTAM SOD 3.375 GM in D5W MINI-BAG PLUS 50 ML IV SCH ×5 (00:05→23:26)
[2020-01-12 06:00] VITALS: BP 155/81
[2020-01-12 06:49] LABS: BASO # 0.1 10^3/uL (0.0-0.2); BASO % 0.6 % (0.0-1.0); HEMATOCRIT 34.3 % (42.0-52.0); HEMOGLOBIN 11.1 g/dl (13.5-17.5); LYMPH # 0.7 10^3/uL (1.5-5.0); LYMPH % 8.4 % (24.0-44.0); MEAN CORPUSCULAR HEMOGLOBIN 28.3 pg (27.0-33.0); MEAN CORPUSCULAR HGB CONC 32.4 g/dl (32.0-36.5); MEAN CORPUSCULAR VOLUME 87.5 fl (80.0-96.0); MONO # 0.7 10^3/uL (0.0-0.8); MONO % 8.4 % (0.0-5.0); NEUTROPHILS # 6.9 10^3/uL (1.5-8.5); NEUTROPHILS % 82.1 % (36.0-66.0); PLATELET COUNT, AUTOMATED 368 10^3/uL (150-450); RED BLOOD COUNT 3.92 10^6/uL (4.30-6.10); WHITE BLOOD COUNT 8.4 10^3/uL (4.0-10.0)
[2020-01-12 07:10] LABS: BLOOD UREA NITROGEN 5 MG/DL (7-18); C REACTIVE PROTEIN QUANTITATIV 1.93 MG/DL (0.00-0.30); CALCIUM LEVEL 8.3 MG/DL (8.8-10.2); CARBON DIOXIDE LEVEL 25 MEQ/L (21-32); CHLORIDE LEVEL 106 MEQ/L (98-107); CREATININE FOR GFR 0.82 MG/DL (0.70-1.30); GLOMERULAR FILTRATION RATE > 60.0 (>42); GLUCOSE, FASTING 96 MG/DL (70-100); POTASSIUM SERUM 4.5 MEQ/L (3.5-5.1); SODIUM LEVEL 138 MEQ/L (136-145)
[2020-01-12] MEDS: ASPIRIN 81 MG ENTERIC TAB PO SCH (08:12)
[2020-01-12] MEDS: METOPROLOL TART 25 MG TABLET PO SCH ×2 (08:12→22:06)
[2020-01-12] MEDS: OMEPRAZOLE 20 MG CAP PO SCH (08:12)
[2020-01-12] MEDS: LACTOBACILLUS ACIDOPHILUS CAP (BACID) PO SCH ×3 (08:12→17:36)
[2020-01-12] MEDS: FLUCONAZOLE 100 MG TAB PO SCH (08:13)
[2020-01-12] MEDS: REMEDY PHYTOPLEX Z-GUARD PASTE 113GM TUBE (FROM STOREROOM PRODUCT) TOP SCH ×3 (08:13→21:00)
[2020-01-12] MEDS: HEPARIN SOD (PORCINE) 5000UNITS/ML VIAL (J1644 PER 1000UNITS) SC SCH ×2 (08:13→21:00)
[2020-01-12 14:00] VITALS: BP 135/67
--- NOTE | 2020-01-12 19:20 | IPN ---
DATE: 01/12/2020 Vishal is doing very well. He denies any nausea, vomiting, worsening bowel movements. He has no abdominal pain. He is getting stronger. He has been afebrile. He is anxious to get discharged home tomorrow. He is doing very well with physical therapy. On physical exam, temperature is 98, pulse 85, respirations 19, blood pressure 135/67, oxygen saturation 98% on room air. HEART: Normal S1, S2. No murmurs, rubs, or gallops. LUNGS: Clear. No wheezes, rales, or rhonchi. ABDOMEN: Soft, nontender. No hepatosplenomegaly . Left lower quadrant colostomy. Healed midline scar with no purulence. No drainage. No tenderness. BACK: No costovertebral angle (CVA) tenderness. EXTREMITIES: No clubbing, cyanosis, or edema. LABORATORY DATA: White count 8.4, hemoglobin 11.1, hematocrit 34.3, platelets 368, 82% neutrophils, 9% lymphocytes. Sodium 138, potassium 4.5, chloride 106, bicarbonate 25, BUN 5, creatinine 0.82, glucose 96, calcium 8.3. CRP down to 1.93 from 11.5. IMPRESSION: 1. Intra-abdominal abscesses, status post bowel perforation with polymicrobial sarah, including anaerobes and gibson. The patient is doing very well with intravenous (IV) Zosyn and fluconazole. The patient has received 6 weeks of an IV/oral antibiotics since bowel perforation incision and drainage (I and D), and CRP is down to 1. He is asymptomatic. Case discussed with Dr. Julio, who feels we could discontinue antibiotics. Followup CT showed marked improvement in intra-abdominal abscesses. 2. History of prostate cancer, status post robotic prostatectomy. 3. Anorexia, improved. The patient has been drinking Ensure two to three a day. PLAN: The patient could be discharged home tomorrow from an infectious disease standpoint. I would not continue any oral antibiotics on discharge. The patient will followup with Dr. Julio in a couple weeks to discuss reversal of colostomy in 6 weeks. If the patient has recurrent symptoms, such as fever or abdominal pain, we will obtain CT abdomen and pelvis as an outpatient. BING
[2020-01-12 21:00] VITALS: BP 147/83
[2020-01-12] MEDS: SIMVASTATIN 20 MG TAB PO SCH (22:06)
[2020-01-13] MEDS: PIPERACILLIN/TAZOBACTAM SOD 3.375 GM in D5W MINI-BAG PLUS 50 ML IV SCH ×2 (05:42→12:02)
[2020-01-13 05:52] VITALS: BP 141/82
[2020-01-13] MEDS: REMEDY PHYTOPLEX Z-GUARD PASTE 113GM TUBE (FROM STOREROOM PRODUCT) TOP SCH (09:00)
[2020-01-13] MEDS: HEPARIN SOD (PORCINE) 5000UNITS/ML VIAL (J1644 PER 1000UNITS) SC SCH (09:00)
[2020-01-13] MEDS: LACTOBACILLUS ACIDOPHILUS CAP (BACID) PO SCH ×2 (09:22→12:02)
[2020-01-13] MEDS: FLUCONAZOLE 100 MG TAB PO SCH (09:22)
[2020-01-13 09:23] VITALS: BP 138/75
[2020-01-13] MEDS: ASPIRIN 81 MG ENTERIC TAB PO SCH (09:23)
[2020-01-13] MEDS: METOPROLOL TART 25 MG TABLET PO SCH (09:23)
[2020-01-13] MEDS: OMEPRAZOLE 20 MG CAP PO SCH (09:23)
[2020-01-13] MEDS ORDERED: RISATAB3 PO (10:57)
[2020-01-13] MEDS ORDERED: FLUC100T PO (10:57)
[2020-01-13] MEDS ORDERED: OMEP-221 PO (10:57)
[2020-01-13] MEDS ORDERED: ASPI81TAEC PO (10:57)
[2020-01-13] MEDS ORDERED: SIMV20TA22 PO (10:57)
[2020-01-13] MEDS ORDERED: METO1TAB87 PO (10:57)
== END 2020-01-13 14:15 | disposition home health service (06) | DRG 948 ==
LOC: M PM&R 01-03 13:05
PROVIDERS: ADMIT Physical Medicine & Rehabilitation; ATTEND Physical Medicine & Rehabilitation
DX: R53.1 Weakness (principal); R53.81 Other malaise; I25.10 Atherosclerotic heart disease of native coronary artery without angina pectoris; K21.9 Gastro-esophageal reflux disease without esophagitis; Z95.1 Presence of aortocoronary bypass graft; L40.0 Psoriasis vulgaris; Z93.3 Colostomy status; Z79.82 Long term (current) use of aspirin; Z79.899 Other long term (current) drug therapy; Z85.46 Personal history of malignant neoplasm of prostate; I48.91 Unspecified atrial fibrillation; R63.0 Anorexia

== ENCOUNTER → 2020-01-20 | Outpatient (REF) | payer MEDICARE ==
[~2020-01-20] MED LIST changes: +ASPI81TAEC PO; +RISATAB3 PO; +ZOSY1SOL5 IV
[2020-01-20 15:12] LABS: BASO % 0.6 % (0.0-1.0); HEMATOCRIT 40.6 % (42.0-52.0); HEMOGLOBIN 12.7 g/dl (13.5-17.5); LYMPH # 1.3 10^3/uL (1.5-5.0); LYMPH % 18.3 % (24.0-44.0); MEAN CORPUSCULAR HEMOGLOBIN 27.9 pg (27.0-33.0); MEAN CORPUSCULAR HGB CONC 31.3 g/dl (32.0-36.5); MONO # 1.1 10^3/uL (0.0-0.8); MONO % 14.9 % (0.0-5.0); NEUTROPHILS # 4.8 10^3/uL (1.5-8.5); NEUTROPHILS % 65.9 % (36.0-66.0); PLATELET COUNT, AUTOMATED 449 10^3/uL (150-450); RED BLOOD COUNT 4.56 10^6/uL (4.30-6.10); WHITE BLOOD COUNT 7.3 10^3/uL (4.0-10.0)
[2020-01-20 15:37] LABS: ALBUMIN 3.1 GM/DL (3.2-5.2); ALT/SGPT 16 U/L (12-78); BILIRUBIN,TOTAL 0.5 MG/DL (0.2-1.0); BLOOD UREA NITROGEN 11 MG/DL (7-18); C REACTIVE PROTEIN QUANTITATIV 5.47 MG/DL (0.00-0.30); CALCIUM LEVEL 9.6 MG/DL (8.8-10.2); CARBON DIOXIDE LEVEL 26 MEQ/L (21-32); CHLORIDE LEVEL 100 MEQ/L (98-107); CREATININE FOR GFR 0.88 MG/DL (0.70-1.30); GLOMERULAR FILTRATION RATE > 60.0 (>42); GLUCOSE, FASTING 118 MG/DL (70-100); POTASSIUM SERUM 5.1 MEQ/L (3.5-5.1); SODIUM LEVEL 135 MEQ/L (136-145); TOTAL PROTEIN 7.8 GM/DL (6.4-8.2)
== END ==
LOC: M SFHCPLAZ 12:30
PROVIDERS: ATTEND Internal Medicine Infectious Disease
DX: K65.1 Peritoneal abscess (principal)
CPT/HCPCS: 36415; 80053; 85025; 86140; G0463

== ENCOUNTER 2020-04-26 06:56 | Inpatient (IN) | payer MEDICARE ==
[~2020-04-26] VITALS: Ht 177.8 cm; Wt 70.3 kg
[2020-04-26] VITALS (7 sets, daily range): BP systolic 138–167; BP diastolic 71–97; O2SAT 100
[~2020-04-26 06:56] MED LIST changes: +ERTAPENEM SODIUM 1 GM in NS MINI-BAG PLUS 50 ML IV ONE; +LIDOCAINE 2% 100MG/5ML SDV (FOR ANES.) As Ordered ONE; +LR 1,000 ML IV ONE; +MIDAZOLAM INJ 2MG/2ML VIAL (J2250 PER 1MG) As Ordered ONE; +ONDANSETRON 4MG/2ML VIAL As Ordered ONE; +PHENYLephrine HCL 500 MCG/5 ML (100MCG/ML) SYRINGE (J2370) As Ordered ONE; +ROCURONIUM BROMIDE 50 MG/5 ML VIAL As Ordered ONE; +SUGAMMADEX SODIUM 500 MG/5 ML VIAL (BRIDION) As Ordered ONE; +dexameTHASONE 4 MG/ML 1ML VIAL (J1100 PER 1MG) As Ordered ONE; +ePHEDrine SULFATE 25 MG/5 ML(5MG/ML) SYRINGE As Ordered ONE; +fentaNYL 100 MCG/2 ML INJECTION (J3010) As Ordered ONE; +propofoL 200 MG/20 ML VIAL As Ordered ONE
[2020-04-26] MEDS ORDERED: ERTAPENEM 1GM VIAL(INVanz) (J1335 PER 500MG) As Ordered ONE ×2 (07:23→08:12)
[2020-04-26] MEDS ORDERED: METR-265 (07:34)
[2020-04-26] MEDS ORDERED: NEOM500T (07:34)
[2020-04-26] MEDS ORDERED: SUPRSOL2 (07:34)
[2020-04-26] MEDS ORDERED: BUPIVACAINE/EPIN 0.25% 30 ML VIAL As Ordered ONE (07:55)
[2020-04-26] MEDS ORDERED: ACETAMINOPHEN 1000MG 100ML IV BTL (OFIRMEV) (J0131 PER 10MG) As Ordered ONE (08:53)
[2020-04-26] MEDS ORDERED: fentaNYL 100 MCG/2 ML INJECTION (J3010) As Ordered ONE (09:08)
[2020-04-26] MEDS ORDERED: ROCURONIUM BROMIDE 50 MG/5 ML VIAL As Ordered ONE (09:16)
[2020-04-26] MEDS ORDERED: HYDROmorphone HCL 2 MG/ML 1ML VIAL (J1170) As Ordered ONE (09:22)
[2020-04-26] MEDS ORDERED: HYDROMORPHONE HCL 0.5 MG/ 0.5 ML SYRINGE (J1170 PER 1) IV PRN (13:30)
[2020-04-26] MEDS ORDERED: METOCLOPRAMIDE INJ 10MG/2ML VIAL (J2765 PER 1) IV PRN (13:30)
[2020-04-26] MEDS ORDERED: LR 1,000 ML IV SCH (13:30)
[2020-04-26] MEDS ORDERED: ACETAMINOPHEN TAB 650MG DOSE (2X325MG) PO PRN (13:30)
[2020-04-26] MEDS ORDERED: oxyCODONE 5MG TAB PO PRN (13:30)
[2020-04-26] MEDS ORDERED: fentaNYL 100 MCG/2 ML INJECTION (J3010) IV PRN (13:30)
[2020-04-26] MEDS ORDERED: MORPHINE 2 MG/ML 1ML VIAL (J2270) IV PRN (13:30)
[2020-04-26] MEDS ORDERED: ONDANSETRON 4MG/2ML VIAL IV PRN (13:30)
[2020-04-26] MEDS: NS 1,000 ML IV SCH ×2 (15:30→22:00)
[2020-04-26] MEDS: PIPERACILLIN/TAZOBACTAM SOD 3.375 GM in D5W MINI-BAG PLUS 50 ML IV SCH ×2 (15:44→21:58)
[2020-04-26] MEDS: PANTOPRAZOLE 40MG VIAL (C9113 PER 1) IV SCH (15:45)
[2020-04-26] MEDS: KETOROLAC 30 MG/ML 1ML VIAL IV PRN (18:00)
[2020-04-26] MEDS: ONDANSETRON 4MG/2ML VIAL IV PRN (18:00)
[2020-04-26] MEDS: SIMVASTATIN 20 MG TAB PO SCH (20:44)
[2020-04-26] MEDS: SENOKOT S TAB PO SCH (20:44)
[2020-04-27] VITALS (9 sets, daily range): BP systolic 133–169; BP diastolic 76–84; O2SAT 97
[2020-04-27] MEDS: PIPERACILLIN/TAZOBACTAM SOD 3.375 GM in D5W MINI-BAG PLUS 50 ML IV SCH ×4 (02:01→20:44)
[2020-04-27] MEDS: NORCO, ANEXSIA 5/325MG TABLET (HYDROcodone/ACETAMINOPHEN) PO PRN (05:13)
[2020-04-27] MEDS: NS 1,000 ML IV SCH ×3 (05:14→20:44)
[2020-04-27 06:14] LABS: HEMATOCRIT 40.1 % (42.0-52.0); HEMOGLOBIN 13.3 g/dl (13.5-17.5); MEAN CORPUSCULAR HEMOGLOBIN 28.4 pg (27.0-33.0); MEAN CORPUSCULAR HGB CONC 33.2 g/dl (32.0-36.5); MEAN CORPUSCULAR VOLUME 85.5 fl (80.0-96.0); PLATELET COUNT, AUTOMATED 297 10^3/uL (150-450); RED BLOOD COUNT 4.69 10^6/uL (4.30-6.10); WHITE BLOOD COUNT 15.8 10^3/uL (4.0-10.0)
[2020-04-27 06:40] LABS: BLOOD UREA NITROGEN 23 MG/DL (7-18); CALCIUM LEVEL 8.8 MG/DL (8.8-10.2); CARBON DIOXIDE LEVEL 21 MEQ/L (21-32); CHLORIDE LEVEL 109 MEQ/L (98-107); CREATININE FOR GFR 1.24 MG/DL (0.70-1.30); GLOMERULAR FILTRATION RATE > 60.0 (>42); GLUCOSE, FASTING 117 MG/DL (70-100); POTASSIUM SERUM 4.3 MEQ/L (3.5-5.1); SODIUM LEVEL 138 MEQ/L (136-145)
--- NOTE | 2020-04-27 07:53 | IPNPDOC ---
Text Note Date of Service The patient was seen on 04/27/20. NOTE No problems overnight. He has been able to stand at the side of the bed on his own, and he sat up to the commode once as well. Denies nausea, emesis, or fevers. Pain is present, but it is minimal and controlled. No complaints at this time. No flatus or BM yet. VSSAF NAD abd - soft, TTP appropriate, dressings intact labs - below A) 70y/o male POD#1 s/p ex-lap w/ extensive WILFRED, colostomy reversal, and enterotomy repair P) clq diet amb in abreu OOB to chair encourage IS monitor labs await return of bowel function Micah Julio DO VS,Sunil, I+O VS, Sunil, I+O Laboratory Tests 04/27/20 05:41 Vital Signs Date Time Temp Pulse Resp B/P (MAP) Pulse Ox O2 Delivery O2 Flow Rate FiO2 04/27/20 06:40 97 Room Air 04/27/20 06:00 98.4 92 17 135/76 (95) 2.0 I&O- Last 24 Hours up to 6 AM 04/27/20 06:00 Intake Total 3490 ml Output Total 680 ml Balance 2810 ml ZAIRE UJLIO DO Apr 27, 2020 07:53
[2020-04-27] MEDS: PANTOPRAZOLE 40MG VIAL (C9113 PER 1) IV SCH (08:06)
[2020-04-27] MEDS: ENOXAPARIN 40MG/0.4ML SYRINGE (J1650 PER 10MG) SC SCH (08:06)
[2020-04-27] MEDS: SENOKOT S TAB PO SCH ×2 (08:07→20:44)
[2020-04-27] MEDS: KETOROLAC 30 MG/ML 1ML VIAL IV PRN (15:10)
[2020-04-27] MEDS: SIMVASTATIN 20 MG TAB PO SCH (20:44)
[2020-04-28] MEDS: ONDANSETRON 4MG/2ML VIAL IV PRN ×2 (01:56→09:19)
[2020-04-28] MEDS: PIPERACILLIN/TAZOBACTAM SOD 3.375 GM in D5W MINI-BAG PLUS 50 ML IV SCH ×4 (01:56→20:59)
[2020-04-28 06:00] VITALS: BP 151/80
[2020-04-28] MEDS: NS 1,000 ML IV SCH ×3 (06:15→22:56)
[2020-04-28 07:04] LABS: HEMATOCRIT 38.3 % (42.0-52.0); HEMOGLOBIN 12.4 g/dl (13.5-17.5); MEAN CORPUSCULAR HEMOGLOBIN 28.4 pg (27.0-33.0); MEAN CORPUSCULAR HGB CONC 32.4 g/dl (32.0-36.5); MEAN CORPUSCULAR VOLUME 87.6 fl (80.0-96.0); PLATELET COUNT, AUTOMATED 261 10^3/uL (150-450); RED BLOOD COUNT 4.37 10^6/uL (4.30-6.10); WHITE BLOOD COUNT 13.1 10^3/uL (4.0-10.0)
--- NOTE | 2020-04-28 07:28 | IPNPDOC ---
Text Note Date of Service The patient was seen on 04/28/20. NOTE Overnight he had one episode of emesis about 3am. Denies nausea, emesis, or f santiago currently. Pain is present, but it is minimal and controlled. No complaints at this time. He did have some flatus and one small BM yesterday. VSSAF NAD abd - soft, TTP appropriate, incisions c/d/i, berlin drain with serosanguinous output labs - below A) 70y/o male POD#2 s/p ex-lap w/ extensive WILFRED, colostomy reversal, and enterotomy repair P) clq diet amb in abreu OOB to chair encourage IS monitor labs await return of bowel function Micah Julio DO VS,Sunil, I+O VS, Sunil, I+O Laboratory Tests 04/28/20 06:39 Vital Signs Date Time Temp Pulse Resp B/P (MAP) Pulse Ox O2 Delivery O2 Flow Rate FiO2 04/28/20 06:00 98.2 95 16 151/80 (103) 98 Room Air 04/27/20 09:00 I&O- Last 24 Hours up to 6 AM 04/28/20 06:00 Intake Total 3625 ml Output Total 240 ml Balance 3385 ml ZAIRE JULIO DO Apr 28, 2020 07:28
[2020-04-28 07:29] LABS: BLOOD UREA NITROGEN 18 MG/DL (7-18); CALCIUM LEVEL 8.5 MG/DL (8.8-10.2); CARBON DIOXIDE LEVEL 22 MEQ/L (21-32); CHLORIDE LEVEL 111 MEQ/L (98-107); GLOMERULAR FILTRATION RATE > 60.0 (>42); GLUCOSE, FASTING 105 MG/DL (70-100); POTASSIUM SERUM 4.2 MEQ/L (3.5-5.1); SODIUM LEVEL 141 MEQ/L (136-145)
[2020-04-28] MEDS: PANTOPRAZOLE 40MG VIAL (C9113 PER 1) IV SCH (08:36)
[2020-04-28] MEDS: SENOKOT S TAB PO SCH ×2 (08:36→20:59)
[2020-04-28] MEDS: ENOXAPARIN 40MG/0.4ML SYRINGE (J1650 PER 10MG) SC SCH (08:36)
[2020-04-28] MEDS: KETOROLAC 30 MG/ML 1ML VIAL IV PRN (13:22)
[2020-04-28 14:00] VITALS: BP 135/70
[2020-04-28 19:31] VITALS: O2SAT 96
[2020-04-28] MEDS: SIMVASTATIN 20 MG TAB PO SCH (20:59)
[2020-04-28 22:00] VITALS: BP 136/70
[2020-04-29] MEDS: PIPERACILLIN/TAZOBACTAM SOD 3.375 GM in D5W MINI-BAG PLUS 50 ML IV SCH (02:30)
[2020-04-29 06:00] VITALS: BP 136/72
[2020-04-29] MEDS: KETOROLAC 30 MG/ML 1ML VIAL IV PRN (06:16)
[2020-04-29] MEDS: NS 1,000 ML IV SCH (06:16)
[2020-04-29 07:00] LABS: HEMATOCRIT 36.5 % (42.0-52.0); HEMOGLOBIN 11.7 g/dl (13.5-17.5); MEAN CORPUSCULAR HEMOGLOBIN 28.1 pg (27.0-33.0); MEAN CORPUSCULAR HGB CONC 32.1 g/dl (32.0-36.5); MEAN CORPUSCULAR VOLUME 87.7 fl (80.0-96.0); PLATELET COUNT, AUTOMATED 249 10^3/uL (150-450); RED BLOOD COUNT 4.16 10^6/uL (4.30-6.10); WHITE BLOOD COUNT 9.3 10^3/uL (4.0-10.0)
[2020-04-29 07:23] LABS: BLOOD UREA NITROGEN 12 MG/DL (7-18); CALCIUM LEVEL 8.1 MG/DL (8.8-10.2); CARBON DIOXIDE LEVEL 21 MEQ/L (21-32); CHLORIDE LEVEL 113 MEQ/L (98-107); CREATININE FOR GFR 0.77 MG/DL (0.70-1.30); GLOMERULAR FILTRATION RATE > 60.0 (>42); GLUCOSE, FASTING 89 MG/DL (70-100); POTASSIUM SERUM 3.7 MEQ/L (3.5-5.1); SODIUM LEVEL 143 MEQ/L (136-145)
[2020-04-29] MEDS ORDERED: HYDR-3715 PO (08:23)
--- NOTE | 2020-04-29 08:29 | IPNPDOC ---
Text Note Date of Service The patient was seen on 04/29/20. NOTE No acute events overnight. He had about 6 soft loose BMs yesterday. Denies na usea, emesis, or fevers currently. Pain is present, but it is minimal and controlled. No complaints at this time. He is walking the halls on his own and getting up to the bathroom. VSSAF NAD abd - soft, TTP appropriate, incisions c/d/i, berlin drain with serous output labs - below A) 70y/o male POD#3 s/p ex-lap w/ extensive WILFRED, colostomy reversal, and enterotomy repairs P) reg diet ensure amb in abreu OOB to chair encourage IS monitor labs d/c ivf d/c morphine plan on d/c home in am Micah Julio DO VS,Sunil, I+O VS, Sunil, I+O Laboratory Tests 04/29/20 06:28 Vital Signs Date Time Temp Pulse Resp B/P (MAP) Pulse Ox O2 Delivery O2 Flow Rate FiO2 04/29/20 06:00 98.5 80 18 136/72 (93) 98 Room Air 04/27/20 09:00 I&O- Last 24 Hours up to 6 AM 04/29/20 05:59 Intake Total 525 ml Output Total 390 ml Balance 135 ml ZAIRE JULIO DO Apr 29, 2020 08:29
[2020-04-29] MEDS: SENOKOT S TAB PO SCH ×2 (09:00→19:43)
[2020-04-29] MEDS: ENOXAPARIN 40MG/0.4ML SYRINGE (J1650 PER 10MG) SC SCH (09:05)
[2020-04-29 14:00] VITALS: BP 137/72
[2020-04-29] MEDS: SIMVASTATIN 20 MG TAB PO SCH (19:43)
[2020-04-29 20:00] VITALS: BP 130/68
[2020-04-29 21:57] VITALS: O2SAT 96
[2020-04-30] MEDS: NORCO, ANEXSIA 5/325MG TABLET (HYDROcodone/ACETAMINOPHEN) PO PRN ×2 (04:01→12:03)
[2020-04-30 05:57] VITALS: BP 130/65
[2020-04-30 07:34] LABS: HEMATOCRIT 33.4 % (42.0-52.0); HEMOGLOBIN 10.9 g/dl (13.5-17.5); MEAN CORPUSCULAR HEMOGLOBIN 28.2 pg (27.0-33.0); MEAN CORPUSCULAR HGB CONC 32.6 g/dl (32.0-36.5); MEAN CORPUSCULAR VOLUME 86.3 fl (80.0-96.0); PLATELET COUNT, AUTOMATED 249 10^3/uL (150-450); RED BLOOD COUNT 3.87 10^6/uL (4.30-6.10); WHITE BLOOD COUNT 7.1 10^3/uL (4.0-10.0)
[2020-04-30 07:57] LABS: BLOOD UREA NITROGEN 10 MG/DL (7-18); CALCIUM LEVEL 7.9 MG/DL (8.8-10.2); CARBON DIOXIDE LEVEL 24 MEQ/L (21-32); CHLORIDE LEVEL 113 MEQ/L (98-107); CREATININE FOR GFR 0.64 MG/DL (0.70-1.30); GLOMERULAR FILTRATION RATE > 60.0 (>42); GLUCOSE, FASTING 94 MG/DL (70-100); POTASSIUM SERUM 3.8 MEQ/L (3.5-5.1); SODIUM LEVEL 144 MEQ/L (136-145)
[2020-04-30] MEDS: SENOKOT S TAB PO SCH (08:44)
[2020-04-30] MEDS: ENOXAPARIN 40MG/0.4ML SYRINGE (J1650 PER 10MG) SC SCH (08:44)
--- NOTE | 2020-05-10 09:32 | RO ---
DATE OF OPERATION: 04/26/20 PREOPERATIVE DIAGNOSIS: Colostomy reversal. POSTOPERATIVE DIAGNOSIS: Colostomy reversal, with extensive adhesions. PROCEDURES: * Exploratory laparotomy with extensive lysis of adhesions. * Mobilization and takedown of sigmoid colostomy with primary end-to-end anastomosis. * Enterotomy closure x2. SURGEON: Grover Julio DO EDITING COMPUTER PUBLISHER: Dr. Aaron assisted with mobilization of the small bowel, colon as well as with anastomosis creation. ANESTHESIA: General. EBL: 100. COMPLICATIONS: Extensive adhesions. INDICATIONS FOR PROCEDURE: The patient is a 70-year-old male who presents with history of colostomy done for diverting purposes due to rectal injury and post- urological procedure. Recommendation was to proceed with colostomy reversal. Risks and benefits of procedure not limited to but including bleeding, infection, hernia formation, surrounding to structures, need for further surgery discussed in detail with the patient, informed consent obtained and procedure planned. PROCEDURE: The patient was brought back to operating room 7. After sufficient sedation the abdomen was sterilely prepped and draped. Time out was done to confirm proper patient, proper procedure. Following that an 8 mm incision was made in left upper quadrant, Veress needle was inserted. The abdomen was insufflated to 15 mmHg. Veress needle was removed and 8 mm Optiview port was used to gain access to the abdomen. Once the abdomen was entered there was no visible free space. Multiple loops of bowel with adhesions were identified. The port was then left in place. Another attempt was made in the right upper quadrant, another 8 mm port was placed resulting in the same results. Next, cautery was used to make a circumferential incision around the colostomy site and dissection was carried down through the skin, subcutaneous tissue and through the fascia using cautery. Once the peritoneum was entered circumferential adhesions were dissected free. However, there were extensive adhesions; I was unable to identify the rectal stump from this position. I was able to feel over toward the midline, appeared to be free so the midline incision was reopened from his previous surgery. The incision was opened under direct visualization. The abdomen was entered. However, there was a little bit of small bowel that was running right across it that ended up having two small holes placed in it during the opening. Once the incision was completed the loop of small bowel was brought outside, the two small holes were closed using interrupted 3-0 Vicryl sutures. Once that was completed adhesions were taken down around the entire abdomen, mainly focusing down toward the pelvis. There were multiple loops of small bowel that were densely adhered into the pelvis and into the left lateral sidewall. For the next 2-1/2 to 3 hours these adhesions were just carefully dissected free. Once the rectal stump was identified it was already fairly mobilized free, the EnSeal was used to take down the mesentery for another couple of inches and then DAISY 75 green load stapler was used to transect a little bit lower down to the rectosigmoid junction and specimen of sigmoid was removed. The EEA sizers were brought into the rectum making sure there was sufficient length to reach using the EEA stapler. The proximal sigmoid stump was then transected using 10-blade scalpel. The EEA 29 anvil was placed inside, sutured in place using 2-0 Prolene pursestring suture. Once that was completed the EEA sizer was removed from the rectum, the EEA stapler was brought in and end-to-end anastomosis was then created. Once that was completed the pelvis was filled with saline, pressure tested with saline and no signs of any air leak. The anastomosis was then covered with Tisseel. 19-Tamazight Gene drain was placed inside the pelvis, brought out through the right lower quadrant through stab incision. Once that was completed the abdomen was irrigated with warm saline. The midline incision was closed with looped PDS sutures, skin was closed with todd. The interrupted [id number] #1 Vicryl sutures were used to approximate the fascia at the ostomy site followed by another layer of #0 Vicryl sutures followed by skin todd there as well. Drain was sutured in placed with 2-0 silk suture. The abdomen was cleaned and dried. 4 x 4s and tape were applied. This ended the procedure. MTDD
--- NOTE | 2020-05-10 12:51 | DS ---
DATE OF ADMISSION: 04/26/2020 DATE OF DISCHARGE: 04/30/2020 ADMISSION DIAGNOSIS: Colostomy reversal. DISCHARGE DIAGNOSIS: Colostomy reversal. HOSPITAL COURSE: The patient is a 69-year-old male who had a previous robotic prostatectomy which resulted in an injury to the anterior rectum. Because of that, he ended up having a diverting colostomy created. He now presents for elective reversal. On the , we did a reversal, open, due to extensive adhesions. He tolerated this surgery well. Postoperatively, he continued to ambulate aggressively, was very active with his incentive spirometer and he regained bowel function quickly. Over the next three days, he was slowly advanced on diet. He continued to ambulate in the halls. His labs were normal. He had no problems with vitals; no fevers; no tachycardia; no hypotension. By postop day four, he was having bowel movements and tolerating a full diet and plan was to discharge him home. He was discharged home with just Tylenol and Motrin as needed for pain. He also was sent a script for Edvivo. He can lift up to 20 pounds. He can shower. No baths or soaking in water. All of his questions were answered and he will follow up with me in the office in two weeks to get his todd removed. BING
== END 2020-04-30 14:10 | disposition home or self-care (01) | DRG 331 ==
LOC: M OR 06:56 → M MS5PR 15:15
PROVIDERS: ADMIT Surgery; ATTEND Surgery
PROC: 0DNN0ZZ Release Sigmoid Colon, Open Approach (ICD-10-PCS; 2020-04-26)
PROC: 0DBN0ZZ Excision of Sigmoid Colon, Open Approach (ICD-10-PCS; principal; 2020-04-26 08:30)
DX: Z43.3 Encounter for attention to colostomy (principal); I25.10 Atherosclerotic heart disease of native coronary artery without angina pectoris; K21.9 Gastro-esophageal reflux disease without esophagitis; Z85.46 Personal history of malignant neoplasm of prostate; K66.0 Peritoneal adhesions (postprocedural) (postinfection); L40.8 Other psoriasis

== ENCOUNTER 2022-07-17 11:16 | Day surgery (SDC) | payer MEDICARE ==
[~2022-07-17] VITALS: Ht 177.8 cm; Wt 88.0 kg
[~2022-07-17 11:16] MED LIST changes: +ASPI-569 PO; -ASPI81TAEC PO; -ERTAPENEM SODIUM 1 GM in NS MINI-BAG PLUS 50 ML IV ONE; -FLUC100T PO; +FLUC100T3 PO; -FLUC200T2 PO; +FLUC200T4 PO; -LIDOCAINE 2% 100MG/5ML SDV (FOR ANES.) As Ordered ONE; -LR 1,000 ML IV ONE; +METR-265; -MIDAZOLAM INJ 2MG/2ML VIAL (J2250 PER 1MG) As Ordered ONE; +NEOM500T; -OMEP-221 PO; +OMEP40CA5 PO; -ONDANSETRON 4MG/2ML VIAL As Ordered ONE; -PHENYLephrine HCL 500 MCG/5 ML (100MCG/ML) SYRINGE (J2370) As Ordered ONE; -ROCURONIUM BROMIDE 50 MG/5 ML VIAL As Ordered ONE; -SUGAMMADEX SODIUM 500 MG/5 ML VIAL (BRIDION) As Ordered ONE; +SUPRSOL2; +ceFAZolin SOD 2 GM in IV 1 EA IV ONE; -dexameTHASONE 4 MG/ML 1ML VIAL (J1100 PER 1MG) As Ordered ONE; -ePHEDrine SULFATE 25 MG/5 ML(5MG/ML) SYRINGE As Ordered ONE; -fentaNYL 100 MCG/2 ML INJECTION (J3010) As Ordered ONE; -propofoL 200 MG/20 ML VIAL As Ordered ONE
[2022-07-17] MEDS ORDERED: LR 1,000 ML IV SCH ×2 (11:55→15:15)
[2022-07-17] MEDS ORDERED: ONDANSETRON 4MG 2ML VIAL As Ordered ONE (12:35)
[2022-07-17] MEDS ORDERED: ROCURONIUM BROMIDE 50MG/5ML VIAL As Ordered ONE ×2 (12:35→13:54)
[2022-07-17] MEDS ORDERED: propofoL 200 MG/20 ML VIAL As Ordered ONE (12:35)
[2022-07-17] MEDS ORDERED: LIDOCAINE 2% 100MG/5ML SDV (FOR ANES.) As Ordered ONE (12:35)
[2022-07-17] MEDS ORDERED: SUGAMMADEX SODIUM 500 MG/5 ML VIAL (BRIDION) As Ordered ONE (12:38)
[2022-07-17] MEDS ORDERED: fentaNYL 100 MCG/2 ML INJECTION As Ordered ONE ×2 (12:40→13:45)
[2022-07-17] MEDS ORDERED: MIDAZOLAM INJ 2MG/2ML VIAL (J2250 PER 1MG) As Ordered ONE (12:40)
[2022-07-17] MEDS ORDERED: BUPIVACAINE/EPIN 0.25% 30ML VIAL As Ordered ONE (13:05)
[2022-07-17] MEDS ORDERED: ACETAMINOPHEN 1000MG 100ML IV BAG As Ordered ONE (13:46)
[2022-07-17] MEDS ORDERED: KETOROLAC 60MG 2ML VIAL As Ordered ONE (14:50)
[2022-07-17] MEDS ORDERED: HYDROmorphone HCL 2MG/ML 1ML VIAL As Ordered ONE (14:55)
[2022-07-17] MEDS ORDERED: HYDROMORPHONE HCL 0.5 MG/ 0.5 ML SYRINGE (J1170 PER 1) IV PRN (15:15)
[2022-07-17] MEDS ORDERED: fentaNYL 100 MCG/2 ML INJECTION IV PRN (15:15)
[2022-07-17] MEDS ORDERED: oxyCODONE 5MG TAB PO PRN (15:15)
[2022-07-17] MEDS ORDERED: ONDANSETRON 4MG 2ML VIAL IV PRN (15:15)
[2022-07-17] MEDS ORDERED: NORCO, ANEXSIA 5/325MG TABLET (HYDROcodone/ACETAMINOPHEN) PO PRN (15:45)
[2022-07-17 15:51] VITALS: BP 168/79
== END 2022-07-17 16:26 | disposition home or self-care (01) ==
LOC: M SDC 11:16
PROVIDERS: ATTEND Surgery
DX: K40.90 Unilateral inguinal hernia, without obstruction or gangrene, not specified as recurrent (principal); I25.10 Atherosclerotic heart disease of native coronary artery without angina pectoris; I25.2 Old myocardial infarction; E78.5 Hyperlipidemia, unspecified; K21.9 Gastro-esophageal reflux disease without esophagitis; Z85.46 Personal history of malignant neoplasm of prostate; Z79.899 Other long term (current) drug therapy
CPT/HCPCS: 49650; C1781; J0131; J0690; J1100; J1170; J1885; J2250; J2405; J3010; S2900

== ENCOUNTER 2023-02-27 07:37 | Day surgery (SDC) | payer MEDICARE ==
[~2023-02-27] VITALS: Ht 177.8 cm; Wt 84.1 kg
[2023-02-27] MEDS ORDERED: LR 1,000 ML IV SCH (08:50)
[2023-02-27] MEDS ORDERED: fentaNYL 100 MCG/2 ML INJECTION As Ordered ONE (08:54)
[2023-02-27] MEDS ORDERED: MIDAZOLAM INJ 2MG/2ML VIAL As Ordered ONE (08:55)
[2023-02-27] MEDS ORDERED: MORPHINE 2 MG/ML 1ML VIAL IV PRN (13:00)
[2023-02-27] MEDS ORDERED: oxyCODONE 5MG TAB PO PRN (13:00)
[2023-02-27] MEDS ORDERED: ONDANSETRON 4MG 2ML VIAL IV PRN (13:00)
[2023-02-27] MEDS ORDERED: fentaNYL 100 MCG/2 ML INJECTION IV PRN (13:00)
[2023-02-27] MEDS ORDERED: NORCO, ANEXSIA 5/325MG TABLET (HYDROcodone/ACETAMINOPHEN) PO PRN (13:35)
[2023-02-27 15:50] VITALS: BP 152/68; TEMP 97.4; O2SAT 95
== END 2023-02-27 15:53 | disposition home or self-care (01) ==
LOC: M SDC 07:37
PROVIDERS: ATTEND Surgery
DX: K40.91 Unilateral inguinal hernia, without obstruction or gangrene, recurrent (principal); K66.0 Peritoneal adhesions (postprocedural) (postinfection); I25.10 Atherosclerotic heart disease of native coronary artery without angina pectoris; I25.2 Old myocardial infarction; E78.5 Hyperlipidemia, unspecified; Z85.46 Personal history of malignant neoplasm of prostate; Z95.1 Presence of aortocoronary bypass graft; Z79.899 Other long term (current) drug therapy
CPT/HCPCS: 49329; 49651; C1781; J0665; J0690; J2250; J3010; S2900